=== PATIENT | female | born 1935 | race Caucasian/White ===

== ENCOUNTER 2022-03-28 13:03 | Inpatient (IN) | payer MEDICARE, BC, SELFPAY ==
[2022-03-28] VITALS (11 sets, daily range): BP systolic 80–204; BP diastolic 35–97; PULSE 44–56; RESP 16–20; TEMP 36.4–36.8; O2SAT 87–99; BMI 24.6; BMI 25.4
--- NOTE | 2022-03-28 13:36 | RAD_ITS ---
STUDY: X-RAY CHEST REASON FOR EXAM: Female, 86 years old. Dyspnea, bilateral rales, edema TECHNIQUE: PA and lateral views of the chest. COMPARISON: None. FINDINGS: Bibasilar pulmonary infiltrates worse on the right side. Blunting of both costal phrenic angles. Normal size heart. Normal mediastinum and kim. Normal visualized pulmonary arteries. There is atherosclerotic calcification of the aortic arch with tortuosity. There are diffuse degenerative changes of the visualized thoracic spine. There is degenerative osteoarthritis of the bilateral shoulders. There is no demonstrated abnormality of the visualized soft tissue structures of the upper abdomen. RAD/Chest PA and Lateral IMPRESSION: Bibasilar pulmonary infiltrates worse on the right side with blunting of both costophrenic angles. Electronically Signed: Armand Steele MD at 14:52 EST ,
--- NOTE | 2022-03-28 13:36 | EKG12_ITS ---
Test Reason : Blood Pressure : / mmHG Vent. Rate : 054 BPM Atrial Rate : 054 BPM P-R Int : 214 ms QRS Dur : 084 ms QT Int : 448 ms P-R-T Axes : 079 -23 047 degrees QTc Int : 424 ms Sinus bradycardia with 1st degree A-V block Nonspecific T wave abnormality Poor R wave progression Abnormal ECG Confirmed by JAGDEEP BERMUDEZ, GORDO ([id number]), scientific publications editor YENIFER VALLE ([id number]) on 03/30/2022 9:00:09 AM Referred By: WOLF Confirmed By:GORDO GANNON MD
--- NOTE | 2022-03-28 13:40 | NURSING ---
NO OLD EKGS
[2022-03-28 14:15] LABS: Absolute Neutrophil Count 5.7 X10^3/uL (2.0-7.7); Basophil# 0.04 X10^3/uL; Basophil% 0.6 % (0-1); Eosinophils% 1.4 % (0-5); Hematocrit 42.8 % (37-47); Hemoglobin 13.8 g/dL (12.0-15.0); Lymphocyte % 12.4 % (19-41); Mean Corp Hgb Conc 32.2 g/dL (32-36); Mean Corpuscular Hgb 29.8 pg (27.0-32.0); Mean Corpuscular Volume 92.4 fL (81-99); Mean Platelet Vol. 12.4 fl (6.2-12.0); Monocyte% 6.9 % (0-10); NRBC Flagged by Analyzer 0 % (0-5); Neutrophil # 5.69 X10^3/uL (2.7-7.7); Neutrophil % 78.4 % (47-70); Platelet Count 118 K/mm3 (150-450); RBC Distribution Width CV 18.2 % (11.6-14.6); Red Blood Count 4.63 M/mm3 (4.2-5.4); White Blood Count 7.3 K/mm3 (4.4-11.0)
--- NOTE | 2022-03-28 14:24 | EDS_ITS ---
HPI History of Present Illness Chief Complaint: Shortness of Breath Detail of Chief Complaint: Dyspnea, dyspnea on exertion and pedal edema Informant: patient and family Onset/Context/Timing Onset: Weeks Context: gradual Timing: Continuous Quality: Positive for Dyspnea on exertion; Negative for Orthopnea or PND Current Severity: Mild Maximum Severity: Severe Worsened by: Exertion Relieved by: Nothing Associated Symptoms Negative for cough, rhinorrhea, post nasal drip, ear pain, fever, sore throat, subjective, chills, sweats, clear sputum, white sputum, yellow sputum or green sputum Chest Pain: Positive for None Narrative Narrative: Patient is an 86-year-old woman who presents with shortness of breath. She had cardioversion performed at hospital in [place]. She had a VIK which revealed no thrombus. EF was not reported on the document she had. She was successfully cardioverted. She presents because of increased swelling, dyspnea and dyspnea on exertion. She denies orthopnea. PE Risk Factors: Negative for Cancer, OCP + Smoking + > 35, Prior DVT or PE, Recent immobilization, Recent surgery or Recent travel Prior similar symptoms: Yes Recent Illness/Hospitalization: Yes [facility], [facility] Medical History Atrial fibrillation Edema History of cardioversion Macular degeneration SOB (shortness of breath) Home Medications amiodarone 200 mg tablet 200 mg PO DAILY 03/28/22 [History Last Taken Unknown] apixaban 5 mg tablet (Eliquis) 5 mg PO BID 03/28/22 [History Last Taken Unknown] furosemide 20 mg tablet 20 mg PO DAILY 03/28/22 [History Last Taken Unknown] metoprolol tartrate 25 mg tablet 75 mg PO BID 03/28/22 [History Last Taken Unknown] Allergy/AdvReac Type Severity Reaction Status Date / Time Sulfa (Sulfonamide Allergy Angioedema Verified 03/28/22 13:07 Antibiotics) Surgical History no surgical history Social History (Updated 03/28/22 @ 14:[address] Reece Spence MD) household members: none Smoking Status: Never smoker substance use type: does not use ROS ROS ED Constitutional Constitutional ED: Denies chills, fever(s), sweats or weight loss Eyes Eyes: Denies blurry vision, change in vision or diplopia ENT ENT ED: Denies ear pain, rhinorrhea or sore throat Cardiovascular Cardiovascular: Reports other Details: Family reports slow heart rate. ; Denies chest pain, orthopnea, palpitations, paroxysmal nocturnal dyspnea or ra cing heartbeat Respiratory/Chest Respiratory/Chest: Reports dyspnea and dyspnea on exertion; Denies cough, orthopnea or paroxysmal nocturnal dyspnea Gastrointestinal Gastrointestinal: Denies abdominal pain, constipation, diarrhea, melena, nausea or vomiting Genitourinary Genitourinary ED: Denies dysuria or hematuria Musculoskeletal Musculoskeletal: Denies arthralgias, back pain, myalgias or neck pain Integumentary Denies Abrasions or rash Neurologic Neurologic: Denies headache(s), paresthesias or weakness Endocrine Endocrinology: Denies cold intolerance or heat intolerance Hematologic/Lymphatic Hematologic/Lymphatic: Denies easy bleeding or easy bruising EXAM Physical Exam Const Vital Signs: 03/28/22 13:04 03/28/22 13:52 Temperature 97.6 F L Temperature Source Temporal Pulse Rate 55 L Respiratory Rate 16 Respiratory Effort Normal Non-Labored Respiratory Depth Normal Respiratory Pattern Normal Blood Pressure 195/85 H Blood Pressure Mean 121 Pulse Ox 97 Oxygen Delivery Method Room Air Room Air Positive well nourished and well developed Constitutional Narrative: Patient is tachypneic. Patient has mild use of accessory muscles. Her heart rate is much more rapid than 16 times a minute. General Appearance ED: well developed and pallor; Negative for NAD HEENT Reports moist mucous membranes HEENT Narrative: Head is atraumatic normocephalic. Ears normal. Nares patent. Uvula midline. No deviation with protrusion. Eyes PERRL and EOMs intact bilaterally General Eye ED: Negative for pale conjunctiva or scleral icterus Neck no lymphadenopathy, supple, no meningeal signs and no JVD Resp No normal respiratory effort and No clear to auscultation bilaterally Effort and Inspection: Negative for pain with movement Auscultation: rales right lower and left base Cardio regular rhythm, S1 normal heart sound, S2 normal heart sound and no murmurs Rate: bradycardia GI non-tender, non-distended and no masses GI Narrative: There is no palpable pulsatile mass. There is no abdominal bruit Auscultation: normoactive bowel sounds Palpation: soft; Negative for hepatomegaly, splenomegaly or mass Back/Spine no CVA tenderness Extremity Extremity Narrative: Patient has significant edema of her lower extremities. General Extremety ED: Yes edema General Extremity: edema Neuro oriented x3, CN's II-XII intact bilaterally and no sensory deficits noted [place] Coma Scale: document GCS findings Spontaneous Obeys Commands Oriented 15 Sensorium / Orientation: alert Psych mental status grossly normal Mood & Affect: Negative for depressed Skin no wounds General Skin Exam: pallor; Negative for jaundice Lesions: no lesions Rashes: no rashes MDM MDM MDM Narrative Medical decision making narrative: Patient appears pale CBC was obtained to assess H&H. Electrolyte panel was obtained to assess renal function as possible cause of her being fluid overloaded versus cardiac ischemia. EKG, troponin and chest x-ray obtained. BNP was obtained as well. Lab Data Attestation: I reviewed the patient's lab results. Labs: Laboratory Results - last 24 hr 03/28/22 03/28/22 03/28/22 14:06 14:06 14:06 WBC 7.3 RBC 4.63 Hgb 13.8 Hct 42.8 MCV 92.4 MCH 29.8 MCHC 32.2 RDW Std Deviation 61.0 H RDW Coeff of Shahbaz 18.2 H Plt Count 118 L MPV 12.4 H Immature Gran % (Auto) 0.300 Neut % (Auto) 78.4 H Lymph % (Auto) 12.4 L [place] % (Auto) 6.9 Eos % (Auto) 1.4 Baso % (Auto) 0.6 Absolute Neuts (auto) 5.7 Absolute Lymphs (auto) 0.90 Nucleated RBC % 0 Sodium 139 Potassium 4.2 Chloride 102 Carbon Dioxide 28.0 Anion Gap 9 BUN 27 H Creatinine 0.98 Estim Creat Clear Calc 35.33 Est GFR (MDRD) Af Amer 69 Est GFR (MDRD) Non-Af 57 L BUN/Creatinine Ratio 27.5 H Glucose 112 H Calcium 9.9 Total Bilirubin 1.10 H AST 46 H ALT 52 Alkaline Phosphatase 109 Troponin I High Sens 63 H B-Natriuretic Peptide 1385.3 H Total Protein 7.6 Albumin 3.7 Globulin 3.9 Albumin/Globulin Ratio 0.9 Radiography Chest X-Ray - ED: 2 View and Read by ED Physician (Reviewed dust x-ray reveals infiltrates right greater than left and small bilateral effusions. Cardiac size is within normal limits. Osseous structures are unremarkable. Perihilar regions unremarkable.) Diagnostic Testing: Clinical Impression(s) from Imaging Studies Chest X-Ray 03/28/22 13:36 IMPRESSION: Bibasilar pulmonary infiltrates worse on the right side with blunting of both costophrenic angles. Electronically Signed: Armand Steele MD at 14:52 EST , EKG Initial EKG: Attestation: I personally reviewed and interpreted this EKG as follows: Interpretation: Sinus Bradycardia (Sinus bradycardia with a rate of 54 and first-degree AV block. AL interval 214 ms. Castration 84 ms. QT duration 4 to 48 ms. [place] is normal. There is minimal nonseptic changes noted.) Treatment and Re-Evaluation Narrative: Patient and family were informed of results and need for admission. Spoke with hospitalist. Patient to be admitted. Discharge Plan Triage Chief Complaint: Shortness of Breath ED Provider: Reece Spence Dx/Rx/DC Orders Clinical Impression: Bilateral pneumonia, New onset of congestive heart failure, Acute dyspnea, Hypertension, Anticoagulant long-term use Prescriptions: No Action amiodarone 200 mg tablet 200 mg PO DAILY furosemide 20 mg tablet 20 mg PO DAILY Label Comments: take 1 tablet by mouth once daily metoprolol tartrate 25 mg tablet 75 mg PO BID Label Comments: take 1 tablet by mouth twice a day Eliquis 5 mg tablet 5 mg PO BID Label Comments: take 1 tablet by mouth twice a day Primary Care Provider: Alonso Marques Referrals: Alonso Marques MD [Primary Care Provider] - Disposition Disposition: Acute Care Hospital [facility]
[2022-03-28 14:33] LABS: ALB/GLOB Ratio 0.9 RATIO (0.9-2.4); AST(SGOT) 46 U/L (15-37); Alanine Aminotransfer ALT/SGPT 52 U/L (13-56); Albumin, Serum 3.7 g/dL (3.2-5.0); Alkaline Phosphatase 109 U/L (45-117); Anion Gap 9 (5-15); BUN 27 mg/dL (7-18); BUN/Creat Ratio 27.5 RATIO (10-20); Calcium,Total 9.9 mg/dL (8.5-10.1); Chloride 102 mmol/L (98-107); Creatinine, Serum 0.98 mg/dL (0.55-1.02); EST Glomerular Filtration Rate 57 mL/min (>60); Est Glom Filt Rate - Afr Amer 69 mL/min (>60); Estimated Creatinine Clearance 35.33 ml/min; Globulin 3.9 g/dL (2.2-4.2); Glucose 112 mg/dL (74-106); Potassium 4.2 mmol/L (3.5-5.1); Protein, Total 7.6 g/dL (6.4-8.2); Sodium Level 139 mmol/L (136-145); Troponin-I HS 63 pg/mL (3.0-54.0)
[2022-03-28] MEDS: Furosemide 40 MG/4 ML Vial IV (16:58)
--- NOTE | 2022-03-28 16:58 | HP.PCM.HOS_ITS ---
HPI - General General Date of Admission: 03/28/22 Date of Service: 03/28/22 Chief Complaint: shortness of breath HPI Narrative GEENA FREEMAN, is a 86 F with a PMH as outlined who presents with a complaint of shortness of breath which had been going on since January 2022, but had worsened recently. She was in [place] return to [place] in January and states while she was in [place] she had cardioversion done for A. fib with RVR. When she came back she had A. fib with RVR and again had cardioversion done about 10 days ago at [facility]. She says she has been short of breath since she came back from [place] but since she had the cardioversion at [facility] 10 days ago she has been gradually going downhill with progressively worsening shortness of breath and worsening lower extremity edema. She denied any chest pain or palpitations and denied any dizziness, nausea or vomiting. She also denied orthopnea or any PND. Her daughter and niece said since she had a cardioversion at [facility] she has been bradycardic with a heart rate in the 50s and so they were concerned and brought her into the ED today. Review of systems was otherwise negative. She is on Lasix 20 mg daily and has been compliant with it. Vitals in the ED with temperature of 97.6 Fahrenheit with pulse rate of 54, blood pressure 198/97, respiratory rate of 16 and pulse ox of 87% on room air which came up to 96% on 2 L of oxygen. CBC showed WBC of 7.3, hemoglobin of 13.8 and platelets of 118. Chemistry was unremarkable with creatinine of 4.2 a nd total bilirubin of 1.1. Initial troponin was 63 and BNP was 1385. Chest xrray showed bibasilar pulmonary infiltrates worse on the right side with blunting of both costophrenic angles. EKG showed bradycardia with first degree AV block. She is being admitted to be managed for acute exacerbation of heart failure with unknown EF. [facility] Medical History Atrial fibrillation Edema History of cardioversion Macular degeneration SOB (shortness of breath) Home Medications amiodarone 200 mg tablet 200 mg PO DAILY 03/28/22 [History Last Taken Unknown] apixaban 5 mg tablet (Eliquis) 5 mg PO BID 03/28/22 [History Last Taken Unknown] furosemide 20 mg tablet 20 mg PO DAILY 03/28/22 [History Last Taken Unknown] metoprolol tartrate 25 mg tablet 75 mg PO BID 03/28/22 [History Last Taken Unknown] Allergy/AdvReac Type Severity Reaction Status Date / Time Sulfa (Sulfonamide Allergy Angioedema Verified 03/28/22 13:07 Antibiotics) Surgical History no surgical history Social History (Updated 03/28/22 @ 14:[address] Reece Spence MD) household members: none Smoking Status: Never smoker substance use type: does not use ROS Constitutional Constitutional: Reports fatigue, malaise and weakness; Denies anorexia, chills or fever(s) Eyes Eyes: Denies change in vision ENT HEENT: Denies dysphagia, headache(s), nasal congestion or sore throat Respiratory/Chest Respiratory/Chest: Reports dyspnea, shortness of breath at rest and shortness of breath with exertion; Denies cough, excessive phlegm production, hemoptysis, productive cough or wheezing Gastrointestinal Gastrointestinal: Denies abdominal pain, constipation, diarrhea, dyspepsia, nausea or vomiting Genitourinary Genitourinary: Denies burning urination, dysuria or urinary urgency Musculoskeletal Musculoskeletal: Denies arthralgias or joint pain Neurologic Neurologic: Denies confusion, dizziness, focal weakness, headache(s), numbness, seizure-like activity or seizures Psychiatric Psychiatric: Denies anxiety or depression Vital Signs Vital Signs Vital Signs: 03/28/22 13:04 03/28/22 13:52 03/28/22 15:03 Temperature 97.6 F L Temperature Source Temporal Pulse Rate 55 L 54 L Respiratory Rate 16 16 Respiratory Effort Normal Non-Labored Respiratory Depth Normal Respiratory Pattern Normal Blood Pressure 195/85 H 198/97 H Blood Pressure Mean 121 130 Pulse Ox 97 87 Oxygen Delivery Method Room Air Room Air Room Air Oxygen Flow Rate (L/min) 03/28/22 15:05 Temperature Temperature Source Pulse Rate Respiratory Rate Respiratory Effort Respiratory Depth Respiratory Pattern Blood Pressure Blood Pressure Mean Pulse Ox 96 Oxygen Delivery Method Nasal Cannula Oxygen Flow Rate (L/min) 2 Weight Weight: 122 lb Body Mass Index (BMI) 24.6 Physical Exam Const oriented x3 and no apparent distress General Appearance: cooperative HEENT normocephalic, head/scalp atraumatic, hearing grossly normal bilaterally and moist oral mucous membranes Mouth: oral and palatal mucosa normal Eyes PERRL, EOMs intact bilaterally and conjunctivae normal Neck no lymphadenopathy, supple and no JVD Resp Resp Narrative: diminished breath sounds bibasally, no wheezes or crackles. On 2L of oxygen. Cardio regular rate, regular rhythm, S1 normal heart sound, S2 normal heart sound and no murmurs GI normal to inspection, nondistended, normoactive bowel sounds, soft to palpation, non-tender and non-distended Extremity normal to inspection and full ROM Extremity Narrative: 3+ bipedal pitting edema Neuro oriented x3, CN's II-XII intact bilaterally, moves all extremities and no focal motor deficits Sensorium / Orientation: awake and alert Motor Exam: strength 5/5 throughout Psych affect normal Results Lab / Micro Data Result Diagrams: 03/28/22 14:06 03/28/22 14:06 Labs: Laboratory Results - last 24 hr 03/28/22 14:06: WBC 7.3, RBC 4.63, Hgb 13.8, Hct 42.8, MCV 92.4, MCH 29.8, MCHC 32.2, RDW Std Deviation 61.0 H, RDW Coeff of Shahbaz 18.2 H, Plt Count 118 L, MPV 12.4 H, Immature Gran % (Auto) 0.300, Neut % (Auto) 78.4 H, Lymph % (Auto) 12.4 L, [place] % (Auto) 6.9, Eos % (Auto) 1.4, Baso % (Auto) 0.6, Absolute Neuts (auto) 5.7, Absolute Lymphs (auto) 0.90, Nucleated RBC % 0 03/28/22 14:06: Sodium 139, Potassium 4.2, Chloride 102, Carbon Dioxide 28.0, Anion Gap 9, BUN 27 H, Creatinine 0.98, Estim Creat Clear Calc 35.33, Est GFR (MDRD) Af Amer 69, Est GFR (MDRD) Non-Af 57 L, BUN/Creatinine Ratio 27.5 H, Glucose 112 H, Calcium 9.9, Total Bilirubin 1.10 H, AST 46 H, ALT 52, Alkaline Phosphatase 109, Troponin I High Sens 63 H, Total Protein 7.6, Albumin 3.7, Globulin 3.9, Albumin/Globulin Ratio 0.9 03/28/22 14:06: B-Natriuretic Peptide 1385.3 H Radiology Impression Chest X-Ray 03/28/22 13:36 IMPRESSION: Bibasilar pulmonary infiltrates worse on the right side with blunting of both costophrenic angles. Electronically Signed: Armand Steele MD at 14:52 EST , Assessment & Plan Assessment/Plan (1) New onset of congestive heart failure: PLAN: Plan #Acute exacerbation of heart failure with unknown EF * admit to PCU * diurese with IV lasix 40mg bid * BNP is >1300; initial troponin is 63 * will cycle troponin * get 2D echo * monitor intake and output * fluid restriction to 1500cc daily * apply MACEY wraps to lower extremities * consult cardiology. * #Elevated troponin * initial troponin was 63. This may be precipitated by the acute heart failure. * will cycle troponins; if it trends upwards some more, then will treat as nonstemi * cardiology consulted * give aspirin 81mg daily * SL nitroglycerin prn * check lipid panel and A1C * * #Hypertension * BP is markedly elevated, in the 190s systolic * family says her BP has been very difficult to control, and has been elevated over the past few days * resume metoprol * will add on lisinopril. * IV hydralazine prn. * will give PO clonidine 0.3mg x 1 to help with BP * #Naomi cardoso * Had cardioversion back in January in [place] and also cardioversion about 10 days ago at [facility]. Became bradycardic after second cardioversion with heart rate going down to the 50s. * Heart rate was 54 at time of review today and EKG showed sinus bradycardia. * On amiodarone and metoprolol. Will monitor and adjust doses as needed on account of sinus bradycardia. * On Eliquis * #Sinus bradycardia with first-degree AV block: As above #? Community acquired pneumonia * CXR showed bilateral pulmonary infiltrates. She doesnt have a fever or productive cough, and I think this may be more due to heart failure. She was started on ceftriaxone and azithromycin * In light of her advanced age and frailty, I do not think it is unreasonable to cover her with antibiotics for pneumonia for at least 48 hours. * check urine for strep and legionella * DVT prophylaxis: already on eliquis Code status: full code * Patient counseled extensively about different types of CODE STATUS including full code, DNR CCA and DNR CCA. Patient elects to be full code * Daughter and niece in agreement. * Total [id number] time 17 minutes. Charges/Coding Visit Charges Inpatient E&M: 77357 Init Hosp L3 Procedures Hospitalists Procedures: 14745 Advncd Care Plan 30 Min
--- NOTE | 2022-03-28 17:02 | NURSING ---
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
[2022-03-28] MEDS: Clonidine HCl 0.1 MG, Clonidine HCl 0.2 MG 0.3 MG PO (18:22)
--- NOTE | 2022-03-28 19:20 | CON.PCM.CA_ITS ---
Assessment & Plan Assessment/Plan (1) New onset of congestive heart failure: PLAN: She appears have recent onset congestive heart failure. My suspicion is that this is heart failure with preserved ejection fraction I would like to obtain an echocardiogram to assess her ventricular function and depending on the findings further recommendations will be made. (2) Hypertension: PLAN: Her blood pressure is under good control at this particular time My recommendation is to continue her beta-emy at 50 mg twice a day Add lisinopril 20 mg a day Obtain echocardiogram to assess ventricular function (3) Atrial fibrillation: PLAN: She has a history of atrial fibrillation status post DC cardioversion. She is in sinus rhythm at this particular time but is bradycardic I would recommend that we continue the amiodarone at 200 mg a day and reduced the metoprolol to 50 mg twice a day. She will continue with anticoagulation. HPI Consult Data Date of Consult: 03/28/22 HPI Narrative HPI Narrative: GEENA FREEMAN, is a 86 F who presents with shortness of breath. She says that she called her office and was instructed to come to the emergency room if she was feeling bad because this would be a quicker way of getting to see me in the office. She had initially complained of shortness of breath since January 2022 and went to [place] but when she got to [place] she was noted to be in atrial fibrillation with rapid ventricular response rate and did not enjoy her stay there. She underwent a cardioversion done for atrial fibrillation with rapid ventricular response rate. She came back to [place] and went back into atrial fibrillation. She went for a repeat cardioversion this time at [facility] and says that since then she has not felt well. Her heart rate has been low she has had pedal edema she has had orthopnea paroxysmal nocturnal dyspnea and a cough. She denies any chest pain. They were concerned today about her heart rate and so they brought her to the emergency room. Vitals in the ED with temperature of 97.6 Fahrenheit with pulse rate of 54, blood pressure 198/97, respiratory rate of 16 and pulse ox of 87% on room air which came up to 96% on 2 L of oxygen.? CBC showed WBC of 7.3, hemoglobin of 13.8 and platelets of 118.? Chemistry was unremarkable with creatinine of 4.2 and total bilirubin of 1.1. Initial troponin was 63 and BNP was 1385. Chest xrray showed bibasilar pulmonary infiltrates worse on the right side with blunting of both costophrenic angles. EKG showed bradycardia with first degree AV block. She is being admitted to be managed for acute exacerbation of heart failure with unknown EF. [facility] Medical History (Updated 03/28/22 @ 19:[address] Brenton Duran MD) Atrial fibrillation Edema History of cardioversion Macular degeneration SOB (shortness of breath) Home Medications amiodarone 200 mg tablet 200 mg PO DAILY 03/28/22 [History Last Taken Unknown] apixaban 5 mg tablet (Eliquis) 5 mg PO BID 03/28/22 [History Last Taken Unknown] furosemide 20 mg tablet 20 mg PO DAILY 03/28/22 [History Last Taken Unknown] metoprolol tartrate 25 mg tablet 75 mg PO BID 03/28/22 [History Last Taken Unknown] Allergy/AdvReac Type Severity Reaction Status Date / Time Sulfa (Sulfonamide Allergy Angioedema Verified 03/28/22 13:07 Antibiotics) Surgical History no surgical history Social History household members: none Smoking Status: Never smoker substance use type: does not use ROS Constitutional Constitutional: Denies fever(s) or weight loss Eyes Eyes: Reports systems reviewed and no addt'l complaints, except as documented ENT HEENT: Reports systems reviewed and no addt'l complaints, except as documented Cardiovascular Cardiovascular: Reports dyspnea at rest, dyspnea on exertion and edema; Denies chest pain at rest, chest pain with activity, palpitations or paroxysmal nocturnal dyspnea Respiratory/Chest Respiratory/Chest: Reports shortness of breath at rest and shortness of breath with exertion; Denies dyspnea on exertion or productive cough Gastrointestinal Gastrointestinal: Denies change in bowel habits, nausea, vomiting or weight changes Genitourinary Genitourinary: Denies difficulty urinating Musculoskeletal Musculoskeletal: Denies joint stiffness or muscle weakness Integumentary Integumentary: Denies lesions Neurologic Neurologic: Denies dizziness or syncope Psychiatric Psychiatric: Denies anxiety Endocrine Endocrinology: Denies excessive sweating or fatigue Hematologic/Lymphatic Hematologic/Lymphatic: Denies anemia Allergic/Immunologic Allergic/Immunologic: Denies seasonal rhinorrhea Physical Exam Const alert, oriented x3 and no apparent distress General Appearance: cooperative HEENT hearing grossly normal bilaterally Head and Scalp: atraumatic Eyes EOMs intact bilaterally Neck General: normal visual inspection Chest inspection of chest normal and palpation of chest normal Resp normal respiratory effort Auscultation: clear to auscultation bilaterally Cardio regular rate, regular rhythm, S1 normal heart sound and S2 normal heart sound Jugular Venous Distention: JVD GI normal to inspection, nondistended, normoactive bowel sounds Extremity normal capillary refill General Extremity: edema Peripheral Pulses: Yes pulses 2+ throughout and femoral pulses present Skin no rashes or lesions noted Neuro oriented x3 and CN's II-XII intact bilaterally Psych Appearance: grossly normal and appropriate Risk Stratification Risk Stratification Applicable: No Objective Data Vital Signs: Vital Signs Temp Pulse Resp BP Pulse Ox O2 Del Method O2 Flow Rate 98.3 F 51 L 18 157/79 H 98 Nasal Cannula 2 03/28/22 17:02 03/28/22 19:00 03/28/22 19:00 03/28/22 19:00 03/28/22 19:00 03/28/22 19:00 03/28/22 19:00 Oxygen Flow Rate (L/min) 2 Oxygen Delivery Method Nasal Cannula Weight: 122 lb Body Mass Index (BMI) 24.6 Intake & Output: Intake and Output for Last 24 Hours 03/26/22 03/27/22 03/28/22 23:59 23:59 23:59 Intake Total 305 / 305 Output Total 800 / 800 Balance -495 / -495 Lab / Micro Data Result Diagrams: 03/28/22 14:06 03/28/22 14:06 Labs: Laboratory Results - last 24 hr 03/28/22 14:06: WBC 7.3, RBC 4.63, Hgb 13.8, Hct 42.8, MCV 92.4, MCH 29.8, MCHC 32.2, RDW Std Deviation 61.0 H, RDW Coeff of Shahbaz 18.2 H, Plt Count 118 L, MPV 12.4 H, Immature Gran % (Auto) 0.300, Neut % (Auto) 78.4 H, Lymph % (Auto) 12.4 L, Cassia % (Auto) 6.9, Eos % (Auto) 1.4, Baso % (Auto) 0.6, Absolute Neuts (auto) 5.7, Absolute Lymphs (auto) 0.90, Nucleated RBC % 0 03/28/22 14:06: Sodium 139, Potassium 4.2, Chloride 102, Carbon Dioxide 28.0, Anion Gap 9, BUN 27 H, Creatinine 0.98, Estim Creat Clear Calc 35.33, Est GFR (MDRD) Af Amer 69, Est GFR (MDRD) Non-Af 57 L, BUN/Creatinine Ratio 27.5 H, Glucose 112 H, Calcium 9.9, Total Bilirubin 1.10 H, AST 46 H, ALT 52, Alkaline Phosphatase 109, Troponin I High Sens 63 H, Total Protein 7.6, Albumin 3.7, Globulin 3.9, Albumin/Globulin Ratio 0.9 03/28/22 14:06: B-Natriuretic Peptide 1385.3 H Cardiology Labs/Tests 03/28/22 14:06: WBC 7.3, RBC 4.63, Hgb 13.8, Hct 42.8, MCV 92.4, MCH 29.8, MCHC 32.2, Plt Count 118 L, MPV 12.4 H, Immature Gran % (Auto) 0.300, Neut % (Auto) 78.4 H, Lymph % (Auto) 12.4 L, Cass[place] % (Auto) 6.9, Eos % (Auto) 1.4, Baso % (Auto) 0.6, Absolute Neuts (auto) 5.7, Nucleated RBC % 0 03/28/22 14:06: Sodium 139, Potassium 4.2, Chloride 102, Carbon Dioxide 28.0, Anion Gap 9, BUN 27 H, Creatinine 0.98, Est GFR (MDRD) Af Amer 69, Est GFR (MDRD) Non-Af 57 L, BUN/Creatinine Ratio 27.5 H, Glucose 112 H, Calcium 9.9, Total Bilirubin 1.10 H 03/28/22 14:06: B-Natriuretic Peptide 1385.3 H Rhythm: EKG: ECHO: Stress Test: Cardiac Cath: PCI: CT Surgery: Holter monitor: EPS: PPM: CXR: Chest CT Scan: Radiography Diagnostic Testing: Radiology Impression Chest X-Ray 03/28/22 13:36 IMPRESSION: Bibasilar pulmonary infiltrates worse on the right side with blunting of both costophrenic angles. Electronically Signed: Armand Steele MD at 14:52 EST ,
--- NOTE | 2022-03-28 19:33 | ECHOD_ITS ---
Reason For Study: Afib/Flutter Procedure This was a 2D Doppler, Color Flow transthoracic echocardiogram. Exam performed portable in patient room. Left Ventricle Normal LV size. D shaped septum in diastole. Left ventricular systolic function is lower limits of normal. The estimated ejection fraction is 50 %. Stage 3 diastolic dysfunction. No regional wall motion abnormalities noted. Right Ventricle Moderately dilated right ventricle. Mild to moderate global right ventricular systolic dysfunction. Atria The left atrium is moderately enlarged. The right atrium is moderately enlarged. Bubble contrast study negative for right to left interatrial shunt. Mitral Valve Normal mitral valve. Moderate (2+) eccentric mitral valve insufficiency. Tricuspid Valve Normal tricuspid valve. Moderate (2+) tricuspid valve insufficiency. Pulmonary artery systolic pressure is 78 mmHg. Severe pulmonary hypertension. Aortic Valve Trisinus/trileaflet aortic valve. Pulmonic Valve Normal pulmonic valve. Great Vessels Normal aortic root. The pulmonary artery is normal size. The inferior vena cava is dilated. Pericardium/Pleural No pericardial effusion. Medication Performed a rapid injection of agitated mix of 9 cc saline and 1cc air to assess for atrial septal defect. MMode/2D Measurements & Calculations LVIDd: 4.0 cm IVSd: 1.2 cm LA dimension: 4.6 cm LVIDs: 2.1 cm LVPWd: 0.92 cm RVDd: 3.8 cm FS: 47.7 % LAV(MOD-bp): 72.1 ml LA A4 area: 23.5 cm2 RA A4 area: 22.0 cm2 LAV(MOD-bp) Indexed: 47.8 ml/m2 LAV(MOD-sp2): 68.5 ml LAV(MOD-sp4): 74.8 ml Time Measurements MV dec time: 0.17 sec Doppler Measurements & Calculations MV E max christian: 114.1 cm/sec Lat Peak E' Christian: 6.6 cm/sec Med Peak E' Christian: 4.6 cm/sec MV A max christian: 40.2 cm/sec E/E' lat: 17.2 E/E' med: 24.9 MV E/A: 2.8 MV V2 max: 133.7 cm/sec MV P1/2t max christian: 133.7 cm/sec Ao V2 max: 150.8 cm/sec MV max P.1 mmHg MV P1/2t: 61.5 msec Ao max P.1 mmHg MV V2 mean: 43.1 cm/sec MV dec slope: 636.6 cm/sec2 Ao V2 mean: 108.2 cm/sec MV mean P.2 mmHg Ao mean P.4 mmHg MV V2 VTI: 35.3 cm MVA(P1/2t): 3.6 cm2 Ao V2 VTI: 38.7 cm AV (velocity ratio): 0.68 LV V1 max: 104.6 cm/sec MR max christian: 514.2 cm/sec PA V2 max: 70.3 cm/sec LV V1 max P.4 mmHg MR max P.8 mmHg LV V1 mean P.4 mmHg MR mean christian: 412.7 cm/sec LV V1 mean: 74.0 cm/sec MR mean P.5 mmHg LV V1 VTI: 26.5 cm MR VTI: 183.4 cm TR max christian: 424.2 cm/sec TR max P.0 mmHg ECHO/Echo Complete Interpretation Summary Normal LV size. Left ventricular systolic function is lower limits of normal. The estimated ejection fraction is 50 %. D shaped septum in diastole. Stage 3 diastolic dysfunction. Pulmonary artery systolic pressure is 78 mmHg. Severe pulmonary hypertension. The left atrium is moderately enlarged. The right atrium is moderately enlarged. Bubble contrast study negative for right to left interatrial shunt. Ordering Physician: Brenton Duran Performed By: Mark Pedro RCS
[2022-03-28 21:39] LABS: Troponin-I HS 95 pg/mL (3.0-54.0)
[2022-03-28] MEDS: APIXABAN 5 MG TABLET PO (22:16)
[2022-03-28 23:59] LABS: Troponin-I HS 84 pg/mL (3.0-54.0)
[2022-03-29] VITALS (11 sets, daily range): BP systolic 121–170; BP diastolic 50–69; PULSE 45–60; RESP 16–18; TEMP 36.5–36.9; O2SAT 87–99
[2022-03-29 03:25] LABS: Absolute Lymphocyte Count 1.02 X10^3/uL (0.83-4.51); Absolute Neutrophil Count 4.1 X10^3/uL (2.0-7.7); Basophil# 0.04 X10^3/uL; Basophil% 0.7 % (0-1); Eosinophil# 0.14 X10^3/uL; Eosinophils% 2.4 % (0-5); Hematocrit 38.1 % (37-47); Hemoglobin 12.3 g/dL (12.0-15.0); Lymphocyte # 1.02 X10^3/ul (0.83-4.51); Lymphocyte % 17.7 % (19-41); Mean Corp Hgb Conc 32.3 g/dL (32-36); Mean Corpuscular Hgb 29.6 pg (27.0-32.0); Mean Corpuscular Volume 91.8 fL (81-99); Mean Platelet Vol. 13.5 fl (6.2-12.0); Monocyte# 0.48 X10^3/uL; Monocyte% 8.3 % (0-10); NRBC Flagged by Analyzer 0 % (0-5); Neutrophil # 4.05 X10^3/uL (2.7-7.7); Neutrophil % 70.6 % (47-70); POSITIVE COUNT YES; Platelet Count 123 K/mm3 (150-450); RBC Distribution Width CV 17.6 % (11.6-14.6); RBC Distribution Width SD 59.4 fl (35.1-43.9); Red Blood Count 4.15 M/mm3 (4.2-5.4); White Blood Count 5.8 K/mm3 (4.4-11.0)
[2022-03-29 03:27] LABS: Differential Indicated SCAN CRITERIA MET
[2022-03-29 04:14] LABS: Anion Gap 7 (5-15); BUN 27 mg/dL (7-18); Chloride 103 mmol/L (98-107); Creatinine, Serum 0.87 mg/dL (0.55-1.02); EST Glomerular Filtration Rate 65 mL/min (>60); Est Glom Filt Rate - Afr Amer 79 mL/min (>60); Estimated Creatinine Clearance 41.07 ml/min; Glucose 92 mg/dL (74-106); Potassium 3.8 mmol/L (3.5-5.1); Sodium Level 140 mmol/L (136-145)
[2022-03-29 04:19] LABS: Anisocytosis 1+; Platelet Estimate SLT DEC (ADEQ); Platelet Morphology CLUMPED
[2022-03-29 04:41] LABS: Troponin-I HS 75 pg/mL (3.0-54.0)
--- NOTE | 2022-03-29 07:20 | PCM.PN.CARD ---
Subjective Subjective Patient was seen in the evaluated. Appears to be doing better this morning. Lying flat. Objective Data Vital Signs: Vital Signs Temp Pulse Resp BP Pulse Ox O2 Del Method O2 Flow Rate 97.9 F 45 L 18 121/55 H 98 Nasal Cannula 1 03/29/22 06:30 03/29/22 06:30 03/29/22 06:30 03/29/22 06:30 03/29/22 06:30 03/29/22 06:30 03/29/22 06:30 Oxygen Flow Rate (L/min) 1 Oxygen Delivery Method Nasal Cannula Weight: 125 lb 14.143 oz Body Mass Index (BMI) 25.4 Intake & Output: Intake and Output for Last 24 Hours 03/27/22 03/28/22 03/29/22 23:59 23:59 23:59 Intake Total 305 / 305 Output Total 1100 / 1100 400 / 400 Balance -795 / -795 -400 / -400 Lab / Micro Data Result Diagrams: 03/29/22 03:15 03/29/22 03:15 Labs: Laboratory Results - last 24 hr 03/28/22 14:06: WBC 7.3, RBC 4.63, Hgb 13.8, Hct 42.8, MCV 92.4, MCH 29.8, MCHC 32.2, RDW Std Deviation 61.0 H, RDW Coeff of Shahbaz 18.2 H, Plt Count 118 L, MPV 12.4 H, Immature Gran % (Auto) 0.300, Neut % (Auto) 78.4 H, Lymph % (Auto) 12.4 L, [place] % (Auto) 6.9, Eos % (Auto) 1.4, Baso % (Auto) 0.6, Absolute Neuts (auto) 5.7, Absolute Lymphs (auto) 0.90, Nucleated RBC % 0 03/28/22 14:06: Sodium 139, Potassium 4.2, Chloride 102, Carbon Dioxide 28.0, Anion Gap 9, BUN 27 H, Creatinine 0.98, Estim Creat Clear Calc 35.33, Est GFR (MDRD) Af Amer 69, Est GFR (MDRD) Non-Af 57 L, BUN/Creatinine Ratio 27.5 H, Glucose 112 H, Calcium 9.9, Total Bilirubin 1.10 H, AST 46 H, ALT 52, Alkaline Phosphatase 109, Troponin I High Sens 63 H, Total Protein 7.6, Albumin 3.7, Globulin 3.9, Albumin/Globulin Ratio 0.9 03/28/22 14:06: B-Natriuretic Peptide 1385.3 H 03/28/22 21:13: Troponin I High Sens 95 H 03/28/22 23:27: Troponin I High Sens 84 H 03/29/22 03:15: WBC 5.8, RBC 4.15 L, Hgb 12.3, Hct 38.1, MCV 91.8, MCH 29.6, MCHC 32.3, RDW Std Deviation 59.4 H, RDW Coeff of Shahbaz 17.6 H, Plt Count 123 L, MPV 13.5 H, Immature Gran % (Auto) 0.300, Neut % (Auto) 70.6 H, Lymph % (Auto) 17.7 L, [place] % (Auto) 8.3, Eos % (Auto) 2.4, Baso % (Auto) 0.7, Absolute Neuts (auto) 4.1, Absolute Lymphs (auto) 1.02, Nucleated RBC % 0, Platelet Estimate SLT DEC, Plt Morphology Comment CLUMPED, Anisocytosis 1+ 03/29/22 03:15: Sodium 140, Potassium 3.8, Chloride 103, Carbon Dioxide 30.0, Anion Gap 7, BUN 27 H, Creatinine 0.87, Estim Creat Clear Calc 41.07, Est GFR (MDRD) Af Amer 79, Est GFR (MDRD) Non-Af 65, BUN/Creatinine Ratio 31.0 H, Glucose 92, Calcium 9.0 03/29/22 03:15: Troponin I High Sens 75 H Cardiology Labs/Tests 03/28/22 14:06: WBC 7.3, RBC 4.63, Hgb 13.8, Hct 42.8, MCV 92.4, MCH 29.8, MCHC 32.2, Plt Count 118 L, MPV 12.4 H, Immature Gran % (Auto) 0.300, Neut % (Auto) 78.4 H, Lymph % (Auto) 12.4 L, [place] % (Auto) 6.9, Eos % (Auto) 1.4, Baso % (Auto) 0.6, Absolute Neuts (auto) 5.7, Nucleated RBC % 0 03/28/22 14:06: Sodium 139, Potassium 4.2, Chloride 102, Carbon Dioxide 28.0, Anion Gap 9, BUN 27 H, Creatinine 0.98, Est GFR (MDRD) Af Amer 69, Est GFR (MDRD) Non-Af 57 L, BUN/Creatinine Ratio 27.5 H, Glucose 112 H, Calcium 9.9, Total Bilirubin 1.10 H 03/28/22 14:06: B-Natriuretic Peptide 1385.3 H 03/29/22 03:15: WBC 5.8, RBC 4.15 L, Hgb 12.3, Hct 38.1, MCV 91.8, MCH 29.6, MCHC 32.3, Plt Count 123 L, MPV 13.5 H, Immature Gran % (Auto) 0.300, Neut % (Auto) 70.6 H, Lymph % (Auto) 17.7 L, [place] % (Auto) 8.3, Eos % (Auto) 2.4, Baso % (Auto) 0.7, Absolute Neuts (auto) 4.1, Nucleated RBC % 0 03/29/22 03:15: Sodium 140, Potassium 3.8, Chloride 103, Carbon Dioxide 30.0, Anion Gap 7, BUN 27 H, Creatinine 0.87, Est GFR (MDRD) Af Amer 79, Est GFR (MDRD) Non-Af 65, BUN/Creatinine Ratio 31.0 H, Glucose 92, Calcium 9.0 Rhythm: EKG: ECHO: Stress Test: Cardiac Cath: PCI: CT Surgery: Holter monitor: EPS: PPM: CXR: Chest CT Scan: Radiography Diagnostic Testing: Radiology Impression Chest X-Ray 03/28/22 13:36 IMPRESSION: Bibasilar pulmonary infiltrates worse on the right side with blunting of both costophrenic angles. Electronically Signed: Armand Steele MD at 14:52 EST , Physical Exam Const alert, oriented x3 and no apparent distress General Appearance: cooperative HEENT hearing grossly normal bilaterally Head and Scalp: atraumatic Eyes EOMs intact bilaterally Neck General: normal visual inspection Chest inspection of chest normal and palpation of chest normal Resp normal respiratory effort Auscultation: clear to auscultation bilaterally Cardio regular rate, regular rhythm, S1 normal heart sound and S2 normal heart sound Jugular Venous Distention: JVD GI normal to inspection, nondistended, normoactive bowel sounds Extremity normal capillary refill General Extremity: edema Peripheral Pulses: Yes pulses 2+ throughout and femoral pulses present Skin no rashes or lesions noted Neuro oriented x3 and CN's II-XII intact bilaterally Psych Appearance: grossly normal and appropriate Assessment & Plan Assessment/Plan (1) New onset of congestive heart failure: PLAN: She appears have recent onset congestive heart failure. My suspicion is that this is heart failure with preserved ejection fraction I would like to obtain an echocardiogram to assess her ventricular function and depending on the findings further recommendations will be made. (2) Hypertension: PLAN: Her blood pressure is under good control at this particular time My recommendation is to continue her beta-emy at 50 mg twice a day Add lisinopril 20 mg a day Obtain echocardiogram to assess ventricular function (3) Atrial fibrillation: PLAN: She has a history of atrial fibrillation status post DC cardioversion. She is in sinus rhythm at this particular time but is bradycardic I would recommend that we continue the amiodarone at 200 mg a day and reduced the metoprolol to 50 mg twice a day. She will continue with anticoagulation.
--- NOTE | 2022-03-29 07:44 | PN.HOSP_ITS ---
Objective Data Objective Data Vital Signs: Vital Signs Temp Pulse Resp BP Pulse Ox O2 Del Method O2 Flow Rate 97.9 F 45 L 18 121/55 H 98 Nasal Cannula 1 03/29/22 06:30 03/29/22 06:30 03/29/22 06:30 03/29/22 06:30 03/29/22 06:30 03/29/22 06:30 03/29/22 06:30 Oxygen Flow Rate (L/min) 1 Oxygen Delivery Method Nasal Cannula Weight: 125 lb 14.143 oz Body Mass Index (BMI) 25.4 Intake & Output: Intake and Output for Last 24 Hours 03/27/22 03/28/22 03/29/22 23:59 23:59 23:59 Intake Total 305 / 305 Output Total 1100 / 1100 400 / 400 Balance -795 / -795 -400 / -400 Lab / Micro Data Result Diagrams: 03/29/22 03:15 03/29/22 03:15 Labs: Laboratory Results - last 24 hr 03/28/22 14:06: WBC 7.3, RBC 4.63, Hgb 13.8, Hct 42.8, MCV 92.4, MCH 29.8, MCHC 32.2, RDW Std Deviation 61.0 H, RDW Coeff of Shahbaz 18.2 H, Plt Count 118 L, MPV 12.4 H, Immature Gran % (Auto) 0.300, Neut % (Auto) 78.4 H, Lymph % (Auto) 12.4 L, [place] % (Auto) 6.9, Eos % (Auto) 1.4, Baso % (Auto) 0.6, Absolute Neuts (auto) 5.7, Absolute Lymphs (auto) 0.90, Nucleated RBC % 0 03/28/22 14:06: Sodium 139, Potassium 4.2, Chloride 102, Carbon Dioxide 28.0, Anion Gap 9, BUN 27 H, Creatinine 0.98, Estim Creat Clear Calc 35.33, Est GFR (MDRD) Af Amer 69, Est GFR (MDRD) Non-Af 57 L, BUN/Creatinine Ratio 27.5 H, Glucose 112 H, Calcium 9.9, Total Bilirubin 1.10 H, AST 46 H, ALT 52, Alkaline Phosphatase 109, Troponin I High Sens 63 H, Total Protein 7.6, Albumin 3.7, Globulin 3.9, Albumin/Globulin Ratio 0.9 03/28/22 14:06: B-Natriuretic Peptide 1385.3 H 03/28/22 21:13: Troponin I High Sens 95 H 03/28/22 23:27: Troponin I High Sens 84 H 03/29/22 03:15: WBC 5.8, RBC 4.15 L, Hgb 12.3, Hct 38.1, MCV 91.8, MCH 29.6, MCHC 32.3, RDW Std Deviation 59.4 H, RDW Coeff of Shahbaz 17.6 H, Plt Count 123 L, MPV 13.5 H, Immature Gran % (Auto) 0.300, Neut % (Auto) 70.6 H, Lymph % (Auto) 17.7 L, [place] % (Auto) 8.3, Eos % (Auto) 2.4, Baso % (Auto) 0.7, Absolute Neuts (auto) 4.1, Absolute Lymphs (auto) 1.02, Nucleated RBC % 0, Platelet Estimate SLT DEC, Plt Morphology Comment CLUMPED, Anisocytosis 1+ 03/29/22 03:15: Sodium 140, Potassium 3.8, Chloride 103, Carbon Dioxide 30.0, Anion Gap 7, BUN 27 H, Creatinine 0.87, Estim Creat Clear Calc 41.07, Est GFR (MDRD) Af Amer 79, Est GFR (MDRD) Non-Af 65, BUN/Creatinine Ratio 31.0 H, Glucose 92, Calcium 9.0 03/29/22 03:15: Troponin I High Sens 75 H Radiography Diagnostic Testing: Radiology Impression Chest X-Ray 03/28/22 13:36 IMPRESSION: Bibasilar pulmonary infiltrates worse on the right side with blunting of both costophrenic angles. Electronically Signed: Armand Steele MD at 14:52 EST , Assessment & Plan Assessment/Plan (1) New onset of congestive heart failure: PLAN: Plan #Acute exacerbation of heart failure with unknown EF * admit to PCU * diurese with IV lasix 40mg bid * BNP is >1300; initial troponin is 63 * will cycle troponin * get 2D echo * monitor intake and output * fluid restriction to 1500cc daily * apply MACEY wraps to lower extremities * consult cardiology. * #Elevated troponin * initial troponin was 63. This may be precipitated by the acute heart failure. * will cycle troponins; if it trends upwards some more, then will treat as nonstemi * cardiology consulted * give aspirin 81mg daily * SL nitroglycerin prn * check lipid panel and A1C * * #Hypertension * BP is markedly elevated, in the 190s systolic * family says her BP has been very difficult to control, and has been elevated over the past few days * resume metoprol * will add on lisinopril. * IV hydralazine prn. * will give PO clonidine 0.3mg x 1 to help with BP * #Naomi cardoso * Had cardioversion back in January in [place] and also cardioversion about 10 days ago at [facility]. Became bradycardic after second cardioversion with heart rate going down to the 50s. * Heart rate was 54 at time of review today and EKG showed sinus bradycardia. * On amiodarone and metoprolol. Will monitor and adjust doses as needed on account of sinus bradycardia. * On Eliquis * #Sinus bradycardia with first-degree AV block: As above #? Community acquired pneumonia * CXR showed bilateral pulmonary infiltrates. She doesnt have a fever or productive cough, and I think this may be more due to heart failure. She was started on ceftriaxone and azithromycin * In light of her advanced age and frailty, I do not think it is unreasonable to cover her with antibiotics for pneumonia for at least 48 hours. * check urine for strep and legionella * DVT prophylaxis: already on eliquis Code status: full code * Patient counseled extensively about different types of CODE STATUS including full code, DNR CCA and DNR CCA. Patient elects to be full code * Daughter and niece in agreement. * Total [id number] time 17 minutes.
[2022-03-29] MEDS: Metoprolol Tartrate 50 MG Tablet PO ×2 (09:59→21:05)
[2022-03-29] MEDS: Amiodarone 200 MG Tablet PO (09:59)
[2022-03-29] MEDS: APIXABAN 5 MG TABLET PO ×2 (10:00→21:05)
[2022-03-29] MEDS: Furosemide 40 MG/4 ML Vial IV ×2 (10:00→17:26)
[2022-03-29] MEDS: Lisinopril 10 MG Tablet PO (10:03)
[2022-03-29] MEDS: 0.9% Saline Lock 10 ML Syringe IV ×3 (10:03→17:26)
--- NOTE | 2022-03-29 11:35 | CASEMGMT ---
RN CM Face to Face with patient for initial transition planning/care coordination assessment. RN CM introduced self and role at [facility]. Patient sitting in chair, alert and oriented. Patient willing to participate in assessment and is able to answer all questions appropriately. Care providers, pharmacy, and demographics verified. Patient wishes to discharge home, denies need for home health at this time. Patient states she has no further needs or concerns at this time. CM to follow for discharge planning needs that may arise. PCP: Shelli Specialists: Vocational Case Manager Virgen Rob Pharmacy: [facility] Insurance: Rogelio HANSON Prescription Benefit: yes Living Will/HPOA: yes, daughter Darby Rodriguez LNOK: daughter, son Living Arrangements: Patient lives alone in a first story condo with 1 step to enter. Patient states she is independent at home. Transportation: self, nieces, son DME/HHC: Patient states she has raised toilet at home. No previous HHC or SNF. No previous HHC or SNF. Disposition Plan: Patient to discharge home with family support and follow-up plans in place. Lindy MELÉNDEZ, RN, CM
--- NOTE | 2022-03-29 12:14 | DS.PCM_ITS ---
Providers Date of Admission: 03/28/22 Date of Discharge: 03/29/22 Primary Care Physician: Alonso Marques MD Consultations 03/28/22 20:07 Consult: Cardiology Routine Consulting Provider: Brenton Duran Reason for Consult: acute heart failure EMERGENT Consult: No MD Notified: Yes Date Notified: 03/28/22 Time Notified: 17:17 Method of Notification: Text Reason For Visit: ACUTE HEART FAILURE Diagnosis Discharge Diagnosis (1) New onset of congestive heart failure: Status: Acute Code(s): I50.9 - Heart failure, unspecified Plan This 86-year-old female was admitted with shortness of breath ongoing since January 2022 but has recently worsened. She has a history of paroxysmal A. fib had cardioversion in [place] in January. #Acute exacerbation of heart failure with unknown EF * admit to PCU * diurese with IV lasix 40mg bid * BNP is >1300; initial troponin is 63 * will cycle troponin * get 2D echo * monitor intake and output * fluid restriction to 1500cc daily * apply MACEY wraps to lower extremities * consult cardiology. * #Elevated troponin * initial troponin was 63. This may be precipitated by the acute heart failure. * will cycle troponins; if it trends upwards some more, then will treat as nonstemi * cardiology consulted * give aspirin 81mg daily * SL nitroglycerin prn * check lipid panel and A1C * * #Hypertension * BP is markedly elevated, in the 190s systolic * family says her BP has been very difficult to control, and has been elevated over the past few days * resume metoprol * will add on lisinopril. * IV hydralazine prn. * will give PO clonidine 0.3mg x 1 to help with BP * #A. fib * Had cardioversion back in January in [place] and also cardioversion about 10 days ago at [place]. Became bradycardic after second cardioversion with heart rate going down to the 50s. * Heart rate was 54 at time of review today and EKG showed sinus bradycardia. * On amiodarone and metoprolol. Will monitor and adjust doses as needed on account of sinus bradycardia. * On Eliquis * #Sinus bradycardia with first-degree AV block: As above #? Community acquired pneumonia * CXR showed bilateral pulmonary infiltrates. She doesnt have a fever or productive cough, and I think this may be more due to heart failure. She was started on ceftriaxone and azithromycin * In light of her advanced age and frailty, I do not think it is unreasonable to cover her with antibiotics for pneumonia for at least 48 hours. * check urine for strep and legionella * DVT prophylaxis: already on eliquis Code status: full code * Patient counseled extensively about different types of CODE STATUS including full code, DNR CCA and DNR CCA. Patient elects to be full code * Daughter and niece in agreement. * Total [id number] time 17 minutes. Medications at Discharge Home Medications amiodarone 200 mg tablet 200 mg PO DAILY 03/28/22 apixaban 5 mg tablet (Eliquis) 5 mg PO BID 03/28/22 calcium carb 300 mg-D3 800 unit-mag ox 25 mg-copy supervisor 0.5 mg-bert-Zn tablet (Caltrate + D3 Plus Minerals) 1 tab PO DAILY Check with primary doctor 03/28/22 vitamins A,C,R-cmqh-nzpspm 14,320 unit-226 mg-200 unit capsule (ICaps AREDS) 1 cap PO BID macular degeneration 03/28/22 furosemide 40 mg tablet (Lasix) 40 mg PO BID #60 tabs 03/29/22 levofloxacin 500 mg tablet 500 mg PO DAILY 4 days #4 tabs 03/29/22 lisinopril 10 mg tablet 10 mg PO DAILY #30 tabs 03/29/22 metoprolol tartrate 50 mg tablet 50 mg PO BID #60 tabs 03/29/22 Weight / BMI Weight Weight: 125 lb 14.143 oz Body Mass Index (BMI) 25.4 ABG / Lab / Microbiology Data Result Diagrams: 03/29/22 03:15 03/29/22 03:15 Laboratory: Laboratory Results - last 24 hr 03/28/22 14:06: WBC 7.3, RBC 4.63, Hgb 13.8, Hct 42.8, MCV 92.4, MCH 29.8, MCHC 32.2, RDW Std Deviation 61.0 H, RDW Coeff of Shahbaz 18.2 H, Plt Count 118 L, MPV 12.4 H, Immature Gran % (Auto) 0.300, Neut % (Auto) 78.4 H, Lymph % (Auto) 12.4 L, [place] % (Auto) 6.9, Eos % (Auto) 1.4, Baso % (Auto) 0.6, Absolute Neuts (auto) 5.7, Absolute Lymphs (auto) 0.90, Nucleated RBC % 0 03/28/22 14:06: Sodium 139, Potassium 4.2, Chloride 102, Carbon Dioxide 28.0, Anion Gap 9, BUN 27 H, Creatinine 0.98, Estim Creat Clear Calc 35.33, Est GFR (MDRD) Af Amer 69, Est GFR (MDRD) Non-Af 57 L, BUN/Creatinine Ratio 27.5 H, Glucose 112 H, Calcium 9.9, Total Bilirubin 1.10 H, AST 46 H, ALT 52, Alkaline Phosphatase 109, Troponin I High Sens 63 H, Total Protein 7.6, Albumin 3.7, Globulin 3.9, Albumin/Globulin Ratio 0.9 03/28/22 14:06: B-Natriuretic Peptide 1385.3 H 03/28/22 21:13: Troponin I High Sens 95 H 03/28/22 23:27: Troponin I High Sens 84 H 03/29/22 03:15: WBC 5.8, RBC 4.15 L, Hgb 12.3, Hct 38.1, MCV 91.8, MCH 29.6, MCHC 32.3, RDW Std Deviation 59.4 H, RDW Coeff of Shahbaz 17.6 H, Plt Count 123 L, MPV 13.5 H, Immature Gran % (Auto) 0.300, Neut % (Auto) 70.6 H, Lymph % (Auto) 17.7 L, [place] % (Auto) 8.3, Eos % (Auto) 2.4, Baso % (Auto) 0.7, Absolute Neuts (auto) 4.1, Absolute Lymphs (auto) 1.02, Nucleated RBC % 0, Platelet Estimate SLT DEC, Plt Morphology Comment CLUMPED, Anisocytosis 1+ 03/29/22 03:15: Sodium 140, Potassium 3.8, Chloride 103, Carbon Dioxide 30.0, Anion Gap 7, BUN 27 H, Creatinine 0.87, Estim Creat Clear Calc 41.07, Est GFR (MDRD) Af Amer 79, Est GFR (MDRD) Non-Af 65, BUN/Creatinine Ratio 31.0 H, Glucose 92, Calcium 9.0 03/29/22 03:15: Troponin I High Sens 75 H Radiography Diagnostic Testing: Radiology Impression Chest X-Ray 03/28/22 13:36 IMPRESSION: Bibasilar pulmonary infiltrates worse on the right side with blunting of both costophrenic angles. Electronically Signed: Armand Steele MD at 14:52 EST , Echocardiogram 03/28/22 19:33 Interpretation Summary Normal LV size. Left ventricular systolic function is lower limits of normal. The estimated ejection fraction is 50 %. D shaped septum in diastole. Stage 3 diastolic dysfunction. Pulmonary artery systolic pressure is 78 mmHg. Severe pulmonary hypertension. The left atrium is moderately enlarged. The right atrium is moderately enlarged. Bubble contrast study negative for right to left interatrial shunt. Ordering Physician: Brenton Duran Performed By: Mark Pedro RCS D/C Instructions Discharge Diet: 2000 mg Sodium Diet Weight Bearing Status: Weight bearing as tolerated Call your doctor if you observe: Fever of 101 or Higher, Coldness, Increased Pain, Numbness or Tingling, Change in Color, Inability to urinate, Inability to have a bowel movement, Using more than 1 pad per hour, Shortness of breath, Dizziness, Fainting spells, Swelling in the ankles, Chest pain, Prolonged hiccupping, Increased palpitations (irregular heartbeat) and Calf discomfort When: IN 2 WEEKS Discharge Plan Admission Admit Date/Time: 03/28/22 17:14 Primary Reason for Your Visit: CHF exacerbation Attending Provider: Kolby De Luna Primary Care Provider: Alonso Marques Consulting Providers: Brenton Duran ; Larisa Caceres Discharge Orders/Prescriptions Prescriptions: New lisinopril 10 mg Tablet 10 mg PO DAILY Qty: 30 2RF metoprolol tartrate 50 mg Tablet 50 mg PO BID Qty: 60 2RF furosemide [Lasix] 40 mg tablet 40 mg PO BID Qty: 60 2RF levofloxacin 500 mg tablet 500 mg PO DAILY 4 Days Qty: 4 0RF Continued amiodarone 200 mg tablet 200 mg PO DAILY Eliquis 5 mg tablet 5 mg PO BID Label Comments: take 1 tablet by mouth twice a day ICaps AREDS 14,320-226-200 psic-oh-ompl Capsule 1 cap PO BID Caltrate + D3 Plus Minerals 300 mg-800 unit -25 mg-0.5 mg Tablet 1 tab PO DAILY Discontinued furosemide 20 mg tablet 20 mg PO DAILY Label Comments: take 1 tablet by mouth once daily metoprolol tartrate 25 mg tablet 75 mg PO BID Label Comments: take 1 tablet by mouth twice a day Referrals / Follow Up: Pardeep Dominguez NP, [employer] [Med Staff - [facility]] - 04/15/22 1:30 pm Alonso Marques MD [Primary Care Provider] - Disposition Disposition (needs filled in before D/C Order can be placed): Home, Self Care
--- NOTE | 2022-03-29 12:31 | PN.HOSP_ITS ---
Subjective Subjective Follow-up for new onset of heart failure exacerbation along with her comorbidities of paroxysmal A. fib and multiple cardioversion. Denies chest pain. Objective Data Objective Data Vital Signs: Vital Signs Temp Pulse Resp BP Pulse Ox O2 Del Method O2 Flow Rate 98.0 F 50 L 16 121/50 H 92 Room Air 1 03/29/22 10:00 03/29/22 10:00 03/29/22 10:00 03/29/22 10:00 03/29/22 10:00 03/29/22 10:00 03/29/22 06:30 Oxygen Flow Rate (L/min) 1 Oxygen Delivery Method Room Air Weight: 125 lb 14.143 oz Body Mass Index (BMI) 25.4 Intake & Output: Intake and Output for Last 24 Hours 03/27/22 03/28/22 03/29/22 23:59 23:59 23:59 Intake Total 305 / 305 120 / 120 Output Total 1100 / 1100 650 / 650 Balance -795 / -795 -530 / -530 Lab / Micro Data Result Diagrams: 03/29/22 03:15 03/29/22 03:15 Labs: Laboratory Results - last 24 hr 03/28/22 14:06: WBC 7.3, RBC 4.63, Hgb 13.8, Hct 42.8, MCV 92.4, MCH 29.8, MCHC 32.2, RDW Std Deviation 61.0 H, RDW Coeff of Shahbaz 18.2 H, Plt Count 118 L, MPV 12.4 H, Immature Gran % (Auto) 0.300, Neut % (Auto) 78.4 H, Lymph % (Auto) 12.4 L, [place] % (Auto) 6.9, Eos % (Auto) 1.4, Baso % (Auto) 0.6, Absolute Neuts (auto) 5.7, Absolute Lymphs (auto) 0.90, Nucleated RBC % 0 03/28/22 14:06: Sodium 139, Potassium 4.2, Chloride 102, Carbon Dioxide 28.0, Anion Gap 9, BUN 27 H, Creatinine 0.98, Estim Creat Clear Calc 35.33, Est GFR (MDRD) Af Amer 69, Est GFR (MDRD) Non-Af 57 L, BUN/Creatinine Ratio 27.5 H, Glucose 112 H, Calcium 9.9, Total Bilirubin 1.10 H, AST 46 H, ALT 52, Alkaline Phosphatase 109, Troponin I High Sens 63 H, Total Protein 7.6, Albumin 3.7, Globulin 3.9, Albumin/Globulin Ratio 0.9 03/28/22 14:06: B-Natriuretic Peptide 1385.3 H 03/28/22 21:13: Troponin I High Sens 95 H 03/28/22 23:27: Troponin I High Sens 84 H 03/29/22 03:15: WBC 5.8, RBC 4.15 L, Hgb 12.3, Hct 38.1, MCV 91.8, MCH 29.6, MCHC 32.3, RDW Std Deviation 59.4 H, RDW Coeff of Shahbaz 17.6 H, Plt Count 123 L, MPV 13.5 H, Immature Gran % (Auto) 0.300, Neut % (Auto) 70.6 H, Lymph % (Auto) 17.7 L, [place] % (Auto) 8.3, Eos % (Auto) 2.4, Baso % (Auto) 0.7, Absolute Neuts (auto) 4.1, Absolute Lymphs (auto) 1.02, Nucleated RBC % 0, Platelet Estimate SL T DEC, Plt Morphology Comment CLUMPED, Anisocytosis 1+ 03/29/22 03:15: Sodium 140, Potassium 3.8, Chloride 103, Carbon Dioxide 30.0, Anion Gap 7, BUN 27 H, Creatinine 0.87, Estim Creat Clear Calc 41.07, Est GFR (MDRD) Af Amer 79, Est GFR (MDRD) Non-Af 65, BUN/Creatinine Ratio 31.0 H, Glucose 92, Calcium 9.0 03/29/22 03:15: Troponin I High Sens 75 H Radiography Diagnostic Testing: Radiology Impression Chest X-Ray 03/28/22 13:36 IMPRESSION: Bibasilar pulmonary infiltrates worse on the right side with blunting of both costophrenic angles. Electronically Signed: Armand Steele MD at 14:52 EST , Echocardiogram 03/28/22 19:33 Interpretation Summary Normal LV size. Left ventricular systolic function is lower limits of normal. The estimated ejection fraction is 50 %. D shaped septum in diastole. Stage 3 diastolic dysfunction. Pulmonary artery systolic pressure is 78 mmHg. Severe pulmonary hypertension. The left atrium is moderately enlarged. The right atrium is moderately enlarged. Bubble contrast study negative for right to left interatrial shunt. Ordering Physician: Brenton Duran Performed By: Mark Pedro RCS Physical Exam Narrative Physical exam General: Alert, Oriented x3, Cooperative HEENT: Atraumatic, PERRLA, EOMI, Normocephalic Oral: No Gingival or Mucosal Lesions/ Ulcerations Neck: Supple, No JVD, Negative Carotid Bruits Lungs: Air entry diminished in bilateral lung bases. No crepitation/rhonchi, lungs clear Cardiovascular: Regular rate, Regular Rhythm, Normal S1, Normal S2, systolic murmur over LLSB and cardiac apex Abdomen: Bowel Sounds Present, Soft, Non Tender, Non-Distended : No renal angle tenderness. No suprapubic tenderness. Extremities: 2-3+ bilateral ankle pitting edema, Capillary Refill Less than 3 Seconds Skin: No rashes, No breakdown Musculoskeletal: No Tenderness to Palpation of Joints or Extremities Neurological: Cranial nerves II-XII grossly intact, DTR 2+/4 and Symmetrical, Neuro grossly intact Psych/Mental Status: Normal Affect, Appropriate. Assessment & Plan Assessment/Plan (1) New onset of congestive heart failure: PLAN: Plan This 86-year-old female was admitted with shortness of breath ongoing since January 2022 but has recently worsened. She did not had orthopnea or PND. No chest pain. The patient had 2 cardioversions one in [place] in January and another in [facility] for A. fib RVR. Chest x-ray mutilative shows bilateral infiltrate consistent with pulmonary edema. #Acute exacerbation of heart failure with unknown EF: Patient currently in PCU. Started on Lasix 40 mg IV twice daily. Heart failure core measures including intake and output, fluid restriction less than 1500 mL, daily weight monitoring, kidney and electrolytes monitoring. * BNP is >1300; troponins flat and little elevated. I do not think patient had non-STEMI as she did not have chest pain but probably acute myocardial injury from heart failure exacerbation. * 2D echo was done EF 50% lower limit of normal, stage III diastolic dysfunction, no regional wall motion abnormalities. Moderately dilated RV, LA and RA moderately enlarged. Moderate 2+ MR. Moderate 2+ TR. Bubble study negative for R to L interatrial shunt. Overall suggestive of acute on chronic HFpEF * [employer] consult reviewed. Metoprolol 50 mg twice daily, continue amiodarone. Lisinopril 10 mg daily. Controlled heart rate and BP. Patient is discharged on Lasix 40 mg p.o. daily. #Hypertension * BP was markedly elevated, in the 190s systolic * family says her BP has been very difficult to control, and has been elevated over the past few days * resume metoprol. Patient was also given clonidine 0.3 mg. * Lisinopril was started and patient blood pressure currently in systolic 120s. #Paroxysmal A. fib * Had cardioversion back in January in [place] and also cardioversion about 10 days ago at [place]. Became bradycardic after second cardioversion with heart rate going down to the 50s. * Heart rate was 54 at time of review today and EKG showed sinus bradycardia. * On amiodarone and metoprolol. Will monitor and adjust doses as needed on account of sinus bradycardia. * On Eliquis #Sinus bradycardia with first-degree AV block: As above Currently patient is in sinus rhythm. Suspected acquired pneumonia based on chest x-ray. Clinically patient does not have cough chest pain or tachypnea. Empirically patient was given IV ceftriaxone and Zithromax and discharged on 4 more days of Levaquin total of 5 days DVT prophylaxis: already on eliquis Code status: full code * Patient counseled extensively about different types of CODE STATUS including full code, DNR CCA and DNR CCA. Patient elects to be full code * Daughter and niece in agreement. #Acute exacerbation of heart failure with unknown EF * admit to PCU * diurese with IV lasix 40mg bid * BNP is >1300; initial troponin is 63 * will cycle troponin * get 2D echo * monitor intake and output * fluid restriction to 1500cc daily * apply MACEY wraps to lower extremities * consult cardiology. * #Elevated troponin * initial troponin was 63. This may be precipitated by the acute heart failure. * will cycle troponins; if it trends upwards some more, then will treat as nonstemi * cardiology consulted * give aspirin 81mg daily * SL nitroglycerin prn * check lipid panel and A1C * * #Hypertension * BP is markedly elevated, in the 190s systolic * family says her BP has been very difficult to control, and has been elevated over the past few days * resume metoprol * will add on lisinopril. * IV hydralazine prn. * will give PO clonidine 0.3mg x 1 to help with BP * #AIrving cardoso * Had cardioversion back in January in [place] and also cardioversion about 10 days ago at [place]. Became bradycardic after second cardioversion with heart rate going down to the 50s. * Heart rate was 54 at time of review today and EKG showed sinus bradycardia. * On amiodarone and metoprolol. Will monitor and adjust doses as needed on account of sinus bradycardia. * On Eliquis * #Sinus bradycardia with first-degree AV block: As above #? Community acquired pneumonia * CXR showed bilateral pulmonary infiltrates. She doesnt have a fever or productive cough, and I think this may be more due to heart failure. She was started on ceftriaxone and azithromycin * In light of her advanced age and frailty, I do not think it is unreasonable to cover her with antibiotics for pneumonia for at least 48 hours. * check urine for strep and legionella * DVT prophylaxis: already on eliquis Code status: full code * Patient counseled extensively about different types of CODE STATUS including full code, DNR CCA and DNR CCA. Patient elects to be full code * Daughter and niece in agreement. * Total [id number]-vqgg time 17 minutes. Charges/Coding Visit Charges Inpatient E&M: 42087 Subs Hosp L2
[2022-03-29] MEDS: Ceftriaxone 1 GM/50 ML BAG IV (13:04)
[2022-03-29 13:26] LABS: Cholesterol 146 mg/dL (200); High Density Lipoprotein 43 mg/dL; Triglycerides 87 mg/dL; Very Low Density Lipoprotein 17 mg/dL (5-40)
[2022-03-30] VITALS (8 sets, daily range): BP systolic 142–163; BP diastolic 58–64; PULSE 53–58; RESP 18; TEMP 36.4–36.8; O2SAT 86–100
--- NOTE | 2022-03-30 07:22 | PCM.PN.CARD ---
Subjective Subjective Patient was seen and evaluated. Doing well. Breathing better than yesterday. Objective Data Vital Signs: Vital Signs Temp Pulse Resp BP Pulse Ox O2 Del Method O2 Flow Rate 97.6 F L 55 L 18 142/64 H 100 Nasal Cannula 2 03/30/22 03:05 03/30/22 03:34 03/30/22 03:05 03/30/22 03:05 03/30/22 03:05 03/30/22 03:05 03/30/22 03:05 Oxygen Flow Rate (L/min) 2 Oxygen Delivery Method Nasal Cannula Weight: 125 lb 14.143 oz Body Mass Index (BMI) 25.4 Intake & Output: Intake and Output for Last 24 Hours 03/28/22 03/29/22 03/30/22 23:59 23:59 23:59 Intake Total 305 / 305 610 / 610 120 / 120 Output Total 1100 / 1100 1250 / 1250 300 / 300 Balance -795 / -795 -640 / -640 -180 / -180 Lab / Micro Data Result Diagrams: 03/29/22 03:15 03/29/22 03:15 Labs: Laboratory Results - last 24 hr 03/29/22 03:15: Triglycerides 87, Cholesterol 146, LDL Cholesterol 86, VLDL Cholesterol 17, HDL Cholesterol 43 Cardiology Labs/Tests 03/29/22 03:15: Triglycerides 87, Cholesterol 146, LDL Cholesterol 86, VLDL Cholesterol 17, HDL Cholesterol 43 Rhythm: EKG: ECHO: Stress Test: Cardiac Cath: PCI: CT Surgery: Holter monitor: EPS: PPM: CXR: Chest CT Scan: Radiography Diagnostic Testing: Radiology Impression Echocardiogram 03/28/22 19:33 Interpretation Summary Normal LV size. Left ventricular systolic function is lower limits of normal. The estimated ejection fraction is 50 %. D shaped septum in diastole. Stage 3 diastolic dysfunction. Pulmonary artery systolic pressure is 78 mmHg. Severe pulmonary hypertension. The left atrium is moderately enlarged. The right atrium is moderately enlarged. Bubble contrast study negative for right to left interatrial shunt. Ordering Physician: Brenton Duran Performed By: Mark Pedro RCS Physical Exam Const alert, oriented x3 and no apparent distress General Appearance: cooperative HEENT hearing grossly normal bilaterally Head and Scalp: atraumatic Eyes EOMs intact bilaterally Neck General: normal visual inspection Chest inspection of chest normal and palpation of chest normal Resp normal respiratory effort Auscultation: clear to auscultation bilaterally Cardio regular rate, regular rhythm, S1 normal heart sound and S2 normal heart sound Jugular Venous Distention: JVD GI normal to inspection, nondistended, normoactive bowel sounds Extremity normal capillary refill General Extremity: edema Peripheral Pulses: Yes pulses 2+ throughout and femoral pulses present Skin no rashes or lesions noted Neuro oriented x3 and CN's II-XII intact bilaterally Psych Appearance: grossly normal and appropriate Assessment & Plan Assessment/Plan (1) New onset of congestive heart failure: PLAN: She appears have recent onset congestive heart failure. My suspicion is that this is heart failure with preserved ejection fraction Her echocardiogram demonstrated low normal ejection fraction with right ventricular systolic dysfunction and elevated pulmonary pressures. Will continue with the beta-emy Continue with diuretics and switch to p.o. Lasix 40 mg twice daily Can follow-up as outpatient (2) Hypertension: PLAN: Her blood pressure is under good control at this particular time My recommendation is to continue her beta-emy at 50 mg twice a day Add lisinopril 10 mg a day (3) Atrial fibrillation: PLAN: She has a history of atrial fibrillation status post DC cardioversion. She is in sinus rhythm at this particular time but is bradycardic I would recommend that we continue the amiodarone at 200 mg a day and reduced the metoprolol to 50 mg twice a day. She will continue with anticoagulation.
--- NOTE | 2022-03-30 07:59 | DS.PCM_ITS ---
Providers Date of Admission: 03/28/22 Date of Discharge: 03/30/22 Primary Care Physician: Alonso Marques MD Consultations 03/28/22 20:07 Consult: Cardiology Routine Consulting Provider: Brenton Duran Reason for Consult: acute heart failure EMERGENT Consult: No MD Notified: Yes Date Notified: 03/28/22 Time Notified: 17:17 Method of Notification: Text Reason For Visit: ACUTE HEART FAILURE Diagnosis Discharge Diagnosis (1) New onset of congestive heart failure: Status: Acute Code(s): I50.9 - Heart failure, unspecified (2) Hypertension: Status: Chronic Code(s): I10 - Essential (primary) hypertension (3) Atrial fibrillation: Status: Acute Code(s): I48.91 - Unspecified atrial fibrillation Plan This 86-year-old female was admitted with shortness of breath ongoing since January 2022 but has recently worsened. She did not had orthopnea or PND. No chest pain. The patient had 2 cardioversions one in [place] in January and another in [facility] for A. fib RVR. Chest x-ray mutilative shows bilateral infiltrate consistent with pulmonary edema. #Acute exacerbation of heart failure with unknown EF: Patient currently in PCU. Started on Lasix 40 mg IV twice daily. Heart failure core measures including intake and output, fluid restriction less than 1500 mL, daily weight monitoring, kidney and electrolytes monitoring. * BNP is >1300; troponins flat and little elevated. I do not think patient had non-STEMI as she did not have chest pain but probably acute myocardial injury from heart failure exacerbation. * 2D echo was done EF 50% lower limit of normal, stage III diastolic dysfunction, no regional wall motion abnormalities. Moderately dilated RV, LA and RA moderately enlarged. Moderate 2+ MR. Moderate 2+ TR. Bubble study negative for R to L interatrial shunt. Overall suggestive of acute on chronic HFpEF * Lead Esthetician consult reviewed. Metoprolol 50 mg twice daily, continue amiodarone. Lisinopril 10 mg daily. Controlled heart rate and BP. 03/30 : Patient is doing good. BP elevated but it fluctuates. Patient is discharged home furosemide 40 mg twice daily, metoprolol 50 mg twice daily. Lisinopril 10 mg added during hospital course. Patient blood pressure fluctuates from low 120s to 170s. Follow-up with outpatient PCP with home BP monitoring and if BP remains consistently high more than systolic 150 mmHg, consider increasing lisinopril to 20 mg daily #Hypertension * BP was markedly elevated, in the 190s systolic * family says her BP has been very difficult to control, and has been elevated over the past few days * resume metoprol. Patient was also given clonidine 0.3 mg. * Lisinopril was started and patient blood pressure currently in systolic 120s. 03/30: BP today 170 but fluctuates. Monitor for next 2 days before increasing lisinopril. #Paroxysmal A. fib * Had cardioversion back in January in [place] and also cardioversion about 10 days ago at [place]. Became bradycardic after second cardioversion with heart rate going down to the 50s. * Heart rate was 54 at time of review today and EKG showed sinus bradycardia. * On amiodarone and metoprolol. Will monitor and adjust doses as needed on account of sinus bradycardia. * On Eliquis #Sinus bradycardia with first-degree AV block: As above Currently patient is in sinus rhythm. 03/30: Heart rate in 50s. Continue metoprolol as mentioned above. Suspected acquired pneumonia based on chest x-ray. Clinically patient does not have cough chest pain or tachypnea. Empirically patient was given IV ceftriaxone and Zithromax and discharged on 4 more days of Levaquin total of 5 days DVT prophylaxis: already on eliquis Code status: full code Discharge medication reconciliation done. Discharge follow-up instructions completed. Discharge process discussed with the patient and all questions were answered to patient's satisfaction. Total time spent, exact 35 minutes on discharge meds reconciliation, examination, coordination of care with nurses and ancillary staff, review of imaging and blood test and discussion with the patient on follow-up instructions. Medications at Discharge Home Medications amiodarone 200 mg tablet 200 mg PO DAILY 03/28/22 apixaban 5 mg tablet (Eliquis) 5 mg PO BID 03/28/22 calcium carb 300 mg-D3 800 unit-mag ox 25 mg-coping machine operator 0.5 mg-bert-Zn tablet (Caltrate + D3 Plus Minerals) 1 tab PO DAILY Check with primary doctor 03/28/22 vitamins A,C,G-jrgl-zbulmf 4,296 mcg-226 mg-90 mg capsule (ICaps AREDS) 1 cap PO BID macular degeneration 03/28/22 furosemide 40 mg tablet (Lasix) 40 mg PO BID #60 tabs 03/29/22 levofloxacin 500 mg tablet 500 mg PO DAILY 4 days #4 tabs 03/29/22 lisinopril 10 mg tablet 10 mg PO DAILY #30 tabs 03/29/22 metoprolol tartrate 50 mg tablet 50 mg PO BID #60 tabs 03/29/22 Physical Exam Narrative Physical exam General: Alert, Oriented x3, Cooperative HEENT: Atraumatic, PERRLA, EOMI, Normocephalic Oral: No Gingival or Mucosal Lesions/ Ulcerations Neck: Supple, No JVD, Negative Carotid Bruits Lungs: Air entry diminished in bilateral lung bases. No crepitation/rhonchi, lungs clear Cardiovascular: Sinus rhythm, bradycardia, Normal S1, Normal S2, systolic murmur over LLSB and cardiac apex Abdomen: Bowel Sounds Present, Soft, Non Tender, Non-Distended : No renal angle tenderness. No suprapubic tenderness. Extremities: 2-3+ bilateral ankle pitting edema, Capillary Refill Less than 3 Seconds Skin: No rashes, No breakdown Musculoskeletal: No Tenderness to Palpation of Joints or Extremities Neurological: Cranial nerves II-XII grossly intact, DTR 2+/4 and Symmetrical, Neuro grossly intact Psych/Mental Status: Normal Affect, Appropriate. Weight / BMI Weight Weight: 125 lb 14.143 oz Body Mass Index (BMI) 25.4 ABG / Lab / Microbiology Data Result Diagrams: 03/29/22 03:15 03/29/22 03:15 Laboratory: Laboratory Results - last 24 hr 03/29/22 03:15: Triglycerides 87, Cholesterol 146, LDL Cholesterol 86, VLDL Cholesterol 17, HDL Cholesterol 43 Radiography Diagnostic Testing: Radiology Impression Echocardiogram 03/28/22 19:33 Interpretation Summary Normal LV size. Left ventricular systolic function is lower limits of normal. The estimated ejection fraction is 50 %. D shaped septum in diastole. Stage 3 diastolic dysfunction. Pulmonary artery systolic pressure is 78 mmHg. Severe pulmonary hypertension. The left atrium is moderately enlarged. The right atrium is moderately enlarged. Bubble contrast study negative for right to left interatrial shunt. Ordering Physician: Brenton Duran Performed By: Mark Pedro RCS D/C Instructions Discharge Diet: 2000 mg Sodium Diet Weight Bearing Status: Weight bearing as tolerated Call your doctor if you observe: Fever of 101 or Higher, Coldness, Increased Pain, Numbness or Tingling, Change in Color, Inability to urinate, Inability to have a bowel movement, Using more than 1 pad per hour, Shortness of breath, Dizziness, Fainting spells, Swelling in the ankles, Chest pain, Prolonged hiccupping, Increased palpitations (irregular heartbeat) and Calf discomfort When: IN 2 WEEKS Meaningful Use Info Meaningful Use Diagnoses (Choose all that apply): None applicable and CHF CHF MACEY/ARB ordered at discharge?: Yes Documented LVEF (%): 50 Discharge Plan Admission Admit Date/Time: 03/28/22 17:14 Primary Reason for Your Visit: CHF exacerbation Attending Provider: Kolby De Luna Primary Care Provider: Alonso Marques Consulting Providers: Brenton Duran ; Larisa Caceres Discharge Orders/Prescriptions Prescriptions: New lisinopril 10 mg Tablet 10 mg PO DAILY Qty: 30 2RF metoprolol tartrate 50 mg Tablet 50 mg PO BID Qty: 60 2RF furosemide [Lasix] 40 mg tablet 40 mg PO BID Qty: 60 2RF levofloxacin 500 mg tablet 500 mg PO DAILY 4 Days Qty: 4 0RF Continued amiodarone 200 mg tablet 200 mg PO DAILY Eliquis 5 mg tablet 5 mg PO BID Label Comments: take 1 tablet by mouth twice a day ICaps AREDS [id number] msoy-aj-[id number] Capsule 1 cap PO BID Caltrate + D3 Plus Minerals 300 mg-800 unit -25 mg-0.5 mg Tablet 1 tab PO DAILY Discontinued furosemide 20 mg tablet 20 mg PO DAILY Label Comments: take 1 tablet by mouth once daily metoprolol tartrate 25 mg tablet 75 mg PO BID Label Comments: take 1 tablet by mouth twice a day Referrals / Follow Up: Pardeep Dominguez NP, FACILITIES ENGINEER-C [Med Staff - Adv Practice Prof] - 04/15/22 1:30 pm Alonso Marques MD [Primary Care Provider] - Disposition Disposition (needs filled in before D/C Order can be placed): Home, Self Care Charges/Coding Visit Charges Inpatient E&M: 40361 Disch Hosp >30min
--- NOTE | 2022-03-30 07:59 | DCINST_ITS ---
Discharge Instructions Diet Discharge Diet: 2000 mg Sodium Diet Activity Discharge Activity: Return to Normal Activity Weight Bearing Status: Weight bearing as tolerated Dressing / Incision Call your doctor if you observe: Fever of 101 or Higher, Coldness, Increased Pain, Numbness or Tingling, Change in Color, Inability to urinate, Inability to have a bowel movement, Using more than 1 pad per hour, Shortness of breath, Dizziness, Fainting spells, Swelling in the ankles, Chest pain, Prolonged hiccupping, Increased palpitations (irregular heartbeat) and Calf discomfort Follow Up Care When: IN 2 WEEKS Test Results: Test results from this visit will be discussed in further detail at your follow- up appointment, if applicable. Discharge Plan Admission Admit Date/Time: 03/28/22 17:14 Primary Reason for Your Visit: CHF exacerbation Attending Provider: Kolby De Luna Primary Care Provider: Alonso Marques Consulting Providers: Brenton Duran ; Larisa Caceres Discharge Orders/Prescriptions Prescriptions: New lisinopril 10 mg Tablet 10 mg PO DAILY Qty: 30 2RF metoprolol tartrate 50 mg Tablet 50 mg PO BID Qty: 60 2RF furosemide [Lasix] 40 mg tablet 40 mg PO BID Qty: 60 2RF levofloxacin 500 mg tablet 500 mg PO DAILY 4 Days Qty: 4 0RF Continued amiodarone 200 mg tablet 200 mg PO DAILY Eliquis 5 mg tablet 5 mg PO BID Label Comments: take 1 tablet by mouth twice a day ICaps AREDS [id number] Capsule 1 cap PO BID Caltrate + D3 Plus Minerals 300 mg-800 unit -25 mg-0.5 mg Tablet 1 tab PO DAILY Discontinued furosemide 20 mg tablet 20 mg PO DAILY Label Comments: take 1 tablet by mouth once daily metoprolol tartrate 25 mg tablet 75 mg PO BID Label Comments: take 1 tablet by mouth twice a day Referrals / Follow Up: Pardeep Dominguez NP, DISPLAY DIRECTOR-C [Med Staff - Counts Include [facility] Practice Prof] - 04/15/22 1:30 pm Alonso Marques MD [Primary Care Provider] - Disposition Disposition (needs filled in before D/C Order can be placed): Home, Self Care
[2022-03-30] MEDS: Furosemide 40 MG Tablet PO (09:12)
[2022-03-30] MEDS: Metoprolol Tartrate 50 MG Tablet PO (09:12)
[2022-03-30] MEDS: Lisinopril 10 MG Tablet PO (09:13)
[2022-03-30] MEDS: Amiodarone 200 MG Tablet PO (09:13)
[2022-03-30] MEDS: APIXABAN 5 MG TABLET PO (09:13)
[2022-03-30] MEDS: Benzonatate 100 MG Capsule 200 MG PO (09:45)
[2022-03-30] MEDS: Ceftriaxone 1 GM/50 ML BAG IV (09:49)
--- NOTE | 2022-03-30 11:24 | PHA.DC.MC ---
Pharmacy Service has performed discharge medication reconciliation and counseling for this patient. Patient requested meds to beds, this [facility] called retail, spoke to Merlene and requested meds to beds. 1. BENZONATATE 200MG PO TID PRN COUGH 2. LEVOFLOXACIN 500MG PO DAILY X 4 DAYS 3. LISINOPRIL 10MG PO DAILY The patient's discharge medication list was reviewed for discrepancies and discrepancies were resolved. Home Medications amiodarone 200 mg tablet 200 mg PO DAILY 03/28/22 apixaban 5 mg tablet (Eliquis) 5 mg PO BID 03/28/22 calcium carb 300 mg-D3 800 unit-mag ox 25 mg-copy center associate 0.5 mg-bert-Zn tablet (Caltrate + D3 Plus Minerals) 1 tab PO DAILY Check with primary doctor 03/28/22 vitamins A,C,O-fmop-xvloyy 4,296 mcg-226 mg-90 mg capsule (ICaps AREDS) 1 cap PO BID macular degeneration 03/28/22 furosemide 40 mg tablet (Lasix) 40 mg PO BID #60 tabs 03/29/22 levofloxacin 500 mg tablet 500 mg PO DAILY 4 days #4 tabs 03/29/22 lisinopril 10 mg tablet 10 mg PO DAILY #30 tabs 03/29/22 metoprolol tartrate 50 mg tablet 50 mg PO BID #60 tabs 03/29/22 benzonatate 100 mg capsule 200 mg PO TID PRN PRN COUGH #30 caps 03/30/22 The patient was counseled on the following discharge medications and changes in medications for homegoing were reviewed. The Reason for Use, instructions for use, and potential side effects were reviewed for all new medications. The patient's questions regarding all of their medications were answered. The patient was able to verbally demonstrate an understanding of their discharge medications.
--- NOTE | 2022-03-30 14:28 | CASEMGMT ---
BEATRIS MONZON in to discuss discharge planning with patient. Patient states she is not sure if she will need HHC at discharge. Patient will need home oxygen at discharge. BEATRIS MONZON discussed DME agencies with patient. A list of HHC providers including quality and resource use data and consistent with the patient?s preferred geographical region, medical needs, and insurance network were provided from the [employer] Guide. Patient requesting RN NA call Darby faustin. RN NA called daughter, Darby, to discuss discharge planning. BEATRIS MONZON reviewed DME and HHC agencies with daughter. Vielka states she prefers [facility] for HHC and [facility] for HHC. BEATRIS MONZON called [facility] and made referral for SN, PT, OT. Sonu Griffith at [facility] and they are able to accept the patient with start of care for 03/31/22. BEATRIS MONZON received script for home oxygen and sent to [facility] and arranged for portable delivered to patient's room. RN NA called and updated Darby regarding HHC acceptance and planned start of care. Daughter inquired about medical alert information. BEATRIS MONZON provided medical alert information.
== END 2022-03-30 15:15 | disposition home or self-care (01) | DRG 291 ==
LOC: ED 16:45 → PCU 03-29 05:01
PROVIDERS: Admitting Provider Student in an Organized Health Care Education/Training Program; Emergency Provider Emergency Medicine; Visit Provider Internal Medicine
DX: I11.0 Hypertensive heart disease with heart failure (principal); I50.33 Acute on chronic diastolic (congestive) heart failure; J18.9 Pneumonia, unspecified organism; Z79.01 Long term (current) use of anticoagulants; I48.0 Paroxysmal atrial fibrillation; I44.0 Atrioventricular block, first degree; Z66 Do not resuscitate
CPT/HCPCS: 36415; 71046; 80048; 80053; 80061; 83880; 84484; 85025; 93005; 93306; 97802; 99252; 99285; A4216; G0463; J0696; J1940

== ENCOUNTER → 2022-04-05 | Outpatient (CLI) | payer MEDICARE, BC, SELFPAY ==
--- NOTE | 2022-04-05 09:36 | RAD_ITS ---
EXAM: XR CHEST, 2 VIEWS CLINICAL INDICATION: PNA TECHNIQUE: Frontal and lateral views of the chest. This report was created using [employer] report generation technology. COMPARISON: 03.28.22 FINDINGS: LUNGS AND PLEURAL SPACES: There are bilateral pleural effusions. There is bilateral pneumonia. No pneumothorax. HEART: Enlarged heart size. MEDIASTINUM: Central airways and mediastinal contour are unremarkable. BONES/JOINTS: Degenerative findings in the thoracic spine. SOFT TISSUES: Unremarkable. RAD/Chest PA and Lateral IMPRESSION: Overall improvement in the pulmonary findings. Electronically Signed: Morales Stark MD at 18:07 EST ,
== END | disposition home or self-care (01) ==
LOC: RAD 09:31
PROVIDERS: Referring Provider Family Medicine; Visit Provider Family Medicine
DX: J18.9 Pneumonia, unspecified organism (principal); J90 Pleural effusion, not elsewhere classified
CPT/HCPCS: 71046

== ENCOUNTER → 2022-04-15 | Outpatient (CLI) | payer MEDICARE, BC, SELFPAY ==
--- NOTE | 2022-04-15 14:45 | RAD_ITS ---
STUDY: X-RAY CHEST REASON FOR EXAM: Female, 86 years old. Re-evaluate post pneumonia TECHNIQUE: PA and lateral views of the chest. COMPARISON: Comparison is made with prior examination dated 04/05/2022. FINDINGS: Hyperinflation. Stable blunting of both concerning angles with the increased markings at the lung bases likely worse on the left side. There has been essentially no change. There is moderate cardiac enlargement. Normal mediastinum and kim. Normal visualized pulmonary arteries. There is atherosclerotic calcification of the aortic arch with tortuosity. There are diffuse degenerative changes of the visualized thoracic spine. Dextroscoliosis. There is degenerative osteoarthritis of the bilateral shoulders. There is no demonstrated abnormality of the visualized soft tissue structures of the upper abdomen. RAD/Chest PA and Lateral IMPRESSION: Stable examination. Electronically Signed: Armand Steele MD at 15:20 EST ,
== END | disposition home or self-care (01) ==
LOC: RAD 14:21
PROVIDERS: Visit Provider Nurse Practitioner Family
DX: J18.9 Pneumonia, unspecified organism (principal)
CPT/HCPCS: 71046

== ENCOUNTER → 2022-09-09 | Outpatient (CLI) | payer MEDICARE, BC, SELFPAY ==
[2022-09-09 14:15] LABS: Anion Gap 2 (5-15); BUN 19 mg/dL (7-18); BUN/Creat Ratio 19.6 RATIO (10-20); Calcium,Total 10.1 mg/dL (8.5-10.1); Chloride 99 mmol/L (98-107); Creatinine, Serum 0.97 mg/dL (0.55-1.02); EST Glomerular Filtration Rate 58 mL/min (>60); Est Glom Filt Rate - Afr Amer 70 mL/min (>60); Glucose 110 mg/dL (74-106); Sodium Level 137 mmol/L (136-145)
== END | disposition home or self-care (01) ==
LOC: LAB 13:23
PROVIDERS: PCP Family Medicine; Referring Provider Physician Assistant Medical; Visit Provider Physician Assistant Medical
DX: I42.8 Other cardiomyopathies (principal); I50.9 Heart failure, unspecified
CPT/HCPCS: 36415; 80048

== ENCOUNTER → 2022-09-16 | Outpatient (CLI) | payer MEDICARE, BC, SELFPAY ==
--- NOTE | 2022-09-16 12:08 | RAD_ITS ---
INDICATION: Mod rt and small L pleural effusion, consolidation EXAMINATION/TECHNIQUE: X-RAY - XR Chest 2 Views COMPARISON: 04/15/2022 FINDINGS: LINES/DEVICES: None. LUNGS: Right lower lobe focal airspace opacity with small right pleural effusion. Lungs hyperinflated. No vascular congestion. MEDIASTINUM AND CARDIOVASCULAR STRUCTURES: Stable cardiomegaly. BONES AND SOFT TISSUES: No acute changes. RAD/Chest PA and Lateral IMPRESSION: Right lower lobe infiltrate with small right pleural effusion. Findings consistent with pneumonia. Recommend short-term follow-up to complete resolution. Electronically Signed: Fito Chandler MD at 21:58 EDT ,
== END | disposition home or self-care (01) ==
PROVIDERS: PCP Family Medicine; Referring Provider Nurse Practitioner Gerontology; Visit Provider Nurse Practitioner Gerontology
DX: J90 Pleural effusion, not elsewhere classified (principal); I50.9 Heart failure, unspecified; J98.11 Atelectasis
CPT/HCPCS: 71046

== ENCOUNTER → 2022-11-01 | Outpatient (CLI) | payer MEDICARE, BC, SELFPAY ==
[2022-11-01 15:36] LABS: BNP,B-Type NATRIURETIC PEPTIDE 2174.1 pg/mL (0-100)
[2022-11-01 15:40] LABS: Anion Gap 6 (5-15); BUN 28 mg/dL (7-18); Calcium,Total 9.8 mg/dL (8.5-10.1); Chloride 100 mmol/L (98-107); EST Glomerular Filtration Rate 56 mL/min (>60); Est Glom Filt Rate - Afr Amer 67 mL/min (>60); Glucose 124 mg/dL (74-106); Potassium 4.1 mmol/L (3.5-5.1); Sodium Level 138 mmol/L (136-145)
== END | disposition home or self-care (01) ==
LOC: LAB 14:38
PROVIDERS: PCP Family Medicine; Referring Provider Nurse Practitioner Gerontology; Visit Provider Nurse Practitioner Gerontology
DX: I50.9 Heart failure, unspecified (principal)
CPT/HCPCS: 36415; 80048; 83880

== ENCOUNTER → 2022-11-08 | Outpatient (CLI) | payer MEDICARE, BC, SELFPAY ==
[2022-11-08 13:15] LABS: Anion Gap 5 (5-15); BUN 31 mg/dL (7-18); Calcium,Total 9.8 mg/dL (8.5-10.1); Chloride 100 mmol/L (98-107); EST Glomerular Filtration Rate 56 mL/min (>60); Est Glom Filt Rate - Afr Amer 67 mL/min (>60); Glucose 112 mg/dL (74-106); Sodium Level 138 mmol/L (136-145)
[2022-11-08 14:54] LABS: BNP,B-Type NATRIURETIC PEPTIDE 1378.6 pg/mL (0-100)
== END | disposition home or self-care (01) ==
LOC: LAB 11:56
PROVIDERS: PCP Family Medicine; Referring Provider Nurse Practitioner Gerontology; Visit Provider Nurse Practitioner Gerontology
DX: R06.09 Other forms of dyspnea (principal)
CPT/HCPCS: 36415; 80048; 83880

== ENCOUNTER → 2022-11-14 | Outpatient (CLI) | payer MEDICARE, BC, SELFPAY ==
[2022-11-14 10:39] LABS: Anion Gap 6 (5-15); BUN 30 mg/dL (7-18); Calcium,Total 9.8 mg/dL (8.5-10.1); Chloride 103 mmol/L (98-107); Creatinine, Serum 1.07 mg/dL (0.55-1.02); EST Glomerular Filtration Rate 52 mL/min (>60); Est Glom Filt Rate - Afr Amer 62 mL/min (>60); Glucose 103 mg/dL (74-106); Potassium 3.7 mmol/L (3.5-5.1); Sodium Level 138 mmol/L (136-145)
[2022-11-14 10:44] LABS: BNP,B-Type NATRIURETIC PEPTIDE 1184.5 pg/mL (0-100)
== END | disposition home or self-care (01) ==
LOC: LAB 09:21
PROVIDERS: PCP Family Medicine; Referring Provider Nurse Practitioner Gerontology; Visit Provider Nurse Practitioner Gerontology
DX: R06.09 Other forms of dyspnea (principal)
CPT/HCPCS: 36415; 80048; 83880

== ENCOUNTER → 2022-12-05 | Outpatient (CLI) | payer MEDICARE, BC, SELFPAY ==
[2022-12-05 12:50] LABS: Anion Gap 5 (5-15); BUN 23 mg/dL (7-18); BUN/Creat Ratio 27.2 RATIO (10-20); Calcium,Total 9.8 mg/dL (8.5-10.1); Chloride 102 mmol/L (98-107); Creatinine, Serum 0.85 mg/dL (0.55-1.02); EST Glomerular Filtration Rate 67 mL/min (>60); Est Glom Filt Rate - Afr Amer 82 mL/min (>60); Glucose 120 mg/dL (74-106); Potassium 3.6 mmol/L (3.5-5.1); Sodium Level 139 mmol/L (136-145)
== END | disposition home or self-care (01) ==
LOC: LAB 11:39
PROVIDERS: PCP Family Medicine; Referring Provider Nurse Practitioner Gerontology; Visit Provider Nurse Practitioner Gerontology
DX: R06.09 Other forms of dyspnea (principal); I50.9 Heart failure, unspecified; I42.8 Other cardiomyopathies; I48.0 Paroxysmal atrial fibrillation; J90 Pleural effusion, not elsewhere classified
CPT/HCPCS: 36415; 80048

== ENCOUNTER → 2022-12-12 | Outpatient (CLI) | payer MEDICARE, BC, SELFPAY ==
--- NOTE | 2022-12-12 13:25 | RAD_ITS ---
INDICATION: Shortness of breath, hx pleural effusion EXAMINATION/TECHNIQUE: X-RAY - XR Chest 2 Views COMPARISON: Prior study dated: 09/16/2022 FINDINGS: Bilateral lower lung streaky opacities accompanied by small pleural effusions. Cardiomegaly and pulmonary venous congestion without overt edema. No pneumothorax. No acute osseous bodies. Severe right glenohumeral arthrosis. RAD/Chest PA and Lateral IMPRESSION: * Similar appearing small bilateral pleural effusions and a Kumpe and lower lung streaky opacities which could represent atelectasis or infiltrates. * Cardiomegaly and pulmonary venous congestion without overt edema. Electronically Signed: Jose Gutierrez MD at 18:29 EDT ,
[2022-12-12 13:46] LABS: Hematocrit 42.9 % (37-47); Hemoglobin 13.8 g/dL (12.0-15.0); Mean Corp Hgb Conc 32.2 g/dL (32-36); Mean Corpuscular Hgb 31.1 pg (27.0-32.0); Mean Corpuscular Volume 96.6 fL (81-99); Mean Platelet Vol. 10.9 fl (6.2-12.0); POSITIVE COUNT YES; RBC Distribution Width SD 62.7 fl (35.1-43.9); Red Blood Count 4.44 M/mm3 (4.2-5.4); White Blood Count 8.3 K/mm3 (4.4-11.0)
[2022-12-12 14:14] LABS: BNP,B-Type NATRIURETIC PEPTIDE 1532.6 pg/mL (0-100)
[2022-12-12 14:15] LABS: Anion Gap 4 (5-15); BUN 18 mg/dL (7-18); BUN/Creat Ratio 20.8 RATIO (10-20); Calcium,Total 10.5 mg/dL (8.5-10.1); Chloride 101 mmol/L (98-107); Creatinine, Serum 0.87 mg/dL (0.55-1.02); EST Glomerular Filtration Rate 66 mL/min (>60); Est Glom Filt Rate - Afr Amer 79 mL/min (>60); Glucose 156 mg/dL (74-106); Potassium 3.8 mmol/L (3.5-5.1); Sodium Level 135 mmol/L (136-145)
[2022-12-12 14:33] LABS: Scan Indicated on CBC? Y/N YES- FLAGS NOTED
== END | disposition home or self-care (01) ==
LOC: LAB 13:04
PROVIDERS: PCP Family Medicine; Referring Provider Nurse Practitioner Gerontology; Visit Provider Nurse Practitioner Gerontology
DX: J90 Pleural effusion, not elsewhere classified (principal); I50.9 Heart failure, unspecified; I42.8 Other cardiomyopathies; I48.0 Paroxysmal atrial fibrillation; J98.11 Atelectasis; R06.09 Other forms of dyspnea
CPT/HCPCS: 36415; 71046; 80048; 83880; 85027

== ENCOUNTER → 2022-12-20 | Outpatient (CLI) | payer MEDICARE, BC, SELFPAY ==
[2022-12-20 15:22] LABS: Anion Gap 6 (5-15); BUN 25 mg/dL (7-18); BUN/Creat Ratio 29.9 RATIO (10-20); Calcium,Total 10.2 mg/dL (8.5-10.1); Chloride 101 mmol/L (98-107); Creatinine, Serum 0.84 mg/dL (0.55-1.02); EST Glomerular Filtration Rate 68 mL/min (>60); Est Glom Filt Rate - Afr Amer 83 mL/min (>60); Glucose 112 mg/dL (74-106); Potassium 4.1 mmol/L (3.5-5.1); Sodium Level 137 mmol/L (136-145)
== END | disposition home or self-care (01) ==
LOC: LAB 14:22
PROVIDERS: PCP Family Medicine; Referring Provider Nurse Practitioner Gerontology; Visit Provider Nurse Practitioner Gerontology
DX: R06.09 Other forms of dyspnea (principal)
CPT/HCPCS: 36415; 80048

== ENCOUNTER → 2023-01-02 | Outpatient (CLI) | payer MEDICARE, BC, SELFPAY ==
--- NOTE | 2023-01-02 10:55 | RAD_ITS ---
STUDY: X-RAY CHEST REASON FOR EXAM: Female, 87 years old. Pleural effusion TECHNIQUE: PA and lateral views of the chest. COMPARISON: 12/12/2022 FINDINGS: There is hyperinflation of the lungs consistent with chronic obstructive lung disease (COPD). Small bilateral pleural effusions with some bibasilar atelectasis. There is moderate cardiac enlargement. Normal mediastinum and kim. Normal visualized pulmonary arteries. Normal visualized aortic arch and descending thoracic aorta. There is a dextroscoliosis of the thoracic spine. Normal visualized ribs, clavicles, and shoulders. There is no demonstrated abnormality of the visualized soft tissue structures of the upper abdomen. RAD/Chest PA and Lateral IMPRESSION: Small bilateral pleural effusions with some bibasilar atelectasis. Electronically Signed: Frandy Hollingsworth MD at 17:27 EDT ,
== END | disposition home or self-care (01) ==
LOC: RAD 10:41
PROVIDERS: PCP Family Medicine; Referring Provider Nurse Practitioner Gerontology; Visit Provider Nurse Practitioner Gerontology
DX: J90 Pleural effusion, not elsewhere classified (principal)
CPT/HCPCS: 71046

== ENCOUNTER → 2023-01-16 | Outpatient (CLI) | payer MEDICARE, BC, SELFPAY ==
[2023-01-16 13:44] LABS: Anion Gap 5 (5-15); BUN 26 mg/dL (7-18); BUN/Creat Ratio 25.5 RATIO (10-20); Calcium,Total 9.9 mg/dL (8.5-10.1); Chloride 101 mmol/L (98-107); Creatinine, Serum 1.02 mg/dL (0.55-1.02); EST Glomerular Filtration Rate 54 mL/min (>60); Est Glom Filt Rate - Afr Amer 66 mL/min (>60); Glucose 102 mg/dL (74-106); Potassium 3.9 mmol/L (3.5-5.1); Sodium Level 141 mmol/L (136-145)
== END | disposition home or self-care (01) ==
LOC: LAB 12:51
PROVIDERS: PCP Family Medicine; Referring Provider Nurse Practitioner Gerontology; Visit Provider Nurse Practitioner Gerontology
DX: I50.9 Heart failure, unspecified (principal); I42.8 Other cardiomyopathies; J90 Pleural effusion, not elsewhere classified
CPT/HCPCS: 36415; 80048

== ENCOUNTER → 2023-01-30 | Outpatient (CLI) | payer MEDICARE, BC, SELFPAY ==
[2023-01-30 13:07] LABS: Anion Gap 6 (5-15); BUN 27 mg/dL (7-18); BUN/Creat Ratio 25.7 RATIO (10-20); Calcium,Total 9.5 mg/dL (8.5-10.1); Chloride 100 mmol/L (98-107); Creatinine, Serum 1.05 mg/dL (0.55-1.02); EST Glomerular Filtration Rate 53 mL/min (>60); Est Glom Filt Rate - Afr Amer 64 mL/min (>60); Glucose 112 mg/dL (74-106); Potassium 3.7 mmol/L (3.5-5.1); Sodium Level 139 mmol/L (136-145)
== END | disposition home or self-care (01) ==
LOC: LAB 11:49
PROVIDERS: PCP Family Medicine; Referring Provider Nurse Practitioner Gerontology; Visit Provider Nurse Practitioner Gerontology
DX: Z51.81 Encounter for therapeutic drug level monitoring (principal); I50.9 Heart failure, unspecified; Z79.899 Other long term (current) drug therapy; J90 Pleural effusion, not elsewhere classified
CPT/HCPCS: 36415; 80048

== ENCOUNTER 2023-02-14 11:56 | Inpatient (IN) | payer MEDICARE, BC, SELFPAY ==
[2023-02-14] VITALS (14 sets, daily range): BP systolic 98–135; BP diastolic 49–97; PULSE 45–57; RESP 15–20; TEMP 36.7–36.8; O2SAT 92–100; BMI 24.2; BMI 24.6
--- NOTE | 2023-02-14 12:16 | EKG12_ITS ---
Test Reason : SOB Blood Pressure : / mmHG Vent. Rate : 046 BPM Atrial Rate : 046 BPM P-R Int : 246 ms QRS Dur : 102 ms QT Int : 492 ms P-R-T Axes : 058 -68 220 degrees QTc Int : 430 ms Sinus bradycardia with sinus arrhythmia with 1st degree A-V block Left axis deviation Pulmonary disease pattern Incomplete right bundle branch block Left ventricular hypertrophy with repolarization abnormality ( Ricki product ) Cannot rule out Septal infarct , age undetermined Abnormal ECG Confirmed by ALFONSO BERMUDEZ, JHONY ([id number]), film editor CHARLES SANDOVAL ([id number]) on 02/20/2023 7:04:07 AM Referred By: Confirmed By:SHOSHANA HAMILTON MD
--- NOTE | 2023-02-14 12:17 | EDS_ITS ---
HPI History of Present Illness Chief Complaint: Shortness of Breath Detail of Chief Complaint: Shortness of breath, dyspnea on exertion, orthopnea, edema Informant: patient, family and other (Received call from cardiology office) Onset/Context/Timing Onset: Days Context: gradual Timing: Continuous Quality: Positive for Dyspnea on exertion and Orthopnea Current Severity: Moderate Maximum Severity: Severe Worsened by: Exertion and Lying flat Associated Symptoms Negative for cough, rhinorrhea, post nasal drip, ear pain, fever, sore throat, subjective, chills or sweats Chest Pain: Positive for None Narrative Narrative: Patient is a 87-year-old woman with history of congestive heart failure, hypertension, hypercholesterolemia, paroxysmal atrial fibrillation, nonischemic cardiomyopathy who was sent from Dr. Urias's office because of bilateral edema of her lower extremities which are seeping serous fluid. Labs from the were included in that report. Her CO2 was elevated at 33 at that time. Creatinine was slightly elevated 1.05 with an estimated GFR of 53. Her Lasix dose has been increased and she was placed on spironolactone with no improvement. Patient had a echocardiogram performed March 29, 2022. Patient was noted to have left ventricular systolic function at the lower limit of normal with an ejection fraction of 50%. D-shaped siphon in diastole. Stage III diastolic dysfunction. Pulmonary aortic stenosis with pressure of 78 mmHg. Left atrium is noted to be enlarged. Right atrium is noted to be moderately enlarged. Bubble study was negative for right to left shunt. That was interpreted by Dr. Urias. Office note from the was reviewed. Impression at that time was nonischemic cardiomyopathy, paroxysmal atrial fibrillation, hypertension and hypercholesterolemia with dyspnea on exertion. Nurse to nurse call was made prior to her arrival. There was discussion regarding inpatient treatment versus hospice. Discussed with patient and son regarding CPR. She wishes to have CPR. Discussed invasive versus noninvasive ventilatory support. She requested both if needed. She states she wants to be able to breathe better. She denies fever, chills night sweats. She denies rhinorrhea, postnasal drainage or sore throat. She denies cough. She denies chest discomfort of any type. She does endorse leg swelling without pain. She has serous drainage. Her legs were recently wrapped and they were not unwrapped since she was evaluated by cardiology. She denies nausea, vomiting or diarrhea. She denies abdominal pain. She denies urologic symptoms. PE Risk Factors: Negative for Cancer, OCP + Smoking + > 35, Prior DVT or PE, Recent immobilization, Recent surgery or Recent travel Prior similar symptoms: Yes (Exacerbation of congestive heart failure) Recent Illness/Hospitalization: No PFSH PFSH Medical History Anticoagulant long-term use Atrial flutter Bilateral pneumonia Edema History of cardioversion Hypercholesteremia Hypertension Macular degeneration Osteoporosis Palpitations Paroxysmal atrial fibrillation Rheumatic fever Rotator cuff arthropathy SOB (shortness of breath) Home Medications vitamins A,C,O-lzss-feosox 4,296 mcg-226 mg-90 mg capsule (ICaps AREDS) 1 cap PO BID macular degeneration 03/28/22 [History Last Taken 03/28/22 1 cap] multivitamin,tx-minerals 1 tab PO DAILY 04/13/22 [History Last Taken Unknown] amiodarone 200 mg tablet 200 mg PO DAILY #90 tabs 04/15/22 [Rx Last Taken Unknown] metoprolol tartrate 50 mg tablet 50 mg PO BID #180 tabs 04/15/22 [Rx Last Taken Unknown] calcium carb 300 mg-D3 20 mcg-mag ox 25 mg-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 0.5 [id number] tablet (Caltrate-D3 Plus Minerals) 1 tab PO DAILY Check with primary doctor 06/14/22 [History Last Taken Unknown] apixaban 2.5 mg tablet 2.5 mg PO BID #60 tabs 09/09/22 [Rx Last Taken Unknown] furosemide 40 mg tablet (Lasix) 40 mg PO BID This is a dose increase #360 tabs 01/31/23 [Rx Last Taken Unknown] spironolactone 50 mg tablet 50 mg PO DAILY #60 tabs 02/06/23 [Rx Last Taken Unknown] Allergy/AdvReac Type Severity Reaction Status Date / Time Sulfa (Sulfonamide Allergy Angioedema Verified 02/14/23 11:57 Antibiotics) Family History Sister Asthma Breast cancer Diabetes Non-Hodgkin lymphoma Mother Myocardial infarction Brother Myocardial infarction Social History household members: none Smoking Status: Never smoker alcohol intake: never substance use type: does not use caffeine: Yes (occasionally) ROS ROS ED Constitutional Constitutional ED: Denies chills, fever(s), sweats or weight loss Eyes Eyes: Denies blurry vision, change in vision or diplopia ENT ENT ED: Denies ear pain, rhinorrhea or sore throat Cardiovascular Cardiovascular: Reports orthopnea; Denies chest pain, palpitations, paroxysmal nocturnal dyspnea or racing heartbeat Respiratory/Chest Respiratory/Chest: Reports dyspnea, dyspnea on exertion and orthopnea; Denies cough or paroxysmal nocturnal dyspnea Gastrointestinal Gastrointestinal: Denies abdominal pain, nausea or vomiting Genitourinary Genitourinary ED: Denies dysuria, hematuria or urinary frequency Musculoskeletal Musculoskeletal: Denies arthralgias, myalgias or neck pain Integumentary Denies rash Neurologic Neurologic: Reports weakness Endocrine Endocrinology: Denies cold intolerance or heat intolerance Hematologic/Lymphatic Hematologic/Lymphatic: Denies easy bleeding or easy bruising EXAM Physical Exam Const Vital Signs: 02/14/23 11:57 02/14/23 12:58 02/14/23 13:04 Temperature 98.2 F Temperature Source Temporal Pulse Rate 45 L 55 L Respiratory Rate 20 H Respiratory Effort Short of Breath Blood Pressure 124/60 H 127/70 H Blood Pressure Mean 81 89 Pulse Ox 96 Oxygen Delivery Method Room Air Nasal Cannula Oxygen Flow Rate (L/min) 3 Positive well nourished and well developed Constitutional Narrative: Patient has respiratory distress. She has use of accessory muscles and mild retractions. Patient's responses are 4-5Words prior to taking of breath. General Appearance ED: well developed and pallor HEENT Reports moist mucous membranes HEENT Narrative: Nares are patent. Posterior pharynx is normal. atraumatic Eyes PERRL and EOMs intact bilaterally General Eye ED: Negative for pale conjunctiva or scleral icterus Neck no lymphadenopathy, supple, no meningeal signs and No no JVD Neck Narrative: JVD to the angle of the mandible at 90 degrees. Resp No normal respiratory effort and No clear to auscultation bilaterally Resp Narrative: Bilateral rales. There is area of absent breath sounds right lower lobe. Cardio regular rhythm, S1 normal heart sound, S2 normal heart sound and no murmurs Rate: bradycardia GI non-tender, non-distended and no masses GI Narrative: There are no palpable or pulsatile masses. Auscultation: hypoactive bowel sounds Palpation: soft; Negative for hepatomegaly or splenomegaly Back/Spine no CVA tenderness Extremity Negative for normal to inspection Extremity Narrative: Patient has marked pitting edema of the right and left lower extremity. General Extremety ED: Yes edema General Extremity: edema Neuro oriented x3, CN's II-XII intact bilaterally and no sensory deficits noted Satinder Coma Scale: document GCS findings Spontaneous Obeys Commands Oriented 15 Sensorium / Orientation: alert Psych mental status grossly normal Skin No no wounds Skin Narrative: Serous drainage lower extremity due to significant lymphedema. General Skin Exam: pallor; Negative for jaundice MDM MDM MDM Narrative Medical decision making narrative: Had discussion with patient and son prior to initiating workup regarding CODE STATUS. Patient is a full go. In my professional opinion patient has capacity to understand her illness and is capable of making this decision. Since patient has failed appropriate outpatient therapy is in significant Rester distress she was started on nitro drip for acute heart failure for preload reduction. She received dose of IV Lasix. She states she took 40 this morning. She was post to take 80. Chest x-ray was obtained to confirm impression of heart failure and to determine why she has absent breath sounds on the right i.e. rule out loculated effusion versus other causes i.e. pneumonia. Blood work including CBC to assess white count and H&H. Electrolyte panel to assess renal function and. Troponin to rule out cardiac ischemia as a cause since she has not improved. BMP to help hospitalist monitor her course and she will require admission. History & Record Review Discussion w/independent historian: Patient and Family Lab Data Attestation: I reviewed the patient's lab results. Lab results narrative: CBC is unremarkable. BNP is 3302 which is markedly elevated from baseline. Troponin is elevated at 923. Lactate elevated 3.7. This probably represents type A lactic acidosis due to hypoxia. Labs: Laboratory Results - last 24 hr 02/14/23 12:30 WBC 7.2 RBC 4.35 Hgb 13.7 Hct 42.4 MCV 97.5 MCH 31.5 MCHC 32.3 RDW Std Deviation 59.0 H RDW Coeff of Shahbaz 16.5 H Plt Count MPV 12.1 H Immature Gran % (Auto) 0.300 Neut % (Auto) 80.5 H Lymph % (Auto) 10.2 L [place] % (Auto) 8.2 Eos % (Auto) 0.4 Baso % (Auto) 0.4 Absolute Neuts (auto) 5.8 Absolute Lymphs (auto) 0.74 L Nucleated RBC % 0.4 Differential Comment SCANNED Platelet Estimate ADEQUATE Plt Morphology Comment CLUMPED Sodium 130 L Potassium 5.2 H Chloride 93 L Carbon Dioxide 30.0 Anion Gap 7 BUN 63 H Creatinine 2.37 H Estim Creat Clear Calc 14.10 Est GFR (MDRD) Af Amer 25 L Est GFR (MDRD) Non-Af 21 L BUN/Creatinine Ratio 26.6 H Glucose 123 H Lactic Acid 3.7 H* Calcium 10.4 H Troponin I High Sens 923 H* B-Natriuretic Peptide 3302.8 H ABG Data Attestation: I personally reviewed and interpreted this ABG as follows: Interpretation: ABG was obtained which reveals patient to be hypoxic with a pO2 of 52 and a saturation 85% on room air. She was placed on 3 L. ABG results: ABG 02/14/23 12:32 Specimen Type ART Sample Site R Brach pH 7.36 Bicarbonate Actual 24.5 Total CO2 26 Base Excess -1 O2 Saturation 85 L ABG pCO2 43.2 ABG pO2 52 L Lupillo Test N/A O2 Delivery Device Room Air Vent Mode Not entered Radiography Chest X-Ray - ED: 1 View and Read by ED Physician (Independently reviewed and interpreted by me at 1314. Patient has a moderate right pleural effusion with explain her decreased breath sounds on that side. The right heart border is obscured. Borderline cardiomegaly. There is evidence cephalization. Findings are consistent with heart failure.) Rhythm Strip Rhythm Strip: Sinus bradycardia with delayed AR interval noted Rate: 42 EKG Initial EKG: Attestation: I personally reviewed and interpreted this EKG as follows: Interpretation: Sinus Bradycardia (Rate is 46 with a first-degree AV block. AR interval is 246 ms. QRS duration is 102 ms. QT duration is 492 ms. [place] is to the left. There are findings consistent with pulmonary disease. There is evidence of a incomplete left bundle branch block. There is also LVH by voltage criteria. Patient) Critical Care Time Critical Care Time: Yes Critical care time (excluding procedures): 30-74 minutes (37), Including time spent: (History, physical, documentation, review of prior records, independent interpretation of laboratory results initiation of therapy for exacerbation of congestive heart failure), Discussing w/Patient &/or Family/Pre Coder (Discussion with patient and son regarding CODE STATUS.) and Arranging Admission or Transfer Discharge Plan Triage Chief Complaint: Shortness of Breath ED Provider: Reece Spence Dx/Rx/DC Orders Clinical Impression: DNR (do not resuscitate) discussion, Sinus bradycardia, First degree heart block, Nonischemic cardiomyopathy, Non-ST elevated myocardial infarction, Acute hypoxemic respiratory failure, Acidosis, lactic, Hypercholesteremia, Pleural effusion, right, History of hypertension Prescriptions: No Action amiodarone 200 mg tablet 200 mg PO DAILY Qty: 90 3RF metoprolol tartrate 50 mg tablet 50 mg PO BID Qty: 180 3RF multivitamin,tx-minerals Tablet 1 tab PO DAILY Eliquis 2.5 mg tablet 2.5 mg PO BID Qty: 60 11RF spironolactone 50 mg tablet 50 mg PO DAILY Qty: 60 3RF ICaps AREDS [id number] Capsule 1 cap PO BID Caltrate-D3 Plus Minerals 300 mg-800 unit -25 mg-0.5 mg tablet 1 tab PO DAILY furosemide [Lasix] 40 mg tablet 40 mg PO BID Qty: 360 3RF Primary Care Provider: Alonso Marques Referrals: Alonso Marques DO [Primary Care Provider] - Disposition Disposition: [facility] Capacity Capacity Assessment Tool Can the patient make a choice & communicate that choice?: Yes Can the patient understand benefits, risks and alternatives?: Yes Can the patient make a logical, rational choice?: Yes Is the choice the patient makes consistent w/ their values?: Yes Is there an impending, emergent risk to the patient?: Yes Is there a Surrogate Available?: Yes i.e. close relative (spouse, child, parent, sibling)?: Yes
[2023-02-14 12:36] LABS: Base Excess -1 mmol/L (-2 to +2); Bicarbonate 24.5 mmol/L (22-26); Blood Gas Specimen Type ART; Mode Not entered; O2 Delivery Device Room Air; PO2 52 mmHG (75-100); SITE R Brach; SO2 85 % (95-99); Total Carbon Dioxide 26 mmol/L; pCO2 43.2 mmHg (35-45); pH 7.36 (7.35-7.45)
[2023-02-14 12:42] LABS: Absolute Lymphocyte Count 0.74 X10^3/uL (0.83-4.51); Absolute Neutrophil Count 5.8 X10^3/uL (2.0-7.7); Basophil# 0.03 X10^3/uL; Basophil% 0.4 % (0-1); Eosinophil# 0.03 X10^3/uL; Eosinophils% 0.4 % (0-5); Hematocrit 42.4 % (37-47); Hemoglobin 13.7 g/dL (12.0-15.0); Lymphocyte # 0.74 X10^3/ul (0.83-4.51); Lymphocyte % 10.2 % (19-41); Mean Corp Hgb Conc 32.3 g/dL (32-36); Mean Corpuscular Hgb 31.5 pg (27.0-32.0); Mean Corpuscular Volume 97.5 fL (81-99); Monocyte# 0.59 X10^3/uL; Monocyte% 8.2 % (0-10); NRBC Flagged by Analyzer 0.4 % (0-5); Neutrophil # 5.82 X10^3/uL (2.7-7.7); Neutrophil % 80.5 % (47-70); POSITIVE COUNT YES; RBC Distribution Width CV 16.5 % (11.6-14.6); Red Blood Count 4.35 M/mm3 (4.2-5.4); White Blood Count 7.2 K/mm3 (4.4-11.0)
[2023-02-14 12:43] LABS: Differential Indicated SCAN CRITERIA MET
[2023-02-14] MEDS: Furosemide 100 MG/10 ML Vial 60 MG IV (12:57)
[2023-02-14] MEDS: Nitroglycerin Infusion 250 ML 3 MG CONT INF (12:58)
[2023-02-14 12:59] LABS: Differential Comment SCANNED
[2023-02-14 13:00] LABS: Platelet Estimate ADEQUATE (ADEQ); Platelet Morphology CLUMPED
--- NOTE | 2023-02-14 13:05 | RAD_ITS ---
STUDY: X-RAY CHEST REASON FOR EXAM: Female, 87 years old. Bilateral rales, diminished breath sounds right lower TECHNIQUE: Single AP portable view of the chest. COMPARISON: Comparison is made with prior study January 02, 2023. FINDINGS: EKG electrodes are seen. Moderate size right pleural effusion with right basilar atelectasis and/or infiltrate. Blunting of the left costophrenic angle with increased markings at the left lung base. Mild degree of vascular congestion. There is mild cardiac enlargement. Normal mediastinum and kim. Normal visualized pulmonary arteries. There is atherosclerotic calcification of the aortic arch with tortuosity. There are diffuse degenerative changes of the visualized thoracic spine. Normal visualized ribs, clavicles, and shoulders. There is no demonstrated abnormality of the visualized soft tissue structures of the upper abdomen. RAD/Chest 1 View (Portable) IMPRESSION: Right pleural effusion with right basilar atelectasis. Blunting of the left cusp and angle with increased markings at the left lung base superimposed on mild degree of CHF. Electronically Signed: Armand Steele MD at 13:38 EST ,
[2023-02-14 13:12] LABS: Anion Gap 7 (5-15); BUN 63 mg/dL (7-18); BUN/Creat Ratio 26.6 RATIO (10-20); Calcium,Total 10.4 mg/dL (8.5-10.1); Chloride 93 mmol/L (98-107); Creatinine, Serum 2.37 mg/dL (0.55-1.02); EST Glomerular Filtration Rate 21 mL/min (>60); Est Glom Filt Rate - Afr Amer 25 mL/min (>60); Glucose 123 mg/dL (74-106); Lactic Acid 3.7 mmol/L (0.4-1.9); Potassium 5.2 mmol/L (3.5-5.1); Sodium Level 130 mmol/L (136-145); Troponin-I HS 923 pg/mL (3.0-54.0)
--- NOTE | 2023-02-14 13:29 | NURSING ---
DR SERGEY BLOOM
--- NOTE | 2023-02-14 13:40 | NURSING ---
ICU RINCON NSTEMI, RESP FAILURE WITHHYPOXIA, CHF, PLEURAL EFFUSION, LACTIC
--- NOTE | 2023-02-14 13:46 | HP.PCM.HOS_ITS ---
HPI - General General Date of Admission: 02/14/23 Date of Service: 02/14/23 Chief Complaint: Increasing SOB HPI Narrative GEENA FREEMAN, is an 87-year-old female history of A-fib, rheumatic fever, hypertension, CHF who presented to [facility] ED 02/14/[address] Duran's office due to increasing bilateral lower extremity edema. Her Lasix dose had been increased and she was placed on spironolactone with no significant improvement. Had echo March 29, 2022 with EF of 50% and stage III diastolic dysfunction with PASP of 78. She was found to be in acute heart failure with a BNP of greater than 3300 and was hypoxic with a sat of 85% on room air ABG and chest x- ray consistent with fluid overload. She was given IV Lasix and started on a nitro drip. Hospitalist contacted for admission. Pt evaluated at bedside with family member present. Reportedly she has had increasing shortness of breath on exertion for couple of weeks with increasing leg swelling and weight gain however this past week her legs have been so bad that they have been weeping fluid and even causing her bed and clothing to become wet and she is now short of breath with even minimal exertion and this has been refractory to outpatient management. In the ED she reports after nitro drip started and she was given Lasix the breathing is starting to improve. Denies any chest pain or cough, no fevers or chills, does endorse her weight is up to 120 pounds from about 100 pounds despite not eating very well. She has no other focal complaints. Confirmed that she is full code [facility] Medical History (Updated 02/14/23 @ 13:[address] Beverley Rodriguez MD) Anticoagulant long-term use Atrial flutter Bilateral pneumonia Edema History of cardioversion Hypercholesteremia Hypertension Macular degeneration Osteoporosis Palpitations Paroxysmal atrial fibrillation Rheumatic fever Rotator cuff arthropathy SOB (shortness of breath) Home Medications vitamins A,C,F-aion-kwnvvw 4,296 mcg-226 mg-90 mg capsule (ICaps AREDS) 1 cap PO BID [facility] 03/28/22 [History Last Taken 02/14/23] multivitamin,tx-minerals 1 tab PO DAILY SUPPLEMENT 04/13/22 [History Last Taken 02/14/23] amiodarone 200 mg tablet 200 mg PO DAILY AFIB #90 tabs 04/15/22 [Rx Last Taken 02/14/23] metoprolol tartrate 50 mg tablet 50 mg PO BID BLOOD PRESSURE #180 tabs 04/15/22 [Rx Last Taken 02/14/23] calcium carb 300 mg-D3 20 mcg-mag ox 25 mg-endoscopy tech 0.5 [id number]-ibha tablet (Caltrate-D3 Plus Minerals) 1 tab PO DAILY SUPPLEMENT 06/14/22 [History Last Taken 02/14/23] apixaban 2.5 mg tablet 2.5 mg PO BID BLOOD THINNER #60 tabs 09/09/22 [Rx Last Taken 02/14/23] furosemide 40 mg tablet (Lasix) 40 mg PO BID FLUID #360 tabs 01/31/23 [Rx Last Taken 02/14/23] spironolactone 50 mg tablet 50 mg PO DAILY FLUID #60 tabs 02/06/23 [Rx Last Taken 02/14/23] Allergy/AdvReac Type Severity Reaction Status Date / Time Sulfa (Sulfonamide Allergy Angioedema Verified 02/14/23 11:57 Antibiotics) Family History Sister Asthma Breast cancer Diabetes Non-Hodgkin lymphoma Mother Myocardial infarction Brother Myocardial infarction Social History household members: none Smoking Status: Never smoker alcohol intake: never substance use type: does not use caffeine: Yes (occasionally) ROS ROS Narrative General: Denies fever/chills HENT: Denies headache, denies stuffy nose, denies sore throat EYES: Denies changes in vision Resp: Denies cough, progressive increasing shortness of breath Cardiac: Denies chest pain GI: Denies abdominal pain, denies changes in bowel, denies nausea/vomiting : Denies changes in urination Extremity: Increasing lower extremity swelling MSK: Denies weakness Neuro: Denies any numbness/tingling Heme: Denies any bleeding or bruising Skin: Denies rashes Psychiatric: No complaints voiced Vital Signs Vital Signs Vital Signs: 02/14/23 11:57 02/14/23 12:58 02/14/23 13:04 Temperature 98.2 F Temperature Source Temporal Pulse Rate 45 L 55 L Respiratory Rate 20 H Respiratory Effort Short of Breath Blood Pressure 124/60 H 127/70 H Blood Pressure Mean 81 89 Pulse Ox 96 Oxygen Delivery Method Room Air Nasal Cannula Oxygen Flow Rate (L/min) 3 Weight Weight: 54.431 kg Body Mass Index (BMI) 24.2 Physical Exam Narrative General: Alert, oriented, no apparent distress HEENT: Atraumatic, normocephalic Eyes: Anicteric, normal conjunctiva, extraocular movements grossly intact Neck: Supple Respiratory: Diminished at right base with some scattered crackles, increased respiratory effort Cardiovascular: Heart rate in 40s GI: Soft, nontender, nondistended Extremities: 2-3+ lower extremity edema, presently with Isaias wrap's in place Musculoskeletal: Moving all extremities Neuro: No overt focal neurological deficits Skin: No rashes appreciated Psych: Cooperative Results Lab / Micro Data 02/14/23 12:30 02/14/23 12:30 Labs: Laboratory Results - last 24 hr 02/14/23 12:30: WBC 7.2, RBC 4.35, Hgb 13.7, Hct 42.4, MCV 97.5, MCH 31.5, MCHC 32.3, RDW Std Deviation 59.0 H, RDW Coeff of Shahbaz 16.5 H, Plt Count , MPV TNP, Immature Gran % (Auto) 0.300, Neut % (Auto) 80.5 H, Lymph % (Auto) 10.2 L, [place] % (Auto) 8.2, Eos % (Auto) 0.4, Baso % (Auto) 0.4, Absolute Neuts (auto) 5.8, Absolute Lymphs (auto) 0.74 L, Nucleated RBC % 0.4, Differential Comment SCANNED, Platelet Estimate ADEQUATE, Plt Morphology Comment CLUMPED, Sodium 130 L, Potassium 5.2 H, Chloride 93 L, Carbon Dioxide 30.0, Anion Gap 7, BUN 63 H, Creatinine 2.37 H, Estim Creat Clear Calc 14.10, Est GFR (MDRD) Af Amer 25 L, Est GFR (MDRD) Non-Af 21 L, BUN/Creatinine Ratio 26.6 H, Glucose 123 H, Lactic Acid 3.7 H*, Calcium 10.4 H, Troponin I High Sens 923 H*, B-Natriuretic Peptide 3302.8 H ABG Data ABG results: ABG 02/14/23 12:32 Specimen Type ART Sample Site R Brach pH 7.36 Bicarbonate Actual 24.5 Total CO2 26 Base Excess -1 O2 Saturation 85 L ABG pCO2 43.2 ABG pO2 52 L Lupillo Test N/A O2 Delivery Device Room Air Vent Mode Not entered Rhythm Strip Rhythm Strip: Sinus bradycardia with delayed OK interval noted Rate: 42 Imagaing Radiology Impression Chest X-Ray 02/14/23 13:05 IMPRESSION: Right pleural effusion with right basilar atelectasis. Blunting of the left cusp and angle with increased markings at the left lung base superimposed on mild degree of CHF. Electronically Signed: Armand Steele MD at 13:38 EST , Assessment & Plan Assessment/Plan (1) Acute hypoxemic respiratory failure: (2) Acute decompensated heart failure: (3) Sinus bradycardia: (4) Paroxysmal atrial fibrillation: (5) History of hypertension: (6) Acidosis, lactic: (7) Hyperkalemia: (8) Elevated troponin: (9) FRIEDA (acute kidney injury): (10) Hypercalcemia: (11) Heart failure with preserved ejection fraction: (12) Pleural effusion, right: PLAN: Plan #SOB and acute hypoxia secondary to acute exacerbation of chronic heart failure with preserved ejection fraction and pulmonary hypertension as well as R pleural effusion -ABG on RA w/ O2 sat 85% and PO2 52, requiring 3L O2, pt initially w/ resp distress that is slowly improving with nitro gtt and IV lasix -BNP >3300 and pt clinically volume overloaded -Chest x-ray with right pleural effusion and appears congested -Had echo March 29, 2022 with EF of 50% and stage III diastolic dysfunction with PASP of 78 -Started on nitroglycerin drip for preload reduction and given IV lasix -Continue IV lasix, will consider lasix gtt if not adequately diuresis -Daily weights, I's and O's -Repeat echo -Admitting to stepdown on nitro gtt -Pt full code -ISAIAS wraps -Decreasing BB 2/2 HR in 40's, holding spironolactone given hyperkalemia #FRIEDA -Suspect cardiorenal given extent of HF -Will diurese and monitor -If not improving will need further workup/evaluation -monitor I's and O's #Elevated troponin -EKG with first-degree AV block and rate of 46, QT is 492 and incomplete left bundle mony block -Here w/ increasing SOB but not CP -Suspect demand 2/2 heart failure -Trend trop -Treat heart failure -Continue home medications #HTN -On nitro gtt #Afib -Continue Amio, decreased dose of metoprolol, Eliquis #Hyperkalemia -Patient to be diuresed -Hold spironolactone #Hyponatremia -Suspect secondary to fluid overload, if not improving will need further workup -Not presently symptomatic #Hypercalcemia -Unclear etiology, will check vitamin D, PTH, Phos #Elevated lactic acid -Suspect secondary to low perfusion from heart failure versus hypoxia -Will repeat and treat underlying etiology #DVT ppx: Uche Rodriguez MD Charges/Coding Visit Charges Inpatient E&M: 75581 Init Hosp L2
[2023-02-14] MEDS: Aspirin 81 MG TAB.CHEW 324 MG PO (13:49)
[2023-02-14 14:08] LABS: Albumin, Serum 3.8 g/dL (3.2-5.0)
--- NOTE | 2023-02-14 15:03 | ECHOD_ITS ---
Reason For Study: CHF Procedure This was a 2D Doppler, Color Flow transthoracic echocardiogram. Exam performed portable in patient room. Left Ventricle Normal LV size. The estimated ejection fraction is 55-60 %. Unable to assess diastolic dysfunction. No regional wall motion abnormalities noted. Right Ventricle Moderately dilated right ventricle. Mild to moderate global right ventricular systolic dysfunction. Atria The left atrium is severely enlarged. The right atrium is severely enlarged. No doppler evidence for ASD. Mitral Valve There is moderate mitral annular calcification. There is no mitral valve stenosis. Moderate (2+) mitral valve insufficiency. Tricuspid Valve There is no tricuspid stenosis. Moderate (2+) tricuspid valve insufficiency. Severe pulmonary hypertension. Pulmonary artery systolic pressure is 115 mmHg. Aortic Valve Trisinus/trileaflet aortic valve. There is no aortic stenosis. Mild (1+) aortic valve insufficiency. Pulmonic Valve There is no pulmonic valvular stenosis. Trivial pulmonic valve insufficiency. Great Vessels Normal aortic root. Pericardium/Pleural No pericardial effusion. MMode/2D Measurements & Calculations LVIDd: 3.8 cm IVSd: 1.2 cm Ao root diam: 3.1 cm LVIDs: 2.4 cm LVPWd: 1.3 cm LA dimension: 4.8 cm RVDd: 4.1 cm FS: 36.7 % LAV(MOD-bp): 99.6 ml LA A4 area: 25.8 cm2 RA A4 area: 29.5 cm2 LAV(MOD-bp) Indexed: 67.1 ml/m2 LAV(MOD-sp2): 122.3 ml LAV(MOD-sp4): 81.1 ml TAPSE: 1.7 cm Time Measurements MV dec time: 0.16 sec Doppler Measurements & Calculations MV E max christian: 87.4 cm/sec Lat Peak E' Christian: 5.3 cm/sec Med Peak E' Christian: 5.5 cm/sec MV A max christian: 16.1 cm/sec E/E' lat: 16.6 E/E' med: 15.9 MV E/A: 5.4 MV V2 max: 103.9 cm/sec MV P1/2t max christian: 105.9 cm/sec Ao V2 max: 105.2 cm/sec MV max P.3 mmHg MV P1/2t: 57.8 msec Ao max P.4 mmHg MV V2 mean: 39.1 cm/sec Ao V2 mean: 66.9 cm/sec MV mean P.83 mmHg MV dec slope: 536.3 cm/sec2 Ao mean P.1 mmHg MV V2 VTI: 27.5 cm MVA(P1/2t): 3.8 cm2 Ao V2 VTI: 24.4 cm AV (velocity ratio): 0.72 LV V1 max: 77.7 cm/sec MR max christian: 514.7 cm/sec PA V2 max: 49.1 cm/sec LV V1 max P.4 mmHg MR max P.0 mmHg LV V1 mean P.2 mmHg MR mean christian: 420.0 cm/sec LV V1 mean: 50.7 cm/sec MR mean P.3 mmHg LV V1 VTI: 17.6 cm MR VTI: 204.2 cm TR max christian: 511.4 cm/sec PI dec slope: 304.7 cm/sec2 TR max P.6 mmHg ECHO/Echo Complete Interpretation Summary The estimated ejection fraction is 55-60 %. Unable to assess diastolic dysfunction. The left atrium is severely enlarged. The right atrium is severely enlarged. Moderate (2+) mitral valve insufficiency. Severe pulmonary hypertension. Mild (1+) aortic valve insufficiency. Moderately dilated right ventricle. Mild to moderate global right ventricular systolic dysfunction. Ordering Physician: Beverley Rodriguez Performed By: Mark Pedro RCS
[2023-02-14 16:13] LABS: Phosphorus 5.3 mg/dL (2.5-4.9)
[2023-02-14 16:34] LABS: Reflex Lactate? Y
[2023-02-14 16:43] LABS: Troponin-I HS 852 pg/mL (3.0-54.0)
[2023-02-14 16:52] LABS: Lactic Acid 1.8 mmol/L (0.4-1.9)
[2023-02-14] MEDS: Furosemide 40 MG/4 ML Vial IV (17:07)
[2023-02-14] MEDS: 0.9% Saline Lock 10 ML Syringe IV (17:08)
[2023-02-14 19:18] LABS: Troponin-I HS 795 pg/mL (3.0-54.0)
[2023-02-14] MEDS: APIXABAN 2.5 MG TABLET (WCH) PO (22:58)
[2023-02-15] VITALS (16 sets, daily range): BP systolic 102–146; BP diastolic 52–73; PULSE 51–63; RESP 10–23; TEMP 36.3–36.8; O2SAT 92–99; BMI 25.6
[2023-02-15] MEDS: Acetaminophen 325 MG Tablet 650 MG PO ×2 (03:20→21:39)
[2023-02-15 08:13] LABS: Hematocrit 36.8 % (37-47); Hemoglobin 11.7 g/dL (12.0-15.0); Mean Corp Hgb Conc 31.8 g/dL (32-36); Mean Corpuscular Hgb 31.8 pg (27.0-32.0); POSITIVE COUNT YES; RBC Distribution Width CV 16.6 % (11.6-14.6); RBC Distribution Width SD 61.1 fl (35.1-43.9); Red Blood Count 3.68 M/mm3 (4.2-5.4); White Blood Count 7.4 K/mm3 (4.4-11.0)
[2023-02-15 08:38] LABS: Anion Gap 6 (5-15); BUN 64 mg/dL (7-18); BUN/Creat Ratio 32.5 RATIO (10-20); Calcium,Total 9.6 mg/dL (8.5-10.1); Chloride 94 mmol/L (98-107); Cholesterol 172 mg/dL (200); Creatinine, Serum 1.97 mg/dL (0.55-1.02); EST Glomerular Filtration Rate 25 mL/min (>60); Est Glom Filt Rate - Afr Amer 31 mL/min (>60); Estimated Creatinine Clearance 17.92 ml/min; Glucose 86 mg/dL (74-106); High Density Lipoprotein 35 mg/dL; Magnesium 3.1 mg/dL (1.6-2.6); Sodium Level 131 mmol/L (136-145); Thyroid Stim Hormone (TSH) 9.22 uIU/mL (0.358-3.74); Triglycerides 93 mg/dL; Very Low Density Lipoprotein 19 mg/dL (5-40)
[2023-02-15 08:54] LABS: Scan Indicated on CBC? Y/N YES- FLAGS NOTED
[2023-02-15 08:55] LABS: Differential Comment SCANNED
[2023-02-15] MEDS: Metoprolol Tartrate 25 MG Tablet 12.5 MG PO ×2 (09:38→21:40)
[2023-02-15] MEDS: Amiodarone 200 MG Tablet PO (09:39)
[2023-02-15] MEDS: 0.9% Saline Lock 10 ML Syringe IV (09:48)
[2023-02-15] MEDS: Furosemide 500 MG in Empty Viaflex 50 mL 1 EACH CONT INF (09:48)
[2023-02-15] MEDS: APIXABAN 2.5 MG TABLET (WCH) PO ×2 (09:48→21:40)
--- NOTE | 2023-02-15 11:50 | CASEMGMT ---
RN CM Face to Face with patient for initial transition planning/care coordination assessment. RN CM introduced self and role at [facility]. Patient lying in bed, alert and oriented, niece at bedside. Patient willing to participate in assessment and is able to answer all questions appropriately. Care providers, pharmacy, and demographics verified. Patient wishes to discharge home, will monitor for HHC vs SNF pending progress with therapy. Patient states she has no further needs or concerns at this time. CM to follow for discharge planning needs that may arise. 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 Patient was independent at home. Transportation: self, niece DME/HHC: Patient has shower chair, raised toilet, and walker at home. Patient has had [facility] HHC in the past. No previous SNF Disposition Plan: TBD, anticpate HHC vs SNF pending therapy. Will monitor for home oxygen at discharge. Lindy MELÉNDEZ, RN, CM
[2023-02-15 12:09] LABS: PTHIN 70.9 pg/mL (18.4-80.1)
--- NOTE | 2023-02-15 13:51 | PN_ITS ---
Subjective Subjective Patient seen and examined. She still complains of shortness of breath. Sh denies any chest pain, palpitations, dizziness, nausea, vomiting or any other symptoms. Review of systems is otherwise negative. She is on 2L of oxygen. Objective Data Objective Data Vital Signs: Vital Signs Temp Pulse Resp BP Pulse Ox O2 Del Method O2 Flow Rate 97.9 F 61 15 135/66 H 95 Nasal Cannula 2 02/15/23 09:00 02/15/23 09:38 02/15/23 09:00 02/15/23 09:38 02/15/23 09:00 02/15/23 09:00 02/15/23 09:00 Oxygen Flow Rate (L/min) 2 Oxygen Delivery Method Nasal Cannula Weight: 126 lb 12.253 oz Body Mass Index (BMI) 25.6 Intake & Output: Intake and Output for Last 24 Hours 02/13/23 02/14/23 02/15/23 23:59 23:59 23:59 Intake Total 30.10 / 33.10 32.85 / 32.85 Output Total 200 / 200 300 / 300 Balance -169.90 / -166.90 -267.15 / -267.15 Lab / Micro Data 02/15/23 07:05 02/15/23 07:05 Labs: Laboratory Results - last 24 hr 02/14/23 12:30: Phosphorus 5.3 H, Albumin 3.8 02/14/23 16:00: Lactic Acid 1.8, Troponin I High Sens 852 H*, Vitamin D 25- Hydroxy 62.0 02/14/23 18:20: Troponin I High Sens 795 H* 02/15/23 07:05: WBC 7.4, RBC 3.68 L, Hgb 11.7 L, Hct 36.8 L, MCV 100.0 H, MCH 31.8, MCHC 31.8 L, RDW Std Deviation 61.1 H, RDW Coeff of Shahbaz 16.6 H, Plt Count , Differential Comment SCANNED, Sodium 131 L, Potassium 5.0, Chloride 94 L, Carbon Dioxide 31.0, Anion Gap 6, BUN 64 H, Creatinine 1.97 H, Estim Creat Clear Calc 17.92, Est GFR (MDRD) Af Amer 31 L, Est GFR (MDRD) Non-Af 25 L, BU N/Creatinine Ratio 32.5 H, Glucose 86, Calcium 9.6, Phosphorus 5.0 H, Magnesium 3.1 H, Triglycerides 93, Cholesterol 172, LDL Cholesterol 118, VLDL Cholesterol 19, HDL Cholesterol 35 L, TSH 9.22 H, PTH Intact 70.9 Rhythm Strip Rhythm Strip: Sinus bradycardia with delayed OK interval noted Rate: 42 Physical Exam Const alert, oriented x3 and no apparent distress General Appearance: cooperative HEENT normocephalic, head/scalp atraumatic, moist oral mucous membranes and oropharynx normal Eyes PERRL and EOMs intact bilaterally Neck no lymphadenopathy and supple Lymph Lymphatic: no lymphadenopathy noted Resp Resp Narrative: diminished breath sounds bibasally, mild wheezes and crackles; on 2L of oxygen by nasal canula Cardio regular rhythm, S1 normal heart sound, S2 normal heart sound and no murmurs Rate: bradycardia GI normal to inspection, nondistended, normoactive bowel sounds, soft to palpation, non-tender and non-distended Extremity normal capillary refill and no calf tenderness Extremity Narrative: 2+pedal edema General Extremity: no tenderness to palpation of joints or extremities Skin General Skin Exam: no breakdown Neuro CN's II-XII intact bilaterally, no focal motor deficits and no sensory deficits noted Motor Exam: strength 5/5 throughout and general weakness Psych thought process normal, cooperative and affect normal Appearance: appropriate Assessment & Plan Assessment/Plan (1) Heart failure with preserved ejection fraction: PLAN: Plan #Acute on chronic HFpEF * has known EF of 50% * BNP was markedly elevatd, at >3300 * she was saturating at 85% on room air * being diuresed with IV lasix; will switch to IV lasix drip * dc nitro drip which was started to reduce preload * breathing treatment with bronchodilators * titrate oxygen to maintain sats >90% * monitor intake and output * #FRIEDA: Baseline creatinine is around 1. Creatinine was 2.37 on admission and is down to 1.97 today. Likely due to heart failure. Currently on Lasix drip. Will monitor creatinine. #Elevated troponin: * Initial troponin was 923 and trended down to 795. * This is likely due to demand ischemia from heart failure but cannot rule out underlying ischemic cardiomyopathy causing worsening heart failure. * Consult cardiology and check 2D echo. * give PO aspirin 81mg daily. * denies any chest pain now #Hypertension:nitro drip discontinued. On metoprolol #Hyperkalemia: Spironolactone on hold. Will monitor. Potassium is down to 5. #Elevated lactic acid: was likely due to hypoxia. trended down to normal once shortness of breath improved. #A-fib: On Eliquis and metoprolol as well as amiodarone DVT prophylaxis: Eliquis Charges/Coding Visit Charges Inpatient E&M: 35076 Subs Hosp L3
[2023-02-16] VITALS (11 sets, daily range): BP systolic 116–144; BP diastolic 58–65; PULSE 59–73; RESP 16–20; TEMP 36–36.8; O2SAT 87–96; BMI 25.7
[2023-02-16] MEDS: Furosemide 500 MG in Empty Viaflex 50 mL 1 EACH CONT INF (05:44)
[2023-02-16 07:56] LABS: Absolute Lymphocyte Count 0.74 X10^3/uL (0.83-4.51); Absolute Neutrophil Count 4.9 X10^3/uL (2.0-7.7); Basophil# 0.03 X10^3/uL; Basophil% 0.5 % (0-1); Eosinophil# 0.05 X10^3/uL; Eosinophils% 0.8 % (0-5); Hematocrit 39.9 % (37-47); Hemoglobin 12.3 g/dL (12.0-15.0); Lymphocyte # 0.74 X10^3/ul (0.83-4.51); Lymphocyte % 11.7 % (19-41); Mean Corp Hgb Conc 30.8 g/dL (32-36); Mean Corpuscular Volume 100.5 fL (81-99); Monocyte# 0.63 X10^3/uL; Monocyte% 9.9 % (0-10); NRBC Flagged by Analyzer 0.3 % (0-5); Neutrophil # 4.88 X10^3/uL (2.7-7.7); Neutrophil % 76.8 % (47-70); POSITIVE COUNT YES; RBC Distribution Width CV 16.4 % (11.6-14.6); RBC Distribution Width SD 60.8 fl (35.1-43.9); Red Blood Count 3.97 M/mm3 (4.2-5.4); White Blood Count 6.4 K/mm3 (4.4-11.0)
[2023-02-16 08:46] LABS: Differential Indicated SCAN CRITERIA MET
[2023-02-16 08:47] LABS: Differential Comment SCANNED; Platelet Estimate ADEQUATE (ADEQ)
[2023-02-16 09:38] LABS: Anion Gap 7 (5-15); BUN 60 mg/dL (7-18); BUN/Creat Ratio 36.4 RATIO (10-20); Calcium,Total 8.9 mg/dL (8.5-10.1); Chloride 98 mmol/L (98-107); Creatinine, Serum 1.65 mg/dL (0.55-1.02); EST Glomerular Filtration Rate 31 mL/min (>60); Est Glom Filt Rate - Afr Amer 38 mL/min (>60); Glucose 120 mg/dL (74-106); Potassium 4.5 mmol/L (3.5-5.1); Sodium Level 138 mmol/L (136-145)
[2023-02-16] MEDS: Metoprolol Tartrate 25 MG Tablet 12.5 MG PO ×2 (10:11→22:07)
[2023-02-16] MEDS: Amiodarone 200 MG Tablet PO (10:12)
[2023-02-16] MEDS: APIXABAN 2.5 MG TABLET (WCH) PO ×2 (10:12→22:08)
[2023-02-16] MEDS: Senna/Docusate Sodium 1 Tablet 2 TABLET PO (10:13)
[2023-02-16] MEDS: Acetaminophen 325 MG Tablet 650 MG PO ×2 (10:14→22:06)
--- NOTE | 2023-02-16 12:30 | PN_ITS ---
Subjective Subjective Patient seen and examined. She says she feels much better today. Her breathing is improving. She is on 2 L of oxygen. She denies any cough or palpitations, dizziness, nausea vomiting or any other symptoms. Review of systems otherwise negative. Objective Data Objective Data Vital Signs: Vital Signs Temp Pulse Resp BP Pulse Ox O2 Del Method O2 Flow Rate 98.3 F 66 18 140/63 H 95 Nasal Cannula 3 02/16/23 10:03 02/16/23 10:11 02/16/23 10:03 02/16/23 10:11 02/16/23 10:03 02/16/23 10:03 02/16/23 10:31 Oxygen Flow Rate (L/min) 3 Oxygen Delivery Method Nasal Cannula Weight: 127 lb 6.835 oz Body Mass Index (BMI) 25.7 Intake & Output: Intake and Output for Last 24 Hours 02/14/23 02/15/23 02/16/23 23:59 23:59 23:59 Intake Total 30.10 / 33.10 472.85 / 472.85 19.93 / 19.93 Output Total 200 / 200 1400 / 1400 400 / 400 Balance -169.90 / -166.90 -927.15 / -927.15 -380.07 / -380.07 Lab / Micro Data 02/16/23 07:15 02/16/23 07:15 Labs: Laboratory Results - last 24 hr 02/16/23 07:15: WBC 6.4, RBC 3.97 L, Hgb 12.3, Hct 39.9, MCV 100.5 H, MCH 31.0, MCHC 30.8 L, RDW Std Deviation 60.8 H, RDW Coeff of Shahbaz 16.4 H, Plt Count , Immature Gran % (Auto) 0.300, Neut % (Auto) 76.8 H, Lymph % (Auto) 11.7 L, [place] % (Auto) 9.9, Eos % (Auto) 0.8, Baso % (Auto) 0.5, Absolute Neuts (auto) 4.9, Absolute Lymphs (auto) 0.74 L, Nucleated RBC % 0.3, Differential Comment SCANNED, Platelet Estimate ADEQUATE, Sodium 138, Potassium 4.5, Chloride 98, Carbon Dioxide 33.0 H, Anion Gap 7, BUN 60 H, Creatinine 1.65 H, Estim Creat Clear Calc 21.50, Est GFR (MDRD) Af Amer 38 L, Est GFR (MDRD) Non-Af 31 L, BUN/Creatinine Ratio 36.4 H, Glucose 120 H, Calcium 8.9 Radiography Diagnostic Testing: Radiology Impression Echocardiogram 02/14/23 15:03 Interpretation Summary The estimated ejection fraction is 55-60 %. Unable to assess diastolic dysfunction. The left atrium is severely enlarged. The right atrium is severely enlarged. Moderate (2+) mitral valve insufficiency. Severe pulmonary hypertension. Mild (1+) aortic valve insufficiency. Moderately dilated right ventricle. Mild to moderate global right ventricular systolic dysfunction. Ordering Physician: Beverley Rodriguez Performed By: Mark Pedro RCS Rhythm Strip Rhythm Strip: Sinus bradycardia with delayed RI interval noted Rate: 42 Physical Exam Const alert, oriented x3 and no apparent distress General Appearance: cooperative HEENT normocephalic, head/scalp atraumatic, moist oral mucous membranes and oropharynx normal Eyes PERRL and EOMs intact bilaterally Neck no lymphadenopathy and supple Lymph Lymphatic: no lymphadenopathy noted Resp Resp Narrative: diminished breath sounds bibasally, mild wheezes and crackles; on 2L of oxygen by nasal canula Cardio regular rhythm, S1 normal heart sound, S2 normal heart sound and no murmurs Rate: bradycardia GI normal to inspection, nondistended, normoactive bowel sounds, soft to palpation, non-tender and non-distended Extremity normal capillary refill, no clubbing, cyanosis or edema and no calf tenderness Extremity Narrative: 2+pedal edema General Extremity: no tenderness to palpation of joints or extremities Skin General Skin Exam: no breakdown Neuro CN's II-XII intact bilaterally, no focal motor deficits and no sensory deficits noted Motor Exam: strength 5/5 throughout and general weakness Psych thought process normal, cooperative and affect normal Appearance: appropriate Assessment & Plan Assessment/Plan (1) Heart failure with preserved ejection fraction: PLAN: Plan #Acute on chronic HFpEF * has known EF of 50% * BNP was markedly elevated, at >3300 * she was saturating at 85% on room air * being diuresed with IV lasix; will switch to IV lasix drip * breathing treatment with bronchodilators * titrate oxygen to maintain sats >90% * monitor intake and output * 2D echo showed EF of 55 to 60% with no regional wall motion abnormalities and unable to assess diastolic dysfunction. Moderately dilated right ventricle and severely enlarged left atrium as well as severely enlarged right atrium. Moderate mitral valve insufficiency and no mitral valve stenosis. No tricuspid stenosis. Moderate tricuspid valve insufficiency. No aortic stenosis. Severe pulmonary hypertension with pulmonary artery systolic pressure of 115 * cardiology on board * #FRIEDA: Baseline creatinine is around 1. Creatinine was 2.37 on admission and is down to 1.65 today. Likely due to heart failure. Currently on Lasix drip. Will monitor creatinine. #Severe pulmonary hypertension; 2d echo findings as above. Likely contributing to heart failure exacerbation. Will benefit from referral to pulmonology on oupatient basis. #Elevated troponin: * Initial troponin was 923 and trended down to 795. * This is likely due to demand ischemia from heart failure but cannot rule out underlying ischemic cardiomyopathy causing worsening heart failure. * 2D echo as above * give PO aspirin 81mg daily. * denies any chest pain now * cardiology on board * for conservative management as it is thought to be due to demand ischemia #Hypertension:nitro drip discontinued. On metoprolol #Hyperkalemia: Spironolactone on hold. Will monitor. Potassium is down to 5. #Elevated lactic acid: was likely due to hypoxia. trended down to normal once shortness of breath improved. #A-fib: On Eliquis and metoprolol as well as amiodarone DVT prophylaxis: Eliquis Charges/Coding Visit Charges Inpatient E&M: 75068 Subs Hosp L2
--- NOTE | 2023-02-16 17:58 | CON.PCM.CA_ITS ---
Assessment & Plan Assessment/Plan (1) Heart failure with preserved ejection fraction: QUALIFIERS: Heart failure chronicity: unspecified Qualified Code(s): I50.30 - Unspecified diastolic (congestive) heart failure PLAN: Patient appears to have predominantly right heart failure. Her pulmonary pressures are significantly elevated. She was hypoxic on presentation and part of the elevation in her pulmonary pressures compared to prior echo may be r elated to the hypoxemia as well. She has responded well to diuresis. She has been switched to p.o. Lasix. Will monitor closely. HPI Consult Data Date of Consult: 02/16/23 HPI Narrative Reason for Consultation: Shortness of breath HPI Narrative: GEENA FREEMAN, is a 87 F who presents with shortness of breath and lower ext remity edema. She appears to have predominantly right-sided heart failure. She has been on IV diuresis and this has helped her symptoms. Her creatinine is also improving. [facility] Medical History (Updated 02/16/23 @ 18:[address] Edd Hooper MD) Anticoagulant long-term use Atrial fibrillation Atrial flutter Bilateral pneumonia Edema History of cardioversion Hypercholesteremia Hypertension Kidney disease Macular degeneration Myocardial infarct Non-smoker Osteoporosis Palpitations Paroxysmal atrial fibrillation Rheumatic fever Rotator cuff arthropathy SOB (shortness of breath) Home Medications vitamins A,C,M-uuat-iomvta 4,296 mcg-226 mg-90 mg capsule (ICaps AREDS) 1 cap PO BID EYE HEALTH 03/28/22 [History Last Taken 02/14/23] multivitamin,tx-minerals 1 tab PO DAILY SUPPLEMENT 04/13/22 [History Last Taken 02/14/23] amiodarone 200 mg tablet 200 mg PO DAILY AFIB #90 tabs 04/15/22 [Rx Last Taken 02/14/23] metoprolol tartrate 50 mg tablet 50 mg PO BID BLOOD PRESSURE #180 tabs 04/15/22 [Rx Last Taken 02/14/23] calcium carb 300 mg-D3 20 mcg-mag ox 25 mg-copper etcher 0.5 [id number] tablet (Caltrate-D3 Plus Minerals) 1 tab PO DAILY SUPPLEMENT 06/14/22 [History Last Taken 02/14/23] apixaban 2.5 mg tablet 2.5 mg PO BID BLOOD THINNER #60 tabs 09/09/22 [Rx Last Taken 02/14/23] furosemide 40 mg tablet (Lasix) 40 mg PO BID FLUID #360 tabs 01/31/23 [Rx Last Taken 02/14/23] spironolactone 50 mg tablet 50 mg PO DAILY FLUID #60 tabs 02/06/23 [Rx Last Taken 02/14/23] Allergy/AdvReac Type Severity Reaction Status Date / Time Sulfa (Sulfonamide Allergy Angioedema Verified 02/14/23 14:32 Antibiotics) Family History Sister Asthma Breast cancer Diabetes Non-Hodgkin lymphoma Mother Myocardial infarction Brother Myocardial infarction Surgical History (Updated 02/14/23 @ 15:19 by Camryn Wells) History of appendectomy Social History household members: none Smoking Status: Never smoker alcohol intake: never substance use type: does not use caffeine: Yes (occasionally) Physical Exam Const alert and oriented x3 HEENT normocephalic Eyes no scleral icterus Resp Resp Narrative: Mild tachypnea. Mild bibasal crackles. Risk Stratification Risk Stratification Applicable: No Charges/Coding Visit Charges Inpatient E&M: 20920 Init Hosp L1 Objective Data Vital Signs: Vital Signs Temp Pulse Resp BP Pulse Ox O2 Del Method O2 Flow Rate 98.3 F 59 L 20 H 132/62 H 93 Nasal Cannula 2 02/16/23 15:21 02/16/23 15:21 02/16/23 15:21 02/16/23 15:21 02/16/23 15:21 02/16/23 15:21 02/16/23 15:21 Oxygen Flow Rate (L/min) 2 Oxygen Delivery Method Nasal Cannula Weight: 127 lb 6.835 oz Body Mass Index (BMI) 25.7 Intake & Output: Intake and Output for Last 24 Hours 02/14/23 02/15/23 02/16/23 23:59 23:59 23:59 Intake Total 30.10 / 33.10 472.85 / 472.85 387.70 / 387.70 Output Total 200 / 200 1400 / 1400 400 / 400 Balance -169.90 / -166.90 -927.15 / -927.15 -12.30 / -12.30 Lab / Micro Data 02/16/23 07:15 02/16/23 07:15 Labs: Laboratory Results - last 24 hr 02/16/23 07:15: WBC 6.4, RBC 3.97 L, Hgb 12.3, Hct 39.9, MCV 100.5 H, MCH 31.0, MCHC 30.8 L, RDW Std Deviation 60.8 H, RDW Coeff of Shahbaz 16.4 H, Plt Count , Immature Gran % (Auto) 0.300, Neut % (Auto) 76.8 H, Lymph % (Auto) 11.7 L, [place] % (Auto) 9.9, Eos % (Auto) 0.8, Baso % (Auto) 0.5, Absolute Neuts (auto) 4.9, Absolute Lymphs (auto) 0.74 L, Nucleated RBC % 0.3, Differential Comment SCANNED, Platelet Estimate ADEQUATE, Sodium 138, Potassium 4.5, Chloride 98, Carbon Dioxide 33.0 H, Anion Gap 7, BUN 60 H, Creatinine 1.65 H, Estim Creat Clear Calc 21.50, Est GFR (MDRD) Af Amer 38 L, Est GFR (MDRD) Non-Af 31 L, BUN/Creatinine Ratio 36.4 H, Glucose 120 H, Calcium 8.9 Rhythm Strip Rhythm Strip: Sinus bradycardia with delayed ND interval noted Rate: 42 Cardiology Labs/Tests 02/16/23 07:15: WBC 6.4, RBC 3.97 L, Hgb 12.3, Hct 39.9, MCV 100.5 H, MCH 31.0, MCHC 30.8 L, Plt Count , Immature Gran % (Auto) 0.300, Neut % (Auto) 76.8 H, Lymph % (Auto) 11.7 L, [place] % (Auto) 9.9, Eos % (Auto) 0.8, Baso % (Auto) 0.5, Absolute Neuts (auto) 4.9, Nucleated RBC % 0.3, Sodium 138, Potassium 4.5, Chloride 98, Carbon Dioxide 33.0 H, Anion Gap 7, BUN 60 H, Creatinine 1.65 H, Est GFR (MDRD) Af Amer 38 L, Est GFR (MDRD) Non-Af 31 L, BUN/Creatinine Ratio 36.4 H, Glucose 120 H, Calcium 8.9 Rhythm: EKG: ECHO: Stress Test: Cardiac Cath: PCI: CT Surgery: Holter monitor: EPS: PPM: CXR: Chest CT Scan:
--- NOTE | 2023-02-16 22:48 | PCM.HOSP.N ---
Hospitalist Note Patient with several bouts of sustained VT, initially 21 beats, recurrent episode with 13 beats and most recently episode with 25 beats. Given the profound amount will given amiodarone IV Bolus and Cardiology who is consulted and following will be notifed.
[2023-02-16 22:53] LABS: Magnesium 2.6 mg/dL (1.6-2.6)
[2023-02-16] MEDS: Amiodarone 150 MG in Dextrose 5%-Water (100mL Bag) 100 ML 600 MG IV BOLUS (23:16)
[2023-02-17] VITALS (9 sets, daily range): BP systolic 92–132; BP diastolic 58–97; PULSE 68–120; RESP 18–20; TEMP 36.6–37; O2SAT 93–97; BMI 25.3
[2023-02-17 08:47] LABS: Absolute Lymphocyte Count 0.79 X10^3/uL (0.83-4.51); Absolute Neutrophil Count 5.4 X10^3/uL (2.0-7.7); Basophil# 0.03 X10^3/uL; Basophil% 0.4 % (0-1); Eosinophil# 0.13 X10^3/uL; Eosinophils% 1.8 % (0-5); Hematocrit 39.5 % (37-47); Hemoglobin 12.1 g/dL (12.0-15.0); Lymphocyte # 0.79 X10^3/ul (0.83-4.51); Lymphocyte % 11.1 % (19-41); Mean Corp Hgb Conc 30.6 g/dL (32-36); Mean Corpuscular Hgb 31.2 pg (27.0-32.0); Mean Corpuscular Volume 101.8 fL (81-99); Mean Platelet Vol. 9.9 fl (6.2-12.0); Monocyte# 0.71 X10^3/uL; NRBC Flagged by Analyzer 0 % (0-5); Neutrophil % 76.3 % (47-70); POSITIVE COUNT YES; RBC Distribution Width CV 16.5 % (11.6-14.6); RBC Distribution Width SD 61.9 fl (35.1-43.9); Red Blood Count 3.88 M/mm3 (4.2-5.4); White Blood Count 7.1 K/mm3 (4.4-11.0)
[2023-02-17 09:07] LABS: Anion Gap 2 (5-15); BUN 46 mg/dL (7-18); Calcium,Total 9.4 mg/dL (8.5-10.1); Chloride 99 mmol/L (98-107); Creatinine, Serum 1.18 mg/dL (0.55-1.02); EST Glomerular Filtration Rate 46 mL/min (>60); Est Glom Filt Rate - Afr Amer 56 mL/min (>60); Estimated Creatinine Clearance 29.65 ml/min; Glucose 115 mg/dL (74-106); Potassium 4.5 mmol/L (3.5-5.1); Sodium Level 138 mmol/L (136-145)
[2023-02-17 09:48] LABS: Differential Indicated SCAN CRITERIA MET
[2023-02-17 09:49] LABS: Platelet Estimate ADEQUATE (ADEQ)
--- NOTE | 2023-02-17 11:15 | CASEMGMT ---
Discharge Planning A list of? [facility] providers including quality and resource use data and consistent with the patient's preferred geographic region, medical needs, and insurance network was created in [employer] Guide.? This list was provided to the RN CM. Adelaide Fagan RN CM
--- NOTE | 2023-02-17 12:13 | PCM.PROGNOTE ---
Subjective Subjective Patient seen and examined today. She complained of feeling hungry because she is NPO. It seems she had some dysphagia so she is awaiting speech therapy evaluation. She did have a run of [place] overnight. Potassium is WNL. Objective Data Objective Data Vital Signs: Vital Signs Temp Pulse Resp BP Pulse Ox O2 Del Method O2 Flow Rate 98.2 F 68 18 121/58 H 97 Nasal Cannula 4 02/17/23 09:10 02/17/23 09:10 02/17/23 09:10 02/17/23 09:10 02/17/23 09:10 02/17/23 09:16 02/17/23 09:16 Oxygen Flow Rate (L/min) 4 Oxygen Delivery Method Nasal Cannula Weight: 125 lb 10.616 oz Body Mass Index (BMI) 25.3 Intake & Output: Intake and Output for Last 24 Hours 02/15/23 02/16/23 02/17/23 23:59 23:59 23:59 Intake Total 472.85 / 472.85 850.70 / 850.70 Output Total 1400 / 1400 500 / 500 300 / 300 Balance -927.15 / -927.15 350.70 / 350.70 -300 / -300 Lab / Micro Data 02/17/23 08:30 02/17/23 08:30 Labs: Laboratory Results - last 24 hr 02/16/23 07:15: Magnesium 2.6 02/17/23 08:30: WBC 7.1, RBC 3.88 L, Hgb 12.1, Hct 39.5, MCV 101.8 H, MCH 31.2, MCHC 30.6 L, RDW Std Deviation 61.9 H, RDW Coeff of Shahbaz 16.5 H, Plt Count , MPV 9.9, Immature Gran % (Auto) 0.400, Neut % (Auto) 76.3 H, Lymph % (Auto) 11.1 L, [place]cock % (Auto) 10.0, Eos % (Auto) 1.8, Baso % (Auto) 0.4, Absolute Neuts (auto) 5.4, Absolute Lymphs (auto) 0.79 L, Nucleated RBC % 0, Platelet Estimate ADEQUATE, Sodium 138, Potassium 4.5, Chloride 99, Carbon Dioxide 37.0 H, Anion Gap 2 L, BUN 46 H, Creatinine 1.18 H, Estim Creat Clear Calc 29.65, Est GFR (MDRD) Af Amer 56 L, Est GFR (MDRD) Non-Af 46 L, BUN/Creatinine Ratio 39.0 H, Glucose 115 H, Calcium 9.4 Rhythm Strip Rhythm Strip: Sinus bradycardia with delayed DC interval noted Rate: 42 Physical Exam Const alert, oriented x3 and no apparent distress General Appearance: cooperative HEENT normocephalic, head/scalp atraumatic, moist oral mucous membranes and oropharynx normal Eyes PERRL and EOMs intact bilaterally Neck no lymphadenopathy and supple Lymph Lymphatic: no lymphadenopathy noted Resp Resp Narrative: diminished breath sounds bibasally, no wheezes or crackles; on 4L of oxygen by nasal canula today Cardio regular rate, regular rhythm, S1 normal heart sound, S2 normal heart sound and no murmurs GI normal to inspection, nondistended, normoactive bowel sounds, soft to palpation, non-tender and non-distended Extremity normal capillary refill, no clubbing, cyanosis or edema and no calf tenderness Extremity Narrative: 2+pedal edema General Extremity: no tenderness to palpation of joints or extremities Skin General Skin Exam: no breakdown Neuro CN's II-XII intact bilaterally, no focal motor deficits and no sensory deficits noted Motor Exam: strength 5/5 throughout and general weakness Psych thought process normal, cooperative and affect normal Appearance: appropriate Assessment & Plan Assessment/Plan (1) Heart failure with preserved ejection fraction: QUALIFIERS: Heart failure chronicity: unspecified Qualified Code(s): I50.30 - Unspecified diastolic (congestive) heart failure PLAN: Plan #Acute on chronic HFpEF has known EF of 50% BNP was markedly elevated, at >3300 she was saturating at 85% on room air being diuresed with IV lasix; will switch to IV lasix drip breathing treatment with bronchodilators titrate oxygen to maintain sats >90% monitor intake and output 2D echo showed EF of 55 to 60% with no regional wall motion abnormalities and unable to assess diastolic dysfunction. Moderately dilated right ventricle and severely enlarged left atrium as well as severely enlarged right atrium. Moderate mitral valve insufficiency and no mitral valve stenosis. No tricuspid stenosis. Moderate tricuspid valve insufficiency. No aortic stenosis. Severe pulmonary hypertension with pulmonary artery systolic pressure of 115 cardiology on board #Ventricular tachycardia Had up to a 25 beat run of V. tach overnight. She did receive IV amiodarone bolus overnight. Cardiology informed. Potassium is within normal limits. Will check magnesium. Plan is to keep potassium more than 4 and magnesium more than 2. Await any further rec's from cardiology already on amiodarone #FRIEDA: Baseline creatinine is around 1. Creatinine was 2.37 on admission and is down to 1.18 today. Resolved. Thought to be due to FRIEDA. Will monitor #Dysphagia: currently NPO; await speech therapy evaluation. #Severe pulmonary hypertension; 2d echo findings as above. Likely contributing to heart failure exacerbation. Will benefit from referral to pulmonology on oupatient basis. #Elevated troponin: Initial troponin was 923 and trended down to 795. This is likely due to demand ischemia from heart failure but cannot rule out underlying ischemic cardiomyopathy causing worsening heart failure. 2D echo as above give PO aspirin 81mg daily. denies any chest pain now cardiology on board for conservative management as it is thought to be due to demand ischemia #Hypertension:nitro drip discontinued. On metoprolol #Hyperkalemia: Spironolactone on hold. resolved. #Elevated lactic acid: was likely due to hypoxia. trended down to normal once shortness of breath improved. #A-fib: On Eliquis and metoprolol as well as amiodarone DVT prophylaxis: Eliquis Charges/Coding Visit Charges Inpatient E&M: 22408 Subs Hosp L2
--- NOTE | 2023-02-17 12:16 | CASEMGMT ---
Social Work As per initial cut out operator, pt's daughter Darby is her healthcare POA, not able to bring in the documents. CATE Colvin
--- NOTE | 2023-02-17 13:01 | CASEMGMT ---
RN CM in to discuss needs at discharge. Patient states she would like to go home, discussed HHC. List provided and patient would like [facility]. Patient denied further needs at discharge. RN NA sent referral to [facility], awaiting acceptance. CM will continue to follow this patient and plan for a safe discharge.
[2023-02-17 13:18] LABS: Magnesium 2.6 mg/dL (1.6-2.6)
[2023-02-17] MEDS: Furosemide 40 MG Tablet PO (15:08)
[2023-02-17] MEDS: Amiodarone 200 MG Tablet PO (15:08)
--- NOTE | 2023-02-17 15:12 | PCM.PN.CARD ---
Subjective Subjective Patient apparently had difficulty swallowing pills yesterday. Speech evaluation was pending. Patient had 4 runs of nonsustained V. tach within a 5-minute time interval at around 10:35 PM last night. It seems she was having swallowing difficulties/aspiration at that time. She was given a bolus of amiodarone. She is already on p.o. amiodarone. No further significant runs of nonsustained V. tach since then. Her potassium and magnesium were within normal limits. Objective Data Vital Signs: Vital Signs Temp Pulse Resp BP Pulse Ox O2 Del Method O2 Flow Rate 98.2 F 68 18 121/58 H 97 Nasal Cannula 4 02/17/23 09:10 02/17/23 09:10 02/17/23 09:10 02/17/23 09:10 02/17/23 09:10 02/17/23 09:16 02/17/23 09:16 Oxygen Flow Rate (L/min) 4 Oxygen Delivery Method Nasal Cannula Weight: 125 lb 10.616 oz Body Mass Index (BMI) 25.3 Intake & Output: Intake and Output for Last 24 Hours 02/15/23 02/16/23 02/17/23 23:59 23:59 23:59 Intake Total 472.85 / 472.85 850.70 / 850.70 Output Total 1400 / 1400 500 / 500 300 / 300 Balance -927.15 / -927.15 350.70 / 350.70 -300 / -300 Lab / Micro Data 02/17/23 08:30 02/17/23 08:30 Labs: Laboratory Results - last 24 hr 02/16/23 07:15: Magnesium 2.6 02/17/23 08:30: WBC 7.1, RBC 3.88 L, Hgb 12.1, Hct 39.5, MCV 101.8 H, MCH 31.2, MCHC 30.6 L, RDW Std Deviation 61.9 H, RDW Coeff of Shahbaz 16.5 H, Plt Count , MPV 9.9, Immature Gran % (Auto) 0.400, Neut % (Auto) 76.3 H, Lymph % (Auto) 11.1 L, [place] % (Auto) 10.0, Eos % (Auto) 1.8, Baso % (Auto) 0.4, Absolute Neuts (auto) 5.4, Absolute Lymphs (auto) 0.79 L, Nucleated RBC % 0, Platelet Estimate ADEQUATE, Sodium 138, Potassium 4.5, Chloride 99, Carbon Dioxide 37.0 H, Anion Gap 2 L, BUN 46 H, Creatinine 1.18 H, Estim Creat Clear Calc 29.65, Est GFR (MDRD) Af Amer 56 L, Est GFR (MDRD) Non-Af 46 L, BUN/Creatinine Ratio 39.0 H, Glucose 115 H, Calcium 9.4 02/17/23 12:40: Magnesium 2.6 Rhythm Strip Rhythm Strip: Sinus bradycardia with delayed [place] interval noted Rate: 42 Cardiology Labs/Tests 02/16/23 07:15: Magnesium 2.6 02/17/23 08:30: WBC 7.1, RBC 3.88 L, Hgb 12.1, Hct 39.5, MCV 101.8 H, MCH 31.2, MCHC 30.6 L, Plt Count , MPV 9.9, Immature Gran % (Auto) 0.400, Neut % (Auto) 76.3 H, Lymph % (Auto) 11.1 L, [place] % (Auto) 10.0, Eos % (Auto) 1.8, Baso % (Auto) 0.4, Absolute Neuts (auto) 5.4, Nucleated RBC % 0, Sodium 138, Potassium 4.5, Chloride 99, Carbon Dioxide 37.0 H, Anion Gap 2 L, BUN 46 H, Creatinine 1.18 H, Est GFR (MDRD) Af Amer 56 L, Est GFR (MDRD) Non-Af 46 L, BUN/Creatinine Ratio 39.0 H, Glucose 115 H, Calcium 9.4 02/17/23 12:40: Magnesium 2.6 Rhythm: EKG: ECHO: Stress Test: Cardiac Cath: PCI: CT Surgery: Holter monitor: EPS: PPM: CXR: Chest CT Scan: Physical Exam Const alert and oriented x3 HEENT normocephalic Resp normal respiratory effort Resp Narrative: Minimal basal crackles Assessment & Plan Assessment/Plan (1) Heart failure with preserved ejection fraction: QUALIFIERS: Heart failure chronicity: unspecified Qualified Code(s): I50.30 - Unspecified diastolic (congestive) heart failure PLAN: Patient appears to have predominantly right heart failure. Her pulmonary pressures are significantly elevated. She was hypoxic on presentation and part of the elevation in her pulmonary pressures compared to prior echo may be related to the hypoxemia as well. She has responded well to diuresis. She has been switched to p.o. Lasix. Will monitor closely. (2) V tach: PLAN: Appears to have happened around the same time that she was having difficulty swallowing her pills/aspiration. Could be related to hypoxia at that time. Continue monitoring daily. Continue amiodarone and metoprolol p.o. at this time.
--- NOTE | 2023-02-17 21:44 | EKG12_ITS ---
Test Reason : RHTM CHG Blood Pressure : / mmHG Vent. Rate : 116 BPM Atrial Rate : 000 BPM P-R Int : 000 ms QRS Dur : 138 ms QT Int : 308 ms P-R-T Axes : 000 -89 112 degrees QTc Int : 428 ms Atrial fibrillation with rapid ventricular response Left axis deviation Non-specific intra-ventricular conduction block Minimal voltage criteria for LVH, may be normal variant ( [place] product ) Possible Lateral infarct , age undetermined Abnormal ECG When compared with ECG of 14-FEB-2023 12:20, MANUAL COMPARISON REQUIRED, DATA IS UNCONFIRMED Confirmed by KHAI BERMUDEZ, MAURICE ([id number]), research editor YENIFER VALLE ([id number]) on 02/21/2023 11:00:37 AM Referred By: Confirmed By:MAURICE RIDLEY MD
[2023-02-17] MEDS: Metoprolol Tartrate 25 MG Tablet 12.5 MG PO ×2 (21:49→23:18)
[2023-02-17] MEDS: APIXABAN 2.5 MG TABLET (WCH) PO (21:52)
--- NOTE | 2023-02-17 22:19 | PCM.HOSP.N ---
Hospitalist Note Patient with notable sustained VT lasting ~ 30 seconds, now appearing wide complex, discussed with staff and they are contacting Dr. Hooper who is consulted and following. She had episodes the day prior; however, at the time there was some thought these were while she was coughing, possibly aspirating but this event occurred without any oral intake.
[2023-02-18] VITALS (47 sets, daily range): BP systolic 75–132; BP diastolic 51–84; PULSE 84–130; RESP 12–20; TEMP 36.9–38.7; O2SAT 88–99; BMI 25.3
--- NOTE | 2023-02-18 | FLU_PTH ---
PATIENT: GEENA FREEMAN LOC: [facility] U#:[id number] AGE/SX: 87/F ROOM: [facility] RE02/14/[address]: Dr. Jered Carr DO : 1935 BED: 1 DIS: 02/26/2023 SPEC #: [id number] RECD: 02/20/23 09:28 STATUS: SANDY BRGAG #: [id number] DONAVAN: 02/18/23 00:[address]: Jered Carr DEPT: CYTOLOGY RECD BY: Dima Atkinson ENTERED: 02/20/23 09:28 SP TYPE: Fluid OTHR DR: MD Dr. Alonso Rich, DO Dr. Jonny Caldera, MD Dr. Peter Hermosillo Dr., MD Dr. Beverley Fry Dr., MD Dr. Tanmay Panchabhai, MD Christina Muller, SCALE TESTER-C Tissues: Pleural fluid, NOS Procedures: Special Stain Group II Surgery Specimen Level IV Cytospin Fluid HEADER OPERATION: Thoracentesis PRE-OP DIAGNOSIS: Right pleural effusion TISSUE SUBMITTED: Thoracentesis fluid for cytology DIAGNOSIS CYTOLOGY Thoracentesis fluid for cytology (cytospin and cell block): Negative for malignant cells. AM:karen 02/22/2023 CYTOLOGY STUDY Slides are reviewed. CYTOLOGY GROSS Received is 60 ml of yellow cloudy fluid labeled with the patient's name and and designated per the requisition as thoracentesis. Submitted for cytology preparation including cell block. / karen 02/20/2023 TC:5 CPT: 37085, 66700
--- NOTE | 2023-02-18 06:00 | NURSING ---
pt found unresponsive in bed, VS and BG taken, put on 100% non-rebreather, cesilia BERMUDEZ and MANGANESE BREAKER
--- NOTE | 2023-02-18 06:10 | RAD_ITS ---
EXAM: XR CHEST, 1 VIEW CLINICAL INDICATION: To confirm ET placement -- Call wet read to MD TECHNIQUE: Frontal view of the chest. COMPARISON: XR Chest dated 02/14/2023 FINDINGS: LUNGS AND PLEURAL SPACES: Persistent moderate size right pleural effusion with consolidation/atelectasis of the right middle and lower lobes of the lung. Minimal left pleural effusion and mild left lower lobe atelectasis. HEART: Stable cardiomegaly. MEDIASTINUM: No mediastinal or hilar mass. BONES/JOINTS: Advanced arthritic changes of the right glenohumeral joint. TUBES, LINES AND DEVICES: The endotracheal tube (ETT) is in satisfactory position with tip 1 cm above the irwin. Enteric tube extends into the stomach. RAD/Chest 1 View (Portable) IMPRESSION: Interval intubation. Recommend repositioning the ET tube. No other interval change. Electronically Signed: Kenney Meyer MD at 9:20 EST ,
[2023-02-18] MEDS: Midazolam 2 MG/2 ML Syringe IV (06:22)
[2023-02-18] MEDS: Etomidate 20 MG/10 ML Vial IV (06:23)
--- NOTE | 2023-02-18 06:26 | NURSING ---
called daughter and left message with updates on ICU status
--- NOTE | 2023-02-18 06:35 | PCM.HOSP.N ---
Hospitalist Note Intubation Note: Patient with evidence of respiratory and/or impending distress. Medications administered: Etomidate 20 mg, Versed 4 mg. ETT size: 7.5 Given patient unresponsive status and evidence of respiratory distress patient transition immediately to the ICU. Ventilator orders as well as consultation with pulmonary medicine/critical care initiated as well. Patient intubated in standard fashion with visualization of the vocal cords and passage of the ETT. Positioning verified with auscultation. Post-intubation CXR requested. Procedures Hospitalists Procedures: 55594 Insert Emergency Airway
[2023-02-18] MEDS: fentaNYL drip 100 ML 2.5 MCG CONT INF (06:54)
[2023-02-18 06:59] LABS: Base Excess 6 mmol/L (-2 to +2); Bicarbonate 29.6 mmol/L (22-26); Blood Gas Specimen Type ART; Mode AC; O2 Delivery Device Adult Vent; PEEP 5; PO2 81 mmHG (75-100); RR 14; SITE L Brach; SO2 96 % (95-99); Total Carbon Dioxide 31 mmol/L; pCO2 42.3 mmHg (35-45); pH 7.45 (7.35-7.45)
[2023-02-18 08:16] LABS: Absolute Lymphocyte Count 0.26 X10^3/uL (0.83-4.51); Absolute Neutrophil Count 8.9 X10^3/uL (2.0-7.7); Basophil# 0.02 X10^3/uL; Basophil% 0.2 % (0-1); Hematocrit 41.7 % (37-47); Hemoglobin 12.6 g/dL (12.0-15.0); Lymphocyte # 0.26 X10^3/ul (0.83-4.51); Lymphocyte % 2.6 % (19-41); Mean Corp Hgb Conc 30.2 g/dL (32-36); Mean Corpuscular Hgb 31.3 pg (27.0-32.0); Mean Corpuscular Volume 103.7 fL (81-99); Monocyte# 0.81 X10^3/uL; NRBC Flagged by Analyzer 0.3 % (0-5); Neutrophil % 88.2 % (47-70); POSITIVE COUNT YES; POSITIVE DIFFERENTIAL YES; RBC Distribution Width CV 16.4 % (11.6-14.6); RBC Distribution Width SD 62.5 fl (35.1-43.9); Red Blood Count 4.02 M/mm3 (4.2-5.4); White Blood Count 10.1 K/mm3 (4.4-11.0)
[2023-02-18 08:25] LABS: Anion Gap 4 (5-15); BUN 43 mg/dL (7-18); BUN/Creat Ratio 27.7 RATIO (10-20); Calcium,Total 9.5 mg/dL (8.5-10.1); Chloride 98 mmol/L (98-107); Creatinine, Serum 1.55 mg/dL (0.55-1.02); EST Glomerular Filtration Rate 34 mL/min (>60); Est Glom Filt Rate - Afr Amer 41 mL/min (>60); Estimated Creatinine Clearance 22.54 ml/min; Glucose 145 mg/dL (74-106); Potassium 4.9 mmol/L (3.5-5.1); Sodium Level 134 mmol/L (136-145)
[2023-02-18] MEDS: Propofol 10MG/Ml 1,000 MG/100 ML Bottle 3.4 MG CONT INF (08:33)
[2023-02-18 08:35] LABS: Bedside Glucose 158 mg/dL (74-106)
[2023-02-18 08:55] LABS: Mean Platelet Vol. 8.8 fl (6.2-12.0); Platelet Count 176 K/mm3 (150-450)
[2023-02-18] MEDS: Pantoprazole Sodium 40 MG in 0.9% Normal Saline (100mL MB+) 100 ML 330 MG IV ×2 (09:39→20:53)
[2023-02-18] MEDS: Furosemide 40 MG Tablet PO (09:39)
[2023-02-18] MEDS: Chlorhexidine 15 ML PO ×2 (09:40→20:53)
[2023-02-18] MEDS: Spironolactone 50 MG Tablet PO (09:40)
[2023-02-18] MEDS: Metoprolol Tartrate 25 MG Tablet PO (09:43)
[2023-02-18] MEDS: Amiodarone 200 MG Tablet PO (09:43)
--- NOTE | 2023-02-18 09:44 | CON.PCM.CC_ITS ---
Assessment & Plan Assessment/Plan (1) Heart failure with preserved ejection fraction: QUALIFIERS: Heart failure chronicity: unspecified Qualified Code(s): I50.30 - Unspecified diastolic (congestive) heart failure PLAN: Plan Assessment * Acute hypoxic respiratory failure status postintubation 02/18 * Acute on chronic heart failure exacerbation with preserved EF * Large R pleural effusion s/p thora (1360 ccs removed at bedside) * FRIEAD * Ventricular tachycardia * Pulmonary hypertension most likely group 2 * Hypertension * A-fib on Eliquis * Debility Plan ? Patient required to be intubated early this morning due to severe respiratory distress ? Wean FiO2 as tolerated ? Persistent right pleural effusion. Eliquis held this AM, cloudy pleural effusion removed (1360 cc). Will send for culture , chemistry and cytology ? Continue diuresis ? Correct electrolytes, maintain potassium at 4 and mag 2.5 given cardiac arrhythmias ? Patient on Rocephin and azithromycin sputum cultures obtained. Which was obtained. Will switch to vanc and cefepime as pt is febrile ? Patient's daughter at bedside updated Bowel regimen, GI prophylaxis I spent 35 minutes of critical care time excluding the procedure time. I reviewed lab work, images, previous records and medication list. HPI Consult Data Date of Consult: 02/18/23 HPI Narrative Reason for Consultation: ICU care HPI Narrative: GEENA FREEMAN, is a 87 F past medical history of a flutter on AC, hypertension and history of heart failure with preserved EF who presents to [facility] with acute on chronic diastolic CHF exacerbation on the and FRIEDA. Patient was initially admitted to PCU and started on diuresis appeared to be improving however per chart review she worsened acutely yesterday and required to be transferred to the ICU and was then intubated. Patient was found to have a large right pleural effusion as well. She had episodes of sustained V. tach while on the floor which improved spontaneously. She is usually on amiodarone and Lopressor. On evaluation today she was synchronous with the vent however her peak pressure was elevated at around 30, her plateau was 22. Her ET tube was found to be 1.5 cm above the irwin and thus RT was asked to retrieve it. [facility] Medical History (Updated 02/17/23 @ 15:[address] Edd Hooper MD) Anticoagulant long-term use Atrial fibrillation Atrial flutter Bilateral pneumonia Edema History of cardioversion Hypercholesteremia Hypertension Kidney disease Macular degeneration Myocardial infarct Non-smoker Osteoporosis Palpitations Paroxysmal atrial fibrillation Rheumatic fever Rotator cuff arthropathy SOB (shortness of breath) Home Medications vitamins A,C,M-wvlz-pdfdkp 4,296 mcg-226 mg-90 mg capsule (ICaps AREDS) 1 cap PO BID [facility] 03/28/22 [History Last Taken 02/14/23] multivitamin,tx-minerals 1 tab PO DAILY SUPPLEMENT 04/13/22 [History Last Taken 02/14/23] amiodarone 200 mg tablet 200 mg PO DAILY AFIB #90 tabs 04/15/22 [Rx Last Taken 02/14/23] metoprolol tartrate 50 mg tablet 50 mg PO BID BLOOD PRESSURE #180 tabs 04/15/22 [Rx Last Taken 02/14/23] calcium carb 300 mg-D3 20 mcg-mag ox 25 mg-copy operator 0.5 [id number] tablet (Caltrate-D3 Plus Minerals) 1 tab PO DAILY SUPPLEMENT 06/14/22 [History Last Taken 02/14/23] apixaban 2.5 mg tablet 2.5 mg PO BID BLOOD THINNER #60 tabs 09/09/22 [Rx Last Taken 02/14/23] furosemide 40 mg tablet (Lasix) 40 mg PO BID FLUID #360 tabs 01/31/23 [Rx Last Taken 02/14/23] spironolactone 50 mg tablet 50 mg PO DAILY FLUID #60 tabs 02/06/23 [Rx Last Taken 02/14/23] Allergy/AdvReac Type Severity Reaction Status Date / Time Sulfa (Sulfonamide Allergy Angioedema Verified 02/14/23 14:32 Antibiotics) Family History Sister Asthma Breast cancer Diabetes Non-Hodgkin lymphoma Mother Myocardial infarction Brother Myocardial infarction Surgical History (Updated 02/14/23 @ 15:19 by Camryn Wells) History of appendectomy Social History household members: none Smoking Status: Never smoker alcohol intake: never substance use type: does not use caffeine: Yes (occasionally) ROS ROS Narrative Unable to obtain. Patient is intubated and sedated Physical Exam Narrative General intubated and sedated HEENT. Normocephalic atraumatic, pupils equal and reactive Respiratory mechanical breath sounds. Reduced air entry on the right Cardiac S1-S2, irregular rate and rhythm GI abdomen soft and nontender MSK no lower extremity edema Skin no rashes Neuro intubated and sedated Lab / Micro Data 02/18/23 08:00 02/18/23 08:00 Labs: Laboratory Results - last 24 hr 02/17/23 08:30: WBC 7.1, RBC 3.88 L, Hgb 12.1, Hct 39.5, MCV 101.8 H, MCH 31.2, MCHC 30.6 L, RDW Std Deviation 61.9 H, RDW Coeff of Shahbaz 16.5 H, Plt Count , MPV 9.9, Immature Gran % (Auto) 0.400, Neut % (Auto) 76.3 H, Lymph % (Auto) 11.1 L, [place] % (Auto) 10.0, Eos % (Auto) 1.8, Baso % (Auto) 0.4, Absolute Neuts (auto) 5.4, Absolute Lymphs (auto) 0.79 L, Nucleated RBC % 0, Platelet Estimate ADEQUA TE 02/17/23 12:40: Magnesium 2.6 02/18/23 05:55: POC Glucose 158 H 02/18/23 08:00: WBC 10.1, RBC 4.02 L, Hgb 12.6, Hct 41.7, MCV 103.7 H, MCH 31.3, MCHC 30.2 L, RDW Std Deviation 62.5 H, RDW Coeff of Shahbaz 16.4 H, Plt Count 176, MPV 8.8, Immature Gran % (Auto) 1.000 H, Neut % (Auto) 88.2 H, Lymph % (Auto) 2.6 L, [place] % (Auto) 8.0, Eos % (Auto) 0.0, Baso % (Auto) 0.2, Absolute Neuts (auto) 8.9 H, Absolute Lymphs (auto) 0.26 L, Nucleated RBC % 0.3, Sodium 134 L, Potassium 4.9, Chloride 98, Carbon Dioxide 32.0, Anion Gap 4 L, BUN 43 H, Creatinine 1.55 H, Estim Creat Clear Calc 22.54, Est GFR (MDRD) Af Amer 41 L, Est GFR (MDRD) Non-Af 34 L, BUN/Creatinine Ratio 27.7 H, Glucose 145 H, Calcium 9.5 ABG Data ABG results: ABG 02/18/23 06:56 Specimen Type ART Sample Site L Brach pH 7.45 Bicarbonate Actual 29.6 H Total CO2 31 Base Excess 6 H O2 Saturation 96 O2 % 60.0 ABG pCO2 42.3 ABG pO2 81 Lupillo Test N/A Respiration Rate 14 O2 Delivery Device Adult Vent Vent Mode AC Tidal Volume 450.0 POC PEEP 5 Rhythm Strip Rhythm Strip: Sinus bradycardia with delayed [place] interval noted Rate: 42 Imagaing Radiology Impression Chest X-Ray 02/18/23 06:10 IMPRESSION: Interval intubation. Recommend repositioning the ET tube. No other interval change. Electronically Signed: Kenney Meyer MD at 9:20 EST , Charges/Coding Procedures Hospitalists Procedures: [id number] Critical Care 1st Hr
[2023-02-18 10:08] LABS: CPK Total, Creatine Kinase 99 U/L (26-192); Triglycerides 94 mg/dL
--- NOTE | 2023-02-18 11:09 | RAD_ITS ---
EXAM: XR CHEST, 1 VIEW CLINICAL INDICATION: post thoracentesis TECHNIQUE: Frontal view of the chest. COMPARISON: XR Chest dated 02/18/2023 FINDINGS: LUNGS AND PLEURAL SPACES: Significant improvement in the size of the right pleural effusion status post thoracentesis. Minimal residual pleural effusion noted bilaterally. Minimal infiltrate or atelectasis left lung base. HEART: Stable cardiomegaly. MEDIASTINUM: No mediastinal or hilar mass. BONES/JOINTS: Advanced arthritic changes of the right glenohumeral joint again noted. TUBES, LINES AND DEVICES: The endotracheal tube (ETT) is in satisfactory position. Enteric tube extends into the stomach. RAD/Chest 1 View (Portable) IMPRESSION: Interval right thoracentesis without evidence of complication. As above. Electronically Signed: Kenney Meyer MD at 12:27 EST ,
--- NOTE | 2023-02-18 11:23 | PCM.PN.CARD ---
Subjective Subjective Overnight patient went into A-fib with RVR with aberrancy and also into respiratory distress. She is currently intubated and in the ICU. She is getting a right-sided thoracentesis done. Objective Data Vital Signs: Vital Signs Temp Pulse Resp BP Pulse Ox O2 Del Method O2 Flow Rate 101.1 F H 118 H 16 112/76 95 Mechanical Ventilator 15 02/18/23 10:00 02/18/23 11:00 02/18/23 11:00 02/18/23 11:00 02/18/23 11:00 02/18/23 11:00 02/18/23 05:50 FiO2 40 02/18/23 11:00 Oxygen Flow Rate (L/min) 15 Oxygen Delivery Method Mechanical Ventilator Weight: 125 lb 7.088 oz Body Mass Index (BMI) 25.3 Intake & Output: Intake and Output for Last 24 Hours 02/16/23 02/17/23 02/18/23 23:59 23:59 23:59 Intake Total 850.70 / 850.70 740 / 740 201.08 / 201.08 Output Total 500 / 500 300 / 300 1560 / 1560 Balance 350.70 / 350.70 440 / 440 -1358.92 / -1358.92 Lab / Micro Data 02/18/23 08:00 02/18/23 08:00 Labs: Laboratory Results - last 24 hr 02/17/23 12:40: Magnesium 2.6 02/18/23 05:55: POC Glucose 158 H 02/18/23 08:00: WBC 10.1, RBC 4.02 L, Hgb 12.6, Hct 41.7, MCV 103.7 H, MCH 31.3, MCHC 30.2 L, RDW Std Deviation 62.5 H, RDW Coeff of Shahbaz 16.4 H, Plt Count 176, MPV 8.8, Immature Gran % (Auto) 1.000 H, Neut % (Auto) 88.2 H, Lymph % (Auto) 2.6 L, [place] % (Auto) 8.0, Eos % (Auto) 0.0, Baso % (Auto) 0.2, Absolute Neuts (auto) 8.9 H, Absolute Lymphs (auto) 0.26 L, Nucleated RBC % 0.3, Sodium 134 L, Potassium 4.9, Chloride 98, Carbon Dioxide 32.0, Anion Gap 4 L, BUN 43 H, Creatinine 1.55 H, Estim Creat Clear Calc 22.54, Est GFR (MDRD) Af Amer 41 L, Est GFR (MDRD) Non-Af 34 L, BUN/Creatinine Ratio 27.7 H, Glucose 145 H, Calcium 9.5, Total Creatine Kinase 99, Triglycerides 94 ABG Data ABG results: ABG 02/18/23 06:56 Specimen Type ART Sample Site L Brach pH 7.45 Bicarbonate Actual 29.6 H Total CO2 31 Base Excess 6 H O2 Saturation 96 O2 % 60.0 ABG pCO2 42.3 ABG pO2 81 Lupillo Test N/A Respiration Rate 14 O2 Delivery Device Adult Vent Vent Mode AC Tidal Volume 450.0 POC PEEP 5 Rhythm Strip Rhythm Strip: Sinus bradycardia with delayed IA interval noted Rate: 42 Cardiology Labs/Tests 02/17/23 12:40: Magnesium 2.6 02/18/23 06:56: pH 7.45, Bicarbonate Actual 29.6 H, Base Excess 6 H, O2 Saturation 96, ABG pCO2 42.3, ABG pO2 81, Lupillo Test N/A 02/18/23 08:00: WBC 10.1, RBC 4.02 L, Hgb 12.6, Hct 41.7, MCV 103.7 H, MCH 31.3, MCHC 30.2 L, Plt Count 176, MPV 8.8, Immature Gran % (Auto) 1.000 H, Neut % (Auto) 88.2 H, Lymph % (Auto) 2.6 L, [place] % (Auto) 8.0, Eos % (Auto) 0.0, Baso % (Auto) 0.2, Absolute Neuts (auto) 8.9 H, Nucleated RBC % 0.3, Sodium 134 L, Potassium 4.9, Chloride 98, Carbon Dioxide 32.0, Anion Gap 4 L, BUN 43 H, Creatinine 1.55 H, Est GFR (MDRD) Af Amer 41 L, Est GFR (MDRD) Non-Af 34 L, BUN/Creatinine Ratio 27.7 H, Glucose 145 H, Calcium 9.5, Triglycerides 94 Rhythm: EKG: ECHO: Stress Test: Cardiac Cath: PCI: CT Surgery: Holter monitor: EPS: PPM: CXR: Chest CT Scan: Radiography Diagnostic Testing: Radiology Impression Chest X-Ray 02/18/23 06:10 IMPRESSION: Interval intubation. Recommend repositioning the ET tube. No other interval change. Electronically Signed: Kenney Meyer MD at 9:20 EST , Assessment & Plan Assessment/Plan (1) Heart failure with preserved ejection fraction: QUALIFIERS: Heart failure chronicity: unspecified Qualified Code(s): I50.30 - Unspecified diastolic (congestive) heart failure PLAN: Patient was improving but became decompensated yesterday. This could be related to her A-fib with RVR. She does have a moderate size right pleural effusion and thoracentesis is being performed. Recommend starting the patient on Cardizem 2.5 mg/h IV. (2) V tach: PLAN: On the she had short runs of wide-complex rhythm that appeared to be V. tach. A-fib with aberrancy is also in the differential. Currently she is in A-fib with RVR and aberrant conduction. No further V. tach. (3) Paroxysmal atrial fibrillation: Charges/Coding Visit Charges Inpatient E&M: 45022 [facility] Hosp L1
--- NOTE | 2023-02-18 11:36 | PCM.OP.PRO ---
Procedure Report Date of Procedure: 02/18/23 US guided R sided thoracentesis Indication: Acute hypoxic resp failure on the vent, Large pleural effusion Consent obtained from pt's daughter A time-out was completed verifying correct patient, procedure, site, positioning, and special equipment if applicable. The patient?s <right> side was prepped and draped in a sterile manner after the appropriate infiltration level was confirmed by ultrasound. 1% lidocaine was used anesthetize the surrounding skin. A finder needle was then used to locate fluid and clear yellow fluid was obtained. A 10-blade scalpel used to make the incision. The thoracentesis catheter was then threaded without difficulty. The patient had <1360mL> of cloudy yellow fluid removed. A post-procedure chest x-ray was ordered and the fluid will be sent for several studies. Procedures Hospitalists Procedures: 40446 Aspirate Pleura w/Imaging
[2023-02-18 12:18] LABS: Cytology, Body Fluid / CSF SEE PATHOLOGY REPORT
[2023-02-18] MEDS: Cefepime HCl 2 GM in 0.9% Normal Saline (100mL MB+) 100 ML IV (12:44)
[2023-02-18 12:51] LABS: Body Fluid Mononuclear WBC # 0.137 10^3/uL; Body Fluid Mononuclear WBC % 72.9 %; Body Fluid Polynuclear WBC # 0.051 10^3/uL; Body Fluid Polynuclear WBC % 27.1 %; Body Fluid Total Cells Counted 0.192 10^3/ul; Red Cell Count/Body Fluid 0.004 10^6/ul; White Blood Count/Body Fluid 0.188 10^3/uL
[2023-02-18] MEDS: Diltiazem 125 MG in Dextrose 5%-Water (100mL Bag) 100 ML CONT INF (12:55)
[2023-02-18] MEDS: Vital AF 1.2 Cal Liquid 1,000 ML 10 ML GT (12:55)
[2023-02-18 13:06] LABS: Glucose, Body Fluid 159 mg/dL (40-70); LDH,Body Fluid 120 Units/L (Not Establ.); Protein, Body Fluid 2.4 g/dL (Not Establ.)
[2023-02-18 13:22] LABS: LDH 574 U/L (84-246)
[2023-02-18 13:23] LABS: Bedside Glucose 89 mg/dL (74-106)
[2023-02-18] MEDS: Vancomycin HCl 1,500 MG in 0.9% Normal Saline (500mL Bag) 500 ML 250 MG IV (13:44)
--- NOTE | 2023-02-18 13:57 | PCM.RX.CS ---
Consult Antibiotic Management Pharmacy has been consulted to manage selected antiobiotic: Vancomycin Type of Intervention Type of Consult: New start Suspected Infection Suspected Infection: Other (UTI) Labs Labs: Sodium 134 mmol/L (136-145) L 02/18/23 08:00 Potassium 4.9 mmol/L (3.5-5.1) 02/18/23 08:00 Chloride 98 mmol/L (98-107) 02/18/23 08:00 Carbon Dioxide 32.0 mmol/L (21.0-32.0) 02/18/23 08:00 Anion Gap 4 (5-15) L 02/18/23 08:00 BUN 43 mg/dL (7-18) H 02/18/23 08:00 Creatinine 1.55 mg/dL (0.55-1.02) H 02/18/23 08:00 Est GFR (MDRD) Af Amer 41 mL/min (>60) L 02/18/23 08:00 Est GFR (MDRD) Non-Af 34 mL/min (>60) L 02/18/23 08:00 BUN/Creatinine Ratio 27.7 RATIO (10-20) H 02/18/23 08:00 Glucose 145 mg/dL (74-106) H 02/18/23 08:00 Pharmacy Plan for Drug Dosing Pharmacy Plan for Drug Dosing: NEW START IV VANCOMYCIN Consulting Physician: CARYN Indication: SEPSIS/UTI Goal Trough: 15-20 MG/DL SrCr: 1.55 MG/DL CrCl: 17.4 ML/MIN Comments: LOADING DOSE OF 1500MG GIVEN 02/18 @ 1344 Vancomycin Dose: PATIENT'S CRCL IS <20 ML/MIN, WILL NOT SCHEDULE DOSES AT THIS TIME. WILL ORDER A RANDOM LEVEL 24 HOURS AFTER LOADING DOSE AND BASE FURTHER DOSING ON THAT LEVEL. Pending Level: 02/19/23 @ 1400 - RANDOM Pharmacy Service will continue to monitor and adjust dosing as required.
[2023-02-18] MEDS: Acetaminophen 650 MG/20 ML UDC GT (14:38)
[2023-02-18 15:20] LABS: Lymphocytes 54 %; Mesothelial Cells 1 %; Monocytes 8 %; Neutrophil (Segs) 37 %
[2023-02-18 15:23] LABS: Appearance/Body Fluid CLOUDY; Auto B Fluid Analyzer BKGD Ct COUNTS W/IN LIMITS (W/IN LIMITS); Body Fluid QC Type(s) BF1Q; Color/Body Fluid YELLOW; Source- Body Fluid THORACENTESIS
--- NOTE | 2023-02-18 15:40 | PN_ITS ---
Subjective Subjective Patient seen and examined. She was found unresponsive in bed early this morning, and emergently intubated after being transferred to the ICU. Unable to do review of systems because she is intubated. Objective Data Objective Data Vital Signs: Vital Signs Temp Pulse Resp BP Pulse Ox O2 Del Method O2 Flow Rate 101.6 F H 96 14 84/51 L 96 Mechanical Ventilator 15 02/18/23 14:00 02/18/23 15:30 02/18/23 15:00 02/18/23 15:30 02/18/23 15:00 02/18/23 15:00 02/18/23 05:50 FiO2 40 02/18/23 15:00 Oxygen Flow Rate (L/min) 15 Oxygen Delivery Method Mechanical Ventilator Weight: 125 lb 7.088 oz Body Mass Index (BMI) 25.3 Intake & Output: Intake and Output for Last 24 Hours 02/16/23 02/17/23 02/18/23 23:59 23:59 23:59 Intake Total 850.70 / 850.70 740 / 740 393.10 / 393.10 Output Total 500 / 500 300 / 300 1560 / 1560 Balance 350.70 / 350.70 440 / 440 -1166.90 / -1166.90 Lab / Micro Data 02/18/23 08:00 02/18/23 08:00 Labs: Laboratory Results - last 24 hr 02/18/23 05:55: POC Glucose 158 H 02/18/23 06:31: Fluid Glucose 159 H, Fluid Total Protein 2.4, Fluid LDH 120 02/18/23 08:00: WBC 10.1, RBC 4.02 L, Hgb 12.6, Hct 41.7, MCV 103.7 H, MCH 31.3, MCHC 30.2 L, RDW Std Deviation 62.5 H, RDW Coeff of Shahbaz 16.4 H, Plt Count 176, MPV 8.8, Immature Gran % (Auto) 1.000 H, Neut % (Auto) 88.2 H, Lymph % (Auto) 2.6 L, [place] % (Auto) 8.0, Eos % (Auto) 0.0, Baso % (Auto) 0.2, Absolute Neuts (auto) 8.9 H, Absolute Lymphs (auto) 0.26 L, Nucleated RBC % 0.3, Sodium 134 L, Potassium 4.9, Chloride 98, Carbon Dioxide 32.0, Anion Gap 4 L, BUN 43 H, Creatinine 1.55 H, Estim Creat Clear Calc 22.54, Est GFR (MDRD) Af Amer 41 L, Est GFR (MDRD) Non-Af 34 L, BUN/Creatinine Ratio 27.7 H, Glucose 145 H, Calcium 9.5, Total Creatine Kinase 99, Triglycerides 94 02/18/23 11:30: Fluid Source THORACENTESIS, Fluid Color YELLOW, Fluid Appearance CLOUDY, Fluid WBC 0.188, Fluid RBC 0.004, Fluid Tot Cell Count 0.192 H, Fld Polynuclear WBCs # 0.051, Fld Polynuclear WBCs % 27.1, Fluid Mononuclear WBCs 0.137, Fld Mononuclear WBCs % 72.9, Fluid Neutrophils 37, Fluid Lymphocytes 54, Fluid Monocytes 8, Fld Mesothelial Cells 1, Fl Pathologist Comment May follow, Fluid Comment 2 SEE COMMENT 02/18/23 13:00: Lactate Dehydrogenase 574 H 02/18/23 13:02: POC Glucose 89 Micro: Microbiology 02/18/23 06:31 Fluid - Thoracentesis Fluid Gram Stain - Final 02/18/23 07:06 Sputum, Induced/Lukens Gram Stain - Final ABG Data ABG results: ABG 02/18/23 06:56 Specimen Type ART Sample Site L Brach pH 7.45 Bicarbonate Actual 29.6 H Total CO2 31 Base Excess 6 H O2 Saturation 96 O2 % 60.0 ABG pCO2 42.3 ABG pO2 81 Lupillo Test N/A Respiration Rate 14 O2 Delivery Device Adult Vent Vent Mode AC Tidal Volume 450.0 POC PEEP 5 Radiography Diagnostic Testing: Radiology Impression Chest X-Ray 02/18/23 06:10 IMPRESSION: Interval intubation. Recommend repositioning the ET tube. No other interval change. Electronically Signed: Kenney Meyer MD at 9:20 EST Reading Location ID and State: [facility] / [place] Tel , Service support , Chest X-Ray 02/18/23 11:09 IMPRESSION: Interval right thoracentesis without evidence of complication. As above. Electronically Signed: Kenney Meyer MD at 12:27 EST , Rhythm Strip Rhythm Strip: Sinus bradycardia with delayed [place] interval noted Rate: 42 Physical Exam Const Constitutional Narrative: Patient intubated, sedated. RASS score is -4 HEENT normocephalic and head/scalp atraumatic Mouth: dry mucous membranes Eyes PERRL Neck no lymphadenopathy Lymph Lymphatic: no lymphadenopathy noted Resp Resp Narrative: intubated, sedated, RASS score is -4. Cardio S1 normal heart sound, S2 normal heart sound and no murmurs Cardio Narrative: tachypneic. GI normal to inspection, nondistended, normoactive bowel sounds, soft to palpation, non-tender and non-distended Extremity normal capillary refill, no clubbing, cyanosis or edema and no calf tenderness General Extremity: no tenderness to palpation of joints or extremities Skin General Skin Exam: no breakdown Neuro Neuro Narrative: intubated, sedated, RASS score is -4 Psych Psych Narrative: intubated, sedated. RASS score is -4 Assessment & Plan Assessment/Plan (1) Heart failure with preserved ejection fraction: QUALIFIERS: Heart failure chronicity: unspecified Qualified Code(s): I50.30 - Unspecified diastolic (congestive) heart failure PLAN: Plan #Acute hypoxic respiratory failure * Was found unresponsive in bed today. She was emergently intubated and transferred to the ICU. * Currently intubated and sedated. RASS score is -4. * Per cardiology, his suspected ventricular tachycardia was more of an atrial fibrillation with aberrant conduction. This is likely what may have caused her to go unresponsive. * Currently on Cardizem drip. Also on amiodarone * Has been diuresed with IV Lasix. * Critical care on board. * Keep magnesium more than 2 and potassium more than 4. * Chest x-ray showed large right pleural effusion. She had right-sided thoracentesis with 2360 cc of fluid removed. * Patient came febrile today so she was placed on IV vancomycin and cefepime. #Acute on chronic HFpEF * has known EF of 50% * BNP was markedly elevated, at >3300 * she was saturating at 85% on room air * breathing treatment with bronchodilators * titrate oxygen to maintain sats >90% * monitor intake and output * 2D echo showed EF of 55 to 60% with no regional wall motion abnormalities and unable to assess diastolic dysfunction. Moderately dilated right ventricle and severely enlarged left atrium as well as severely enlarged right atrium. Moderate mitral valve insufficiency and no mitral valve stenosis. No tricuspid stenosis. Moderate tricuspid valve insufficiency. No aortic stenosis. Severe pulmonary hypertension with pulmonary artery systolic pressure of 115 * cardiology on board * now intubated and sedated. * #afib RVR and aberrant conduction * Per cardiology, the findings were likely due to A-fib with aberrant conduction and not ventricular tachycardia. * Now transferred to the ICU and intubated and sedated. * on amiodarone * started on cardizem drip * on eliquis * also on metoprolol * #FRIEDA: resolved #Dysphagia: Currently intubated. #Severe pulmonary hypertension; 2d echo findings as above. Likely contributing to heart failure exacerbation. Will benefit from referral to pulmonology on oupatient basis. #Elevated troponin: * Initial troponin was 923 and trended down to 795. * This is likely due to demand ischemia from heart failure but cannot rule out underlying ischemic cardiomyopathy causing worsening heart failure. * 2D echo as above * give PO aspirin 81mg daily. * denies any chest pain now * cardiology on board * Emergently intubated and sedated. * #Hypertension:nitro drip discontinued. On metoprolol #Hyperkalemia: Spironolactone on hold. resolved. #Elevated lactic acid: was likely due to hypoxia. trended down to normal once shortness of breath improved. DVT prophylaxis: Eliquis Total time spent on evaluation and management of patient, reviewing chart and specialist notes, t, discussion with nursing and ancillary staff as well as documentation: 55 mins Charges/Coding Visit Charges Inpatient E&M: 70831 [facility] Hosp L3
[2023-02-18 17:21] LABS: Bedside Glucose 94 mg/dL (74-106)
[2023-02-18] MEDS: Norepinephrine 8 MG in 0.9% Normal Saline (250mL Bag) 242 ML 9.4 MG CONT INF (18:29)
[2023-02-18] MEDS: APIXABAN 2.5 MG TABLET (WCH) GT (20:52)
[2023-02-18] MEDS: Furosemide 40 MG Tablet GT (20:52)
[2023-02-18] MEDS: Senna/Docusate Sodium 1 Tablet GT (20:52)
[2023-02-18] MEDS: Polyethylene Glycol 3350 17 GM PACKET GT (20:52)
[2023-02-18] MEDS: Metoprolol Tartrate 25 MG Tablet GT (20:53)
[2023-02-18] MEDS: Propofol 10MG/Ml 1,000 MG/100 ML Bottle 1.7 MG CONT INF (21:30)
[2023-02-19] VITALS (49 sets, daily range): BP systolic 83–116; BP diastolic 51–81; PULSE 82–122; RESP 14–78; TEMP 37.6–38.2; O2SAT 95–99; BMI 24.7
[2023-02-19 00:39] LABS: Bedside Glucose 112 mg/dL (74-106)
[2023-02-19] MEDS: fentaNYL drip 100 ML 5 MCG CONT INF (01:35)
[2023-02-19 03:16] LABS: Absolute Lymphocyte Count 0.71 X10^3/uL (0.83-4.51); Absolute Neutrophil Count 6.9 X10^3/uL (2.0-7.7); Basophil# 0.04 X10^3/uL; Basophil% 0.5 % (0-1); Eosinophil# 0.17 X10^3/uL; Eosinophils% 2.1 % (0-5); Hematocrit 38.8 % (37-47); Hemoglobin 12.2 g/dL (12.0-15.0); Lymphocyte # 0.71 X10^3/ul (0.83-4.51); Lymphocyte % 8.6 % (19-41); Mean Corp Hgb Conc 31.4 g/dL (32-36); Mean Corpuscular Hgb 30.9 pg (27.0-32.0); Mean Corpuscular Volume 98.2 fL (81-99); Monocyte# 0.44 X10^3/uL; Monocyte% 5.3 % (0-10); NRBC Flagged by Analyzer 0.2 % (0-5); Neutrophil # 6.86 X10^3/uL (2.7-7.7); Neutrophil % 83.1 % (47-70); POSITIVE COUNT YES; RBC Distribution Width CV 15.9 % (11.6-14.6); RBC Distribution Width SD 57.4 fl (35.1-43.9); Red Blood Count 3.95 M/mm3 (4.2-5.4); White Blood Count 8.3 K/mm3 (4.4-11.0)
[2023-02-19 03:28] LABS: Anion Gap 7 (5-15); BUN 34 mg/dL (7-18); BUN/Creat Ratio 31.2 RATIO (10-20); Calcium,Total 8.4 mg/dL (8.5-10.1); Chloride 103 mmol/L (98-107); Creatinine, Serum 1.09 mg/dL (0.55-1.02); EST Glomerular Filtration Rate 50 mL/min (>60); Est Glom Filt Rate - Afr Amer 61 mL/min (>60); Estimated Creatinine Clearance 32.05 ml/min; Glucose 131 mg/dL (74-106); Magnesium 2.1 mg/dL (1.6-2.6); Potassium 3.6 mmol/L (3.5-5.1); Sodium Level 142 mmol/L (136-145)
[2023-02-19 03:57] LABS: Differential Comment SCANNED; Differential Indicated SCAN CRITERIA MET; Platelet Estimate ADEQUATE (ADEQ)
[2023-02-19] MEDS: 0.9% Saline Lock 10 ML Syringe IV ×2 (05:08→15:12)
[2023-02-19 05:19] LABS: Ionized Calcium 4.49 mg/dL (4.36-5.20)
[2023-02-19] MEDS: CHLORHEXIDINE GLUC 2% CLOTH 1 EACH TOWELETTE TOPICAL (05:33)
--- NOTE | 2023-02-19 05:41 | NURSING ---
Fentanyl gtt paused at 0515 d/t pt having significant periods of apnea on breathing trial.
[2023-02-19 05:53] LABS: Bedside Glucose 111 mg/dL (74-106)
[2023-02-19] MEDS: Senna/Docusate Sodium 1 Tablet GT ×2 (07:50→21:15)
[2023-02-19] MEDS: Chlorhexidine 15 ML PO ×2 (07:50→21:13)
[2023-02-19] MEDS: Spironolactone 50 MG Tablet GT (07:50)
[2023-02-19] MEDS: Polyethylene Glycol 3350 17 GM PACKET GT ×2 (07:50→21:14)
[2023-02-19] MEDS: APIXABAN 2.5 MG TABLET (WCH) GT ×2 (07:51→21:16)
[2023-02-19] MEDS: Amiodarone 200 MG Tablet GT (07:51)
[2023-02-19] MEDS: Furosemide 40 MG Tablet GT (07:52)
[2023-02-19] MEDS: Pantoprazole Sodium 40 MG in 0.9% Normal Saline (100mL MB+) 100 ML 330 MG IV ×2 (09:13→21:14)
[2023-02-19 09:14] LABS: AST(SGOT) 227 U/L (15-37); Alanine Aminotransfer ALT/SGPT 209 U/L (13-56); Albumin, Serum 2.2 g/dL (3.2-5.0); Alkaline Phosphatase 92 U/L (45-117); Bilirubin, Direct 0.53 mg/dL (0.00-0.30); Globulin 3.5 g/dL (2.2-4.2); Protein, Total 5.7 g/dL (6.4-8.2)
[2023-02-19] MEDS: Cefepime HCl 2 GM in 0.9% Normal Saline (100mL MB+) 100 ML IV (09:37)
--- NOTE | 2023-02-19 10:53 | PCM.PN.INT ---
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 She remains on the vent. She was apneic on SBT today although she's off sedation. Will try again tomorrow ? Wean FiO2 as tolerated ? Kidney function improving ? Correct electrolytes, maintain potassium at 4 and mag 2.5 given cardiac arrhythmias ? She remains on vanc and cefepime Day #2 , cultures pending. Fever is improving. Blood pressure trended down required to be on Levophed. Will administer a dose of albumin. Hold Lasix given low bp ? Tolerating TF. Cont Bowel regimen, GI prophylaxis -DVT ppx: pt on eliquis I spent 35 minutes of critical care time excluding the procedure time. I reviewed lab work, images, previous records and medication list. Subjective Subjective Was hypotensive yesterday required to be on low-dose Levophed. Heart rate improved although she is on Cardizem drip. Objective Data Objective Data Vital Signs: Vital Signs Temp Pulse Resp BP Pulse Ox O2 Del Method O2 Flow Rate 37.7 C H 95 14 94/55 L 97 Mechanical Ventilator 15 02/19/23 10:00 02/19/23 10:30 02/19/23 10:00 02/19/23 10:30 02/19/23 10:00 02/19/23 10:00 02/18/23 05:50 FiO2 30 02/19/23 10:00 Oxygen Flow Rate (L/min) 15 Oxygen Delivery Method Mechanical Ventilator Weight: 55.6 kg Body Mass Index (BMI) 24.7 Intake & Output: Intake and Output for Last 24 Hours 02/17/23 02/18/23 02/19/23 23:59 23:59 23:59 Intake Total 740 / 740 1210.03 / 1413.21 749.74 / 749.74 Output Total 300 / 300 2410 / 2760 750 / 750 Balance 440 / 440 -1199.97 / -1346.79 -0.26 / -0.26 Lab / Micro Data 02/19/23 03:05 02/19/23 03:05 Labs: Laboratory Results - last 24 hr 02/18/23 06:31: Fluid Glucose 159 H, Fluid Total Protein 2.4, Fluid LDH 120 02/18/23 11:30: Fluid Source THORACENTESIS, Fluid Color YELLOW, Fluid Appearance CLOUDY, Fluid WBC 0.188, Fluid RBC 0.004, Fluid Tot Cell Count 0.192 H, Fld Polynuclear WBCs # 0.051, Fld Polynuclear WBCs % 27.1, Fluid Mononuclear WBCs 0.137, Fld Mononuclear WBCs % 72.9, Fluid Neutrophils 37, Fluid Lymphocytes 54, Fluid Monocytes 8, Fld Mesothelial Cells 1, Fl Pathologist Comment May follow, Fluid Comment 2 SEE COMMENT 02/18/23 13:00: Lactate Dehydrogenase 574 H 02/18/23 13:02: POC Glucose 89 02/18/23 16:56: POC Glucose 94 02/19/23 00:19: POC Glucose 112 H 02/19/23 03:05: WBC 8.3, RBC 3.95 L, Hgb 12.2, Hct 38.8, MCV 98.2 D, MCH 30.9, MCHC 31.4 L, RDW Std Deviation 57.4 H, RDW Coeff of Shahbaz 15.9 H, Plt Count , Immature Gran % (Auto) 0.400, Neut % (Auto) 83.1 H, Lymph % (Auto) 8.6 L, [place] % (Auto) 5.3, Eos % (Auto) 2.1, Baso % (Auto) 0.5, Absolute Neuts (auto) 6.9, Absolute Lymphs (auto) 0.71 L, Nucleated RBC % 0.2, Differential Comment SCANNED, Platelet Estimate ADEQUATE, Sodium 142, Potassium 3.6, Chloride 103, Carbon Dioxide 32.0, Anion Gap 7, BUN 34 H, Creatinine 1.09 H, Estim Creat Clear Calc 32.05, Est GFR (MDRD) Af Amer 61, Est GFR (MDRD) Non-Af 50 L, BUN/Creatinine Ratio 31.2 H, Glucose 131 H, Calcium 8.4 L, Magnesium 2.1, Total Bilirubin 2.30 H, Direct Bilirubin 0.53 H, AST 227 H, ALT 209 H, Alkaline Phosphatase 92, Total Protein 5.7 L, Albumin 2.2 L, Globulin 3.5 02/19/23 05:15: Ionized Calcium 4.49 02/19/23 05:33: POC Glucose 111 H Micro: Microbiology 02/18/23 06:31 Fluid - Thoracentesis Fluid Gram Stain - Final 02/18/23 06:31 Fluid - Thoracentesis Fluid Body Fluid Culture - Preliminary No growth-Final to follow 02/18/23 09:42 Urine Catheter - [place] Urine Culture - Preliminary Culture exhibits no growth. 02/18/23 07:06 Sputum, Induced/Lukens Gram Stain - Final 02/18/23 07:06 Sputum, Induced/Lukens Respiratory Culture - Preliminary Appears to be normal respiratory sandip. Further studies to follow. Radiography Diagnostic Testing: Radiology Impression Chest X-Ray 02/18/23 06:10 IMPRESSION: Interval intubation. Recommend repositioning the ET tube. No other interval change. Electronically Signed: Kenney Meyer MD at 9:20 EST Reading Location ID and State: [facility] / [place] Tel , Service support , Chest X-Ray 02/18/23 11:09 IMPRESSION: Interval right thoracentesis without evidence of complication. As above. Electronically Signed: Kenney Meyer MD at 12:27 EST , Rhythm Strip Rhythm Strip: Sinus bradycardia with delayed [place] interval noted Rate: 42 Physical Exam Narrative General intubated and sedated HEENT. Normocephalic atraumatic, pupils equal and reactive Respiratory mechanical breath sounds. Reduced air entry on the right Cardiac S1-S2, irregular rate and rhythm GI abdomen soft and nontender MSK no lower extremity edema Skin no rashes Neuro intubated and sedated Charges/Coding Procedures Hospitalists Procedures: [id number] Critical Care 1st Hr
[2023-02-19 11:26] LABS: Bedside Glucose 102 mg/dL (74-106)
[2023-02-19] MEDS: Albumin Human 25% (100 mL) 25 GM/100 ML BAG IV (11:38)
[2023-02-19] MEDS: Propofol 10MG/Ml 1,000 MG/100 ML Bottle 1.7 MG CONT INF (11:47)
[2023-02-19] MEDS: Vital AF 1.2 Cal Liquid 1,000 ML 10 ML GT (11:48)
--- NOTE | 2023-02-19 12:27 | PN.HOSP_ITS ---
Reason for Visit Reason for Visit: Diagnoses Sepsis, unspecified organism (02/14/23) Hypercalcemia (02/14/23) Acidosis, unspecified (02/14/23) Hyperkalemia (02/14/23) Ventricular tachycardia, unspecified (02/14/23) Paroxysmal atrial fibrillation (02/14/23) Unspecified diastolic (congestive) heart failure (02/14/23) Heart failure, unspecified (02/14/23) Pleural effusion, not elsewhere classified (02/14/23) Acute respiratory failure with hypoxia (02/14/23) Acute kidney failure, unspecified (02/14/23) Bradycardia, unspecified (02/14/23) Other specified abnormal findings of blood chemistry (02/14/23) Personal history of other diseases of the circulatory system (02/14/23) Subjective Subjective Patient was seen and examined today, she remains on the ventilator, I talked briefly with critical care about her care. Objective Data Objective Data Vital Signs: Vital Signs Temp Pulse Resp BP Pulse Ox O2 Del Method O2 Flow Rate 99.9 F H 94 14 91/63 97 Mechanical Ventilator 15 02/19/23 12:00 02/19/23 12:00 02/19/23 12:00 02/19/23 12:00 02/19/23 12:00 02/19/23 12:00 02/18/23 05:50 FiO2 30 02/19/23 12:00 Oxygen Flow Rate (L/min) 15 Oxygen Delivery Method Mechanical Ventilator Weight: 55.6 kg Body Mass Index (BMI) 24.7 Intake & Output: Intake and Output for Last 24 Hours 02/17/23 02/18/23 02/19/23 23:59 23:59 23:59 Intake Total 740 / 740 1210.03 / 1413.21 779.94 / 779.94 Output Total 300 / 300 2410 / 2760 1100 / 1100 Balance 440 / 440 -1199.97 / -1346.79 -320.06 / -320.06 Lab / Micro Data 02/19/23 03:05 02/19/23 03:05 Labs: Laboratory Results - last 24 hr 02/18/23 06:31: Fluid Glucose 159 H, Fluid Total Protein 2.4, Fluid LDH 120 02/18/23 11:30: Fluid Source THORACENTESIS, Fluid Color YELLOW, Fluid Appearance CLOUDY, Fluid WBC 0.188, Fluid RBC 0.004, Fluid Tot Cell Count 0.192 H, Fld Polynuclear WBCs # 0.051, Fld Polynuclear WBCs % 27.1, Fluid Mononuclear WBCs 0.137, Fld Mononuclear WBCs % 72.9, Fluid Neutrophils 37, Fluid Lymphocytes 54, Fluid Monocytes 8, Fld Mesothelial Cells 1, Fl Pathologist Comment May follow, Fluid Comment 2 SEE COMMENT 02/18/23 13:00: Lactate Dehydrogenase 574 H 02/18/23 13:02: POC Glucose 89 02/18/23 16:56: POC Glucose 94 02/19/23 00:19: POC Glucose 112 H 02/19/23 03:05: WBC 8.3, RBC 3.95 L, Hgb 12.2, Hct 38.8, MCV 98.2 D, MCH 30.9, MCHC 31.4 L, RDW Std Deviation 57.4 H, RDW Coeff of Shahbaz 15.9 H, Plt Count , Immature Gran % (Auto) 0.400, Neut % (Auto) 83.1 H, Lymph % (Auto) 8.6 L, [place] % (Auto) 5.3, Eos % (Auto) 2.1, Baso % (Auto) 0.5, Absolute Neuts (auto) 6.9, Absolute Lymphs (auto) 0.71 L, Nucleated RBC % 0.2, Differential Comment SCANNED, Platelet Estimate ADEQUATE, Sodium 142, Potassium 3.6, Chloride 103, Carbon Dioxide 32.0, Anion Gap 7, BUN 34 H, Creatinine 1.09 H, Estim Creat Clear Calc 32.05, Est GFR (MDRD) Af Amer 61, Est GFR (MDRD) Non-Af 50 L, BUN/Creatinine Ratio 31.2 H, Glucose 131 H, Calcium 8.4 L, Magnesium 2.1, Total Bilirubin 2.30 H, Direct Bilirubin 0.53 H, AST 227 H, ALT 209 H, Alkaline Phosphatase 92, Total Protein 5.7 L, Albumin 2.2 L, Globulin 3.5 02/19/23 05:15: Ionized Calcium 4.49 02/19/23 05:33: POC Glucose 111 H 02/19/23 11:05: POC Glucose 102 Micro: Microbiology 02/18/23 06:31 Fluid - Thoracentesis Fluid Gram Stain - Final 02/18/23 06:31 Fluid - Thoracentesis Fluid Body Fluid Culture - Preliminary No growth-Final to follow 02/18/23 09:42 Urine Catheter - Santana Urine Culture - Preliminary Culture exhibits no growth. 02/18/23 07:06 Sputum, Induced/Lukens Gram Stain - Final 02/18/23 07:06 Sputum, Induced/Lukens Respiratory Culture - Preliminary Appears to be normal respiratory sandip. Further studies to follow. Radiography Diagnostic Testing: Radiology Impression Chest X-Ray 02/18/23 11:09 IMPRESSION: Interval right thoracentesis without evidence of complication. As above. Electronically Signed: Kenney Meyer MD at 12:27 EST , Rhythm Strip Rhythm Strip: Sinus bradycardia with delayed [place] interval noted Rate: 42 Physical Exam Const alert and no apparent distress Constitutional Narrative: Patient is alert and mildly sedated General Appearance: well kempt and well developed Orientation / Consciousness: awake HEENT normocephalic, head/scalp atraumatic and moist oral mucous membranes Eyes PERRL, EOMs intact bilaterally and conjunctivae normal Neck supple, no JVD and thyroid normal General: trachea midline Resp normal respiratory effort, no retractions, no use of accessory muscles and clear to auscultation bilaterally Auscultation: Negative for rales, rhonchi or wheezes Cardio S1 normal heart sound, S2 normal heart sound, no murmurs, no rub and no gallops Cardio Narrative: Heart rate and rhythm is irregular GI normal to inspection, nondistended, normoactive bowel sounds and non-distended Extremity no clubbing, cyanosis or edema Skin no rashes or lesions noted General Skin Exam: no breakdown Neuro CN's II-XII intact bilaterally Neuro Narrative: Patient is lightly sedated on the ventilator Sensorium / Orientation: awake and alert Psych Psych Narrative: Patient is lightly sedated on the ventilator Assessment & Plan Assessment/Plan (1) Heart failure with preserved ejection fraction: QUALIFIERS: Heart failure chronicity: unspecified Qualified Code(s): I50.30 - Unspecified diastolic (congestive) heart failure PLAN: Plan 1. 1 acute hypoxic respiratory failure secondary to acute on chronic congestive heart failure with preserved ejection fraction-patient remains on the vent at this time, continue present medications #2 acute on chronic congestive heart failure with preserved ejection fraction- patient remains on Lasix down her G-tube at this time and metoprolol, cardiology is participating in her care #3 pulmonary hypertension-complicates care, medical course, recovery, and prognosis #4 large right pleural effusion-status post thoracentesis, according to [facility], the fluid was transudative #5 paroxysmal atrial fibrillation-patient is on Cordarone and metoprolol as well as Eliquis Patient is currently on empiric antibiotics at this time Total clinical time spent by myself addressing the patient's medical issues, reviewing all of her data, and collaborating with patient's care team: 35 minutes Charges/Coding Visit Charges Inpatient E&M: 59463 Subs Hosp L2
--- NOTE | 2023-02-19 12:34 | PCM.PN.CARD ---
Subjective Subjective Patient is still intubated. Heart rate better. Diltiazem had to be on hold at times because of low blood pressure. Objective Data Vital Signs: Vital Signs Temp Pulse Resp BP Pulse Ox O2 Del Method O2 Flow Rate 99.9 F H 90 16 91/63 97 Mechanical Ventilator 15 02/19/23 12:00 02/19/23 12:25 02/19/23 12:25 02/19/23 12:00 02/19/23 12:25 02/19/23 12:00 02/18/23 05:50 FiO2 30 02/19/23 12:25 Oxygen Flow Rate (L/min) 15 Oxygen Delivery Method Mechanical Ventilator Weight: 122 lb 9.232 oz Body Mass Index (BMI) 24.7 Intake & Output: Intake and Output for Last 24 Hours 02/17/23 02/18/23 02/19/23 23:59 23:59 23:59 Intake Total 740 / 740 1210.03 / 1413.21 779.94 / 779.94 Output Total 300 / 300 2410 / 2760 1100 / 1100 Balance 440 / 440 -1199.97 / -1346.79 -320.06 / -320.06 Lab / Micro Data 02/19/23 03:05 02/19/23 03:05 Labs: Laboratory Results - last 24 hr 02/18/23 06:31: Fluid Glucose 159 H, Fluid Total Protein 2.4, Fluid LDH 120 02/18/23 11:30: Fluid Source THORACENTESIS, Fluid Color YELLOW, Fluid Appearance CLOUDY, Fluid WBC 0.188, Fluid RBC 0.004, Fluid Tot Cell Count 0.192 H, Fld Polynuclear WBCs # 0.051, Fld Polynuclear WBCs % 27.1, Fluid Mononuclear WBCs 0.137, Fld Mononuclear WBCs % 72.9, Fluid Neutrophils 37, Fluid Lymphocytes 54, Fluid Monocytes 8, Fld Mesothelial Cells 1, Fl Pathologist Comment May follow, Fluid Comment 2 SEE COMMENT 02/18/23 13:00: Lactate Dehydrogenase 574 H 02/18/23 13:02: POC Glucose 89 02/18/23 16:56: POC Glucose 94 02/19/23 00:19: POC Glucose 112 H 02/19/23 03:05: WBC 8.3, RBC 3.95 L, Hgb 12.2, Hct 38.8, MCV 98.2 D, MCH 30.9, MCHC 31.4 L, RDW Std Deviation 57.4 H, RDW Coeff of Shahbaz 15.9 H, Plt Count , Immature Gran % (Auto) 0.400, Neut % (Auto) 83.1 H, Lymph % (Auto) 8.6 L, [place] % (Auto) 5.3, Eos % (Auto) 2.1, Baso % (Auto) 0.5, Absolute Neuts (auto) 6.9, Absolute Lymphs (auto) 0.71 L, Nucleated RBC % 0.2, Differential Comment SCANNED, Platelet Estimate ADEQUATE, Sodium 142, Potassium 3.6, Chloride 103, Carbon Dioxide 32.0, Anion Gap 7, BUN 34 H, Creatinine 1.09 H, Estim Creat Clear Calc 32.05, Est GFR (MDRD) Af Amer 61, Est GFR (MDRD) Non-Af 50 L, BUN/Creatinine Ratio 31.2 H, Glucose 131 H, Calcium 8.4 L, Magnesium 2.1, Total Bilirubin 2.30 H, Direct Bilirubin 0.53 H, AST 227 H, ALT 209 H, Alkaline Phosphatase 92, Total Protein 5.7 L, Albumin 2.2 L, Globulin 3.5 02/19/23 05:15: Ionized Calcium 4.49 02/19/23 05:33: POC Glucose 111 H 02/19/23 11:05: POC Glucose 102 Micro: Microbiology 02/18/23 06:31 Fluid - Thoracentesis Fluid Gram Stain - Final 02/18/23 06:31 Fluid - Thoracentesis Fluid Body Fluid Culture - Preliminary No growth-Final to follow 02/18/23 09:42 Urine Catheter - Santana Urine Culture - Preliminary Culture exhibits no growth. 02/18/23 07:06 Sputum, Induced/Lukens Gram Stain - Final 02/18/23 07:06 Sputum, Induced/Lukens Respiratory Culture - Preliminary Appears to be normal respiratory sandip. Further studies to follow. Rhythm Strip Rhythm Strip: Sinus bradycardia with delayed MD interval noted Rate: 42 Cardiology Labs/Tests 02/19/23 03:05: WBC 8.3, RBC 3.95 L, Hgb 12.2, Hct 38.8, MCV 98.2 D, MCH 30.9, MCHC 31.4 L, Plt Count , Immature Gran % (Auto) 0.400, Neut % (Auto) 83.1 H, Lymph % (Auto) 8.6 L, [place] % (Auto) 5.3, Eos % (Auto) 2.1, Baso % (Auto) 0.5, Absolute Neuts (auto) 6.9, Nucleated RBC % 0.2, Sodium 142, Potassium 3.6, Chloride 103, Carbon Dioxide 32.0, Anion Gap 7, BUN 34 H, Creatinine 1.09 H, Est GFR (MDRD) Af Amer 61, Est GFR (MDRD) Non-Af 50 L, BUN/Creatinine Ratio 31.2 H, Glucose 131 H, Calcium 8.4 L, Magnesium 2.1, Total Bilirubin 2.30 H, Direct Bilirubin 0.53 H 02/19/23 05:15: Ionized Calcium 4.49 Rhythm: EKG: ECHO: Stress Test: Cardiac Cath: PCI: CT Surgery: Holter monitor: EPS: PPM: CXR: Chest CT Scan: Assessment & Plan Assessment/Plan (1) Heart failure with preserved ejection fraction: QUALIFIERS: Heart failure chronicity: unspecified Qualified Code(s): I50.30 - Unspecified diastolic (congestive) heart failure PLAN: Continue current management (2) V tach: PLAN: On the she had short runs of wide-complex rhythm that appeared to be V. tach. A-fib with aberrancy is also in the differential. Currently she is in A-fib. (3) Paroxysmal atrial fibrillation:
[2023-02-19] MEDS: Metoprolol Tartrate 25 MG Tablet GT ×2 (12:56→21:15)
[2023-02-19 14:43] LABS: Vancomycin, Random Level 13.5 ug/mL (0.0-15.0)
[2023-02-19] MEDS: Vancomycin IV 500 MG/100 ML BAG 100 MG IV (15:12)
--- NOTE | 2023-02-19 15:13 | PCM.RX.CS ---
Consult Antibiotic Management Pharmacy has been consulted to manage selected antiobiotic: Vancomycin Type of Intervention Type of Consult: Follow-up Suspected Infection Suspected Infection: Other Prior Doses of Antibiotics Prior Doses of Antibiotics Received/Current Regimen: Received loading dose of 1500mg iv x 1 on 02.18.23 . Labs Labs: Sodium 142 mmol/L (136-145) 02/19/23 03:05 Potassium 3.6 mmol/L (3.5-5.1) 02/19/23 03:05 Chloride 103 mmol/L (98-107) 02/19/23 03:05 Carbon Dioxide 32.0 mmol/L (21.0-32.0) 02/19/23 03:05 Anion Gap 7 (5-15) 02/19/23 03:05 BUN 34 mg/dL (7-18) H 02/19/23 03:05 Creatinine 1.09 mg/dL (0.55-1.02) H 02/19/23 03:05 Est GFR (MDRD) Af Amer 61 mL/min (>60) 02/19/23 03:05 Est GFR (MDRD) Non-Af 50 mL/min (>60) L 02/19/23 03:05 BUN/Creatinine Ratio 31.2 RATIO (10-20) H 02/19/23 03:05 Glucose 131 mg/dL (74-106) H 02/19/23 03:05 Random Vancomycin 13.5 ug/mL (0.0-15.0) 02/19/23 14:10 Microbiology Microbiology: Microbiology 02/18/23 06:31 Fluid - Thoracentesis Fluid Gram Stain - Final 02/18/23 06:31 Fluid - Thoracentesis Fluid Body Fluid Culture - Preliminary No growth-Final to follow 02/18/23 09:42 Urine Catheter - Santana Urine Culture - Preliminary Culture exhibits no growth. 02/18/23 07:06 Sputum, Induced/Lukens Gram Stain - Final 02/18/23 07:06 Sputum, Induced/Lukens Respiratory Culture - Preliminary Appears to be normal respiratory sandip. Further studies to follow. Dosing Weight Weight used for dosin.9 kg Estimated Creatinine Clearance Estimated Creatinine Clearance: 27ml/min Goal Trough Goal Trough: 15-20 mcg/mL Pharmacy Plan for Drug Dosing Pharmacy Plan for Drug Dosing: Random level today 13.5. Renal Cr improved with Cr 1.05. Calculated CrCl ~27ml/min using adjusted body weight 47.9kg. Recommend a starting dose of 500mg iv q24h with trough level before 3rd dose. Pharmacy Service will continue to monitor and adjust dosing as required. Follow-Up Labs Follow-Up Labs: Trough: Vancomycin (02.21. @1430 before 1500 dose)
[2023-02-19 17:13] LABS: Bedside Glucose 118 mg/dL (74-106)
[2023-02-20] VITALS (40 sets, daily range): BP systolic 84–113; BP diastolic 52–83; PULSE 87–110; RESP 13–40; TEMP 37.1–38; O2SAT 95–100; BMI 25.1
[2023-02-20 00:19] LABS: Bedside Glucose 112 mg/dL (74-106)
[2023-02-20] MEDS: fentaNYL drip 100 ML 5 MCG CONT INF ×2 (02:52→22:49)
[2023-02-20 04:53] LABS: Phosphorus 1.3 mg/dL (2.5-4.9)
[2023-02-20] MEDS: Menthol/Lanolin/Calamine/Znox 113 GM Tube 1 APPLIC TOPICAL ×3 (06:06→20:33)
--- NOTE | 2023-02-20 06:20 | RAD_ITS ---
STUDY: X-RAY CHEST REASON FOR EXAM: Female, 87 years old. Respiratory failure TECHNIQUE: Single AP portable view of the chest. COMPARISON: 02/18/2023 FINDINGS: Stable appearance of the ET and NG tubes. EKG leads overlie the chest The lungs are hyperexpanded with chronic interstitial changes and blunting of the costophrenic angles. No interval change since the previous study Normal size heart. Normal mediastinum and kim. Normal visualized pulmonary arteries. There is atherosclerotic calcification of the aortic arch with tortuosity. There are diffuse degenerative changes of the visualized thoracic spine. Normal visualized ribs, clavicles, and shoulders. There is no demonstrated abnormality of the visualized soft tissue structures of the upper abdomen. RAD/Chest 1 View (Portable) IMPRESSION: No interval change Electronically Signed: Tyrone Moyer MD at 12:24 EST ,
[2023-02-20 06:23] LABS: Anion Gap 7 (5-15); BUN 27 mg/dL (7-18); BUN/Creat Ratio 29.7 RATIO (10-20); Calcium,Total 8.4 mg/dL (8.5-10.1); Chloride 104 mmol/L (98-107); Creatinine, Serum 0.91 mg/dL (0.55-1.02); EST Glomerular Filtration Rate 62 mL/min (>60); Est Glom Filt Rate - Afr Amer 75 mL/min (>60); Estimated Creatinine Clearance 38.18 ml/min; Glucose 118 mg/dL (74-106); Magnesium 2.2 mg/dL (1.6-2.6); Potassium 3.2 mmol/L (3.5-5.1); Sodium Level 141 mmol/L (136-145)
[2023-02-20 06:58] LABS: Bedside Glucose 108 mg/dL (74-106)
[2023-02-20 07:00] LABS: Absolute Lymphocyte Count 0.61 X10^3/uL (0.83-4.51); Absolute Neutrophil Count 6.7 X10^3/uL (2.0-7.7); Basophil# 0.02 X10^3/uL; Basophil% 0.3 % (0-1); Eosinophil# 0.19 X10^3/uL; Eosinophils% 2.4 % (0-5); Hematocrit 35.8 % (37-47); Hemoglobin 11.8 g/dL (12.0-15.0); Lymphocyte # 0.61 X10^3/ul (0.83-4.51); Lymphocyte % 7.6 % (19-41); Mean Corpuscular Hgb 31.4 pg (27.0-32.0); Mean Corpuscular Volume 95.2 fL (81-99); Monocyte# 0.43 X10^3/uL; Monocyte% 5.4 % (0-10); NRBC Flagged by Analyzer 0 % (0-5); Neutrophil # 6.68 X10^3/uL (2.7-7.7); Neutrophil % 83.5 % (47-70); POSITIVE COUNT YES; RBC Distribution Width SD 55.5 fl (35.1-43.9); Red Blood Count 3.76 M/mm3 (4.2-5.4)
[2023-02-20] MEDS: dexMEDEtomidine 400 MCG in 0.9% Normal Saline (100mL Bag) 96 ML 7.1 MCG CONT INF (07:00)
--- NOTE | 2023-02-20 07:15 | PCM.PN.HOSP ---
Reason for Visit Reason for Visit: Diagnoses Sepsis, unspecified organism (02/14/23) Hypercalcemia (02/14/23) Acidosis, unspecified (02/14/23) Hyperkalemia (02/14/23) Ventricular tachycardia, unspecified (02/14/23) Paroxysmal atrial fibrillation (02/14/23) Unspecified diastolic (congestive) heart failure (02/14/23) Heart failure, unspecified (02/14/23) Pleural effusion, not elsewhere classified (02/14/23) Acute respiratory failure with hypoxia (02/14/23) Acute kidney failure, unspecified (02/14/23) Bradycardia, unspecified (02/14/23) Other specified abnormal findings of blood chemistry (02/14/23) Personal history of other diseases of the circulatory system (02/14/23) Subjective Subjective Failed SBT due to apnea. Objective Data Objective Data Vital Signs: Vital Signs Temp Pulse Resp BP Pulse Ox O2 Del Method O2 Flow Rate 37.8 C H 102 H 15 99/52 L 98 Mechanical Ventilator 15 02/20/23 07:00 02/20/23 07:00 02/20/23 07:00 02/20/23 07:00 02/20/23 07:00 02/20/23 07:00 02/18/23 05:50 FiO2 30 02/20/23 07:00 Oxygen Flow Rate (L/min) 15 Oxygen Delivery Method Mechanical Ventilator Weight: 56.6 kg Body Mass Index (BMI) 25.1 Intake & Output: Intake and Output for Last 24 Hours 02/18/23 02/19/23 02/20/23 23:59 23:59 23:59 Intake Total 1210.03 / 1413.21 1371.87 / 1485.47 220.06 / 220.06 Output Total 2410 / 2760 1325 / 1625 500 / 500 Balance -1199.97 / -1346.79 46.87 / -139.53 -279.94 / -279.94 Lab / Micro Data 02/20/23 04:00 02/20/23 04:00 Labs: Laboratory Results - last 24 hr 02/19/23 03:05: Total Bilirubin 2.30 H, Direct Bilirubin 0.53 H, AST 227 H, ALT 209 H, Alkaline Phosphatase 92, Total Protein 5.7 L, Albumin 2.2 L, Globulin 3.5 02/19/23 11:05: POC Glucose 102 02/19/23 14:10: Random Vancomycin 13.5 02/19/23 16:51: POC Glucose 118 H 02/20/23 00:01: POC Glucose 112 H 02/20/23 04:00: Sodium 141, Potassium 3.2 L, Chloride 104, Carbon Dioxide 30.0, Anion Gap 7, BUN 27 H, Creatinine 0.91, Estim Creat Clear Calc 38.18, Est GFR (MDRD) Af Amer 75, Est GFR (MDRD) Non-Af 62, BUN/Creatinine Ratio 29.7 H, Glucose 118 H, Calcium 8.4 L, Phosphorus 1.3 L, Magnesium 2.2 02/20/23 06:40: POC Glucose 108 H Micro: Microbiology 02/18/23 06:31 Fluid - Thoracentesis Fluid Gram Stain - Final 02/18/23 06:31 Fluid - Thoracentesis Fluid Body Fluid Culture - Preliminary No growth-Final to follow 02/18/23 09:42 Urine Catheter - Santana Urine Culture - Preliminary Culture exhibits no growth. 02/18/23 07:06 Sputum, Induced/Lukens Gram Stain - Final 02/18/23 07:06 Sputum, Induced/Lukens Respiratory Culture - Preliminary Appears to be normal respiratory sandip. Further studies to follow. Rhythm Strip Rhythm Strip: Sinus bradycardia with delayed [place] interval noted Rate: 42 Physical Exam Const Constitutional Narrative: intubated and sedated. HEENT head/scalp atraumatic Resp Resp Narrative: coarse BS bilaterally. Cardio regular rate, regular rhythm, S1 normal heart sound and S2 normal heart sound GI normal to inspection, nondistended, normoactive bowel sounds, soft to palpation, non-tender and non-distended Assessment & Plan Assessment/Plan (1) Heart failure with preserved ejection fraction: QUALIFIERS: Heart failure chronicity: unspecified Qualified Code(s): I50.30 - Unspecified diastolic (congestive) heart failure PLAN: Plan 1. acute hypoxic respiratory failure: intubated 02/18. secondary to acute on chronic congestive heart failure with preserved ejection with pleural effusions started on cefepime and vancomycin on the started on dexmedetomidine gtt in addition to fentanyl. Propfol weaned off. 2. acute on chronic congestive heart failure with preserved ejection fraction patient remains on furosemide, spironolactone via G-tube at this time and metoprolol Echo on the with EF 55-60%, severely enlarged LA and RA, severe PH 3. large right pleural effusion status post thoracentesis on the removing 1360 cc fluid was transudative 5. paroxysmal atrial fibrillation Afib w aberrancy with patient is on amiodarone and metoprolol tartrate 25 BID. diltiazem gtt turned off on . anticoagulated w apixaban. cardiology following VTE prophylaxis: not indicated, already on anticoagulation. DW pt's son and niece at bedside. Charges/Coding Visit Charges Inpatient E&M: 62676 Subs Hosp L2
[2023-02-20 07:17] LABS: Differential Indicated SCAN CRITERIA MET
--- NOTE | 2023-02-20 07:36 | PCM.PN.INT ---
Assessment & Plan Assessment/Plan (1) Acute decompensated heart failure: (2) Acute hypoxemic respiratory failure: PLAN: Plan RECOMMENDATIONS: 1. Transition to Precedex therapy 2. Attempt to optimize heart rate 3. ABG tomorrow if patient continues to be apneic 4. Continue empiric antibiotics pending cultures 5. Okay to advance tube feeds from my perspective IMPRESSIONS: 1. Acute hypoxic respiratory failure with large right pleural effusion Patient did present with a large right pleural effusion that has been tapped. This was noted to be transudate, consistent with CHF. Patient has responded well from a ventilator standpoint. Patient was apneic this morning. It is unclear if patient is having an element of overventilation versus apnea secondary to fentanyl. Will attempt to transition over to Precedex to allow for an easier trial tomorrow. If patient remains apneic, an ABG should be obtained at the end of the trial for evaluation. 2. Acute on chronic diastolic CHF exacerbated by A-fib with RVR Patient noted to have an EF of 55 to 60% with enlarged bilateral atria. Patient's pulmonary artery pressures noted to be 115 on presentation. This result may be spurious as patient appears to be overloaded on presentation. Patient may need to have a right heart catheterization as an outpatient. This would be exacerbated by A-fib with RVR. Patient's rate appears to be relatively controlled at this time. Will likely attempt to diurese once blood pressures are improved. 3. Debility/hypertension/paroxysmal A-fib/advanced age Complicates care, management, recovery and prognosis. Baseline antihypertensives held secondary to acute condition. Patient not receiving baseline Lasix therapy secondary to marginal blood pressures. Patient may have some better rate control with transition to Precedex. TIME: 40 minutes critical care time spent addressing patient's acute hypoxic respiratory failure, CHF, A-fib, review of all data and collaboration with care team Subjective Subjective Patient did okay overnight. Patient remains on minimal Levophed the nursing has noted with the use of propofol. Patient did have a spontaneous breathing trial this morning, but was apneic. Patient is denying any pain at this time. Patient did have some agitation intermittently and has been running a low-grade fever. Patient tolerating trophic feeds. Objective Data Objective Data Vital Signs: Vital Signs Temp Pulse Resp BP Pulse Ox O2 Del Method O2 Flow Rate 37.8 C H 102 H 15 99/52 L 98 Mechanical Ventilator 15 02/20/23 07:00 02/20/23 07:00 02/20/23 07:00 02/20/23 07:00 02/20/23 07:00 02/20/23 07:00 02/18/23 05:50 FiO2 30 02/20/23 07:00 Oxygen Flow Rate (L/min) 15 Oxygen Delivery Method Mechanical Ventilator Weight: 56.6 kg Body Mass Index (BMI) 25.1 Intake & Output: Intake and Output for Last 24 Hours 02/18/23 02/19/23 02/20/23 23:59 23:59 23:59 Intake Total 1210.03 / 1413.21 1371.87 / 1485.47 220.06 / 220.06 Output Total 2410 / 2760 1325 / 1625 500 / 500 Balance -1199.97 / -1346.79 46.87 / -139.53 -279.94 / -279.94 Lab / Micro Data Attestation: I reviewed the patient's lab results. 02/20/23 04:00 02/20/23 04:00 Labs: Laboratory Results - last 24 hr 02/19/23 03:05: Total Bilirubin 2.30 H, Direct Bilirubin 0.53 H, AST 227 H, ALT 209 H, Alkaline Phosphatase 92, Total Protein 5.7 L, Albumin 2.2 L, Globulin 3.5 02/19/23 11:05: POC Glucose 102 02/19/23 14:10: Random Vancomycin 13.5 02/19/23 16:51: POC Glucose 118 H 02/20/23 00:01: POC Glucose 112 H 02/20/23 04:00: WBC 8.0, RBC 3.76 L, Hgb 11.8 L, Hct 35.8 L, MCV 95.2, MCH 31.4, MCHC 33.0 D, RDW Std Deviation 55.5 H, RDW Coeff of Shahbaz 16.0 H, Plt Count 76 L, MPV 11.7, Immature Gran % (Auto) 0.800, Neut % (Auto) 83.5 H, Lymph % (Auto) 7.6 L, [place] % (Auto) 5.4, Eos % (Auto) 2.4, Baso % (Auto) 0.3, Absolute Neuts (auto) 6.7, Absolute Lymphs (auto) 0.61 L, Nucleated RBC % 0, Sodium 141, Potassium 3.2 L, Chloride 104, Carbon Dioxide 30.0, Anion Gap 7, BUN 27 H, Creatinine 0.91, Estim Creat Clear Calc 38.18, Est GFR (MDRD) Af Amer 75, Est GFR (MDRD) Non-Af 62, BUN/Creatinine Ratio 29.7 H, Glucose 118 H, Calcium 8.4 L, Phosphorus 1.3 L, Magnesium 2.2 02/20/23 06:40: POC Glucose 108 H Micro: Microbiology 02/18/23 06:31 Fluid - Thoracentesis Fluid Gram Stain - Final 02/18/23 06:31 Fluid - Thoracentesis Fluid Body Fluid Culture - Preliminary No growth-Final to follow 02/18/23 09:42 Urine Catheter - Santana Urine Culture - Preliminary Culture exhibits no growth. 02/18/23 07:06 Sputum, Induced/Lukens Gram Stain - Final 02/18/23 07:06 Sputum, Induced/Lukens Respiratory Culture - Preliminary Appears to be normal respiratory sandip. Further studies to follow. Rhythm Strip Rhythm Strip: A-fib Rate: 98 Physical Exam Const alert and no apparent distress Constitutional Narrative: RASS 0 with good vent synchrony General Appearance: well kempt, well developed and patient mechanically ventilated HEENT normocephalic, head/scalp atraumatic and moist oral mucous membranes Eyes PERRL, EOMs intact bilaterally and conjunctivae normal Neck supple, no JVD and thyroid normal General: trachea midline Resp normal respiratory effort, no retractions, no use of accessory muscles and clear to auscultation bilaterally Auscultation: Negative for rales, rhonchi or wheezes Cardio regular rate, S1 normal heart sound, S2 normal heart sound, no murmurs, no rub and no gallops Rhythm: abnormal rhythm irregularly irregular GI normal to inspection, nondistended, normoactive bowel sounds and non-distended Extremity no clubbing, cyanosis or edema Skin no rashes or lesions noted General Skin Exam: no breakdown Neuro CN's II-XII intact bilaterally Neuro Narrative: Patient is lightly sedated on the ventilator Psych Mood & Affect: flat affect Charges/Coding Procedures Hospitalists Procedures: 55562 Critical Care 1st Hr
[2023-02-20 08:10] LABS: Ionized Calcium 4.61 mg/dL (4.36-5.20)
[2023-02-20] MEDS: Potassium Phosphate 40 MMOL in 0.9% Normal Saline (500mL Bag) 500 ML 62.5 MMOL IV (08:22)
[2023-02-20 09:04] LABS: Mean Platelet Vol. 9.4 fl (6.2-12.0); Platelet Count 109 K/mm3 (150-450)
[2023-02-20 09:07] LABS: Differential Comment SCANNED
[2023-02-20 10:21] LABS: Platelet Estimate SLT DEC (ADEQ)
[2023-02-20] MEDS: Amiodarone 200 MG Tablet GT (10:22)
[2023-02-20] MEDS: Polyethylene Glycol 3350 17 GM PACKET GT ×2 (10:22→20:34)
[2023-02-20] MEDS: Spironolactone 50 MG Tablet GT (10:23)
[2023-02-20] MEDS: Senna/Docusate Sodium 1 Tablet GT ×2 (10:23→20:32)
[2023-02-20] MEDS: APIXABAN 2.5 MG TABLET (WCH) GT ×2 (10:24→20:32)
[2023-02-20] MEDS: Metoprolol Tartrate 25 MG Tablet GT (10:26)
[2023-02-20] MEDS: Pantoprazole Sodium 40 MG in 0.9% Normal Saline (100mL MB+) 100 ML 330 MG IV ×2 (10:37→20:25)
[2023-02-20] MEDS: Chlorhexidine 15 ML PO ×2 (10:56→20:33)
[2023-02-20] MEDS: Cefepime HCl 2 GM in 0.9% Normal Saline (100mL MB+) 100 ML IV ×2 (10:57→20:26)
[2023-02-20] MEDS: Vital AF 1.2 Cal Liquid 1,000 ML 30 ML GT (12:46)
[2023-02-20 13:23] LABS: Pathologist Comment/Body Fluid Reviewed
[2023-02-20 13:29] LABS: Bedside Glucose 119 mg/dL (74-106)
--- NOTE | 2023-02-20 15:04 | PCM.PN.CARD ---
Subjective Subjective Patient is still intubated. Heart rate better. Failed weaning trial this morning Objective Data Vital Signs: Vital Signs Temp Pulse Resp BP Pulse Ox O2 Del Method O2 Flow Rate 98.9 F 96 14 87/61 L 96 Mechanical Ventilator 15 02/20/23 14:00 02/20/23 14:15 02/20/23 14:00 02/20/23 14:15 02/20/23 14:15 02/20/23 14:00 02/18/23 05:50 FiO2 30 02/20/23 14:00 Oxygen Flow Rate (L/min) 15 Oxygen Delivery Method Mechanical Ventilator Weight: 124 lb 12.506 oz Body Mass Index (BMI) 25.1 Intake & Output: Intake and Output for Last 24 Hours 02/18/23 02/19/23 02/20/23 23:59 23:59 23:59 Intake Total 1210.03 / 1413.21 1371.87 / 1485.47 1122.57 / 1122.57 Output Total 2410 / 2760 1325 / 1625 700 / 700 Balance -1199.97 / -1346.79 46.87 / -139.53 422.57 / 422.57 Lab / Micro Data 02/20/23 04:00 02/20/23 04:00 Labs: Laboratory Results - last 24 hr 02/18/23 11:30: Fl Pathologist Comment Reviewed 02/19/23 16:51: POC Glucose 118 H 02/20/23 00:01: POC Glucose 112 H 02/20/23 04:00: WBC 8.0, RBC 3.76 L, Hgb 11.8 L, Hct 35.8 L, MCV 95.2, MCH 31.4, MCHC 33.0 D, RDW Std Deviation 55.5 H, RDW Coeff of Shahbaz 16.0 H, Plt Count 109 L, MPV 9.4, Immature Gran % (Auto) 0.800, Neut % (Auto) 83.5 H, Lymph % (Auto) 7.6 L, Ray % (Auto) 5.4, Eos % (Auto) 2.4, Baso % (Auto) 0.3, Absolute Neuts (auto) 6.7, Absolute Lymphs (auto) 0.61 L, Nucleated RBC % 0, Differential Comment SCANNED, Platelet Estimate SLT DEC, Sodium 141, Potassium 3.2 L, Chloride 104, Carbon Dioxide 30.0, Anion Gap 7, BUN 27 H, Creatinine 0.91, Estim Creat Clear Calc 38.18, Est GFR (MDRD) Af Amer 75, Est GFR (MDRD) Non-Af 62, BUN/Creatinine Ratio 29.7 H, Glucose 118 H, Calcium 8.4 L, Ionized Calcium 4.61, Phosphorus 1.3 L, Magnesium 2.2 02/20/23 06:40: POC Glucose 108 H 02/20/23 13:01: POC Glucose 119 H Micro: Microbiology 02/18/23 09:42 Blood Culture (Wb) - Right Wrist Blood Culture - Preliminary No growth in 48 hours. 02/18/23 09:30 Blood Culture (Wb) - Anticubital Right Blood Culture - Preliminary No growth in 48 hours. 02/18/23 06:31 Fluid - Thoracentesis Fluid Gram Stain - Final 02/18/23 06:31 Fluid - Thoracentesis Fluid Body Fluid Culture - Preliminary No growth-Final to follow 02/18/23 06:31 Fluid - Thoracentesis Fluid Anaerobic Culture - Preliminary No growth in 48 hours. 02/18/23 09:42 Urine Catheter - Santana Urine Culture - Final Culture exhibits no growth. 02/18/23 07:06 Sputum, Induced/Lukens Gram Stain - Final 02/18/23 07:06 Sputum, Induced/Lukens Respiratory Culture - Final Rhythm Strip Rhythm Strip: A-fib Rate: 98 Cardiology Labs/Tests 02/20/23 04:00: WBC 8.0, RBC 3.76 L, Hgb 11.8 L, Hct 35.8 L, MCV 95.2, MCH 31.4, MCHC 33.0 D, Plt Count 109 L, MPV 9.4, Immature Gran % (Auto) 0.800, Neut % (Auto) 83.5 H, Lymph % (Auto) 7.6 L, Ray % (Auto) 5.4, Eos % (Auto) 2.4, Baso % (Auto) 0.3, Absolute Neuts (auto) 6.7, Nucleated RBC % 0, Sodium 141, Potassium 3.2 L, Chloride 104, Carbon Dioxide 30.0, Anion Gap 7, BUN 27 H, Creatinine 0.91, Est GFR (MDRD) Af Amer 75, Est GFR (MDRD) Non-Af 62, BUN/Creatinine Ratio 29.7 H, Glucose 118 H, Calcium 8.4 L, Ionized Calcium 4.61, Phosphorus 1.3 L, Magnesium 2.2 Rhythm: Afib Radiography Diagnostic Testing: Radiology Impression Chest X-Ray 02/20/23 06:20 IMPRESSION: No interval change Electronically Signed: Tyrone Moyer MD at 12:24 EST , Physical Exam Const Constitutional Narrative: Intubated HEENT normocephalic Resp normal respiratory effort Resp Narrative: Minimal basal crackles Cardio Rate: regular rate Rhythm: abnormal rhythm irregularly irregular Assessment & Plan Assessment/Plan (1) Heart failure with preserved ejection fraction: QUALIFIERS: Heart failure chronicity: unspecified Qualified Code(s): I50.30 - Unspecified diastolic (congestive) heart failure (2) V tach: (3) Paroxysmal atrial fibrillation: (4) Pleural effusion, right: PLAN: Plan On the she had short runs of wide-complex rhythm that appeared to be V. tach. A-fib with aberrancy is also in the differential. Currently she is in A-fib. HR is controlled She will continue with her amiodarone, metoprolol, eliquis, spirolactone Pt did have a thoracentesis on . Charges/Coding Visit Charges Inpatient E&M: 23249 Subs Hosp L2
[2023-02-20] MEDS: dexMEDEtomidine 400 MCG in 0.9% Normal Saline (100mL Bag) 96 ML 9.9 MCG CONT INF (15:45)
[2023-02-20] MEDS: Vancomycin IV 500 MG/100 ML BAG 100 MG IV (15:47)
[2023-02-20 17:51] LABS: Bedside Glucose 113 mg/dL (74-106)
[2023-02-21] VITALS (41 sets, daily range): BP systolic 68–125; BP diastolic 49–96; PULSE 18–199; RESP 14–33; TEMP 37.4–38.6; O2SAT 86–100; BMI 25.2
[2023-02-21] MEDS: dexMEDEtomidine 400 MCG in 0.9% Normal Saline (100mL Bag) 96 ML 9.9 MCG CONT INF (01:02)
[2023-02-21 01:13] LABS: Ionized Calcium 4.61 mg/dL (4.36-5.20)
[2023-02-21 02:12] LABS: Bedside Glucose 126 mg/dL (74-106)
[2023-02-21 04:00] LABS: Absolute Lymphocyte Count 0.57 X10^3/uL (0.83-4.51); Basophil# 0.05 X10^3/uL; Basophil% 0.7 % (0-1); Eosinophil# 0.33 X10^3/uL; Eosinophils% 4.5 % (0-5); Hematocrit 38.8 % (37-47); Hemoglobin 12.5 g/dL (12.0-15.0); Lymphocyte # 0.57 X10^3/ul (0.83-4.51); Lymphocyte % 7.8 % (19-41); Mean Corp Hgb Conc 32.2 g/dL (32-36); Mean Corpuscular Volume 96.3 fL (81-99); Monocyte# 0.39 X10^3/uL; Monocyte% 5.3 % (0-10); NRBC Flagged by Analyzer 0 % (0-5); Neutrophil # 5.97 X10^3/uL (2.7-7.7); Neutrophil % 81.4 % (47-70); POSITIVE COUNT YES; POSITIVE DIFFERENTIAL YES; RBC Distribution Width CV 16.4 % (11.6-14.6); RBC Distribution Width SD 57.1 fl (35.1-43.9); Red Blood Count 4.03 M/mm3 (4.2-5.4); White Blood Count 7.3 K/mm3 (4.4-11.0)
[2023-02-21 04:02] LABS: Ionized Calcium 4.49 mg/dL (4.36-5.20)
[2023-02-21 04:13] LABS: Anion Gap 6 (5-15); BUN 23 mg/dL (7-18); BUN/Creat Ratio 30.2 RATIO (10-20); Calcium,Total 8.1 mg/dL (8.5-10.1); Chloride 107 mmol/L (98-107); Creatinine, Serum 0.76 mg/dL (0.55-1.02); EST Glomerular Filtration Rate 76 mL/min (>60); Est Glom Filt Rate - Afr Amer 92 mL/min (>60); Estimated Creatinine Clearance 34.75 ml/min; Glucose 129 mg/dL (74-106); Magnesium 2.2 mg/dL (1.6-2.6); Potassium 3.9 mmol/L (3.5-5.1); Sodium Level 143 mmol/L (136-145)
[2023-02-21 04:41] LABS: Differential Indicated SCAN CRITERIA MET
[2023-02-21 04:42] LABS: Differential Comment SCANNED
[2023-02-21 04:43] LABS: Platelet Estimate ADEQUATE (ADEQ)
[2023-02-21] MEDS: Menthol/Lanolin/Calamine/Znox 113 GM Tube 1 APPLIC TOPICAL ×3 (06:02→20:35)
--- NOTE | 2023-02-21 06:24 | PCM.PN.INT ---
Assessment & Plan Assessment/Plan (1) Acute decompensated heart failure: (2) Acute hypoxemic respiratory failure: PLAN: Plan RECOMMENDATIONS: 1. Proceed with a trial of extubation this morning. 2. Once extubated, wean supplemental oxygen to maintain saturations at or above 90%. 3. Bedside swallow evaluation with dietary advancement, as tolerated. 4. Continue antimicrobials to complete 7 days of therapy. 5. Diuresis, as tolerated by hemodynamics and renal function. 6. Remainder of medical management per cardiology recommendations. IMPRESSIONS: 1. Acute hypoxic respiratory failure with large right pleural effusion Most likely secondary to decompensated heart failure with transudative pleural effusion status post thoracentesis. The patient has done well this morning on her spontaneous breathing trial. Plan to proceed with a trial of extubation. Once extubated, wean supplemental oxygen to maintain saturations at or above 90%. Continue empiric antimicrobials to complete 7 days of therapy. Ongoing diuresis as tolerated by hemodynamics and renal function. 2. Acute on chronic diastolic CHF exacerbated by A-fib with RVR The patient noted to have an EF of 55 to 60% with enlarged bilateral atria. Patient's pulmonary artery pressures noted to be 115 on presentation. This result may be spurious as patient appears to be overloaded on presentation. The patient may need to have a right heart catheterization as an outpatient. This would be exacerbated by A-fib with RVR. The patient's rate appears to be relatively controlled at this time. Cardiology is following to assist with medical management. 3. Debility/hypertension/paroxysmal A-fib/advanced age Complicates care, management, recovery and prognosis. Therapy to work with the patient. Swallow evaluation prior to advancement of diet. TIME: 34 minutes of critical care time, independent of procedures, was spent addressing the patient's acute hypoxemic respiratory failure, decompensated heart failure, review of all data and collaboration with care team. Subjective Subjective The patient was seen and examined at the bedside this morning. Events from the last 24 hours have been reviewed. The patient's blood pressures are a bit tenuous this morning. However, she did pass her spontaneous breathing trial and is alert and able to follow simple commands. Objective Data Objective Data The patient's most recent lab work, culture data and imaging studies have all been personally reviewed. Surface echocardiogram demonstrated an ejection fraction of 55 to 60%. Pulmonary artery systolic pressure was estimated to be 115 mmHg. There was moderate dilation of the RV with mild to moderate global RV systolic dysfunction. Infectious workup has been unrevealing to date. Vital Signs: Vital Signs Temp Pulse Resp BP Pulse Ox O2 Del Method O2 Flow Rate 100.3 F H 96 16 68/55 L 97 Mechanical Ventilator 15 02/21/23 06:00 02/21/23 06:00 02/21/23 06:00 02/21/23 06:00 02/21/23 06:00 02/21/23 06:00 02/18/23 05:50 FiO2 30 02/21/23 06:00 Oxygen Flow Rate (L/min) 15 Oxygen Delivery Method Mechanical Ventilator Weight: 124 lb 12.506 oz Body Mass Index (BMI) 25.2 Intake & Output: Intake and Output for Last 24 Hours 02/19/23 02/20/23 02/21/23 23:59 23:59 23:59 Intake Total 1371.87 / 1485.47 2677.0133 / 2766.9133 234.90 / 234.90 Output Total 1325 / 1625 1250 / 1250 Balance 46.87 / -139.53 1427.0133 / 1516.9133 234.90 / 234.90 Lab / Micro Data Attestation: I reviewed the patient's lab results. 02/21/23 03:50 02/21/23 03:50 Labs: Laboratory Results - last 24 hr 02/18/23 11:30: Fl Pathologist Comment Reviewed 02/20/23 04:00: WBC 8.0, RBC 3.76 L, Hgb 11.8 L, Hct 35.8 L, MCV 95.2, MCH 31.4, MCHC 33.0 D, RDW Std Deviation 55.5 H, RDW Coeff of Shahbaz 16.0 H, Plt Count 109 L, MPV 9.4, Immature Gran % (Auto) 0.800, Neut % (Auto) 83.5 H, Lymph % (Auto) 7.6 L, [place] % (Auto) 5.4, Eos % (Auto) 2.4, Baso % (Auto) 0.3, Absolute Neuts (auto) 6.7, Absolute Lymphs (auto) 0.61 L, Nucleated RBC % 0, Differential Comment SCANNED, Platelet Estimate SLT DEC, Ionized Calcium 4.61 02/20/23 05:04: Ionized Calcium 4.61 02/20/23 06:40: POC Glucose 108 H 02/20/23 13:01: POC Glucose 119 H 02/20/23 17:31: POC Glucose 113 H 02/21/23 00:17: POC Glucose 126 H 02/21/23 03:50: WBC 7.3, RBC 4.03 L, Hgb 12.5, Hct 38.8, MCV 96.3, MCH 31.0, MCHC 32.2, RDW Std Deviation 57.1 H, RDW Coeff of Shahbaz 16.4 H, Plt Count TNP, Immature Gran % (Auto) 0.300, Neut % (Auto) 81.4 H, Lymph % (Auto) 7.8 L, [place] % (Auto) 5.3, Eos % (Auto) 4.5, Baso % (Auto) 0.7, Absolute Neuts (auto) 6.0, Absolute Lymphs (auto) 0.57 L, Nucleated RBC % 0, Differential Comment SCANNED, Platelet Estimate ADEQUATE, Sodium 143, Potassium 3.9, Chloride 107, Carbon Dioxide 30.0, Anion Gap 6, BUN 23 H, Creatinine 0.76, Estim Creat Clear Calc 34.75, Est GFR (MDRD) Af Amer 92, Est GFR (MDRD) Non-Af 76, BUN/Creatinine Ratio 30.2 H, Glucose 129 H, Calcium 8.1 L, Magnesium 2.2 02/21/23 03:58: Ionized Calcium 4.49 Micro: Microbiology 02/18/23 09:42 Blood Culture (Wb) - Right Wrist Blood Culture - Preliminary No growth in 48 hours. 02/18/23 09:30 Blood Culture (Wb) - Anticubital Right Blood Culture - Preliminary No growth in 48 hours. 02/18/23 06:31 Fluid - Thoracentesis Fluid Gram Stain - Final 02/18/23 06:31 Fluid - Thoracentesis Fluid Body Fluid Culture - Preliminary No growth-Final to follow 02/18/23 06:31 Fluid - Thoracentesis Fluid Anaerobic Culture - Preliminary No growth in 48 hours. 02/18/23 09:42 Urine Catheter - Santana Urine Culture - Final Culture exhibits no growth. 02/18/23 07:06 Sputum, Induced/Lukens Gram Stain - Final 02/18/23 07:06 Sputum, Induced/Lukens Respiratory Culture - Final Radiography Diagnostic Testing: Radiology Impression Chest X-Ray 02/20/23 06:20 IMPRESSION: No interval change Electronically Signed: Tyrone Moyer MD at 12:24 EST , Rhythm Strip Rhythm Strip: A-fib Rate: 98 Physical Exam Const Constitutional Narrative: Remains intubated and mechanically ventilated. Currently tolerating spontaneous mode of mechanical ventilation. HEENT normocephalic and head/scalp atraumatic Mouth: endotracheal tube in place and OG tube in place Eyes PERRL, EOMs intact bilaterally and conjunctivae normal Neck supple General: trachea midline Chest inspection of chest normal Resp normal respiratory effort Auscultation: Negative for rales, rhonchi or wheezes Cardio S1 normal heart sound and S2 normal heart sound Rhythm: abnormal rhythm GI normal to inspection, nondistended, normoactive bowel sounds Extremity no clubbing, cyanosis or edema Skin no rashes or lesions noted Neuro Sensorium / Orientation: sedated on vent Charges/Coding Procedures Hospitalists Procedures: [id number] Critical Care 1st Hr
[2023-02-21] MEDS: Norepinephrine 8 MG in 0.9% Normal Saline (250mL Bag) 242 ML 1.9 MG CONT INF (06:36)
--- NOTE | 2023-02-21 06:51 | PN.HOSP_ITS ---
Subjective Subjective Extubated this AM. Weak cough post extubation. Objective Data Objective Data Vital Signs: Vital Signs Temp Pulse Resp BP Pulse Ox O2 Del Method O2 Flow Rate 38.1 C H 88 22 H 81/51 L 98 Mechanical Ventilator 15 02/21/23 06:36 02/21/23 06:36 02/21/23 06:36 02/21/23 06:36 02/21/23 06:36 02/21/23 06:00 02/18/23 05:50 FiO2 30 02/21/23 06:36 Oxygen Flow Rate (L/min) 15 Oxygen Delivery Method Mechanical Ventilator Weight: 56.6 kg Body Mass Index (BMI) 25.2 Intake & Output: Intake and Output for Last 24 Hours 02/19/23 02/20/23 02/21/23 23:59 23:59 23:59 Intake Total 1371.87 / 1485.47 2677.0133 / 2766.9133 394.90 / 394.90 Output Total 1325 / 1625 1250 / 1250 300 / 300 Balance 46.87 / -139.53 1427.0133 / 1516.9133 94.90 / 94.90 Lab / Micro Data 02/21/23 03:50 02/21/23 03:50 Labs: Laboratory Results - last 24 hr 02/18/23 11:30: Fl Pathologist Comment Reviewed 02/20/23 04:00: WBC 8.0, RBC 3.76 L, Hgb 11.8 L, Hct 35.8 L, MCV 95.2, MCH 31.4, MCHC 33.0 D, RDW Std Deviation 55.5 H, RDW Coeff of Shahbaz 16.0 H, Plt Count 109 L , MPV 9.4, Immature Gran % (Auto) 0.800, Neut % (Auto) 83.5 H, Lymph % (Auto) 7.6 L, [place] % (Auto) 5.4, Eos % (Auto) 2.4, Baso % (Auto) 0.3, Absolute Neuts (auto) 6.7, Absolute Lymphs (auto) 0.61 L, Nucleated RBC % 0, Differential Comment SCANNED, Platelet Estimate SLT DEC, Ionized Calcium 4.61 02/20/23 05:04: Ionized Calcium 4.61 02/20/23 06:40: POC Glucose 108 H 02/20/23 13:01: POC Glucose 119 H 02/20/23 17:31: POC Glucose 113 H 02/21/23 00:17: POC Glucose 126 H 02/21/23 03:50: WBC 7.3, RBC 4.03 L, Hgb 12.5, Hct 38.8, MCV 96.3, MCH 31.0, MCHC 32.2, RDW Std Deviation 57.1 H, RDW Coeff of Shahbaz 16.4 H, Plt Count TNP, Immature Gran % (Auto) 0.300, Neut % (Auto) 81.4 H, Lymph % (Auto) 7.8 L, [place] % (Auto) 5.3, Eos % (Auto) 4.5, Baso % (Auto) 0.7, Absolute Neuts (auto) 6.0, Absolute Lymphs (auto) 0.57 L, Nucleated RBC % 0, Differential Comment SCANNED, Platelet Estimate ADEQUATE, Sodium 143, Potassium 3.9, Chloride 107, Carbon Dioxide 30.0, Anion Gap 6, BUN 23 H, Creatinine 0.76, Estim Creat Clear Calc 34.75, Est GFR (MDRD) Af Amer 92, Est GFR (MDRD) Non-Af 76, BUN/Creatinine Ratio 30.2 H, Glucose 129 H, Calcium 8.1 L, Magnesium 2.2 02/21/23 03:58: Ionized Calcium 4.49 Micro: Microbiology 02/18/23 09:42 Blood Culture (Wb) - Right Wrist Blood Culture - Preliminary No growth in 48 hours. 02/18/23 09:30 Blood Culture (Wb) - Anticubital Right Blood Culture - Preliminary No growth in 48 hours. 02/18/23 06:31 Fluid - Thoracentesis Fluid Gram Stain - Final 02/18/23 06:31 Fluid - Thoracentesis Fluid Body Fluid Culture - Preliminary No growth-Final to follow 02/18/23 06:31 Fluid - Thoracentesis Fluid Anaerobic Culture - Preliminary No growth in 48 hours. 02/18/23 09:42 Urine Catheter - Santana Urine Culture - Final Culture exhibits no growth. 02/18/23 07:06 Sputum, Induced/Lukens Gram Stain - Final 02/18/23 07:06 Sputum, Induced/Lukens Respiratory Culture - Final Radiography Diagnostic Testing: Radiology Impression Chest X-Ray 02/20/23 06:20 IMPRESSION: No interval change Electronically Signed: Tyrone Moyer MD at 12:24 EST , Rhythm Strip Rhythm Strip: A-fib Rate: 98 Physical Exam Const alert and no apparent distress Constitutional Narrative: nontoxic. no respiratory distress. Resp normal respiratory effort and no retractions Resp Narrative: coarse BS bilaterally. Cardio regular rate, regular rhythm, S1 normal heart sound and S2 normal heart sound GI normal to inspection, nondistended, normoactive bowel sounds, soft to palpation, non-tender and non-distended Extremity normal to inspection Assessment & Plan Assessment/Plan (1) Heart failure with preserved ejection fraction: QUALIFIERS: Heart failure chronicity: unspecified Qualified Code(s): I50.30 - Unspecified diastolic (congestive) heart failure PLAN: Plan 1. acute hypoxic respiratory failure: * intubated 02/18. Extubated on 02/21. * secondary to acute on chronic congestive heart failure with preserved ejection with pleural effusions * started on cefepime and vancomycin on the 2. acute on chronic congestive heart failure with preserved ejection fraction * patient remains on furosemide, spironolactone and metoprolol * Echo on the with EF 55-60%, severely enlarged LA and RA, severe PH 3. large right pleural effusion * status post thoracentesis on the removing 1360 cc * fluid was transudative 5. paroxysmal atrial fibrillation * Afib w aberrancy with patient is on amiodarone and metoprolol tartrate 25 BID. diltiazem gtt turned off on . * anticoagulated w apixaban. * cardiology following VTE prophylaxis: not indicated, already on anticoagulation. Discussed with patient's daughter at bedside. Explained to her that patient remained in the intensive care unit overnight given the fact that she was just extubated but also the fact that she does still requiring norepinephrine. Charges/Coding Visit Charges Inpatient E&M: 90731 Subs Hosp L2
[2023-02-21 06:52] LABS: Bedside Glucose 149 mg/dL (74-106)
[2023-02-21] MEDS: Amiodarone 200 MG Tablet GT (09:36)
[2023-02-21] MEDS: APIXABAN 2.5 MG TABLET (WCH) GT (09:37)
[2023-02-21] MEDS: Cefepime HCl 2 GM in 0.9% Normal Saline (100mL MB+) 100 ML IV ×2 (10:15→20:35)
[2023-02-21] MEDS: Acetaminophen 650 MG/20 ML UDC PO (10:53)
--- NOTE | 2023-02-21 13:09 | PN.CARD_ITS ---
<Statement entered by Tommy Toro MD - 02/22/23 12:45>
--- NOTE | 2023-02-21 13:09 | PCM.PN.CARD ---
Subjective Subjective Pt seen and examined today. She was extubated this morning. Her Bp remains low. Objective Data Vital Signs: Vital Signs Temp Pulse Resp BP Pulse Ox O2 Del Method O2 Flow Rate 100.6 F H 105 H 20 H 89/56 L 97 Nasal Cannula 2 02/21/23 12:00 02/21/23 13:00 02/21/23 13:00 02/21/23 13:00 02/21/23 13:00 02/21/23 13:00 02/21/23 13:00 FiO2 30 02/21/23 06:36 Oxygen Flow Rate (L/min) 2 Oxygen Delivery Method Nasal Cannula Weight: 124 lb 12.506 oz Body Mass Index (BMI) 25.2 Intake & Output: Intake and Output for Last 24 Hours 02/19/23 02/20/23 02/21/23 23:59 23:59 23:59 Intake Total 1371.87 / 1485.47 2677.0133 / 2766.9133 881.72 / 881.72 Output Total 1325 / 1625 1250 / 1250 300 / 300 Balance 46.87 / -139.53 1427.0133 / 1516.9133 581.72 / 581.72 Lab / Micro Data 02/21/23 03:50 02/21/23 03:50 Labs: Laboratory Results - last 24 hr 02/18/23 11:30: Fl Pathologist Comment Reviewed 02/20/23 05:04: Ionized Calcium 4.61 02/20/23 13:01: POC Glucose 119 H 02/20/23 17:31: POC Glucose 113 H 02/21/23 00:17: POC Glucose 126 H 02/21/23 03:50: WBC 7.3, RBC 4.03 L, Hgb 12.5, Hct 38.8, MCV 96.3, MCH 31.0, MCHC 32.2, RDW Std Deviation 57.1 H, RDW Coeff of Shahbaz 16.4 H, Plt Count TNP, Immature Gran % (Auto) 0.300, Neut % (Auto) 81.4 H, Lymph % (Auto) 7.8 L, [place] % (Auto) 5.3, Eos % (Auto) 4.5, Baso % (Auto) 0.7, Absolute Neuts (auto) 6.0, Absolute Lymphs (auto) 0.57 L, Nucleated RBC % 0, Differential Comment SCANNED, Platelet Estimate ADEQUATE, Sodium 143, Potassium 3.9, Chloride 107, Carbon Dioxide 30.0, Anion Gap 6, BUN 23 H, Creatinine 0.76, Estim Creat Clear Calc 34.75, Est GFR (MDRD) Af Amer 92, Est GFR (MDRD) Non-Af 76, BUN/Creatinine Ratio 30.2 H, Glucose 129 H, Calcium 8.1 L, Magnesium 2.2 02/21/23 03:58: Ionized Calcium 4.49 02/21/23 06:04: POC Glucose 149 H Micro: Microbiology 02/20/23 13:00 Sputum, Induced/Lukens Respiratory Culture - Preliminary Appears to be normal respiratory sandip. Further studies to follow. 02/18/23 06:31 Fluid - Thoracentesis Fluid Gram Stain - Final 02/18/23 06:31 Fluid - Thoracentesis Fluid Body Fluid Culture - Preliminary No growth-Final to follow 02/18/23 06:31 Fluid - Thoracentesis Fluid Anaerobic Culture - Preliminary No growth in 48 hours. 02/18/23 09:42 Blood Culture (Wb) - Right Wrist Blood Culture - Preliminary No growth in 48 hours. 02/18/23 09:30 Blood Culture (Wb) - Anticubital Right Blood Culture - Preliminary No growth in 48 hours. 02/18/23 09:42 Urine Catheter - Santana Urine Culture - Final Culture exhibits no growth. 02/18/23 07:06 Sputum, Induced/Lukens Gram Stain - Final 02/18/23 07:06 Sputum, Induced/Lukens Respiratory Culture - Final Rhythm Strip Rhythm Strip: A-fib Rate: 98 Cardiology Labs/Tests 02/20/23 05:04: Ionized Calcium 4.61 02/21/23 03:50: WBC 7.3, RBC 4.03 L, Hgb 12.5, Hct 38.8, MCV 96.3, MCH 31.0, MCHC 32.2, Plt Count TNP, Immature Gran % (Auto) 0.300, Neut % (Auto) 81.4 H, Lymph % (Auto) 7.8 L, [place] % (Auto) 5.3, Eos % (Auto) 4.5, Baso % (Auto) 0.7, Absolute Neuts (auto) 6.0, Nucleated RBC % 0, Sodium 143, Potassium 3.9, Chloride 107, Carbon Dioxide 30.0, Anion Gap 6, BUN 23 H, Creatinine 0.76, Est GFR (MDRD) Af Amer 92, Est GFR (MDRD) Non-Af 76, BUN/Creatinine Ratio 30.2 H, Glucose 129 H, Calcium 8.1 L, Magnesium 2.2 02/21/23 03:58: Ionized Calcium 4.49 Rhythm: EKG: ECHO: Stress Test: Cardiac Cath: PCI: CT Surgery: Holter monitor: EPS: PPM: CXR: Chest CT Scan: Physical Exam Const alert and oriented x3 General Appearance: cooperative HEENT normocephalic and head/scalp atraumatic Eyes PERRL, EOMs intact bilaterally and conjunctivae normal Neck supple General: trachea midline Chest inspection of chest normal Resp normal respiratory effort Auscultation: Negative for rales, rhonchi or wheezes Cardio S1 normal heart sound and S2 normal heart sound Rhythm: abnormal rhythm GI normal to inspection, nondistended, normoactive bowel sounds Extremity no clubbing, cyanosis or edema Skin no rashes or lesions noted Neuro Sensorium / Orientation: sedated on vent Assessment & Plan Assessment/Plan (1) Heart failure with preserved ejection fraction: QUALIFIERS: Heart failure chronicity: unspecified Qualified Code(s): I50.30 - Unspecified diastolic (congestive) heart failure (2) V tach: (3) Paroxysmal atrial fibrillation: (4) Pleural effusion, right: PLAN: Plan On the she had short runs of wide-complex rhythm that appeared to be V. tach. A-fib with aberrancy is also in the differential. Currently she is in A-fib. HR is controlled She will continue with her amiodarone, metoprolol, eliquis With her low Bp will hold the spirolactone Pt did have a thoracentesis on . Charges/Coding Visit Charges Inpatient E&M: 60853 Subs Hosp L2
[2023-02-21 14:49] LABS: Vancomycin, Trough Level 10.6 ug/mL (5.0-15.0)
--- NOTE | 2023-02-21 15:07 | PCM.RX.CS ---
Consult Antibiotic Management Pharmacy has been consulted to manage selected antiobiotic: Vancomycin Type of Intervention Type of Consult: Follow-up Suspected Infection Suspected Infection: Sepsis and Other (UTI) Prior Doses of Antibiotics Prior Doses of Antibiotics Received/Current Regimen: Vancomycin 500 mg IV on 02/19 @ 1512 and 02/20 @ 1547 Labs Labs: Sodium 143 mmol/L (136-145) 02/21/23 03:50 Potassium 3.9 mmol/L (3.5-5.1) 02/21/23 03:50 Chloride 107 mmol/L (98-107) 02/21/23 03:50 Carbon Dioxide 30.0 mmol/L (21.0-32.0) 02/21/23 03:50 Anion Gap 6 (5-15) 02/21/23 03:50 BUN 23 mg/dL (7-18) H 02/21/23 03:50 Creatinine 0.76 mg/dL (0.55-1.02) 02/21/23 03:50 Est GFR (MDRD) Af Amer 92 mL/min (>60) 02/21/23 03:50 Est GFR (MDRD) Non-Af 76 mL/min (>60) 02/21/23 03:50 BUN/Creatinine Ratio 30.2 RATIO (10-20) H 02/21/23 03:50 Glucose 129 mg/dL (74-106) H 02/21/23 03:50 Vancomycin Trough 10.6 ug/mL (5.0-15.0) 02/21/23 14:20 Random Vancomycin 13.5 ug/mL (0.0-15.0) 02/19/23 14:10 Microbiology Microbiology: Microbiology 02/20/23 13:00 Sputum, Induced/Lukens Gram Stain - Final 02/20/23 13:00 Sputum, Induced/Lukens Respiratory Culture - Preliminary Appears to be normal respiratory sandip. Further studies to follow. 02/18/23 06:31 Fluid - Thoracentesis Fluid Gram Stain - Final 02/18/23 06:31 Fluid - Thoracentesis Fluid Body Fluid Culture - Preliminary No growth-Final to follow 02/18/23 06:31 Fluid - Thoracentesis Fluid Anaerobic Culture - Preliminary No growth in 48 hours. 02/18/23 09:42 Blood Culture (Wb) - Right Wrist Blood Culture - Preliminary No growth in 48 hours. 02/18/23 09:30 Blood Culture (Wb) - Anticubital Right Blood Culture - Preliminary No growth in 48 hours. 02/18/23 09:42 Urine Catheter - Santana Urine Culture - Final Culture exhibits no growth. 02/18/23 07:06 Sputum, Induced/Lukens Gram Stain - Final 02/18/23 07:06 Sputum, Induced/Lukens Respiratory Culture - Final Dosing Weight Weight used for dosin.6 kg Estimated Creatinine Clearance Estimated Creatinine Clearance: ~34 Goal Trough Goal Trough: 15-20 mcg/mL Pharmacy Plan for Drug Dosing Pharmacy Plan for Drug Dosing: Vancomycin trough = 10.6, will increase dose to 750 mg Q24H Pharmacy Service will continue to monitor and adjust dosing as required. Follow-Up Labs Follow-Up Labs: Trough: Vancomycin Date/Time Labs Ordered Labs to be done on [date and time ordered]: 02/23/23 @ 0609
[2023-02-21] MEDS: Vancomycin HCl 750 MG in 0.9% Normal Saline (250mL Bag) 250 ML 250 MG IV (15:14)
[2023-02-21 17:07] LABS: Albumin, Body Fluid 1.4 g/dL (Not Estab.); Amylase Body Fluid 84 U/L (.); pH, Body Fluid 11254 7.9 (Not Estab.)
[2023-02-21] MEDS: 0.9% Saline Lock 10 ML Syringe IV (20:39)
[2023-02-21] MEDS: APIXABAN 2.5 MG TABLET (WCH) PO (20:43)
[2023-02-21] MEDS: Furosemide 40 MG Tablet PO (20:43)
[2023-02-22] VITALS (41 sets, daily range): BP systolic 82–123; BP diastolic 58–85; PULSE 107–137; RESP 17–33; TEMP 37.7–38.2; O2SAT 92–96; BMI 25.3
[2023-02-22 00:09] LABS: Bedside Glucose 100 mg/dL (74-106)
[2023-02-22 02:39] LABS: Bedside Glucose 77 mg/dL (74-106)
[2023-02-22] MEDS: 0.9% Saline Lock 10 ML Syringe IV ×2 (05:32→19:48)
[2023-02-22] MEDS: Menthol/Lanolin/Calamine/Znox 113 GM Tube 1 APPLIC TOPICAL ×3 (05:32→19:48)
[2023-02-22 05:41] LABS: Absolute Neutrophil Count 7.9 X10^3/uL (2.0-7.7); Basophil# 0.07 X10^3/uL; Basophil% 0.7 % (0-1); Eosinophil# 0.23 X10^3/uL; Eosinophils% 2.3 % (0-5); Hematocrit 38.3 % (37-47); Lymphocyte % 9.9 % (19-41); Mean Corp Hgb Conc 31.3 g/dL (32-36); Monocyte# 0.91 X10^3/uL; NRBC Flagged by Analyzer 0 % (0-5); Neutrophil # 7.85 X10^3/uL (2.7-7.7); Neutrophil % 77.5 % (47-70); POSITIVE COUNT YES; RBC Distribution Width CV 16.8 % (11.6-14.6); RBC Distribution Width SD 60.1 fl (35.1-43.9); Red Blood Count 3.87 M/mm3 (4.2-5.4); White Blood Count 10.1 K/mm3 (4.4-11.0)
[2023-02-22 06:04] LABS: Anion Gap 8 (5-15); BUN 28 mg/dL (7-18); Calcium,Total 8.5 mg/dL (8.5-10.1); Chloride 108 mmol/L (98-107); EST Glomerular Filtration Rate 63 mL/min (>60); Est Glom Filt Rate - Afr Amer 76 mL/min (>60); Estimated Creatinine Clearance 38.95 ml/min; Glucose 82 mg/dL (74-106); Magnesium 2.2 mg/dL (1.6-2.6); Potassium 4.4 mmol/L (3.5-5.1); Sodium Level 142 mmol/L (136-145)
[2023-02-22 06:06] LABS: Ionized Calcium 4.57 mg/dL (4.36-5.20)
[2023-02-22 06:07] LABS: Bedside Glucose 73 mg/dL (74-106)
[2023-02-22 06:20] LABS: Differential Indicated SCAN CRITERIA MET
--- NOTE | 2023-02-22 07:06 | PCM.PN.HOSP ---
Subjective Subjective Norepinephrine weaned off this AM. Breathing well. Objective Data Objective Data Vital Signs: Vital Signs Temp Pulse Resp BP Pulse Ox O2 Del Method O2 Flow Rate 38.0 C H 121 H 28 H 103/64 95 Room Air 2 02/22/23 07:00 02/22/23 07:00 02/22/23 07:00 02/22/23 07:00 02/22/23 07:00 02/22/23 07:00 02/21/23 16:00 FiO2 30 02/21/23 06:36 Oxygen Flow Rate (L/min) 2 Oxygen Delivery Method Room Air Weight: 57.1 kg Body Mass Index (BMI) 25.3 Intake & Output: Intake and Output for Last 24 Hours 02/20/23 02/21/23 02/22/23 23:59 23:59 23:59 Intake Total 2677.0133 / 2766.9133 1305.57 / 1306.05 10.95 / 10.95 Output Total 1250 / 1250 1375 / 1375 1060 / 1060 Balance 1427.0133 / 1516.9133 -69.43 / -68.95 -1049.05 / -1049.05 Lab / Micro Data 02/22/23 05:27 02/22/23 05:27 Labs: Laboratory Results - last 24 hr 02/18/23 11:30: Fluid pH 7.9, Fluid Albumin 1.4, Fluid Amylase 84 02/21/23 14:20: Vancomycin Trough 10.6 02/21/23 17:19: POC Glucose 100 02/21/23 23:52: POC Glucose 77 02/22/23 05:27: WBC 10.1, RBC 3.87 L, Hgb 12.0, Hct 38.3, MCV 99.0, MCH 31.0, MCHC 31.3 L, RDW Std Deviation 60.1 H, RDW Coeff of Shahbaz 16.8 H, Plt Count TNP, Immature Gran % (Auto) 0.600, Neut % (Auto) 77.5 H, Lymph % (Auto) 9.9 L, [place] % (Auto) 9.0, Eos % (Auto) 2.3, Baso % (Auto) 0.7, Absolute Neuts (auto) 7.9 H, Absolute Lymphs (auto) 1.00, Nucleated RBC % 0, Sodium 142, Potassium 4.4, Chloride 108 H, Carbon Dioxide 26.0, Anion Gap 8, BUN 28 H, Creatinine 0.90, Estim Creat Clear Calc 38.95, Est GFR (MDRD) Af Amer 76, Est GFR (MDRD) Non-Af 63, BUN/Creatinine Ratio 31.0 H, Glucose 82, Calcium 8.5, Magnesium 2.2 02/22/23 05:37: POC Glucose 73 L 02/22/23 05:44: Ionized Calcium 4.57 Micro: Microbiology 02/20/23 13:00 Sputum, Induced/Lukens Gram Stain - Final 02/20/23 13:00 Sputum, Induced/Lukens Respiratory Culture - Preliminary Appears to be normal respiratory sandip. Further studies to follow. 02/18/23 06:31 Fluid - Thoracentesis Fluid Gram Stain - Final 02/18/23 06:31 Fluid - Thoracentesis Fluid Body Fluid Culture - Preliminary No growth-Final to follow 02/18/23 06:31 Fluid - Thoracentesis Fluid Anaerobic Culture - Preliminary No growth in 48 hours. 02/18/23 09:42 Blood Culture (Wb) - Right Wrist Blood Culture - Preliminary No growth in 48 hours. 02/18/23 09:30 Blood Culture (Wb) - Anticubital Right Blood Culture - Preliminary No growth in 48 hours. 02/18/23 09:42 Urine Catheter - Santana Urine Culture - Final Culture exhibits no growth. 02/18/23 07:06 Sputum, Induced/Lukens Gram Stain - Final 02/18/23 07:06 Sputum, Induced/Lukens Respiratory Culture - Final Rhythm Strip Rhythm Strip: A-fib Rate: 98 Physical Exam Const alert and no apparent distress Constitutional Narrative: cough slightly stronger. Resp normal respiratory effort and no retractions Cardio regular rate, regular rhythm, S1 normal heart sound and S2 normal heart sound GI normal to inspection, nondistended, normoactive bowel sounds, soft to palpation, non-tender and non-distended Neuro Sensorium / Orientation: awake and alert Assessment & Plan Assessment/Plan (1) Heart failure with preserved ejection fraction: QUALIFIERS: Heart failure chronicity: unspecified Qualified Code(s): I50.30 - Unspecified diastolic (congestive) heart failure PLAN: Plan 1. acute hypoxic respiratory failure: intubated 02/18. Extubated on 02/21. secondary to acute on chronic congestive heart failure with preserved ejection with pleural effusions started on cefepime and vancomycin on the Sputum culture + for GNR and Staph sp. 2. acute on chronic congestive heart failure with preserved ejection fraction patient remains on furosemide, spironolactone and metoprolol Echo on the with EF 55-60%, severely enlarged LA and RA, severe PH 3. large right pleural effusion status post thoracentesis on the removing 1360 cc fluid was transudative 5. paroxysmal atrial fibrillation Afib w aberrancy with patient is on amiodarone and metoprolol tartrate 25 BID. diltiazem gtt turned off on . anticoagulated w apixaban. cardiology following VTE prophylaxis: not indicated, already on anticoagulation. Charges/Coding Visit Charges Inpatient E&M: 41913 Subs Hosp L2
--- NOTE | 2023-02-22 07:15 | PN.CC_ITS ---
Assessment & Plan Assessment/Plan (1) Acute decompensated heart failure: (2) Acute hypoxemic respiratory failure: PLAN: Plan RECOMMENDATIONS: 1. Attempt IV Lopressor 2. Defer to cardiology for optimization of heart rate 3. Out of bed as tolerated 4. Continue empiric antibiotics pending cultures 5. Await bedside swallow IMPRESSIONS: 1. Acute hypoxic respiratory failure with large right pleural effusion Patient did present with a large right pleural effusion that has been tapped. This was noted to be transudate, consistent with CHF, but lab had some concern for some atypical cells, so cytology was added yesterday. Patient has responded well and was able to be extubated on 02/21/2023. Patient currently is on room air, but significantly dyspneic, likely secondary to A-fib with RVR 2. Acute on chronic diastolic CHF exacerbated by A-fib with RVR Patient noted to have an EF of 55 to 60% with enlarged bilateral atria. Patient's pulmonary artery pressures noted to be 115 on presentation. This result may be spurious as patient appears to be overloaded on presentation. Patient may need to have a right heart catheterization as an outpatient. This would be exacerbated by A-fib with RVR. Heart rate is not controlled at this time. Will attempt IV Lopressor for rate control. Hold on diuretics for now given patient is on room air. Defer to cardiology on possible increase in dose of amiodarone versus IV drip versus alternative plan 3. Debility/hypertension/paroxysmal A-fib/advanced age Complicates care, management, recovery and prognosis. Baseline antihypertensives held secondary to acute condition. Patient not receiving baseline Lasix therapy secondary to marginal blood pressures. TIME: 31 minutes critical care time spent addressing patient's acute hypoxic respiratory failure, CHF, A-fib, review of all data and collaboration with care team Subjective Subjective Patient did okay overnight. Patient is reporting dyspnea and back pain. Patient has been tolerating room air overnight, but has been significantly tachycardic. Patient is off of Levophed at this time. Telemetry shows periodic sinus, but majority is A-fib with RVR Objective Data Objective Data Vital Signs: Vital Signs Temp Pulse Resp BP Pulse Ox O2 Del Method O2 Flow Rate 38.0 C H 121 H 28 H 103/64 95 Room Air 2 02/22/23 07:00 02/22/23 07:00 02/22/23 07:00 02/22/23 07:00 02/22/23 07:00 02/22/23 07:00 02/21/23 16:00 FiO2 30 02/21/23 06:36 Oxygen Flow Rate (L/min) 2 Oxygen Delivery Method Room Air Weight: 57.1 kg Body Mass Index (BMI) 25.3 Intake & Output: Intake and Output for Last 24 Hours 02/20/23 02/21/23 02/22/23 23:59 23:59 23:59 Intake Total 2677.0133 / 2766.9133 1305.57 / 1306.05 10.95 / 10.95 Output Total 1250 / 1250 1375 / 1375 1060 / 1060 Balance 1427.0133 / 1516.9133 -69.43 / -68.95 -1049.05 / -1049.05 Lab / Micro Data Attestation: I reviewed the patient's lab results. 02/22/23 05:27 02/22/23 05:27 Labs: Laboratory Results - last 24 hr 02/18/23 11:30: Fluid pH 7.9, Fluid Albumin 1.4, Fluid Amylase 84 02/21/23 14:20: Vancomycin Trough 10.6 02/21/23 17:19: POC Glucose 100 02/21/23 23:52: POC Glucose 77 02/22/23 05:27: WBC 10.1, RBC 3.87 L, Hgb 12.0, Hct 38.3, MCV 99.0, MCH 31.0, MCHC 31.3 L, RDW Std Deviation 60.1 H, RDW Coeff of Shahbaz 16.8 H, Plt Count TNP, Immature Gran % (Auto) 0.600, Neut % (Auto) 77.5 H, Lymph % (Auto) 9.9 L, [place] % (Auto) 9.0, Eos % (Auto) 2.3, Baso % (Auto) 0.7, Absolute Neuts (auto) 7.9 H, Absolute Lymphs (auto) 1.00, Nucleated RBC % 0, Sodium 142, Potassium 4.4, Chloride 108 H, Carbon Dioxide 26.0, Anion Gap 8, BUN 28 H, Creatinine 0.90, Estim Creat Clear Calc 38.95, Est GFR (MDRD) Af Amer 76, Est GFR (MDRD) Non-Af 63, BUN/Creatinine Ratio 31.0 H, Glucose 82, Calcium 8.5, Magnesium 2.2 02/22/23 05:37: POC Glucose 73 L 02/22/23 05:44: Ionized Calcium 4.57 Micro: Microbiology 02/20/23 13:00 Sputum, Induced/Lukens Gram Stain - Final 02/20/23 13:00 Sputum, Induced/Lukens Respiratory Culture - Preliminary Appears to be normal respiratory sandip. Further studies to follow. 02/18/23 06:31 Fluid - Thoracentesis Fluid Gram Stain - Final 02/18/23 06:31 Fluid - Thoracentesis Fluid Body Fluid Culture - Preliminary No growth-Final to follow 02/18/23 06:31 Fluid - Thoracentesis Fluid Anaerobic Culture - Preliminary No growth in 48 hours. 02/18/23 09:42 Blood Culture (Wb) - Right Wrist Blood Culture - Preliminary No growth in 48 hours. 02/18/23 09:30 Blood Culture (Wb) - Anticubital Right Blood Culture - Preliminary No growth in 48 hours. 02/18/23 09:42 Urine Catheter - Santana Urine Culture - Final Culture exhibits no growth. 02/18/23 07:06 Sputum, Induced/Lukens Gram Stain - Final 02/18/23 07:06 Sputum, Induced/Lukens Respiratory Culture - Final Rhythm Strip Rhythm Strip: A-fib Rate: 125 Physical Exam Const alert and oriented x3 Constitutional Narrative: Some conversational dyspnea noted HEENT normocephalic and head/scalp atraumatic Eyes PERRL, EOMs intact bilaterally and conjunctivae normal Neck supple General: trachea midline Chest inspection of chest normal Resp normal respiratory effort Auscultation: Negative for rales, rhonchi or wheezes Cardio S1 normal heart sound and S2 normal heart sound Rate: tachycardic Rhythm: abnormal rhythm GI normal to inspection, nondistended, normoactive bowel sounds Extremity no clubbing, cyanosis or edema Skin no rashes or lesions noted Charges/Coding Procedures Hospitalists Procedures: 85252 Critical Care 1st Hr
[2023-02-22] MEDS: Metoprolol Tartrate 5 MG/5 ML Vial 2.5 MG IV (08:06)
[2023-02-22] MEDS: Cefepime HCl 2 GM in 0.9% Normal Saline (100mL MB+) 100 ML IV ×2 (09:46→19:57)
--- NOTE | 2023-02-22 10:13 | CASEMGMT ---
Discharge Planning A list of SNF providers including quality and resource use data and consistent with the patient's preferred geographic region, medical needs, and insurance network were printed and provided from the [employer] Guide. Mariela Wray, Discharge Planning Asst.
[2023-02-22 10:28] LABS: Mean Platelet Vol. 9.5 fl (6.2-12.0)
[2023-02-22 10:37] LABS: Platelet Count 109 K/mm3 (150-450)
[2023-02-22 10:52] LABS: Differential Comment SCANNED; Platelet Estimate SLT DEC (ADEQ)
[2023-02-22 11:17] LABS: Phosphorus 3.1 mg/dL (2.5-4.9)
[2023-02-22] MEDS: APIXABAN 2.5 MG TABLET (WCH) PO ×2 (11:21→19:50)
[2023-02-22] MEDS: Acetaminophen 650 MG/20 ML UDC PO (11:21)
[2023-02-22] MEDS: Amiodarone 200 MG Tablet PO (11:21)
[2023-02-22] MEDS: Metoprolol Tartrate 5 MG/5 ML Vial IV (11:36)
[2023-02-22 12:47] LABS: Bedside Glucose 116 mg/dL (74-106)
--- NOTE | 2023-02-22 13:29 | PN.CARD_ITS ---
<Statement entered by Tommy Toro MD - 02/22/23 16:06> Pt seen & evaluated w/CANDICE. I personally interviewed & exam the pt. I was involved in all aspects of pt's orders, interpretation of results & treatment Subjective Subjective Pt seen and examined. She has been tachycardic. She did require BP support over night. Overall she is improving. She has not complaints this morning. Objective Data Vital Signs: Vital Signs Temp Pulse Resp BP Pulse Ox O2 Del Method O2 Flow Rate 100.8 F H 119 H 24 H 90/78 94 Room Air 2 02/22/23 12:00 02/22/23 13:00 02/22/23 13:00 02/22/23 13:00 02/22/23 13:00 02/22/23 13:00 02/21/23 16:00 FiO2 30 02/21/23 06:36 Oxygen Flow Rate (L/min) 2 Oxygen Delivery Method Room Air Weight: 125 lb 14.143 oz Body Mass Index (BMI) 25.3 Intake & Output: Intake and Output for Last 24 Hours 02/20/23 02/21/23 02/22/23 23:59 23:59 23:59 Intake Total 2677.0133 / 2766.9133 1305.57 / 1306.05 110.95 / 110.95 Output Total 1250 / 1250 1375 / 1375 1210 / 1210 Balance 1427.0133 / 1516.9133 -69.43 / -68.95 -1099.05 / -1099.05 Lab / Micro Data 02/22/23 05:27 02/22/23 05:27 Labs: Laboratory Results - last 24 hr 02/18/23 11:30: Fluid pH 7.9, Fluid Albumin 1.4, Fluid Amylase 84 02/21/23 14:20: Vancomycin Trough 10.6 02/21/23 17:19: POC Glucose 100 02/21/23 23:52: POC Glucose 77 02/22/23 05:27: WBC 10.1, RBC 3.87 L, Hgb 12.0, Hct 38.3, MCV 99.0, MCH 31.0, MCHC 31.3 L, RDW Std Deviation 60.1 H, RDW Coeff of Shahbaz 16.8 H, Plt Count 109 L, MPV 9.5, Immature Gran % (Auto) 0.600, Neut % (Auto) 77.5 H, Lymph % (Auto) 9.9 L, [place] % (Auto) 9.0, Eos % (Auto) 2.3, Baso % (Auto) 0.7, Absolute Neuts (auto) 7.9 H, Absolute Lymphs (auto) 1.00, Nucleated RBC % 0, Differential Comment SCANNED, Platelet Estimate SLT DEC, Sodium 142, Potassium 4.4, Chloride 108 H, Carbon Dioxide 26.0, Anion Gap 8, BUN 28 H, Creatinine 0.90, Estim Creat Clear Calc 38.95, Est GFR (MDRD) Af Amer 76, Est GFR (MDRD) Non-Af 63, BUN/Creatinine Ratio 31.0 H, Glucose 82, Calcium 8.5, Phosphorus 3.1, Magnesium 2.2 02/22/23 05:37: POC Glucose 73 L 02/22/23 05:44: Ionized Calcium 4.57 02/22/23 12:23: POC Glucose 116 H Micro: Microbiology 02/20/23 13:00 Sputum, Induced/Lukens Gram Stain - Final 02/20/23 13:00 Sputum, Induced/Lukens Respiratory Culture - Preliminary Gram negative coty Staphylococcus species 02/18/23 06:31 Fluid - Thoracentesis Fluid Gram Stain - Final 02/18/23 06:31 Fluid - Thoracentesis Fluid Body Fluid Culture - Final Culture exhibits no growth. 02/18/23 06:31 Fluid - Thoracentesis Fluid Anaerobic Culture - Preliminary No growth in 48 hours. Rhythm Strip Rhythm Strip: A-fib Rate: 125 Cardiology Labs/Tests 02/22/23 05:27: WBC 10.1, RBC 3.87 L, Hgb 12.0, Hct 38.3, MCV 99.0, MCH 31.0, MCHC 31.3 L, Plt Count 109 L, MPV 9.5, Immature Gran % (Auto) 0.600, Neut % (Auto) 77.5 H, Lymph % (Auto) 9.9 L, [place] % (Auto) 9.0, Eos % (Auto) 2.3, Baso % (Auto) 0.7, Absolute Neuts (auto) 7.9 H, Nucleated RBC % 0, Sodium 142, Potassium 4.4, Chloride 108 H, Carbon Dioxide 26.0, Anion Gap 8, BUN 28 H, Creatinine 0.90, Est GFR (MDRD) Af Amer 76, Est GFR (MDRD) Non-Af 63, BUN/Creatinine Ratio 31.0 H, Glucose 82, Calcium 8.5, Phosphorus 3.1, Magnesium 2.2 02/22/23 05:44: Ionized Calcium 4.57 Rhythm:Afib Physical Exam Const alert and oriented x3 General Appearance: cooperative HEENT normocephalic and head/scalp atraumatic Eyes PERRL, EOMs intact bilaterally and conjunctivae normal Neck supple General: trachea midline Chest inspection of chest normal Resp normal respiratory effort Resp Narrative: Diminished Auscultation: rales bilateral base; Negative for rhonchi or wheezes Cardio S1 normal heart sound and S2 normal heart sound Rate: tachycardic Rhythm: abnormal rhythm irregularly irregular GI normal to inspection, nondistended, normoactive bowel sounds Extremity no clubbing, cyanosis or edema Skin no rashes or lesions noted Assessment & Plan Assessment/Plan (1) Heart failure with preserved ejection fraction: QUALIFIERS: Heart failure chronicity: unspecified Qualified Code(s): I50.30 - Unspecified diastolic (congestive) heart failure (2) V tach: (3) Paroxysmal atrial fibrillation: (4) Pleural effusion, right: PLAN: Plan * On the she had short runs of wide-complex rhythm that appeared to be V. tach. A-fib with aberrancy is also in the differential. HR has been elevated off of vent. General Practice is managing rate with IV metoprolol. he will increase this to 5 mg Q6 today to monitor BP. BP did drop yesterday after taking metoprolol. * She will continue with her amiodarone, eliquis * When BP improves will add diuretics * Pt did have a thoracentesis on . Charges/Coding Visit Charges Inpatient E&M: 32463 Subs Hosp L2
[2023-02-22 13:34] LABS: Ionized Calcium Order ORDER TUBE
[2023-02-22] MEDS: Ibuprofen 100 MG/5 ML UDC 600 MG PO (15:21)
[2023-02-22] MEDS: Vancomycin HCl 750 MG in 0.9% Normal Saline (250mL Bag) 250 ML 250 MG IV (15:34)
--- NOTE | 2023-02-22 16:08 | CASEMGMT ---
Social Work Per RNCM, pt is requesting placement at TCU. Referral made and currently no beds available. RNCM is aware and to update family. GAEL Saldaña
--- NOTE | 2023-02-22 17:06 | CASEMGMT ---
BEATRIS MONZON NOTE: RN NA spoke w/pt and 3 adult children (Darby, Oskar, Alberto) re: discharge plan. Pt is weak and only ambulated 12 ft today w/WW and mod A of 2. Questions answered. Pt and family all agreeable pt not strong enough to discharge home and would like her to go to [facility]. They were made aware there are no beds available on TCU at this time. They requested to be placed on waiting list, if possible. SNF list that was prepared by Mariela, associate merchandise planner, has been provided to pt and family. They are aware to review list and give 2-3 more preferences. Vivek MELÉNDEZ RN, CM
--- NOTE | 2023-02-22 17:34 | EKG12_ITS ---
Test Reason : ARRYTHMIA Blood Pressure : / mmHG Vent. Rate : 124 BPM Atrial Rate : 000 BPM P-R Int : 000 ms QRS Dur : 150 ms QT Int : 392 ms P-R-T Axes : 000 240 086 degrees QTc Int : 563 ms Atrial fibrillation with rapid ventricular response Non-specific intra-ventricular conduction block Possible Lateral infarct (cited on or before 14-FEB-2023) Abnormal ECG When compared with ECG of 17-FEB-2023 22:05, Serial changes of Lateral infarct Present Confirmed by MAURICE RIDLEY MD ([id number]), editor department YENIFER VALLE ([id number]) on 03/07/2023 10:17:47 AM Referred By: Alonso Marques Confirmed By:MAURICE RIDLEY MD
[2023-02-22] MEDS: Metoprolol Tartrate 5 MG/5 ML Vial 7.5 MG IV ×2 (17:58→23:37)
[2023-02-22 18:25] LABS: Bedside Glucose 95 mg/dL (74-106)
[2023-02-22] MEDS: Furosemide 20 MG/2 ML VIAL IV (19:48)
[2023-02-23] VITALS (21 sets, daily range): BP systolic 94–126; BP diastolic 55–87; PULSE 106–123; RESP 16–23; TEMP 36.7–38.1; O2SAT 93–96; BMI 24.7
[2023-02-23] MEDS: Menthol/Lanolin/Calamine/Znox 113 GM Tube 1 APPLIC TOPICAL ×3 (05:07→20:57)
[2023-02-23 05:19] LABS: Absolute Lymphocyte Count 0.72 X10^3/uL (0.83-4.51); Absolute Neutrophil Count 8.7 X10^3/uL (2.0-7.7); Basophil# 0.06 X10^3/uL; Basophil% 0.6 % (0-1); Eosinophil# 0.22 X10^3/uL; Eosinophils% 2.1 % (0-5); Hematocrit 39.1 % (37-47); Lymphocyte # 0.72 X10^3/ul (0.83-4.51); Lymphocyte % 6.9 % (19-41); Mean Corp Hgb Conc 30.7 g/dL (32-36); Mean Corpuscular Hgb 31.5 pg (27.0-32.0); Mean Corpuscular Volume 102.6 fL (81-99); Monocyte# 0.72 X10^3/uL; Monocyte% 6.9 % (0-10); NRBC Flagged by Analyzer 0 % (0-5); Neutrophil # 8.66 X10^3/uL (2.7-7.7); POSITIVE COUNT YES; RBC Distribution Width CV 17.2 % (11.6-14.6); RBC Distribution Width SD 63.8 fl (35.1-43.9); Red Blood Count 3.81 M/mm3 (4.2-5.4); White Blood Count 10.4 K/mm3 (4.4-11.0)
[2023-02-23] MEDS: Metoprolol Tartrate 5 MG/5 ML Vial 7.5 MG IV ×2 (05:32→11:09)
[2023-02-23] MEDS: 0.9% Saline Lock 10 ML Syringe IV ×3 (05:32→21:13)
[2023-02-23 05:42] LABS: Anion Gap 8 (5-15); BUN 38 mg/dL (7-18); BUN/Creat Ratio 30.9 RATIO (10-20); Calcium,Total 9.1 mg/dL (8.5-10.1); Chloride 110 mmol/L (98-107); Creatinine, Serum 1.23 mg/dL (0.55-1.02); EST Glomerular Filtration Rate 44 mL/min (>60); Est Glom Filt Rate - Afr Amer 53 mL/min (>60); Glucose 90 mg/dL (74-106); Potassium 4.1 mmol/L (3.5-5.1); Sodium Level 144 mmol/L (136-145)
--- NOTE | 2023-02-23 06:50 | PN.HOSP_ITS ---
Subjective Subjective Breathing well. No shortness of breath. +LE edema. Objective Data Objective Data Vital Signs: Vital Signs Temp Pulse Resp BP Pulse Ox O2 Del Method O2 Flow Rate 37.5 C H 112 H 19 H 108/65 95 Room Air 2 02/23/23 04:00 02/23/23 06:00 02/23/23 06:00 02/23/23 06:00 02/23/23 06:00 02/23/23 06:00 02/21/23 16:00 FiO2 30 02/21/23 06:36 Oxygen Flow Rate (L/min) 2 Oxygen Delivery Method Room Air Weight: 55.5 kg Body Mass Index (BMI) 24.7 Intake & Output: Intake and Output for Last 24 Hours 02/21/23 02/22/23 02/23/23 23:59 23:59 23:59 Intake Total 1305.57 / 1306.05 575.95 / 575.95 Output Total 1375 / 1375 1410 / 1410 175 / 175 Balance -69.43 / -68.95 -834.05 / -834.05 -175 / -175 Lab / Micro Data 02/23/23 05:00 02/23/23 05:00 Labs: Laboratory Results - last 24 hr 02/22/23 05:27: WBC 10.1, RBC 3.87 L, Hgb 12.0, Hct 38.3, MCV 99.0, MCH 31.0, MCHC 31.3 L, RDW Std Deviation 60.1 H, RDW Coeff of Shahbaz 16.8 H, Plt Count 109 L, MPV 9.5, Immature Gran % (Auto) 0.600, Neut % (Auto) 77.5 H, Lymph % (Auto) 9.9 L, [place] % (Auto) 9.0, Eos % (Auto) 2.3, Baso % (Auto) 0.7, Absolute Neuts (auto) 7.9 H, Absolute Lymphs (auto) 1.00, Nucleated RBC % 0, Differential Comment SCANNED, Platelet Estimate SLT DEC, Phosphorus 3.1 02/22/23 12:23: POC Glucose 116 H 02/22/23 18:07: POC Glucose 95 02/23/23 05:00: Sodium 144, Potassium 4.1, Chloride 110 H, Carbon Dioxide 26.0, Anion Gap 8, BUN 38 H, Creatinine 1.23 H, Estim Creat Clear Calc 27.70, Est GFR (MDRD) Af Amer 53 L, Est GFR (MDRD) Non-Af 44 L, BUN/Creatinine Ratio 30.9 H, Glucose 90, Calcium 9.1 Micro: Microbiology 02/20/23 13:00 Sputum, Induced/Lukens Gram Stain - Final 02/20/23 13:00 Sputum, Induced/Lukens Respiratory Culture - Preliminary Gram negative coty Staphylococcus species 02/18/23 06:31 Fluid - Thoracentesis Fluid Gram Stain - Final 02/18/23 06:31 Fluid - Thoracentesis Fluid Body Fluid Culture - Final Culture exhibits no growth. 02/18/23 06:31 Fluid - Thoracentesis Fluid Anaerobic Culture - Preliminary No growth in 48 hours. 02/18/23 09:42 Blood Culture (Wb) - Right Wrist Blood Culture - Preliminary No growth in 48 hours. 02/18/23 09:30 Blood Culture (Wb) - Anticubital Right Blood Culture - Preliminary No growth in 48 hours. 02/18/23 09:42 Urine Catheter - Santana Urine Culture - Final Culture exhibits no growth. 02/18/23 07:06 Sputum, Induced/Lukens Gram Stain - Final 02/18/23 07:06 Sputum, Induced/Lukens Respiratory Culture - Final Rhythm Strip Rhythm Strip: A-fib Rate: 125 Physical Exam Const alert and no apparent distress Resp normal respiratory effort, no retractions, no use of accessory muscles and clear to auscultation bilaterally Cardio regular rate, regular rhythm, S1 normal heart sound and S2 normal heart sound GI normal to inspection, nondistended, normoactive bowel sounds, soft to palpation, non-tender and non-distended Extremity General Extremity: edema bilateral lower extremity Details: moderate Assessment & Plan Assessment/Plan (1) Heart failure with preserved ejection fraction: QUALIFIERS: Heart failure chronicity: unspecified Qualified Code(s): I50.30 - Unspecified diastolic (congestive) heart failure PLAN: Plan 1. acute hypoxic respiratory failure: * intubated 02/18. Extubated on 02/21. * secondary to acute on chronic congestive heart failure with preserved ejection with pleural effusions * started on cefepime and vancomycin on the * Sputum culture + for GNR and Staph sp. 2. acute on chronic congestive heart failure with preserved ejection fraction * patient remains on furosemide, spironolactone and metoprolol * Echo on the with EF 55-60%, severely enlarged LA and RA, severe PH 3. large right pleural effusion * status post thoracentesis on the removing 1360 cc * fluid was transudative 5. paroxysmal atrial fibrillation * Afib w aberrancy with patient is on amiodarone and metoprolol tartrate 25 BID. diltiazem gtt turned off on . * anticoagulated w apixaban. * cardiology following 6. Dysphagia: * had MBS today. ST recommending regular textures (easy to chew and thin liquids). Also recommending GI eval for esophageal retention with retrograde flow of barium contrast. * GI consulted. VTE prophylaxis: not indicated, already on anticoagulation. Dispostion: TBD. Eventually will require SNF when medically ready. Charges/Coding Visit Charges Inpatient E&M: 99011 Subs Hosp L2
[2023-02-23 08:27] LABS: Mean Platelet Vol. 9.8 fl (6.2-12.0); Platelet Count 179 K/mm3 (150-450)
--- NOTE | 2023-02-23 08:35 | PN.CARD_ITS ---
<Statement entered by Tommy Toro MD - 02/23/23 16:55> Pt seen & evaluated w/CANDICE. I personally interviewed & exam the pt. I was involved in all aspects of pt's orders, interpretation of results & treatment Subjective Subjective Pt seern and examined, up in chair and doing better. Objective Data Vital Signs: Vital Signs Temp Pulse Resp BP Pulse Ox O2 Del Method O2 Flow Rate 99.5 F H 110 H 19 H 116/77 93 Room Air 2 02/23/23 08:00 02/23/23 08:00 02/23/23 08:00 02/23/23 08:00 02/23/23 08:00 02/23/23 08:00 02/21/23 16:00 FiO2 30 02/21/23 06:36 Oxygen Flow Rate (L/min) 2 Oxygen Delivery Method Room Air Weight: 122 lb 5.705 oz Body Mass Index (BMI) 24.7 Intake & Output: Intake and Output for Last 24 Hours 02/21/23 02/22/23 02/23/23 23:59 23:59 23:59 Intake Total 1305.57 / 1306.05 575.95 / 575.95 Output Total 1375 / 1375 1410 / 1410 175 / 175 Balance -69.43 / -68.95 -834.05 / -834.05 -175 / -175 Lab / Micro Data 02/23/23 05:00 02/23/23 05:00 Labs: Laboratory Results - last 24 hr 02/22/23 05:27: WBC 10.1, RBC 3.87 L, Hgb 12.0, Hct 38.3, MCV 99.0, MCH 31.0, MCHC 31.3 L, RDW Std Deviation 60.1 H, RDW Coeff of Shahbaz 16.8 H, Plt Count 109 L, MPV 9.5, Immature Gran % (Auto) 0.600, Neut % (Auto) 77.5 H, Lymph % (Auto) 9.9 L, [place] % (Auto) 9.0, Eos % (Auto) 2.3, Baso % (Auto) 0.7, Absolute Neuts (auto) 7.9 H, Absolute Lymphs (auto) 1.00, Nucleated RBC % 0, Differential Comment SCANNED, Platelet Estimate SLT DEC, Phosphorus 3.1 02/22/23 12:23: POC Glucose 116 H 02/22/23 18:07: POC Glucose 95 02/23/23 05:00: WBC 10.4, RBC 3.81 L, Hgb 12.0, Hct 39.1, MCV 102.6 H, MCH 31.5, MCHC 30.7 L, RDW Std Deviation 63.8 H, RDW Coeff of Shahbaz 17.2 H, Plt Count 179, MPV 9.8, Immature Gran % (Auto) 0.500, Neut % (Auto) 83.0 H, Lymph % (Auto) 6.9 L, [place] % (Auto) 6.9, Eos % (Auto) 2.1, Baso % (Auto) 0.6, Absolute Neuts (auto) 8.7 H, Absolute Lymphs (auto) 0.72 L, Nucleated RBC % 0, Sodium 144, Potassium 4.1, Chloride 110 H, Carbon Dioxide 26.0, Anion Gap 8, BUN 38 H, Creatinine 1.23 H, Estim Creat Clear Calc 27.70, Est GFR (MDRD) Af Amer 53 L, Est GFR (MDRD) Non-Af 44 L, BUN/Creatinine Ratio 30.9 H, Glucose 90, Calcium 9.1 Micro: Microbiology 02/18/23 06:31 Fluid - Thoracentesis Fluid Gram Stain - Final 02/18/23 06:31 Fluid - Thoracentesis Fluid Body Fluid Culture - Final Culture exhibits no growth. 02/18/23 06:31 Fluid - Thoracentesis Fluid Anaerobic Culture - Final No growth in 5 days. 02/20/23 13:00 Sputum, Induced/Lukens Gram Stain - Final 02/20/23 13:00 Sputum, Induced/Lukens Respiratory Culture - Final Pseudomonas aeruginosa Staphylococcus aureus Rhythm Strip Rhythm Strip: A-fib Rate: 125 Cardiology Labs/Tests 02/22/23 05:27: WBC 10.1, RBC 3.87 L, Hgb 12.0, Hct 38.3, MCV 99.0, MCH 31.0, MCHC 31.3 L, Plt Count 109 L, MPV 9.5, Immature Gran % (Auto) 0.600, Neut % (Auto) 77.5 H, Lymph % (Auto) 9.9 L, [place] % (Auto) 9.0, Eos % (Auto) 2.3, Baso % (Auto) 0.7, Absolute Neuts (auto) 7.9 H, Nucleated RBC % 0, Phosphorus 3.1 02/23/23 05:00: WBC 10.4, RBC 3.81 L, Hgb 12.0, Hct 39.1, MCV 102.6 H, MCH 31.5, MCHC 30.7 L, Plt Count 179, MPV 9.8, Immature Gran % (Auto) 0.500, Neut % (Auto) 83.0 H, Lymph % (Auto) 6.9 L, [place] % (Auto) 6.9, Eos % (Auto) 2.1, Baso % (Auto) 0.6, Absolute Neuts (auto) 8.7 H, Nucleated RBC % 0, Sodium 144, Potassium 4.1, Chloride 110 H, Carbon Dioxide 26.0, Anion Gap 8, BUN 38 H, Creatinine 1.23 H, Est GFR (MDRD) Af Amer 53 L, Est GFR (MDRD) Non-Af 44 L, BUN/Creatinine Ratio 30.9 H, Glucose 90, Calcium 9.1 Physical Exam Const alert and oriented x3 General Appearance: cooperative HEENT normocephalic and head/scalp atraumatic Eyes PERRL, EOMs intact bilaterally and conjunctivae normal Neck supple General: trachea midline Chest inspection of chest normal Resp normal respiratory effort Resp Narrative: Diminished Auscultation: rales bilateral base; Negative for rhonchi or wheezes Cardio S1 normal heart sound and S2 normal heart sound Rate: tachycardic Rhythm: abnormal rhythm irregularly irregular GI normal to inspection, nondistended, normoactive bowel sounds Extremity no clubbing, cyanosis or edema Skin no rashes or lesions noted Assessment & Plan Assessment/Plan (1) Heart failure with preserved ejection fraction: QUALIFIERS: Heart failure chronicity: unspecified Qualified Code(s): I50.30 - Unspecified diastolic (congestive) heart failure (2) V tach: (3) Paroxysmal atrial fibrillation: (4) Pleural effusion, right: PLAN: Plan * On the she had short runs of wide-complex rhythm that appeared to be V. tach. A-fib with aberrancy is also in the differential. She was restarted on her oral metoprolol today. * She will continue with her amiodarone, eliquis * When BP improves will add diuretics and increase metoprolol * Will sign off and f/u in the office. * Pt did have a thoracentesis on . Charges/Coding Visit Charges Inpatient E&M: 95588 Subs Hosp L2
--- NOTE | 2023-02-23 09:33 | PN.CC_ITS ---
Assessment & Plan Assessment/Plan (1) Acute decompensated heart failure: (2) Acute hypoxemic respiratory failure: PLAN: Plan RECOMMENDATIONS: 1. Consider transition to p.o. Lopressor and Lasix with diet modifications 2. Defer to cardiology for optimization of heart rate 3. Await results of bedside swallow evaluation 4. Continue empiric antibiotics to complete a 10-day course 5. Okay to leave the intensive care unit from my perspective 6. Hemodynamically stable on room air. Will sign off from a critical care perspective IMPRESSIONS: 1. Acute hypoxic respiratory failure with large right pleural effusion Patient did present with a large right pleural effusion that has been tapped. This was noted to be transudate, consistent with CHF, but lab had some concern for some atypical cells, so cytology was added on 02/22/2023 and shows no malignant cells. Patient has responded well and was able to be extubated on 02/21/2023. Patient currently is on room air and much less dyspneic compared to yesterday. Likely secondary to improved heart rate control. 2. Acute on chronic diastolic CHF exacerbated by A-fib with RVR Patient noted to have an EF of 55 to 60% with enlarged bilateral atria. Patient's pulmonary artery pressures noted to be 115 on presentation. This result may be spurious as patient appears to be overloaded on presentation. Patient may need to have a right heart catheterization as an outpatient. This would be exacerbated by A-fib with RVR. Heart rate is better controlled at this time. Patient tolerating IV Lopressor and Lasix for rate control and could be transitioned over to p.o pending results of swallow evaluation. Defer to cardiology on possible increase in dose of amiodarone versus IV drip versus alternative plan 3. Debility/hypertension/paroxysmal A-fib/advanced age Complicates care, management, recovery and prognosis. Baseline antihypertensives held secondary to acute condition. Patient not receiving b aseline Lasix therapy secondary to marginal blood pressures. Subjective Subjective Patient did well overnight. Patient did have some lower extremity swelling, so was reinitiated on her Lasix. Patient has not had significant hypotension despite the addition of IV Lopressor. Patient continues to have back discomfort that she associates with being in the chair. Objective Data Objective Data Vital Signs: Vital Signs Temp Pulse Resp BP Pulse Ox O2 Del Method O2 Flow Rate 37.5 C H 117 H 20 H 126/82 H 93 Room Air 2 02/23/23 08:00 02/23/23 09:00 02/23/23 09:00 02/23/23 09:00 02/23/23 08:00 02/23/23 08:00 02/21/23 16:00 FiO2 30 02/21/23 06:36 Oxygen Flow Rate (L/min) 2 Oxygen Delivery Method Room Air Weight: 55.5 kg Body Mass Index (BMI) 24.7 Intake & Output: Intake and Output for Last 24 Hours 02/21/23 02/22/23 02/23/23 23:59 23:59 23:59 Intake Total 1305.57 / 1306.05 575.95 / 575.95 Output Total 1375 / 1375 1410 / 1410 175 / 175 Balance -69.43 / -68.95 -834.05 / -834.05 -175 / -175 Lab / Micro Data Attestation: I reviewed the patient's lab results. 02/23/23 05:00 02/23/23 05:00 Labs: Laboratory Results - last 24 hr 02/22/23 05:27: WBC 10.1, RBC 3.87 L, Hgb 12.0, Hct 38.3, MCV 99.0, MCH 31.0, MCHC 31.3 L, RDW Std Deviation 60.1 H, RDW Coeff of Shahbaz 16.8 H, Plt Count 109 L, MPV 9.5, Immature Gran % (Auto) 0.600, Neut % (Auto) 77.5 H, Lymph % (Auto) 9.9 L, [place] % (Auto) 9.0, Eos % (Auto) 2.3, Baso % (Auto) 0.7, Absolute Neuts (auto) 7.9 H, Absolute Lymphs (auto) 1.00, Nucleated RBC % 0, Differential Comment SCANNED, Platelet Estimate SLT DEC, Phosphorus 3.1 02/22/23 12:23: POC Glucose 116 H 02/22/23 18:07: POC Glucose 95 02/23/23 05:00: WBC 10.4, RBC 3.81 L, Hgb 12.0, Hct 39.1, MCV 102.6 H, MCH 31.5, MCHC 30.7 L, RDW Std Deviation 63.8 H, RDW Coeff of Shahbaz 17.2 H, Plt Count 179, MPV 9.8, Immature Gran % (Auto) 0.500, Neut % (Auto) 83.0 H, Lymph % (Auto) 6.9 L, [place] % (Auto) 6.9, Eos % (Auto) 2.1, Baso % (Auto) 0.6, Absolute Neuts (auto) 8.7 H, Absolute Lymphs (auto) 0.72 L, Nucleated RBC % 0, Sodium 144, Potassium 4.1, Chloride 110 H, Carbon Dioxide 26.0, Anion Gap 8, BUN 38 H, Creatinine 1.23 H, Estim Creat Clear Calc 27.70, Est GFR (MDRD) Af Amer 53 L, Est GFR (MDRD) Non-Af 44 L, BUN/Creatinine Ratio 30.9 H, Glucose 90, Calcium 9.1 Micro: Microbiology 02/18/23 06:31 Fluid - Thoracentesis Fluid Gram Stain - Final 02/18/23 06:31 Fluid - Thoracentesis Fluid Body Fluid Culture - Final Culture exhibits no growth. 02/18/23 06:31 Fluid - Thoracentesis Fluid Anaerobic Culture - Final No growth in 5 days. 02/20/23 13:00 Sputum, Induced/Lukens Gram Stain - Final 02/20/23 13:00 Sputum, Induced/Lukens Respiratory Culture - Final Pseudomonas aeruginosa Staphylococcus aureus 02/18/23 09:42 Blood Culture (Wb) - Right Wrist Blood Culture - Preliminary No growth in 48 hours. 02/18/23 09:30 Blood Culture (Wb) - Anticubital Right Blood Culture - Preliminary No growth in 48 hours. 02/18/23 09:42 Urine Catheter - Santana Urine Culture - Final Culture exhibits no growth. 02/18/23 07:06 Sputum, Induced/Lukens Gram Stain - Final 02/18/23 07:06 Sputum, Induced/Lukens Respiratory Culture - Final Rhythm Strip Rhythm Strip: A-fib Rate: 125 Physical Exam Const alert, oriented x3 and no apparent distress Constitutional Narrative: Some conversational dyspnea noted General Appearance: well kempt, well developed and patient mechanically ventilated HEENT normocephalic, head/scalp atraumatic and moist oral mucous membranes Eyes PERRL, EOMs intact bilaterally and conjunctivae normal Neck supple, no JVD and thyroid normal General: trachea midline Chest inspection of chest normal Resp normal respiratory effort, no retractions, no use of accessory muscles and clear to auscultation bilaterally Auscultation: Negative for rales, rhonchi or wheezes Cardio regular rate, S1 normal heart sound, S2 normal heart sound, no murmurs, no rub and no gallops Rate: tachycardic Rhythm: abnormal rhythm irregularly irregular GI normal to inspection, nondistended, normoactive bowel sounds and non-distended Extremity no clubbing, cyanosis or edema Skin no rashes or lesions noted General Skin Exam: no breakdown Neuro CN's II-XII intact bilaterally Psych Mood & Affect: flat affect Charges/Coding Visit Charges Inpatient E&M: 23980 Subs Hosp L2
[2023-02-23] MEDS: Senna/Docusate Sodium 1 Tablet PO (09:37)
[2023-02-23] MEDS: APIXABAN 2.5 MG TABLET (WCH) PO ×2 (09:37→20:58)
[2023-02-23] MEDS: Furosemide 20 MG/2 ML VIAL IV ×2 (09:37→16:29)
[2023-02-23] MEDS: Amiodarone 200 MG Tablet PO (09:37)
[2023-02-23] MEDS: Cefepime HCl 2 GM in 0.9% Normal Saline (100mL MB+) 100 ML IV (09:40)
--- NOTE | 2023-02-23 10:15 | CASEMGMT ---
BEATRIS MONZON NOTE: BEATRIS MONZON spoke w/Fide @ [facility] and made aware anticipate SNF @ discharge. Vivek MELÉNDEZ RN, CM
--- NOTE | 2023-02-23 11:00 | CASEMGMT ---
Social Work SW met with pt, pts dgt Darby and son Alberto and introduced self and role of SW. Short term SNF placement has been recommended for pt and family is agreeable. A list of SNF providers including quality and resource use data and consistent with the patient?s preferred geographic region, medical needs, and insurance network were provided from the [employer] Guide. Family's preference is [facility]. SW explained that referral has been made and there are currently no beds available. SW requested other choices. Family stating that TCU is their choice and resistant to other options. SW explained that Pt's name was placed on waiting list and if a bed becomes available and pt has been accepted, other referrals can be cancelled and pt can go to TCU. Family stating they need to review list for other options. SW requesting decision for additional options be obtained by end of day or first thing in the morning. SW to follow up for SNF choices. GAEL Saldaña
--- NOTE | 2023-02-23 11:36 | ST.MBS ---
Modified Barium Swallow Patient Information Study Date: 02/23/23 Study Time: 09:00 Direct Billable Minutes: 96 Total Minutes procedure & reportin Diagnosis: Acute hypoxemic respiratory failure J96.01 Referring Physician: Jered Carr Reason for Referral: Objectively assess swallow function, assess risk for aspiration, and determine recommendations for least restrictive diet textures and compensatory strategies to improve safety of swallow. Medical History: PMH: A-fib, Rheumatic fever, Bilateral PNA, HTN, SOB, CHF (SEE EMR for full PMH). She presented to [facility] ED 02/14/[address] Duran's office due to increasing bilateral lower extremity edema. She was found to be in acute heart failure with a BNP of greater than 3300 and hypoxic with a sat of 85% on room air. ABG and chest x-ray consistent with fluid overload. She was admitted for management of acute on chronic HFpEF. She was consulted for ST due to concerns for swallowing difficulty. BSE 02/17/2023 recommended her for regular textures / thin liquids with recommendation for MBSS. CONTRACT TECHNICIAN had concerns for GERD, patient denied history of GERD. The patient experienced respiratory failure and was intubated 02/18/2023. She was extubated 02/21/2023, and CONTRACT TECHNICIAN recommended NPO with sips and chips upon re-assessment. Patient was re-assessed by CONTRACT TECHNICIAN 02/22/2023 and recommended for MBSS today prior to diet advancement. Current Diet Ordered: NPO w/ sips and chips Dentition: WNL and Natural Teeth Mental Status: WNL Respiratory Status: Oxygenating on Room Air Penetration-Aspiration Scale Penetration-Aspiration Scale: OBJECTIVE ASSESSMENT OF SWALLOW FUNCTION (QUANTITATIVE ? PER TRIAL): PENETRATION / ASPIRATION SCALE (WHITE): 1 = does not enter airway 2 = enters airway/above vocal folds/ejected 3 = enters airway/above vocal folds/not ejected 4 = enters airway/contacts vocal folds/ejected 5 = enters airway/contacts vocal folds/not ejected 6 = enters airway/below vocal folds/ejected 7 = enters airway/below vocal folds/not ejected despite effort 8 = enters airway/below vocal folds/no effort VIDEOFLOROSCOPIC SCALE SCORE (WHITE): Grade I = aspiration of material that has penetrated into the laryngeal vestibule, intact cough reflex Grade II = aspiration < 10 % of the bolus, intact cough reflex Grade III = aspiration of < 10 % of the bolus, reduced cough reflex or aspiration of > 10 % of the bolus, intact cough reflex Grade IV = aspiration of > 10 % of the bolus, reduced cough reflex Penetration-Aspiration Scale Score Thin Liquid via teaspoon: Result: 1= does not enter airway Thin Liquid via teaspoon Trial 2: Result: 1= does not enter airway Thin Liquid via small single sip: cup: Result: 1= does not enter airway Imbler Thick Liquid via small single sip: cup: Result: 1= does not enter airway Pudding via teaspoon: Result: 1= does not enter airway Thin Liquid via single sip: straw: Result: 1= does not enter airway Thin Liquid via sequential sips:straw: Result: 1= does not enter airway Oral Phase Labial Seal: No Labial Escape Tongue Control During Bolus Hold: Cohesive bolus between tongue to palatal seal Bolus Preparation/Mastication: Slow prolonged chewing/mashing with complete recollection Bolus Transport/Lingual Motion: Brisk tongue motion Oral Residue: Residue collection on oral structures Pharyngeal Phase Initiation of Pharyngeal Swallow: Bolus head in valleculae Soft Palate Elevation: No bolus between soft palate and pharyngeal wall Laryngeal Elevation: Comp. Superior move thyroid cart w/comp. apprx arytenoid cart-epig pet Anterior Hyoid Excursion: Partial anterior movement Epiglottic Movement: Complete inversion Laryngeal Vestibule Closure at Height of Swallow: Complete; no air/contrast in laryngeal vestibule Pharyngeal Stripping Wave: Present - complete Pharyngoesophageal Segment Opening: Parital distension and partial duration; parital obstruction of flow Tongue Base Retraction: Narrow column of contrast between tongue base & post. pharyngeal wall Pharyngeal Residue: Collection of residue within or on pharyngeal structures Esophageal Phase Esophageal Clearance: Esophageal retention w/ retrograde flow through pharyngoesophageal seg Diagnosis/Impression Diagnosis: Mild-moderate pharyngoesophageal dysphagia R13.14 Impression: The pharyngeal phase is primarily marked by... -Mild pharyngeal residues secondary to decreased tongue base retraction. Additionally, collections of pharyngeal residues were seen in the pyriforms throughout the study secondary to retrograde flow of barium contrast (liquids and cookie) through the upper esophageal sphincter (UES). Small amount of liquids and cookie were seen in a pouch-like collection of barium above a CP bar at the level of C6. CONTRACT TECHNICIAN reviewed with Dr. Pedicelli. Collection may be indicative of a developing Zenker's diverticulum, but is very small at this time. CONTRACT TECHNICIAN will recommend an OP ENT consult if the patient experiences persisting sensation of retention or reflux in her throat following GI intervention. -Mildly decreased anterior hyoid excursion; however, complete laryngeal elevation. No laryngeal penetration or aspiration observed despite delayed coughing after trials intermittently during the study. The esophageal phase is marked by the following... -Retention and retrograde flow of barium from the UES to the pyriforms (described above). -Retrograde flow of pudding and thin liquids barium through the lower esophageal sphincter. -The patient is at risk for aspiration of reflux. Recommendations Diet: Regular Textures (Easy to Chew textures IDDSI Level 7) and Thin Liquids Comment: If increased s/s of aspiration, stop meal and resume at a later time as the patient is at risk for reflux aspiration. Compensatory Strategies: Small Bites, Small Sips, Slow Rate, Alternate bites/solids and sips/liquids, Sitting upright (NECK upright 90 degrees as the patient has kyphotic posture) and Remain sitting upright for 30 minutes after PO intake Supervision: Distant Supervision Recommend Repeat Modified Barium Swallow: TBD Need for Skilled Speech Therapy Services: Yes Comment: -Ongoing assessment of diet tolerance. Monitor respiratory status when assessing diet tolerance. -Complete pharyngeal exercise program to include tongue retractions, Donna, and Nicola. Recommended Referrals: GI Consult (CONTRACT TECHNICIAN sent message to Dr. Carr via Backline recommending GI consult due to esophageal retention with retrograde flow of barium contrast through the UES and the LES.) and ENT Consult (Consider OP ENT consult if concern for retrograde flow of food/drink into the patient's throat persists upon discharge. SEE Impressions above for further information.) Education Completed: 1. Described result of evaluation., 2. Pt understands evaluation & agrees with goals and treatment plan., 4. Family/caregivers understand evaluation & agree w/ goals & tx plan. and 7. Pt requires further education on strategies & risks. Status Active ST Patient: Active Contact Information [facility] Speech Therapy:: Whitney Starr M.A. [facility]-CONTRACT TECHNICIAN Speech-Language Pathologist [facility] [id number] [place] [address] [phone]
[2023-02-23 14:41] LABS: Vancomycin, Trough Level 17.2 ug/mL (5.0-15.0)
--- NOTE | 2023-02-23 15:08 | PCM.RX.CS ---
Consult Antibiotic Management Pharmacy has been consulted to manage selected antiobiotic: Vancomycin Type of Intervention Type of Consult: Follow-up Suspected Infection Suspected Infection: Sepsis and Other (UTI) Labs Labs: Sodium 144 mmol/L (136-145) 02/23/23 05:00 Potassium 4.1 mmol/L (3.5-5.1) 02/23/23 05:00 Chloride 110 mmol/L (98-107) H 02/23/23 05:00 Carbon Dioxide 26.0 mmol/L (21.0-32.0) 02/23/23 05:00 Anion Gap 8 (5-15) 02/23/23 05:00 BUN 38 mg/dL (7-18) H 02/23/23 05:00 Creatinine 1.23 mg/dL (0.55-1.02) H 02/23/23 05:00 Est GFR (MDRD) Af Amer 53 mL/min (>60) L 02/23/23 05:00 Est GFR (MDRD) Non-Af 44 mL/min (>60) L 02/23/23 05:00 BUN/Creatinine Ratio 30.9 RATIO (10-20) H 02/23/23 05:00 Glucose 90 mg/dL (74-106) 02/23/23 05:00 Vancomycin Trough 17.2 ug/mL (5.0-15.0) H 02/23/23 13:45 Random Vancomycin 13.5 ug/mL (0.0-15.0) 02/19/23 14:10 Microbiology Microbiology: Microbiology 02/18/23 09:42 Blood Culture (Wb) - Right Wrist Blood Culture - Final No growth in 5 days. 02/18/23 09:30 Blood Culture (Wb) - Anticubital Right Blood Culture - Final No growth in 5 days. 02/18/23 06:31 Fluid - Thoracentesis Fluid Gram Stain - Final 02/18/23 06:31 Fluid - Thoracentesis Fluid Body Fluid Culture - Final Culture exhibits no growth. 02/18/23 06:31 Fluid - Thoracentesis Fluid Anaerobic Culture - Final No growth in 5 days. 02/20/23 13:00 Sputum, Induced/Lukens Gram Stain - Final 02/20/23 13:00 Sputum, Induced/Lukens Respiratory Culture - Final Pseudomonas aeruginosa Staphylococcus aureus 02/18/23 09:42 Urine Catheter - Santana Urine Culture - Final Culture exhibits no growth. 02/18/23 07:06 Sputum, Induced/Lukens Gram Stain - Final 02/18/23 07:06 Sputum, Induced/Lukens Respiratory Culture - Final Dosing Weight Weight used for dosin.5 kg Estimated Creatinine Clearance Estimated Creatinine Clearance: 24ml/min Goal Trough Goal Trough: 15-20 mcg/mL Pharmacy Plan for Drug Dosing Pharmacy Plan for Drug Dosing: Trough today (~22 hrs post dose) was 17.2 and in therapeutic range. Calculated CrCl ~24 using adjusted body weight of 47.9kg. Recommend continuing same dose with new trough before another third dose. Pharmacy Service will continue to monitor and adjust dosing as required. Follow-Up Labs Follow-Up Labs: Trough: Vancomycin (02.25.23 @1430 before 1500 dose)
[2023-02-23] MEDS: Vancomycin HCl 750 MG in 0.9% Normal Saline (250mL Bag) 250 ML 250 MG IV (15:10)
--- NOTE | 2023-02-23 16:08 | NURSING ---
pt admitted to the floor at this time.
[2023-02-23] MEDS: Acetaminophen 650 MG/20 ML UDC PO (16:28)
[2023-02-23] MEDS: Metoprolol Tartrate 25 MG Tablet PO (20:58)
[2023-02-23] MEDS: guaiFENesin 10 ML UDC (200MG/10ML) 5 ML PO (22:27)
[2023-02-24] VITALS (9 sets, daily range): BP systolic 105–118; BP diastolic 62–98; PULSE 111–127; RESP 14–18; TEMP 36.4–37.1; O2SAT 91–98; BMI 24.6
[2023-02-24 03:44] LABS: Absolute Lymphocyte Count 0.69 X10^3/uL (0.83-4.51); Absolute Neutrophil Count 7.9 X10^3/uL (2.0-7.7); Basophil# 0.07 X10^3/uL; Basophil% 0.7 % (0-1); Eosinophil# 0.31 X10^3/uL; Eosinophils% 3.1 % (0-5); Hematocrit 39.2 % (37-47); Hemoglobin 12.5 g/dL (12.0-15.0); Lymphocyte # 0.69 X10^3/ul (0.83-4.51); Mean Corp Hgb Conc 31.9 g/dL (32-36); Mean Corpuscular Hgb 32.4 pg (27.0-32.0); Mean Corpuscular Volume 101.6 fL (81-99); Mean Platelet Vol. 12.3 fl (6.2-12.0); Monocyte# 0.82 X10^3/uL; Monocyte% 8.3 % (0-10); NRBC Flagged by Analyzer 0 % (0-5); Neutrophil # 7.91 X10^3/uL (2.7-7.7); Neutrophil % 80.4 % (47-70); POSITIVE COUNT YES; RBC Distribution Width CV 17.1 % (11.6-14.6); RBC Distribution Width SD 62.8 fl (35.1-43.9); Red Blood Count 3.86 M/mm3 (4.2-5.4); White Blood Count 9.9 K/mm3 (4.4-11.0)
[2023-02-24 03:59] LABS: Anion Gap 6 (5-15); BUN 43 mg/dL (7-18); BUN/Creat Ratio 30.3 RATIO (10-20); Calcium,Total 9.2 mg/dL (8.5-10.1); Chloride 113 mmol/L (98-107); Creatinine, Serum 1.42 mg/dL (0.55-1.02); EST Glomerular Filtration Rate 37 mL/min (>60); Est Glom Filt Rate - Afr Amer 45 mL/min (>60); Estimated Creatinine Clearance 23.99 ml/min; Glucose 109 mg/dL (74-106); Potassium 3.9 mmol/L (3.5-5.1); Sodium Level 145 mmol/L (136-145)
[2023-02-24 04:15] LABS: Differential Indicated SCAN CRITERIA MET
[2023-02-24] MEDS: Menthol/Lanolin/Calamine/Znox 113 GM Tube 1 APPLIC TOPICAL ×3 (05:47→21:44)
[2023-02-24] MEDS: guaiFENesin 10 ML UDC (200MG/10ML) 5 ML PO (05:47)
[2023-02-24 06:48] LABS: Platelet Estimate SLT DEC (ADEQ)
--- NOTE | 2023-02-24 08:35 | PN.HOSP_ITS ---
Subjective Subjective Breathing well. Objective Data Objective Data Vital Signs: Vital Signs Temp Pulse Resp BP Pulse Ox O2 Del Method O2 Flow Rate 36.4 C L 111 H 16 114/62 93 Room Air 2 02/24/23 02:43 02/24/23 02:43 02/24/23 02:43 02/24/23 02:43 02/24/23 02:43 02/24/23 02:43 02/21/23 16:00 FiO2 30 02/21/23 06:36 Oxygen Flow Rate (L/min) 2 Oxygen Delivery Method Room Air Weight: 55.4 kg Body Mass Index (BMI) 24.6 Intake & Output: Intake and Output for Last 24 Hours 02/22/23 02/23/23 02/24/23 23:59 23:59 23:59 Intake Total 575.95 / 575.95 1075 / 1075 50 / 50 Output Total 1410 / 1410 1685 / 1685 150 / 150 Balance -834.05 / -834.05 -610 / -610 -100 / -100 Lab / Micro Data 02/24/23 03:20 02/24/23 03:20 Labs: Laboratory Results - last 24 hr 02/23/23 13:45: Vancomycin Trough 17.2 H 02/24/23 03:20: WBC 9.9, RBC 3.86 L, Hgb 12.5, Hct 39.2, MCV 101.6 H, MCH 32.4 H , MCHC 31.9 L, RDW Std Deviation 62.8 H, RDW Coeff of Shahbaz 17.1 H, Plt Count TNP, MPV 12.3 H, Immature Gran % (Auto) 0.500, Neut % (Auto) 80.4 H, Lymph % (Auto) 7.0 L, [place] % (Auto) 8.3, Eos % (Auto) 3.1, Baso % (Auto) 0.7, Absolute Neuts (auto) 7.9 H, Absolute Lymphs (auto) 0.69 L, Nucleated RBC % 0, Platelet Estimate SLT DEC, Sodium 145, Potassium 3.9, Chloride 113 H, Carbon Dioxide 26.0, Anion Gap 6, BUN 43 H, Creatinine 1.42 H, Estim Creat Clear Calc 23.99, Est GFR (MDRD) Af Amer 45 L, Est GFR (MDRD) Non-Af 37 L, BUN/Creatinine Ratio 30.3 H, Glucose 109 H, Calcium 9.2 Micro: Microbiology 02/18/23 09:42 Blood Culture (Wb) - Right Wrist Blood Culture - Final No growth in 5 days. 02/18/23 09:30 Blood Culture (Wb) - Anticubital Right Blood Culture - Final No growth in 5 days. 02/18/23 06:31 Fluid - Thoracentesis Fluid Gram Stain - Final 02/18/23 06:31 Fluid - Thoracentesis Fluid Body Fluid Culture - Final Culture exhibits no growth. 02/18/23 06:31 Fluid - Thoracentesis Fluid Anaerobic Culture - Final No growth in 5 days. 02/20/23 13:00 Sputum, Induced/Lukens Gram Stain - Final 02/20/23 13:00 Sputum, Induced/Lukens Respiratory Culture - Final Pseudomonas aeruginosa Staphylococcus aureus 02/18/23 09:42 Urine Catheter - Santana Urine Culture - Final Culture exhibits no growth. 02/18/23 07:06 Sputum, Induced/Lukens Gram Stain - Final 02/18/23 07:06 Sputum, Induced/Lukens Respiratory Culture - Final Rhythm Strip Rhythm Strip: A-fib Rate: 125 Physical Exam Const alert and no apparent distress HEENT head/scalp atraumatic and moist oral mucous membranes Resp normal respiratory effort and no retractions Cardio regular rate, regular rhythm, S1 normal heart sound and S2 normal heart sound GI normal to inspection, nondistended, normoactive bowel sounds and soft to palpation Extremity normal to inspection Neuro Sensorium / Orientation: awake and alert Assessment & Plan Assessment/Plan (1) Heart failure with preserved ejection fraction: QUALIFIERS: Heart failure chronicity: unspecified Qualified Code(s): I50.30 - Unspecified diastolic (congestive) heart failure PLAN: Plan 1. acute hypoxic respiratory failure: * resolved * intubated 02/18. Extubated on 02/21. * secondary to acute on chronic congestive heart failure with preserved ejection with pleural effusions * started on cefepime and vancomycin on the * Sputum culture + for GNR and Staph sp. 2. acute on chronic congestive heart failure with preserved ejection fraction * patient remains on furosemide, spironolactone and metoprolol * Echo on the with EF 55-60%, severely enlarged LA and RA, severe PH 3. large right pleural effusion * status post thoracentesis on the removing 1360 cc * fluid was transudative 2/2 CHF. 5. paroxysmal atrial fibrillation * Afib w aberrancy with patient is on amiodarone and metoprolol tartrate 25 BID. diltiazem gtt turned off on . * anticoagulated w apixaban. * cardiology following 6. Dysphagia: * had MBS today. ST recommending regular textures (easy to chew and thin liquids). Also recommending GI eval for esophageal retention with retrograde flow of barium contrast. * GI consulted. 7. Pneumonia * Pseudomonal and MSSA. * Change abx from pip/tazo and vanc to levofloxacin. VTE prophylaxis: not indicated, already on anticoagulation. Dispostion: TBD. Eventually will require SNF when medically ready. Hopefully over the weekend. Charges/Coding Visit Charges Inpatient E&M: 50282 Subs Hosp L2
[2023-02-24] MEDS: Metoprolol Tartrate 25 MG Tablet PO ×2 (09:53→21:45)
[2023-02-24] MEDS: Amiodarone 200 MG Tablet PO (09:53)
[2023-02-24] MEDS: APIXABAN 2.5 MG TABLET (WCH) PO ×2 (09:54→21:45)
[2023-02-24] MEDS: Furosemide 20 MG/2 ML VIAL IV ×2 (09:54→17:08)
[2023-02-24] MEDS: levoFLOXacin IV 500 MG/100 ML BAG 100 MG IV (10:19)
[2023-02-24] MEDS: Vancomycin HCl 750 MG in 0.9% Normal Saline (250mL Bag) 250 ML 250 MG IV (14:48)
[2023-02-24] MEDS: Acetaminophen 650 MG/20 ML UDC PO (14:52)
[2023-02-25] VITALS (7 sets, daily range): BP systolic 104–135; BP diastolic 76–88; PULSE 112–133; RESP 16–18; TEMP 36.3–36.9; O2SAT 94–95; BMI 24.0
[2023-02-25] MEDS: Menthol/Lanolin/Calamine/Znox 113 GM Tube 1 APPLIC TOPICAL ×2 (05:45→21:39)
[2023-02-25 07:01] LABS: Absolute Lymphocyte Count 0.79 X10^3/uL (0.83-4.51); Absolute Neutrophil Count 5.6 X10^3/uL (2.0-7.7); Basophil# 0.07 X10^3/uL; Basophil% 0.9 % (0-1); Eosinophil# 0.29 X10^3/uL; Eosinophils% 3.8 % (0-5); Hemoglobin 12.6 g/dL (12.0-15.0); Lymphocyte # 0.79 X10^3/ul (0.83-4.51); Lymphocyte % 10.4 % (19-41); Mean Corp Hgb Conc 31.5 g/dL (32-36); Mean Corpuscular Hgb 32.1 pg (27.0-32.0); Monocyte# 0.77 X10^3/uL; Monocyte% 10.2 % (0-10); NRBC Flagged by Analyzer 0 % (0-5); Neutrophil # 5.61 X10^3/uL (2.7-7.7); Neutrophil % 74.3 % (47-70); POSITIVE COUNT YES; RBC Distribution Width CV 17.2 % (11.6-14.6); RBC Distribution Width SD 63.7 fl (35.1-43.9); Red Blood Count 3.92 M/mm3 (4.2-5.4); White Blood Count 7.6 K/mm3 (4.4-11.0)
[2023-02-25 07:30] LABS: Anion Gap 4 (5-15); BUN 39 mg/dL (7-18); BUN/Creat Ratio 31.5 RATIO (10-20); Calcium,Total 9.8 mg/dL (8.5-10.1); Chloride 114 mmol/L (98-107); Creatinine, Serum 1.24 mg/dL (0.55-1.02); EST Glomerular Filtration Rate 43 mL/min (>60); Est Glom Filt Rate - Afr Amer 53 mL/min (>60); Estimated Creatinine Clearance 26.68 ml/min; Glucose 113 mg/dL (74-106); Potassium 3.4 mmol/L (3.5-5.1); Sodium Level 144 mmol/L (136-145)
--- NOTE | 2023-02-25 07:57 | PN.HOSP_ITS ---
Reason for Visit Reason for Visit: Feels well. Does feel palpitations. Objective Data Objective Data Vital Signs: Vital Signs Temp Pulse Resp BP Pulse Ox O2 Del Method O2 Flow Rate 36.3 C L 115 H 16 124/77 H 94 Room Air 0 02/25/23 03:46 02/25/23 03:46 02/25/23 03:46 02/25/23 03:46 02/25/23 03:46 02/25/23 03:56 02/24/23 08:00 FiO2 30 02/21/23 06:36 Oxygen Flow Rate (L/min) 0 Oxygen Delivery Method Room Air Weight: 53.9 kg Body Mass Index (BMI) 24.0 Intake & Output: Intake and Output for Last 24 Hours 02/23/23 02/24/23 02/25/23 23:59 23:59 23:59 Intake Total 1075 / 1075 835 / 955 240 / 240 Output Total 1685 / 1685 2870 / 3220 350 / 350 Balance -610 / -610 -2035 / -2265 -110 / -110 Lab / Micro Data 02/25/23 06:40 02/25/23 06:40 Labs: Laboratory Results - last 24 hr 02/18/23 06:31: Miscellaneous Cytology SEE PATHOLOGY REPORT 02/25/23 06:40: Sodium 144, Potassium 3.4 L, Chloride 114 H, Carbon Dioxide 26.0, Anion Gap 4 L, BUN 39 H, Creatinine 1.24 H, Estim Creat Clear Calc 26.68, Est GFR (MDRD) Af Amer 53 L, Est GFR (MDRD) Non-Af 43 L, BUN/Creatinine Ratio 31.5 H, Glucose 113 H, Calcium 9.8 Micro: Microbiology 02/18/23 09:42 Blood Culture (Wb) - Right Wrist Blood Culture - Final No growth in 5 days. 02/18/23 09:30 Blood Culture (Wb) - Anticubital Right Blood Culture - Final No growth in 5 days. 02/18/23 06:31 Fluid - Thoracentesis Fluid Gram Stain - Final 02/18/23 06:31 Fluid - Thoracentesis Fluid Body Fluid Culture - Final Culture exhibits no growth. 02/18/23 06:31 Fluid - Thoracentesis Fluid Anaerobic Culture - Final No growth in 5 days. 02/20/23 13:00 Sputum, Induced/Lukens Gram Stain - Final 02/20/23 13:00 Sputum, Induced/Lukens Respiratory Culture - Final Pseudomonas aeruginosa Staphylococcus aureus 02/18/23 09:42 Urine Catheter - Santana Urine Culture - Final Culture exhibits no growth. 02/18/23 07:06 Sputum, Induced/Lukens Gram Stain - Final 02/18/23 07:06 Sputum, Induced/Lukens Respiratory Culture - Final Rhythm Strip Rhythm Strip: A-fib Rate: 125 Physical Exam Const alert and no apparent distress HEENT head/scalp atraumatic Cardio Cardio Narrative: Irregularly irregular. Tachycardic. GI normal to inspection, nondistended, normoactive bowel sounds, soft to palpation, non-tender and non-distended Extremity General Extremity: edema bilateral lower extremity Details: moderate Psych affect normal Assessment & Plan Assessment/Plan (1) Heart failure with preserved ejection fraction: QUALIFIERS: Heart failure chronicity: unspecified Qualified Code(s): I50.30 - Unspecified diastolic (congestive) heart failure PLAN: Plan 1. acute hypoxic respiratory failure: * resolved * intubated 02/18. Extubated on 02/21. * secondary to acute on chronic congestive heart failure with preserved ejection with pleural effusions and pneumonia * started on cefepime and vancomycin on the * Sputum culture + for GNR and Staph sp. 2. acute on chronic congestive heart failure with preserved ejection fraction * patient remains on furosemide, spironolactone and metoprolol * Echo on the with EF 55-60%, severely enlarged LA and RA, severe PH 3. large right pleural effusion * status post thoracentesis on the removing 1360 cc * fluid was transudative 2/2 CHF. 5. paroxysmal atrial fibrillation * Afib w aberrancy with patient is on amiodarone and metoprolol tartrate 25 BID. diltiazem gtt turned off on . * anticoagulated w apixaban. * cardiology signed off. Pt to follow up in the office. * 02/25: Increase metoprolol to 50 mg twice daily and observe. Patient has persistently been tachycardic despite changes cardiology is made. If persists and, may need to increase metoprolol further, however, if BP is an issue, may need to consider digoxin. 6. Dysphagia: * had MBS today. ST recommending regular textures (easy to chew and thin liquids). Also recommending GI eval for esophageal retention with retrograde flow of barium contrast. * GI consulted, but has not seen. Pt can follow up as outpt. 7. Pneumonia * Pseudomonal and MSSA. * Change abx from pip/tazo and vanc to levofloxacin. VTE prophylaxis: not indicated, already on anticoagulation. Disposition: TBD. Eventually will require SNF when medically ready. Hopefully over the weekend. Charges/Coding Visit Charges Inpatient E&M: 62138 Subs Hosp L2
[2023-02-25 08:35] LABS: Mean Platelet Vol. 9.6 fl (6.2-12.0); Platelet Count 191 K/mm3 (150-450)
[2023-02-25] MEDS: Senna/Docusate Sodium 1 Tablet PO (10:04)
[2023-02-25] MEDS: Metoprolol Tartrate 50 MG Tablet PO ×2 (10:04→21:39)
[2023-02-25] MEDS: Amiodarone 200 MG Tablet PO (10:04)
[2023-02-25] MEDS: APIXABAN 2.5 MG TABLET (WCH) PO ×2 (10:04→21:38)
[2023-02-25] MEDS: Acetaminophen 650 MG/20 ML UDC PO (10:04)
[2023-02-25] MEDS: Furosemide 20 MG/2 ML VIAL IV ×2 (10:04→17:09)
[2023-02-25] MEDS: levoFLOXacin IV 250 MG/50 ML BAG 50 MG IV (10:05)
[2023-02-25] MEDS: 0.9% Saline Lock 10 ML Syringe IV ×2 (10:05→17:09)
[2023-02-25] MEDS: Potassium Chloride Oral Tablet 20 MEQ 40 MEQ PO (13:57)
[2023-02-26 01:40] VITALS: PULSE 109; O2SAT 93
[2023-02-26 01:43] VITALS: BP 94/69; PULSE 108; RESP 18; TEMP 36.7; O2SAT 94
[2023-02-26 06:00] VITALS: BMI 23.8
[2023-02-26] MEDS: Menthol/Lanolin/Calamine/Znox 113 GM Tube 1 APPLIC TOPICAL (06:40)
--- NOTE | 2023-02-26 07:50 | PN.HOSP_ITS ---
Subjective Subjective Feels well, though her mouth is dry. Objective Data Objective Data Vital Signs: Vital Signs Temp Pulse Resp BP Pulse Ox O2 Del Method O2 Flow Rate 36.7 C 108 H 18 94/69 94 Room Air 0 02/26/23 01:43 02/26/23 01:43 02/26/23 01:43 02/26/23 01:43 02/26/23 01:43 02/26/23 01:43 02/24/23 08:00 FiO2 30 02/21/23 06:36 Oxygen Flow Rate (L/min) 0 Oxygen Delivery Method Room Air Weight: 53.5 kg Body Mass Index (BMI) 23.8 Intake & Output: Intake and Output for Last 24 Hours 02/24/23 02/25/23 02/26/23 23:59 23:59 23:59 Intake Total 835 / 955 770 / 820 150 / 150 Output Total 2870 / 3220 350 / 650 300 / 300 Balance -2035 / -2265 420 / 170 -150 / -150 Lab / Micro Data 02/25/23 06:40 02/25/23 06:40 Labs: Laboratory Results - last 24 hr 02/25/23 06:40: WBC 7.6, RBC 3.92 L, Hgb 12.6, Hct 40.0, MCV 102.0 H, MCH 32.1 H , MCHC 31.5 L, RDW Std Deviation 63.7 H, RDW Coeff of Shahbaz 17.2 H, Plt Count 191, MPV 9.6, Immature Gran % (Auto) 0.400, Neut % (Auto) 74.3 H, Lymph % (Auto) 10.4 L, [place] % (Auto) 10.2 H, Eos % (Auto) 3.8, Baso % (Auto) 0.9, Absolute Neuts (auto) 5.6, Absolute Lymphs (auto) 0.79 L, Nucleated RBC % 0 Micro: Microbiology 02/18/23 09:42 Blood Culture (Wb) - Right Wrist Blood Culture - Final No growth in 5 days. 02/18/23 09:30 Blood Culture (Wb) - Anticubital Right Blood Culture - Final No growth in 5 days. 02/18/23 06:31 Fluid - Thoracentesis Fluid Gram Stain - Final 02/18/23 06:31 Fluid - Thoracentesis Fluid Body Fluid Culture - Final Culture exhibits no growth. 02/18/23 06:31 Fluid - Thoracentesis Fluid Anaerobic Culture - Final No growth in 5 days. 02/20/23 13:00 Sputum, Induced/Lukens Gram Stain - Final 02/20/23 13:00 Sputum, Induced/Lukens Respiratory Culture - Final Pseudomonas aeruginosa Staphylococcus aureus 02/18/23 09:42 Urine Catheter - Santana Urine Culture - Final Culture exhibits no growth. 02/18/23 07:06 Sputum, Induced/Lukens Gram Stain - Final 02/18/23 07:06 Sputum, Induced/Lukens Respiratory Culture - Final Rhythm Strip Rhythm Strip: A-fib Rate: 125 Physical Exam Const alert and no apparent distress Resp normal respiratory effort, no retractions, no use of accessory muscles and clear to auscultation bilaterally Cardio Cardio Narrative: tachycardic, but improved. Assessment & Plan Assessment/Plan (1) Heart failure with preserved ejection fraction: QUALIFIERS: Heart failure chronicity: unspecified Qualified Code(s): I50.30 - Unspecified diastolic (congestive) heart failure PLAN: Plan 1. acute hypoxic respiratory failure: * resolved * intubated 02/18. Extubated on 02/21. * secondary to acute on chronic congestive heart failure with preserved ejection with pleural effusions and pneumonia * started on cefepime and vancomycin on the * Sputum culture + for GNR and Staph sp. 2. acute on chronic congestive heart failure with preserved ejection fraction * patient remains on furosemide, spironolactone and metoprolol * Echo on the with EF 55-60%, severely enlarged LA and RA, severe PH 3. large right pleural effusion * status post thoracentesis on the removing 1360 cc * fluid was transudative 2/2 CHF. 5. paroxysmal atrial fibrillation * Improved * Afib w aberrancy with patient is on amiodarone and metoprolol tartrate 25 BID. diltiazem gtt turned off on . * anticoagulated w apixaban. * cardiology signed off. Pt to follow up in the office. * 02/25: Increase metoprolol to 50 mg twice daily and observe. Patient has persistently been tachycardic despite changes cardiology is made. If persists and, may need to increase metoprolol further, however, if BP is an issue, may need to consider digoxin. Did d/w Dr. Toro, consider digoxin if remains in afib w RVR. 6. Dysphagia: * had MBS today. ST recommending regular textures (easy to chew and thin liquids). Also recommending GI eval for esophageal retention with retrograde flow of barium contrast. * GI consulted, but has not seen. Pt can follow up as outpt. 7. Pneumonia * Pseudomonal and MSSA. * Change abx from pip/tazo and vanc to levofloxacin. Complete abx through the . VTE prophylaxis: not indicated, already on anticoagulation. Disposition: DC to TCU today.
--- NOTE | 2023-02-26 08:14 | TREXTCAR_ITS ---
Diet Diet Order/Speech Therapy: 02/23/23 09:31 Diet: Regular - General Food consistency:: Easy to Chew Liquid Consistency:: Regular/Thin Is pt able to select menu?: Yes Diet Comments: Distant supervision, neck positioned upright 90 degrees 1.5 liters of fluid/day. 2 gram salt/day Routine Orders/Code Status Routine Lab Work: BMP (on the . ) Code Status: Full Code Therapies Weight Bearing: Full weight bearing Physical Therapy: Eval and Treat Occupational Therapy: Eval and Treat Problem/Diagnosis (1) Heart failure with preserved ejection fraction: Status: Acute Code(s): I50.30 - Unspecified diastolic (congestive) heart failure Plan 1. acute hypoxic respiratory failure: * resolved * intubated 02/18. Extubated on 02/21. * secondary to acute on chronic congestive heart failure with preserved ejection with pleural effusions and pneumonia * started on cefepime and vancomycin on the * Sputum culture + for GNR and Staph sp. 2. acute on chronic congestive heart failure with preserved ejection fraction * patient remains on furosemide, spironolactone and metoprolol * Echo on the with EF 55-60%, severely enlarged LA and RA, severe PH 3. large right pleural effusion * status post thoracentesis on the removing 1360 cc * fluid was transudative 2/2 CHF. 5. paroxysmal atrial fibrillation * Improved * Afib w aberrancy with patient is on amiodarone and metoprolol tartrate 25 BID. diltiazem gtt turned off on . * anticoagulated w apixaban. * cardiology signed off. Pt to follow up in the office. * 02/25: Increase metoprolol to 50 mg twice daily and observe. Patient has persistently been tachycardic despite changes cardiology is made. If persists and, may need to increase metoprolol further, however, if BP is an issue, may need to consider digoxin. Did d/w Dr. Toro, consider digoxin if remains in afib w RVR. 6. Dysphagia: * had MBS today. ST recommending regular textures (easy to chew and thin liquids). Also recommending GI eval for esophageal retention with retrograde flow of barium contrast. * GI consulted, but has not seen. Pt can follow up as outpt. 7. Pneumonia * Pseudomonal and MSSA. * Change abx from pip/tazo and vanc to levofloxacin. Complete abx through the . VTE prophylaxis: not indicated, already on anticoagulation. Disposition: DC to TCU today. Allergies/Procedures Done in Hospital Allergies Sulfa (Sulfonamide Antibiotics) Allergy (Verified 02/14/23 14:32) Angioedema Type of Care/Length of Stay Estimated LOS: Convalescent Care Less Than 30 days Type of Care Needed: Skilled Rehab Potential: Fair Prognosis: Good Additional Orders/Day of Discharge Day of Discharge: 02/26/23 Dietary and Speech Recommendations Dietitian Recommendations/Changes: Recommend advance diet as tolerated to Cardiac w/ texture/consistency per LABEL CODER Discharge Plan Admission Admit Date/Time: 02/14/23 13:46 Primary Reason for Your Visit: respiratory failure. Attending Provider: Jered Carr Primary Care Provider: Alonso Marques Consulting Providers: Jered Carr; Peter Galvan; Edd Hooper Discharge Orders/Prescriptions Prescriptions: New melatonin 3 mg Tablet 3 mg PO QHS PRN PRN (Reason: Insomnia) Qty: 0 0RF acetaminophen 650 mg/20.3 mL Solution 650 mg PO Q6H PRN PRN (Reason: Pain 1-10 Or Fever) Qty: 0 0RF menthol-zinc oxide [Calmoseptine] 0.44-20.6 % Ointment 1 applic topical TID Qty: 0 0RF Protocol: *Topical Application Instructions APPLICATION INSTRUCTIONS: apply to affected areas levofloxacin 500 mg tablet 500 mg PO DAILY Qty: 2 0RF Continued amiodarone 200 mg tablet 200 mg PO DAILY Qty: 90 3RF metoprolol tartrate 50 mg tablet 50 mg PO BID Qty: 180 3RF multivitamin,tx-minerals Tablet 1 tab PO DAILY apixaban 2.5 mg tablet 2.5 mg PO BID Qty: 60 11RF spironolactone 50 mg tablet 50 mg PO DAILY Qty: 60 3RF ICaps AREDS [id number] Capsule 1 cap PO BID Caltrate-D3 Plus Minerals 300 mg-800 unit -25 mg-0.5 mg tablet 1 tab PO DAILY furosemide [Lasix] 40 mg tablet 40 mg PO BID Qty: 360 3RF Referrals / Follow Up: Alonso Marques DO [Primary Care Provider] - Sangeeta Catalan TECHNICAL INFORMATION SPECIALIST, TECHNICAL INFORMATION SPECIALIST-C [Non-Staff -Ordering Privileges] - 04/07/23 11:00 am Disposition Disposition (needs filled in before D/C Order can be placed): [facility] (1) Heart failure with preserved ejection fraction Qualifiers: Heart failure chronicity: unspecified Qualified Code(s): I50.30 - Unspecified diastolic (congestive) heart failure
[2023-02-26 08:16] VITALS: BP 112/87; PULSE 122; RESP 18; TEMP 36.6; O2SAT 94
--- NOTE | 2023-02-26 08:23 | DS.PCM_ITS ---
Providers Date of Admission: 02/14/23 Primary Care Physician: Dr. Alonso Marques, DO Consultations 02/15/23 14:15 Consult: Cardiology Routine Consulting Provider: Edd Hooper Reason for Consult: acute on chronic HFpEF, elevated troponin EMERGENT Consult: No Notified: Yes Date Notified: 02/15/23 Time Notified: 14:16 Method of Notification: Text 02/23/23 10:41 Consult: Gastroenterology Routine Consulting Provider: [facility] Reason for Consult: dysphagia EMERGENT Consult: No Notified: Yes Date Notified: 02/23/23 Time Notified: 10:41 Method of Notification: Text Reason For Visit: AECHF Diagnosis Discharge Diagnosis (1) Heart failure with preserved ejection fraction: Status: Acute Code(s): I50.30 - Unspecified diastolic (congestive) heart failure Qualifiers: Heart failure chronicity: unspecified Qualified Code(s): I50.30 - Unspecified diastolic (congestive) heart failure Plan Patient presents with shortness of breath secondary to failure. Patient did get acutely worse and was intubated on the and then subsequent extubated . This is due primarily due to heart failure but compounded by pleural effusion. Patient did undergo a thoracentesis on that removed 1.36 L. Fluid was transudative consistent with heart failure. Complicating this patient. To have a pneumonia secondary to Pseudomonas and MSSA. Patient will continue with antibiotics through the with levofloxacin. Additionally pat ient did have atrial issues with the atrial fibrillation. Patient's metoprolol was decreased from 50-25 was continued on amiodarone. Patient was temporarily on diltiazem drip. Metoprolol was increased back to 50 twice daily on the and heart rate though still tachycardic is down in the low 100s. Patient is otherwise feeling fine. Patient will continue with furosemide for her nonischemic cardiomyopathy where she had echocardiogram on the that showed EF of 55 to 60%. Patient be discharged to transitional care unit in stable condition. 1. acute hypoxic respiratory failure: * resolved * intubated 02/18. Extubated on 02/21. * secondary to acute on chronic congestive heart failure with preserved ejection with pleural effusions and pneumonia * started on cefepime and vancomycin on the * Sputum culture + for GNR and Staph sp. 2. acute on chronic congestive heart failure with preserved ejection fraction * patient remains on furosemide, spironolactone and metoprolol * Echo on the with EF 55-60%, severely enlarged LA and RA, severe PH 3. large right pleural effusion * status post thoracentesis on the removing 1360 cc * fluid was transudative 2/2 CHF. 5. paroxysmal atrial fibrillation * Improved * Afib w aberrancy with patient is on amiodarone and metoprolol tartrate 25 BID. diltiazem gtt turned off on . * anticoagulated w apixaban. * cardiology signed off. Pt to follow up in the office. * 02/25: Increase metoprolol to 50 mg twice daily and observe. Patient has persistently been tachycardic despite changes cardiology is made. If persists and, may need to increase metoprolol further, however, if BP is an issue, may need to consider digoxin. Did d/w Dr. Toro, consider digoxin if remains in afib w RVR. 6. Dysphagia: * had MBS today. ST recommending regular textures (easy to chew and thin liquids). Also recommending GI eval for esophageal retention with retrograde flow of barium contrast. * GI consulted, but has not seen. Pt can follow up as outpt. 7. Pneumonia * Pseudomonal and MSSA. * Change abx from pip/tazo and vanc to levofloxacin. Complete abx through the . VTE prophylaxis: not indicated, already on anticoagulation. Disposition: DC to TCU today. Medications at Discharge Home Medications vitamins A,C,G-svvg-xkedmo 4,296 mcg-226 mg-90 mg capsule (ICaps AREDS) 1 cap PO BID EYE HEALTH 03/28/22 multivitamin,tx-minerals 1 tab PO DAILY SUPPLEMENT 04/13/22 amiodarone 200 mg tablet 200 mg PO DAILY AFIB #90 tabs 04/15/22 metoprolol tartrate 50 mg tablet 50 mg PO BID BLOOD PRESSURE #180 tabs 04/15/22 calcium carb 300 mg-D3 20 mcg-mag ox 25 mg-telescope maintenance 0.5 rx-rgno-hnza tablet (Caltrate-D3 Plus Minerals) 1 tab PO DAILY SUPPLEMENT 06/14/22 apixaban 2.5 mg tablet 2.5 mg PO BID BLOOD THINNER #60 tabs 09/09/22 furosemide 40 mg tablet (Lasix) 40 mg PO BID FLUID #360 tabs 01/31/23 spironolactone 50 mg tablet 50 mg PO DAILY FLUID #60 tabs 02/06/23 acetaminophen 650 mg/20.3 mL oral solution 650 mg (20.3 mL) PO Q6H PRN PRN Pain 1-10 Or Fever #0 mL 02/26/23 levofloxacin 500 mg tablet 500 mg PO DAILY #2 tabs 02/26/23 melatonin 3 mg tablet 3 mg PO QHS PRN PRN Insomnia #0 tabs 02/26/23 menthol 0.44 %-zinc oxide 20.6 % topical ointment (Calmoseptine) 1 applic topical TID #0 grams 02/26/23 Weight / BMI Weight Weight: 53.5 kg Body Mass Index (BMI) 23.8 ABG / Lab / Microbiology Data 02/25/23 06:40 02/25/23 06:40 Laboratory: Laboratory Results - last 24 hr 02/25/23 06:40: WBC 7.6, RBC 3.92 L, Hgb 12.6, Hct 40.0, MCV 102.0 H, MCH 32.1 H , MCHC 31.5 L, RDW Std Deviation 63.7 H, RDW Coeff of Shahbaz 17.2 H, Plt Count 191, MPV 9.6, Immature Gran % (Auto) 0.400, Neut % (Auto) 74.3 H, Lymph % (Auto) 10.4 L, Bledsoe % (Auto) 10.2 H, Eos % (Auto) 3.8, Baso % (Auto) 0.9, Absolute Neuts (auto) 5.6, Absolute Lymphs (auto) 0.79 L, Nucleated RBC % 0 Microbiology: Microbiology 02/18/23 09:42 Blood Culture (Wb) - Right Wrist Blood Culture - Final No growth in 5 days. 02/18/23 09:30 Blood Culture (Wb) - Anticubital Right Blood Culture - Final No growth in 5 days. 02/18/23 06:31 Fluid - Thoracentesis Fluid Gram Stain - Final 02/18/23 06:31 Fluid - Thoracentesis Fluid Body Fluid Culture - Final Culture exhibits no growth. 02/18/23 06:31 Fluid - Thoracentesis Fluid Anaerobic Culture - Final No growth in 5 days. 02/20/23 13:00 Sputum, Induced/Lukens Gram Stain - Final 02/20/23 13:00 Sputum, Induced/Lukens Respiratory Culture - Final Pseudomonas aeruginosa Staphylococcus aureus 02/18/23 09:42 Urine Catheter - Santana Urine Culture - Final Culture exhibits no growth. 02/18/23 07:06 Sputum, Induced/Lukens Gram Stain - Final 02/18/23 07:06 Sputum, Induced/Lukens Respiratory Culture - Final Meaningful Use Info Meaningful Use Diagnoses (Choose all that apply): CHF CHF MACEY/ARB ordered at discharge?: No Reason MACEY/ARB not ordered?: Hypotension Documented LVEF (%): 55 Discharge Plan Admission Admit Date/Time: 02/14/23 13:46 Primary Reason for Your Visit: respiratory failure. Attending Provider: Jered Carr Primary Care Provider: Alonso Marques Consulting Providers: Jered Carr; Peter Galvan; Edd Hooper Discharge Orders/Prescriptions Prescriptions: New melatonin 3 mg Tablet 3 mg PO QHS PRN PRN (Reason: Insomnia) Qty: 0 0RF acetaminophen 650 mg/20.3 mL Solution 650 mg PO Q6H PRN PRN (Reason: Pain 1-10 Or Fever) Qty: 0 0RF menthol-zinc oxide [Calmoseptine] 0.44-20.6 % Ointment 1 applic topical TID Qty: 0 0RF Protocol: *Topical Application Instructions APPLICATION INSTRUCTIONS: apply to affected areas levofloxacin 500 mg tablet 500 mg PO DAILY Qty: 2 0RF Continued amiodarone 200 mg tablet 200 mg PO DAILY Qty: 90 3RF metoprolol tartrate 50 mg tablet 50 mg PO BID Qty: 180 3RF multivitamin,tx-minerals Tablet 1 tab PO DAILY apixaban 2.5 mg tablet 2.5 mg PO BID Qty: 60 11RF spironolactone 50 mg tablet 50 mg PO DAILY Qty: 60 3RF ICaps AREDS 14,320-226-200 [id number] Capsule 1 cap PO BID Caltrate-D3 Plus Minerals 300 mg-800 unit -25 mg-0.5 mg tablet 1 tab PO DAILY furosemide [Lasix] 40 mg tablet 40 mg PO BID Qty: 360 3RF Referrals / Follow Up: Alonso Marques DO [Primary Care Provider] - Sangeeta Catalan [employer] [Non-Staff -Ordering Privileges] - 04/07/23 11:00 am Disposition Disposition (needs filled in before D/C Order can be placed): [facility] Facility Charges/Coding Visit Charges Inpatient E&M: 68765 Disch Hosp >30min
[2023-02-26] MEDS: Acetaminophen 650 MG/20 ML UDC PO (08:24)
[2023-02-26 08:25] VITALS: PULSE 122
[2023-02-26] MEDS: Furosemide 20 MG/2 ML VIAL IV (08:25)
[2023-02-26] MEDS: Amiodarone 200 MG Tablet PO (08:25)
[2023-02-26] MEDS: Metoprolol Tartrate 50 MG Tablet PO (08:25)
[2023-02-26] MEDS: APIXABAN 2.5 MG TABLET (WCH) PO (08:25)
--- NOTE | 2023-02-26 08:26 | NURSING ---
I left a vm with pt's daughter Darby to return a call to PCU so we can inform her that the pt will be d/c today to TCU.
--- NOTE | 2023-02-26 08:37 | NURSING ---
I spoke with pt's daughter Dabry to inform her that the pt will be d/c to TCU today.
[2023-02-26] MEDS: levoFLOXacin IV 250 MG/50 ML BAG 50 MG IV (09:44)
--- NOTE | 2023-02-26 09:45 | NURSING ---
This RN called and gave report to BEATRIS Cummins on TCU.
== END 2023-02-26 09:52 | disposition skilled nursing facility (03) | DRG 291 ==
LOC: ED 13:15 → PCU 14:26 → ICU 02-18 06:27 → PCU 02-23 16:02
PROVIDERS: Family Medicine; Internal Medicine; Internal Medicine Critical Care Medicine; Student in an Organized Health Care Education/Training Program; Admitting Provider Internal Medicine; Emergency Provider Emergency Medicine; PCP Family Medicine
DX: I11.0 Hypertensive heart disease with heart failure (principal); I50.33 Acute on chronic diastolic (congestive) heart failure; J96.01 Acute respiratory failure with hypoxia; J15.1 Pneumonia due to Pseudomonas; J90 Pleural effusion, not elsewhere classified; E87.20 Acidosis, unspecified; I24.89 Other forms of acute ischemic heart disease; N17.9 Acute kidney failure, unspecified; I47.20 Ventricular tachycardia, unspecified; J91.8 Pleural effusion in other conditions classified elsewhere; E87.1 Hypo-osmolality and hyponatremia; I27.20 Pulmonary hypertension, unspecified; I48.0 Paroxysmal atrial fibrillation; I42.8 Other cardiomyopathies; I35.0 Nonrheumatic aortic (valve) stenosis; I44.0 Atrioventricular block, first degree; E87.5 Hyperkalemia; E83.52 Hypercalcemia; Z66 Do not resuscitate; Z79.01 Long term (current) use of anticoagulants; R13.10 Dysphagia, unspecified
CPT/HCPCS: 31500; 31720; 36415; 36600; 71045; 74230; 80048; 80061; 80076; 80202; 82040; 82042; 82150; 82306; 82330; 82550; 82803; 82945; 82962; 83605; 83615; 83735; 83880; 83970; 83986; 84100; 84157; 84443; 84478; 84484; 85025; 85027; 87040; 87070; 87075; 87077; 87086; 87186; 87205; 88108; 88305; 88313; 89050; 92526; 92610; 92611; 93005; 93306; 94002; 94003; 94660; 97110; 97162; 97166; 97530; 97535; 97802; 97803; 99252; 99285; J7040; J7050; P9047; A4216; G0463; J1940

== ENCOUNTER 2023-02-26 10:05 | Inpatient (IN) | payer MEDICARE, BC, SELFPAY ==
--- OUTSIDE RECORDS SUMMARY | 2023-02-26 10:50 | XMS RPT_ITS | CCD ---
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 Name Role Phone JOSE A DO, DR NA Joshua Primary Care Physician GLENNA ESCAMILLA, ALANNA Chiang Attending Unavailable JOSE A DO, DR NA Joshua Primary Care Unavailabl e JOSE A DO, DR NA Joshua Primary Care Unavailabl e JOSE A DO, DR NA Joshua Attending Unavailabl e DARIN NEAL Referring Unavailab alexandria IVAN MD, DR MARCOS Pagan Attending Unavai lable JOSE A DO, DR NA Joshua Primary Care Unavailabl e JOSE A DO, DR NA Joshua Primary Care Unavailabl e JOSE A DO, DR NA Joshua Attending Unavailabl e JOSE A DO, DR NA Joshua Primary Care Unavailabl e JOSE A DO, DR NA Joshua Attending Unavailabl e JOSE A DO, DR NA Joshua Attending Unavailabl e JOSE A DO, DR NA Joshua Primary Care Unavailabl e JOSE A DO, DR NA Joshua Attending Unavailabl e JOSE A DO, DR NA Joshua Referring Unavailabl e JOSE A DO, DR NA Joshua Primary Care Unavailabl e JOSE A DO, DR NA Joshua Primary Care Unavailabl e FISH DARIN FUNES Attending Unavailab le MANZANARES , ALANNA Chiang Attending Unavailable JOSE A DO, DR NA Joshua Primary Care Unavailabl e MANZANARES DO, ALANNA Chiang Attending Unavailable JOSE A DO, DR NA Joshua Primary Care Unavailabl e JOSE A DO, DR NA Joshua Primary Care Unavailabl e JOSE A DO, DR NA Joshua Attending Unavailabl e JOSE A DO, DR NA Joshua Primary Care Unavailabl e JOSE A DO, DR NA Joshua Attending Unavailabl e JOSE A DO, DR NA Joshua Primary Care Unavailabl e JOSE A DO, DR NA Joshua Attending DR NA Maradiaga DO Primary Care DR NA Maradiaga DO Attending Sylvie Solorzano Primary Care Provider CAR Cardenas Attending NA Reyes Referring Unavailable Allergies Allergy Classification Reported Allergen(s) Allergy Type Date of Onset Reaction(s) Facility (14 sources) Sulfonamides (Antibiotic); Translations: [sulfa drugs] Drug allergy Edema, [facility] Medications Current Medications Medication Drug Class(es) Dates Sig (Normalized) Sig (Original) amiodarone hydrochloride 200 mg oral tablet (9 sources) Antiarrhythmic Start: 02-07-2022 amiodarone 200 mg oral tablet Dose : 200 mg = 1 tab(s), Oral, qDay, # 90 tab(s), 3 Refill(s), Pharmacy: [facility] #[id number], 149.9, cm, 03/16/22 7:19:00 EST, Height Start Date: 03/16/22 Status: Ordered amLODIPine 2.5 mg oral tablet (5 sources) Dihydropyridine Calcium Channel Chad Start: 12-15-2022 amLODIPine 2.5 mg oral tablet Dose : 2.5 mg = 1 tab(s), Oral, qDay, 0 Refill(s) Start Date: 12/15/22 Status: Ordered Completed/Discontinued Medications Medication Drug Class(es) Dates Sig (Normalized) Sig (Original) apixaban 2.5 mg oral tablet (10 sources) Factor Xa Inhibitor Start: 09-26-2022 Eliquis 2.5 mg oral tablet Dose : 2.5 mg = 1 tab(s), Oral, BID, 0 Refill(s), 53.1 Start Date: 09/26/22 Status: Ordered Problems Problem Classification Problem Date Documented Date Episodic/Chronic Cardiac dysrhythmias (11 sources) Unspecified atrial fibrillation; Translations: [Atrial flutter] Onset: 3 Chronic Coagulation and hemorrhagic disorders (7 sources) Hypercoagulability state 08-23-2022 Chronic Congestive heart failure; nonhypertensive (7 sources) Heart failure with normal ejection fraction 08-23-2022 Chronic Disorders of lipid metabolism (5 sources) Pure hypercholesterolemia 01-02-2019 Chroni c Essential hypertension (16 sources) Benign essential hypertension; Translations: [Essential (primary) hypertension] Onset: 3 01-02-2019 Chronic Neoplasms of unspecified nature or uncertain behavior (2 sources) Monoclonal gammopathy; Translations: [Monoclonal gammopathy] Onset: 3 Chronic Osteoporosis (14 sources) Primary osteoporosis 01-02-2019 Chronic Other liver diseases (2 sources) Abnormal levels of other serum enzymes; Translations: [Abnormal levels of other serum enzymes] Onset: 3 Episodic Other non-traumatic joint disorders (14 sources) Rotator cuff arthropathy of right shoulder 01-02-2019 Episodic Other nutritional; endocrine; and metabolic disorders (2 sources) Hypercalcemia; Translations: [Hypercalcemia] Onset: 3 Chronic Other screening for suspected conditions (not mental disorders or infectious disease) (2 sources) Other specified abnormal findings of blood chemistry; Translations: [Other specified abnormal findings of blood chemistry] Onset: 3 Episodic Retinal detachments; defects; vascular occlusion; and retinopathy (14 sources) Degenerative disorder of macula 06-18-2020 Chronic Results Test Name Value Interpretation Reference Range Facil ity Vital Signs Date Time Vital Sign Value Performing Clinician Faci lity 03-16-2022 12:00-0500 Diastolic Blood Pressure Non-Invasive [address] MARCOS IVAN MD [facility] 03-16-2022 12:00-0500 Heart rate 55 /min DR MARCOS IVAN MD [facility] 03-16-2022 12:00-0500 Reason For Taking VItal Signs DR MARCOS IVAN MD [facility] 03-16-2022 12:00-0500 Systolic Blood Pressure Non-Invasive [address] MARCOS IVAN MD [facility] 03-16-2022 11:52-0500 Diastolic Blood Pressure Non-Invasive [address] MARCOS IVAN MD [facility] 03-16-2022 11:52-0500 Heart rate 54 /min DR MARCOS IVAN MD [address] [place] [address] 03-16-2022 11:52-0500 Respiratory rate 18 /min DR MARCOS IVAN MD [address] [place] [address] 03-16-2022 11:52-0500 Systolic Blood Pressure Non-Invasive [address] MARCOS IVAN MD [address] [place] [address] 03-16-2022 11:47-0500 Body temperature 97.88 [degF] DR MARCOS IVAN MD [address] [place] [address] 03-16-2022 11:47-0500 Diastolic Blood Pressure Non-Invasive [address] MARCOS IVAN MD [address] [place] [address] 03-16-2022 11:47-0500 Heart rate 50 /min DR MARCOS IVAN MD [address] [place] [address] 03-16-2022 11:47-0500 Systolic Blood Pressure Non-Invasive [address] MARCOS IVAN MD [address] [place] [address] 03-16-2022 07:19-[address] MARCOS IVAN MD [address] [place] [address] 03-16-2022 07:19-[address] MARCOS Campbell MD [address] [place] [address] 03-16-2022 07:19-0500 Body height 149.[address] MARCOS IVAN MD [address] [place] [address] 03-16-2022 07:19-0500 Body temperature 97.88 [degF] DR MARCOS IVAN MD [address] [place] [address] 03-16-2022 07:19-0500 Body weight 56.[address] MARCOS IVAN MD [address] [place] [address] 03-16-2022 07:19-0500 Body weight 25.01 kg/m2 DR MARCOS IVAN MD [address] [place] [address] 03-16-2022 07:19-0500 Heart rate 112 /min DR MARCOS IVAN MD [facility] Encounters Encounter Date Encounter Type Care Provider Facility Start: 01-06-2023 End: 01-06-2023 ambulatory CAR CARTER Facility:[facility] Start: 12-28-2022 Telephone encounter Car li MD Work Phone: Hematology/Oncology Procedures Date Procedure Procedure Detail Performing Clinician Start: 01-10-2022 Cardioversion DARIN F AVERY BELT REPAIRER-PART TIME FLEXIBLE CLERK Start: 01-10-2022 Transesophageal echocardiography DARIN TEMPLETON BELT REPAIRER-PART TIME FLEXIBLE CLERK Hysterectomy DR MARCOS DOWNS MD Tonsillectomy DR MARCOS MELTON MD Plan of Treatment Date Care Activity Detail Author Start: 11-04-2022 Influenza vaccination Influenza Vacc ine (#1) [facility] Start: 03-06-2022 Advance Directive Discussion Advance Directive Discussion [facility] Start: 03-06-2022 Depression Assessment Depression Ass essment [facility] Start: 01-01-2000 Bone Density Screening Bone Density Screening [facility] Start: 01-01-2000 Pneumococcal Vaccine : 65+ (1 - PCV) Pneumococcal Vaccine: 65+ (1 - PCV) [facility] Start: 1994 RSV Vaccine (1 - 1-d ose 60+ series) RSV Vaccine (1 - 1-dose 60+ series) [facility] Start: 1984 Shingrix Vaccine (1 of 2) Shingrix V accine (1 of 2) [facility] Start: 01-01-1980 Diabetes Screening Diabetes Screenin g [facility] Start: 1953 Urine microalbumin profile DTaP,Tdap,Td Vaccine (1 - Tdap) [facility] Start: 07-02-1935 Covid-19 Vaccine (#1) Covid-19 Vacci ne (#1) [facility] Payers Date Payer Category Payer Medicare [id number] 2016 Unknown [id number] 2016 Unknown ANTHEM ANTHEM OR DICARE SUPPLEMENT [id number] 2016-Present [phone] [address] [place] [address] Indemnity [id number] 1934 Unknown [id number] 7 1934 Unknown [id number] 7 1934 Unknown [id number] [id number] 7 1934 Unknown [id number] [id number] 7 1934 Unknown [id number] [id number] 7 1934 Unknown [id number] [id number] 7 1934 Unknown [id number] [id number] 7 1934 Unknown [id number] [id number] 7 1934 Unknown [id number] [id number] 7 1934 Unknown [id number] [id number] 7 1934 Unknown [id number] [id number] 7 1934 Unknown [id number] [id number] 7 1934 Unknown [id number] [id number] 7 1934 Unknown [id number] [id number] 7 Social History Date Type Detail Facility Start: 01-02-2019 Never smoked tobacco (f inding) [facility] Functional Status Date Assessment Result Facility 03-16-2022 Functional Status Visitor at bed side, Safety level maintained [facility] 03-16-2022 Functional Status [facility] 03-16-2022 Functional Status Maintained [facility] Mental Status Date Assessment Result Facility 03-16-2022 [facility] 03-16-2022 to 01-06-2023 Telephone Encounter - Viki Payne - 12/28/2022 9:58 AM EDTTelephone Encounter - Chica Moser - 12/28/2022 8:42 AM EDTLaboratoryLaboratoryLaboratoryLaboratoryRadiologyLaboratoryRadiology Note Date & Type Note Facility 01-06-2023 Note HNO ID: [id number] Author: Car Carter MD Service: ? Author Type: Physician Type: Progress Notes Filed: 01/06/2023 3:39 PM Note Text: HISTORY OF PRESENT ILLNESS: Geena Rios is a 87 year old female referred for evaluation of monoclonal IgM. Found on basis of routine labs. She feels well. We discussed this finding, and the potential for it to represent lymphoma. Labs reviewed CLINICAL IMPRESSION: Monoclonal IgM gammopathy. No palpable adenopathy. RECOMMENDATION/PLAN: 1. After discussion and fact that other labs are normal, and there is no adenopathy on exam, we will observe IgM levels for now. Will hold off on scans and marrow biopsy 2. Plan recheck labs 3 months Written and verbal health teaching given to patient, patient verbalizes understanding and agrees with treatment plan. PAST MEDICAL HISTORY Diagnosis Date Essential hypertension Macular degeneration Paroxysmal atrial fibrillation (HCC) Rotator cuff arthropathy PAST SURGICAL HISTORY Procedure Laterality Date CARDIOVERSION 01/10/2022 TONSILLECTOMY AND ADENOIDECTOMY TOTAL ABDOM HYSTERECTOMY TRANSESOPHAGEAL ECHOCARDIOGRAM 01/10/2022 FAMILY HISTORY Problem Relation Age of Onset Heart Mother Skin Cancer Brother other (other) Brother other (other) Brother other (other) Brother other (macular degeneration) Sister Breast Cancer Sister other (other) Sister Lung Cancer Sister other (other) Sister other (other) Sister Social History Tobacco Use Smoking status: Never Smokeless tobacco: Never Vaping Use Vaping Use: Never used Substance Use Topics Alcohol use: Not Currently Drug use: Never ALLERGIES: ALLERGIES Allergen Reactions Sulfa (Sulfonamide * Hives CURRENT OUTPATIENT MEDICATIONS: apixaban (ELIQUIS) 2.5 mg tab(s) Take 2.5 mg by mouth two times a day. amiodarone (PACERONE) 200 mg tablet Take 1 tablet by mouth every afternoon. furosemide (LASIX) 40 mg tablet Take 60 mg by mouth two times a day. metoprolol tartrate, short acting, (LOPRESSOR) 50 mg tablet Take 1 tablet by mouth every 12 hours. vit C,S-Cu-xrbtu-lutein-zeaxan (PRESERVISION AREDS-2) 250-90-40-1 mg Take 1 tablet by mouth two times a day. CALCIUM CARBONATE ORAL Take 1 tablet by mouth once daily. Glucosamine Sulfate (GLUCOSAMINE) 500 mg tab Take 1 tablet by mouth once daily. REVIEW OF SYSTEMS: GENERAL: No fever, night sweats, weight loss or malaise. All other reviewed and negative other than HPI. PHYSICAL EXAMINATION: VITAL SIGNS: BP 145/69 Pulse 60 Temp 97.9 Ht 4' 9.48 (1.46m) Wt 112 lb 8 oz (51.0kg) SpO2 93% BMI 23.94 kg/(m2). GENERAL APPEARANCE: Well appearing, in no acute distress, alert and oriented x3, well-hydrated, well nourished. No palpable adenopathy I spent a total of 60 minutes on the date of the service which included preparing to see the patient, [id number] patient care, completing clinical documentation, obtaining and/or reviewing separately obtained history, performing a medically appropriate examination, counseling and educating the patient/family/caregiver, ordering medications, tests, or procedures, independently interpreting results (not separately reported), and communicating results to the patient/family/caregiver. Electronically Signed: Car Carter MD January 06, 2023 1:[address] [facility] 12-28-2022 Miscellaneous Notes Scheduled with patient Received referral from nurse- CHELSEY AVALOS WITH DX: ABNORMAL SERUM & URINE PROTEIN ELECTROPHORESIS REF PROV: NA NARANJO INS: -PER REFERRAL MEDICARE B- RTE DID NOT CONFIRM THIS- PT QUALIFIES FOR 100% FSA 1ST ATTEMPT: LM When pt returns call please update insurance and schedule chelsey new with Dr.A Mcghee pt's red referral in pt to return call folder at [facility] desk documented in this encounter [facility] 08-23-2022 Note ORIGINAL EXAMINATION: TWO XRAY VIEWS OF THE CHEST 08/23/2022 2:39 pm COMPARISON: None. HISTORY: ORDERING SYSTEM PROVIDED HISTORY: Reason for Exam: Acute cough, hx of HFpEF. Rule out pneumonia vs HF FINDINGS: The heart is enlarged. Atherosclerotic aorta. There are bibasilar hazy and streaky opacities. Trace volume left effusion. Question trace volume right effusion also. No florid congestion or edema. Tiny airspace opacities of bilateral mid to upper lung zones may reflect nodules, infection, or alveolar edema. No pneumothorax. Fairly advanced degenerative changes of the spine and shoulders right greater than left. IMPRESSION: 1. Mild bibasilar subsegmental atelectasis and/or other airspace disease. 2. Trace bilateral pleural effusions. 3. Tiny rounded opacities of bilateral mid to upper lung zones have differential consideration of pulmonary nodules, infection, or alveolar edema. Considered CT chest as deemed clinically warranted. Interpreted by: Alvin Aguilar DO Preliminary Report By: Alvin Aguilar DO Electronically signed By Alvin Aguilar DO Dictated Date: 08/23/2022 2:41:50 PM Prelim Date: 08/23/2022 2:44:56 PM Sign Date: 08/23/2022 2:44:56 PM Ordering Provider: [facility] 08-23-2022 Note ORIGINAL EXAMINATION: TWO XRAY VIEWS OF THE CHEST 08/23/2022 2:39 pm COMPARISON: None. HISTORY: ORDERING SYSTEM PROVIDED HISTORY: Reason for Exam: Acute cough, hx of HFpEF. Rule out pneumonia vs HF FINDINGS: The heart is enlarged. Atherosclerotic aorta. There are bibasilar hazy and streaky opacities. Trace volume left effusion. Question trace volume right effusion also. No florid congestion or edema. Tiny airspace opacities of bilateral mid to upper lung zones may reflect nodules, infection, or alveolar edema. No pneumothorax. Fairly advanced degenerative changes of the spine and shoulders right greater than left. IMPRESSION: 1. Mild bibasilar subsegmental atelectasis and/or other airspace disease. 2. Trace bilateral pleural effusions. 3. Tiny rounded opacities of bilateral mid to upper lung zones have differential consideration of pulmonary nodules, infection, or alveolar edema. Considered CT chest as deemed clinically warranted. Interpreted by: Alvin Aguilar DO Preliminary Report By: Alvin Aguilar DO Electronically signed By Alvin Aguilar DO Dictated Date: 08/23/2022 2:41:50 PM Prelim Date: 08/23/2022 2:44:56 PM Sign Date: 08/23/2022 2:44:56 PM Ordering Provider: [facility] 03-16-2022 Discharge summary Date of Service March 16, 2022 Shared/Split visit with Dr. Whalen Primary Card Dr. Ivan [facility] Discharge Diagnosis AF/AFL Hospital Course This is an 86-year-old female with recurring persistent atrial fibrillation evaluated by general cardiology noted to be back in A. fib on March 08, 2022 and was scheduled for repeat direct-current cardioversion. The patient presented for direct-current cardioversion on March 16, 2022. Presenting rhythm was atrial fibrillation/atrial flutter with a heart rate of 120 bpm. Once a OLIVE PICKER administered an IV anesthetic agent the patient was fully sedated anterior posterior patch approach utilizing synchronized biphasic waveform at 50 J was successful converting the patient back to sinus bradycardia with occasional PVCs. Throughout recovery the patient's heart rate stabilized about 50 bpm. Amiodarone will be reduced to 200 mg daily. The patient will follow back up with general cardiology for further recommendations. The patient tolerated the procedure well was returned to cardiac same-day in good condition. Allergies sulfa drugs (Edema, Hives) Procedures DCC - 03/16/2022 -> NSR Consults No qualifying data available. Objective Vitals and Measurements T: 36.6 C (Skin) HR: 55(Monitored) RR: 18 BP: 119/61 SpO2: 96% HT: 149.9 cm WT: 56.2 kg BMI: 25.01 BMI: 25.01 Weight Dosing Weight: 56.2 kg (03/16/22) Pending Labs and Studies EKG prior to discharge Code Status No qualifying data available. Admission Date March 16, 2022 Discharge Date March 16, 2022 Patient Instructions No driving for today. Patient may resume prior diet and activity tomorrow. Medications Changed amiodarone (amiodarone 200 mg oral tablet)1 tab(s) by mouth once a day. Refills: 3. amiodarone (amiodarone 200 mg oral tablet)1 tab(s) by mouth two (2) times a day. Refills: 5. Unchanged apixaban (Eliquis 5 mg oral tablet)1 tab(s) by mouth two (2) times a day. Refills: 11. calcium carbonate (Caltrate)by mouth once a day. furosemide (furosemide 20 mg oral tablet)1 tab(s) by mouth once a day. Refills: 3. metoprolol (Metoprolol Tartrate 50 mg oral tablet)1.5 tab(s) by mouth two (2) times a day. Refills: 3. multivitamin with minerals (ICaps AREDS)by mouth once a day. multivitamin with minerals (One A Day Women's Complete)by mouth once a day. Follow Up Follow Up with DARIN TEMPLETON When 04/18/2022 10:30 AM EST [facility] [address] [place] [address]- Condition on Discharge Stable Readmission Risk/Palliative Score No qualifying data available. Digitally Signed by ZACHARY FIGUEROA on 03/16/2022 03:42 PM Digitally Signed by JEISON WHALEN MD on 03/16/2022 03:47 PM [facility] 03-16-2022 Cardiology procedure note Date of Service March 16, 2022 Procedure Name Direct-current cardioversion Referring Provider Dr. Ivan Consent Informed consent was obtained by nursing and anesthesia personnel Indication AF Location CVOR Technique This is an 86-year-old female with recurring persistent atrial fibrillation evaluated by general cardiology noted to be back in A. fib on March 08, 2022 and was scheduled for repeat direct-current cardioversion. The patient presented for direct-current cardioversion on March 16, 2022. Presenting rhythm was atrial fibrillation/atrial flutter with a heart rate of 120 bpm. Once a OLIVE PICKER administered an IV anesthetic agent the patient was fully sedated anterior posterior patch approach utilizing synchronized biphasic waveform at 50 J was successful converting the patient back to sinus bradycardia with occasional PVCs. Throughout recovery the patient's heart rate stabilized about 50 bpm. Amiodarone will be reduced to 200 mg daily. The patient will follow back up with general cardiology for further recommendations. The patient tolerated the procedure well was returned to cardiac same-day in good condition. Assessment/Plan Atrial flutter Ordered: apixaban, Start: 03/16/22 11:50:00 EST, Dose = 5 mg, = 1 tab(s), Oral, BID, Indication for Use Persistant atrial fibrillation, 03/16/22 11:50:00 EST Orders: amiodarone, Start: 03/16/22 11:50:00 EST, Dose = 200 mg, = 1 tab(s), Oral, BID, 03/16/22 11:50:00 EST amiodarone, Dose : 200 mg = 1 tab(s), Oral, qDay, # 90 tab(s), 3 Refill(s), Pharmacy: [id number] #[id number], 149.9, cm, 03/16/22 7:19:00 EST, Height furosemide, Start: 03/16/22 11:50:00 EST, Dose = 20 mg, = 1 tab(s), Oral, qDay, 03/16/22 11:50:00 EST metoprolol, Start: 03/16/22 11:50:00 EST, Dose = 75 mg, = 1.5 tab(s), Oral, BID, 03/16/22 11:50:00 EST Diet Order Discharge Discharge Activity Discharge Diet Discharge Wound Care Discontinue Order Electrocardiogram Digitally Signed by ZACHARY FIGUEROA on 03/16/2022 03:40 PM [facility] 03-16-2022 Hospital Discharg e instructions Patient Education 03/16/2022 12:08:03 Moderate Conscious Sedation, Adult, Care After Moderate Conscious Sedation, Adult, Care After These instructions provide you with information about caring for yourself after your procedure. Your health care provider may also give you more specific instructions. Your treatment has been planned according to current medical practices, but problems sometimes occur. Call your health care provider if you have any problems or questions after your procedure. What can I expect after the procedure? After your procedure, it is common: To feel sleepy for several hours. To feel clumsy and have poor balance for several hours. To have poor judgment for several hours. To vomit if you eat too soon. Follow these instructions at home: For at least 24 hours after the procedure: Do not: ?Participate in activities where you could fall or become injured. ?Drive. ?Use heavy machinery. ?Drink alcohol. ?Take sleeping pills or medicines that cause drowsiness. ?Make important decisions or sign legal documents. ?Take care of children on your own. Rest. Eating and drinking Follow the diet recommended by your health care provider. If you vomit: ?Drink water, juice, or soup when you can drink without vomiting. ?Make sure you have little or no nausea before eating solid foods. General instructions Have a responsible adult stay with you until you are awake and alert. Take zvvf-prg-thargja and prescription medicines only as told by your health care provider. If you smoke, do not smoke without supervision. Keep all follow-up visits as told by your health care provider. This is important. Contact a health care provider if: You keep feeling nauseous or you keep vomiting. You feel light-headed. You develop a rash. You have a fever. Get help right away if: You have trouble breathing. This information is not intended to replace advice given to you by your health care provider. Make sure you discuss any questions you have with your health care provider. Document Released: 12/11/2013 Document Revised: 02/02/2018 Document Reviewed: 06/11/2016 Consumer Agent Portal (CAP) Patient Education 2020 [employer] 03/16/2022 12:07:57 3- Cardioversion (12/2017) (CUSTOM) CARDIOVERSION Discharge instructions ACTIVITY/SAFETY Please refrain from the following activities for 24 hours: Do not drive a car or operate heavy equipment. Do not consume alcohol for 24 hours. Do not return to work for 24 hours. Postpone signing any important papers or making important decisions. COMFORT Call your primary doctor if you have any redness, tenderness, warmth, discharge or swelling at your IV site. Your chest or back may get red and/or develop a burning sensation. Apply fragrance-free Aloe Vera lotion. Take Tylenol as needed for pain. DIET When you return home, resume your regular diet unless otherwise directed. Some of the sedatives, anesthetic medications you received today may make you nauseated. If vomiting persists, call your doctor. Restart your usual medications unless otherwise instructed by your doctor. If you have any questions, please call your doctor at the number listed on your follow up instructions. Document Released: 02/20/2006 Document Revised: 02/06/2013 Document Reviewed: 02/21/2014 ExitCare Patient Information 2015 [employer]. This information is not intended to replace advice given to you by your health care provider. Make sure you discuss any questions you have with your health care provider. Follow Up Care 03/08/2022 14:12:51 With:DARIN TEMPLETON Address: [address] [place] [address] [address] [place] [phone] When:04/18/2022 10:30:00 [facility] 03-16-2022 Summary of episod e note Discharge Instructions Thank you for allowing [facility] to assist you with your healthcare needs. The following is important discharge information regarding your hospital visit. Your Care Team NA NARANJO DO What to do next Scheduled Follow-Up Appointments Appointment Type When With Where Contact InformationCV OV 04/18/2022 10:30 AM EST DARIN TEMPLETON [facility] Follow Up Appointments Follow Up with DARIN TEMPLETON When 04/18/2022 10:30 AM EST Where: [address] [place] [address] [address] [place] [id number]- Allergies sulfa drugs (Edema, Hives) Medications Please ask your primary doctor or pharmacist before taking any other medication not listed, including over the counter drugs, herbal medications, vitamins and or supplements as they may interact with your home medications. What How Much When Why Instructions Last Dose Changed amiodarone (amiodarone 200 mg oral tablet) 1 tab(s) by mouth Two (2) times a day Changed amiodarone (amiodarone 200 mg oral tablet) 1 tab(s) by mouth Once a day Pickup at [facility] #43782 Unchanged apixaban (Eliquis 5 mg oral tablet) 1 tab(s) by mouth Two (2) times a day Atrial flutter Unchanged calcium carbonate (Caltrate) by mouth Once a day Unchanged furosemide (furosemide 20 mg oral tablet) 1 tab(s) by mouth Once a day Unchanged metoprolol (Metoprolol Tartrate 50 mg oral tablet) 1.5 tab(s) by mouth Two (2) times a day Unchanged multivitamin with minerals (ICaps AREDS) by mouth Once a day Unchanged multivitamin with minerals (One A Day Women's Complete) by mouth Once a day Pharmacy Information [id number]: [address], [place] [phone] Please take this list to your next doctor s visit. Bring all medications you take, including over the counter medications, herbals and other supplements with you to your doctor s visit. Patients and families are reminded to discard old lists and to update any records with all medication providers or retail pharmacies. Education Materials Moderate Conscious Sedation, Adult, Care After These instructions provide you with information about caring for yourself after your procedure. Your health care provider may also give you more specific instructions. Your treatment has been planned according to current medical practices, but problems sometimes occur. Call your health care provider if you have any problems or questions after your procedure. What can I expect after the procedure? After your procedure, it is common: To feel sleepy for several hours. To feel clumsy and have poor balance for several hours. To have poor judgment for several hours. To vomit if you eat too soon. Follow these instructions at home: For at least 24 hours after the procedure: Do not: ? Participate in activities where you could fall or become injured. ? Drive. ? Use heavy machinery. ? Drink alcohol. ? Take sleeping pills or medicines that cause drowsiness. ? Make important decisions or sign legal documents. ? Take care of children on your own. Rest. Eating and drinking Follow the diet recommended by your health care provider. If you vomit: ? Drink water, juice, or soup when you can drink without vomiting. ? Make sure you have little or no nausea before eating solid foods. General instructions Have a responsible adult stay with you until you are awake and alert. Take npne-lro-hqhsvsk and prescription medicines only as told by your health care provider. If you smoke, do not smoke without supervision. Keep all follow-up visits as told by your health care provider. This is important. Contact a health care provider if: You keep feeling nauseous or you keep vomiting. You feel light-headed. You develop a rash. You have a fever. Get help right away if: You have trouble breathing. This information is not intended to replace advice given to you by your health care provider. Make sure you discuss any questions you have with your health care provider. Document Released: 12/11/2013 Document Revised: 02/02/2018 Document Reviewed: 06/11/2016 Consumer Agent Portal (CAP) Patient Education 2020 [employer]. CARDIOVERSION Discharge instructions ACTIVITY/SAFETY Please refrain from the following activities for 24 hours: Do not drive a car or operate heavy equipment. Do not consume alcohol for 24 hours. Do not return to work for 24 hours. Postpone signing any important papers or making important decisions. COMFORT Call your primary doctor if you have any redness, tenderness, warmth, discharge or swelling at your IV site. Your chest or back may get red and/or develop a burning sensation. Apply fragrance-free Aloe Vera lotion. Take Tylenol as needed for pain. DIET When you return home, resume your regular diet unless otherwise directed. Some of the sedatives, anesthetic medications you received today may make you nauseated. If vomiting persists, call your doctor. Restart your usual medications unless otherwise instructed by your doctor. If you have any questions, please call your doctor at the number listed on your follow up instructions. Document Released: 02/20/2006 Document Revised: 02/06/2013 Document Reviewed: 02/21/2014 ExitCare Patient Information 2015 [employer]. This information is not intended to replace advice given to you by your health care provider. Make sure you discuss any questions you have with your health care provider. Additional Information VACCINATE! IT SAVES LIVES! Members of the community who have not yet received the COVID-19 vaccine and would like to receive it can visit one of [facility] vaccine clinics. There are many vaccine clinic locations within the State. For locations and available times, please visit [email or web address].o hio.gov/. It is important to note that some COVID mobile vaccine clinics are held outdoors and may be canceled in rainy or stormy conditions. To learn more about pediatric vaccinations (ages 5-11), we invite you to visit the [employer] [facility] webpage. https://www.aksoness.org/p ages/8540-Tgild-Cchnxtrsmov-Freq nglifj-Sixzh-Wuznlfydz.html To learn more about the COVID-19 vaccine, we invite you to visit the [employer] website for a list of frequently asked questions. [email or web address] ryr-[email or web address]-Esrxiysx/[email or web address]-Oboluao-D requently_[email or web address]-Questions.pdf [employer] Patient Portal Access Instructions: Stay connected with your healthcare team and access your personal medical information anytime with the [employer] Patient Portal.If you would like a full copy of your medical records, please contact the [facility] Medical Records Department, Monday through Monday between 8a.m. and 4:30p.m. Please follow the directions below to access the portal: 1.Access the email account you provided upon registration to the hospital.2.Look for an invitation email from [facility].3.Open the email and access the invitation link: Accept Invitation to [employer].Fill in the required nogueira to create your account. Sign into [email or web address] with your username and password that you created in the above steps to stay up to date. You can then view a summary of results, a summary of your visits, and the ability to download your summaries to your computer or send the information securely to a physician. Remember that your healthcare information is confidential, so carefully consider who you will allow to register on the [employer] Patient Portal for access to your information. You can also access the [employer] Patient Portal on the Living Proof suri. Simply click on Health Records under Health Data and then click on the [employer] logo. HOW TO SAFELY DISPOSE OF PRESCRIPTION MEDICATIONS Please use one of the following methods to safely dispose of your unused medications. 1.Use a drug disposal kit: the drug disposal pouch allows you to safely discard your old and unused drugs. Ask your nurse to give you one when you are discharged.2.Visit a local take-back location: Many local pharmacies and police departments have programs that collect old and unwanted prescription drugs. Call your local pharmacy or go to http://MakerBot.EverySignal/7N1Hs0g to find one close to you.3.Make use of household items: Use cat litter or old coffee grounds to dispose medications if other options are not available. Mix your drugs with these household products, seal them in an airtight container and throw it into the garbage. Call [facility]: [phone] to be sure your drugs can be disposed of in this way. Some medicines may require a different approach.4.Never flush your medications down the toilet. IF YOU HAVE BEEN PRESCRIBED AN OPIOID FOR PAIN If you have been prescribed an opioid (such as hydrocodone, oxycodone or morphine), it is critical to understand the possible side effects and risks of opioid pain medications. Even when taken as directed, opioids can have several side effects including: Tolerance, meaning you might need to take more of a medication for the same pain relief. Nausea, vomiting and/or constipation. Sleepiness, dizziness, dry mouth, confusion, depression or itching. Physical dependence, meaning you have withdrawal symptoms when a medication is stopped, can develop within a few days. KNOW YOUR RESPONSIBILITIES It is important to know exactly how much and how often to take the opioid pain medications you are prescribed. Never take opioids in higher amounts or more often than prescribed. Do not combine opioids with alcohol or other drugs that cause drowsiness, such as benzodiazepines, also known as benzos, including diazepam and alprazolam, muscle relaxants or sleep aids. Never sell or share prescription opioids. This is illegal. Store opioids in a secure place and out of reach of others (including children, family, friends and visitors). The last page of this document has been signed and retained as a CHART COPY. Signatures Patient Education Materials Moderate Conscious Sedation, Adult, Care After 3- Cardioversion (12/2017) (CUSTOM) Medication Leaflets My discharge plan and instructions have been reviewed and explained to me and IPETE LILLIE M understand my current condition and have read and understand these discharge instructions. I have received a written copy of the plan/instructions. If I have questions, I am aware that I should contact my doctor. 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 Family's history: negative. Review of Systems Ear/Nose/Mouth/Throat: Negative except as documented in history of present illness. Respiratory: Negative except as documented in history of present illness. Cardiovascular: Negative except as documented in history of present illness. Gastrointestinal: Negative except as documented in history of present illness. Genitourinary: Negative except as documented in history of present illness. Endocrine: Negative except as documented in history of present illness. Musculoskeletal: Negative except as documented in history of present illness. Integumentary: Negative except as documented in history of present illness. Neurologic: Negative except as documented in history of present illness. Health Status Allergies: Allergic Reactions (Selected) Severity Not Documented Sulfa drugs- Edema and hives., Allergies (1) ActiveReaction sulfa drugsEdema Current medications: (Selected) Inpatient Medications Ordered Sodium Chloride 0.9% intravenous solution 1,000 mL: Start: 03/16/22 5:00:00 EST, 18 hour(s), Stop date 03/16/22 22:59:00 EST, Rate: 20 mL/hr, 03/16/22 5:00:00 EST Prescriptions Prescribed Eliquis 5 mg oral tablet: Dose : 5 mg = 1 tab(s), Oral, BID, # 60 tab(s), 11 Refill(s), Pharmacy: [facility] #[id number], 148, cm, 03/08/22 13:26:00 EST, Height, 57.4, kg, 03/08/22 13:26:00 EST, Dosing Weight Metoprolol Tartrate 50 mg oral tablet: Dose : 75 mg = 1.5 tab(s), Oral, BID, # 90 tab(s), 3 Refill(s), Pharmacy: [facility] #[id number], 148, cm, 03/08/22 13:26:00 EST, Height amiodarone 200 mg oral tablet: Dose : 200 mg = 1 tab(s), Oral, BID, # 60 tab(s), 5 Refill(s), Pharmacy: [facility] #[id number], 148, cm, 01/26/22 13:52:00 EST, Height furosemide 20 mg oral tablet: Dose : 20 mg = 1 tab(s), Oral, qDay, # 90 tab(s), 3 Refill(s), Pharmacy: [facility] #[id number], 148, cm, 03/08/22 13:26:00 EST, Height Documented Medications Documented Caltrate: mg =, Oral, qDay, 0 Refill(s) ICaps AREDS: Oral, qDay, 0 Refill(s) One A Day Women's Complete: Oral, qDay, 0 Refill(s), Medications (1) Active Scheduled: (0) Continuous: (1) NS (0.9% nacl) 1,000 mL 1,000 mL, Intravenous, 20 mL/hr PRN: (0) Problem list: Medical Atrial fibrillation / SNOMED CT 31036173 / Confirmed Benign essential hypertension / SNOMED CT 4514041 / Confirmed Macular degeneration / SNOMED CT 9546013991 / Confirmed Age related osteoporosis / SNOMED CT 521776982 / Confirmed Rotator cuff arthropathy of right shoulder / SNOMED CT 1766304155 / Confirmed, Active Problems (6) Age related osteoporosis Atrial fibrillation Benign essential hypertension Hyperlipidemia Macular degeneration Rotator cuff arthropathy of right shoulder Histories Past Medical History: No active or resolved past medical history items have been selected or recorded. Family History: Asthma Sister (#1) Breast cancer Sister (#3) Heart attack Brother (#1) Mother Non-Hodgkin's lymphoma Sister (#2) Diabetes Sister (#1) Procedure history: Transesophageal echocardiogram ([id number]) on 01/10/2022 at 86 Years. Cardioversion ([id number]) on 01/10/2022 at 86 Years. 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 Physical Examination General: Alert and oriented. Airway: Normal temporomandibular joint mobility, Normal mouth, Normal throat, Normal neck range of motion, Trachea midline. Mallampati classification: II (soft palate, fauces, uvula visible). Head: Normocephalic. Dentition Evaluation: Intact, Own teeth, Denies loose/chipped teeth. Neck: Supple. Respiratory: Lungs are clear to auscultation, Respirations are non-labored. Cardiovascular: Normal rate, No murmur. Heart Sounds: Normal. Gastrointestinal: Soft. Musculoskeletal Normal range of motion. Integumentary: Intact, Warm, Dry. Neurologic: Alert, Oriented. Assessment and Plan [place] Society [employer] Anesthesiologists (ASA) physical status classification: Class IV. Anesthetic Preoperative Plan Premedication: intravenous. Anesthetic technique: General. Induction: intravenously. Maintenance airway: Mask. Special techniques: Warming device. Special Monitoring. Postoperative pain management: Per surgeon. Risks discussed: nausea, vomiting, headache, sore throat, dental injury, hypotension, allergic reaction, serious complications. Informed consent: signed by patient. Beta Chad: Beta Chad Taken Within 24 Hrs: Yes. Digitally Signed by QUENTIN BARKSDALE DO on 03/16/2022 06:07 AM [facility] Evaluation + Plan note Future Appointments Appointment Date:12/17/2020 11:00:00 AM Scheduled Provider:NA NARANJO DO Location:[facility] Appointment Type: Wellness Medicare with Labs [facility] Evaluation + Plan note Future Appointments Appointment Date:12/15/2021 09:45:00 AM Scheduled Provider: Location:[facility] Appointment Type:PC Nurse Lab Appointment Date:12/23/2021 11:00:00 AM Scheduled Provider:NA NARANJO DO Location:[facility] Appointment Type:PC OV Future Scheduled TestsLipid Profile 12/24/21Complete Metabolic Panel 12/24/21 [facility] Evaluation + Plan note Future Appointments Appointment Date:12/23/2021 11:00:00 AM Scheduled Provider:NA NARANJO DO Location:[facility] Appointment Type:PC OV [facility] Evaluation + Plan note Future Appointments Appointment Date:03/08/2022 01:30:00 PM Scheduled Provider:DARIN TEMPLETON Location:[facility] Appointment Type:CV OV [facility] Evaluation + Plan note Future Appointments Appointment Date:04/18/2022 10:30:00 AM Scheduled Provider:DARIN TEMPLETON Location:[facility] Appointment Type:CV OV Future Scheduled TestsBasic Metabolic Panel 01/31/22N-Terminal proBNP 01/31/22 [facility] Evaluation + Plan note Future Appointments Appointment Date:09/21/2022 09:15:00 AM Scheduled Provider: Location:[facility] Appointment Type:PC Nurse Lab Appointment Date:09/26/2022 10:35:00 AM Scheduled Provider:NA NARANJO DO Location:[facility] Appointment Type:PC OV Diagnostic Tests PendingAmiodarone Level 08/23/22 Future Scheduled TestsBasic Metabolic Panel 01/31/22N-Terminal proBNP 01/31/22 [facility] Evaluation + Plan note Future Appointments Appointment Date:09/21/2022 09:15:00 AM Scheduled Provider: Location:[facility] Appointment Type:PC Nurse Lab Appointment Date:09/26/2022 10:35:00 AM Scheduled Provider:NA NARANJO DO Location:[facility] Appointment Type:PC OV Future Scheduled TestsBasic Metabolic Panel 01/31/22N-Terminal proBNP 01/31/22CT Thorax w/ Contrast 08/25/22 [facility] Evaluation + Plan note Future Appointments Appointment Date:09/26/2022 10:35:00 AM Scheduled Provider:NA NARANJO DO Location:[facility] Appointment Type:PC OV Future Scheduled TestsBasic Metabolic Panel 01/31/22N-Terminal proBNP 01/31/22CT Thorax w/ Contrast 08/25/22 [facility] Evaluation + Plan note Future Appointments Appointment Date:10/28/2022 10:05:00 AM Scheduled Provider:NA NARANJO DO Location:[facility] Appointment Type:PC OV Future Scheduled TestsBasic Metabolic Panel 01/31/22N-Terminal proBNP 01/31/22CT Thorax w/ Contrast 08/25/22 [facility] Evaluation + Plan note Future Appointments Appointment Date:10/28/2022 10:05:00 AM Scheduled Provider:NA NARANJO DO Location:[facility] Appointment Type:PC OV Future Scheduled TestsBasic Metabolic Panel 01/31/22Gamma Glutamyl Transferase 09/30/22Protein Electrophoresis Panel 09/30/22Complete Metabolic Panel 09/30/22N-Terminal proBNP 01/31/22CT Thorax w/ Contrast 08/25/22 [facility] Evaluation + Plan note Future Appointments Appointment Date:10/28/2022 10:05:00 AM Scheduled Provider:NA NARANJO DO Location:[facility] Appointment Type:PC OV Future Scheduled TestsCT Thorax w/ Contrast 08/25/22 [facility] Evaluation + Plan note Future Appointments Appointment Date:06/15/2023 10:00:00 AM Scheduled Provider:NA NARANJO DO Location:[facility] Appointment Type:PC OV Future Scheduled TestsCT Thorax w/ Contrast 08/25/22 [facility] Hospital course Narrative No data available for this section [facility] Hospital Discharge instructions No data available for this section [facility] Progress note No data available for this section [facility] Summary Purpose Family History No Family History Records Found Advance Directives No Advanced Directives Records FoundNo Advanced Directives Records Found Additional Source Comments Care Team (unrecognized sect ion and content) Personnel Name: NA NARANJO DO Address: [address] Personnel Name: NA NARANJO DO Address: [address] [place] [address] Care Team Personnel Name: NA NARANJO DO Position: P4 Physician - Primary Care Member Role: Primary Care Physician Address: Address: [address] [place] [address] Care Team Related Persons Name: DECLINED, DECLINED Care Team Personnel Name: NA NARANJO DO Position: P4 Physician - Primary Care Member Role: Primary Care Physician Address: Address: [address] [place] [address] Care Team Related Persons Name: DECLINED, DECLINED Care Team Personnel Name: NA NARANJO DO Position: P4 Physician - Primary Care Member Role: Primary Care Physician Address: Address: [address] [place] [address] Care Team Related Persons Name: DECLINED, DECLINED Care Team Personnel Name: NA NARANJO DO Position: P4 Physician - Primary Care Member Role: Primary Care Physician Address: Address: [address] [place] [address] Care Team Related Persons Name: DECLINED, DECLINED Care Team Personnel Name: SEBASTIAN NARANJOTT A DO Position: P4 Physician - Primary Care Member Role: Primary Care Physician Address: Address: [address] [place] [address] Care Team Related Persons Name: DECLINED, DECLINED Care Team Personnel Name: NA NARANJO DO Position: P4 Physician - Primary Care Member Role: Primary Care Physician Address: Address: [facility] Adrian Black [address] Care Team Related Persons Name: DECLINED, DECLINED Care Team Personnel Name: NA NARANJO DO Position: P4 Physician - Primary Care Member Role: Primary Care Physician Address: Address: [facility] [address] Care Team Related Persons Name: DECLINED, DECLINED Care Team (unrecognized sect ion and content) Care Team Personnel Name: NA NARANJO DO Position: P4 Physician - Primary Care Med Service: Active Provider Member Role: Primary Care Physician Address: Address: [facility] [address] Care Team Related Persons Name: DECLINED, DECLINED Care Team Personnel Name: NA NARANJO DO Position: P4 Physician - Primary Care Med Service: Active Provider Member Role: Primary Care Physician Address: Address: [facility] [address] Care Team Related Persons Name: DECLINED, DECLINED Care Team Personnel Name: NA NARANJO DO Position: P4 Physician - Primary Care Member Role: Primary Care Physician Address: Address: [facility] [address] Care Team Related Persons Name: DECLINED, DECLINED Care Team Personnel Name: NA NARANJO DO Position: P4 Physician - Primary Care Member Role: Primary Care Physician Address: Address: [facility] [address] Care Team Related Persons Name: DECLINED, DECLINED INFORMATION SOURCE (unrecogn ized section and content) DATE CREATED AUTHOR AUTHOR'S ORGANIZ ATION 01/08/[address] [facility] Source Comments (unrecognize d section and content) In the event this informatio n is protected by the Federal Confidentiality of Alcohol and Drug Abuse Patient Records regulations: The Federal rules restrict any use of the information to criminally investigate or prosecute any alcohol or drug abuse patient.[facility] Reason for Visit (unrecogniz ed section and content) FOR RECORDS PERTAINING TO PATIENTS WHO ARE OR HAVE BEEN ENROLLED IN A CHEMICAL DEPENDENCY/SUBSTANCEABUSE PROGRAM, SOME INFORMATION MAY BE OMITTED. This clinical summary was aggregated from multiple sources. Caution should be exercised in using it in the provision of clinical care. This summary normalizes information from multiple sources, and as a consequence, information in this document may materially change the coding, format and clinical context of patient data. In addition, data may be omitted in some cases. CLINICAL DECISIONS SHOULD BE BASED ON THE PRIMARY CLINICAL RECORDS. [facility]. provides no warranty or guarantee of the accuracy or completeness of information in this document.
[2023-02-26 11:10] VITALS: BP 108/66; PULSE 90; RESP 16; TEMP 36.1; O2SAT 98; BMI 23.8
[2023-02-26] MEDS: Furosemide 40 MG Tablet PO (14:18)
[2023-02-26] MEDS: Menthol/Lanolin/Calamine/Znox 113 GM Tube 1 APPLIC TOPICAL ×2 (14:18→20:22)
[2023-02-26] MEDS: Ensure Plus High Protein 120 ML LIQUID PO (18:09)
[2023-02-26 20:23] VITALS: BP 125/79; PULSE 113
[2023-02-26] MEDS: Metoprolol Tartrate 50 MG Tablet PO (20:23)
[2023-02-26] MEDS: APIXABAN 2.5 MG TABLET (WCH) PO (20:23)
[2023-02-26] MEDS: Multivitamin (Healthy Eyes) Capsule 1 CAP PO (20:24)
[2023-02-27 06:21] LABS: Hematocrit 36.2 % (37-47); Hemoglobin 11.3 g/dL (12.0-15.0); Mean Corp Hgb Conc 31.2 g/dL (32-36); Mean Corpuscular Hgb 31.7 pg (27.0-32.0); Mean Corpuscular Volume 101.4 fL (81-99); Mean Platelet Vol. 9.2 fl (6.2-12.0); Platelet Count 198 K/mm3 (150-450); RBC Distribution Width CV 16.6 % (11.6-14.6); RBC Distribution Width SD 60.6 fl (35.1-43.9); Red Blood Count 3.57 M/mm3 (4.2-5.4); White Blood Count 5.7 K/mm3 (4.4-11.0)
[2023-02-27] MEDS: Furosemide 40 MG Tablet PO ×2 (06:33→14:11)
[2023-02-27] MEDS: Menthol/Lanolin/Calamine/Znox 113 GM Tube 1 APPLIC TOPICAL ×3 (06:38→20:54)
[2023-02-27] MEDS: levoFLOXacin 250 MG Tablet PO (06:39)
[2023-02-27] MEDS: Acetaminophen 650 MG/20 ML UDC PO ×2 (06:41→16:01)
[2023-02-27 07:24] LABS: Anion Gap 4 (5-15); BUN 34 mg/dL (7-18); BUN/Creat Ratio 30.1 RATIO (10-20); Calcium,Total 9.6 mg/dL (8.5-10.1); Chloride 113 mmol/L (98-107); Creatinine, Serum 1.13 mg/dL (0.55-1.02); EST Glomerular Filtration Rate 48 mL/min (>60); Est Glom Filt Rate - Afr Amer 58 mL/min (>60); Estimated Creatinine Clearance 29.06 ml/min; Glucose 102 mg/dL (74-106); Potassium 3.6 mmol/L (3.5-5.1); Sodium Level 144 mmol/L (136-145)
[2023-02-27 07:28] LABS: Magnesium 2.3 mg/dL (1.6-2.6)
[2023-02-27 07:29] LABS: Phosphorus 2.3 mg/dL (2.5-4.9)
[2023-02-27] MEDS: Amiodarone 200 MG Tablet PO (10:14)
[2023-02-27] MEDS: APIXABAN 2.5 MG TABLET (WCH) PO ×2 (10:14→20:55)
[2023-02-27] MEDS: Calcium Carb/Vitamin D 1 TABLET Tablet PO (10:14)
[2023-02-27] MEDS: Spironolactone 50 MG Tablet PO (10:14)
[2023-02-27] MEDS: Multivitamin (Healthy Eyes) Capsule 1 CAP PO ×2 (10:15→20:55)
[2023-02-27 10:17] VITALS: BP 121/70; PULSE 108
[2023-02-27] MEDS: Metoprolol Tartrate 50 MG Tablet PO ×2 (10:17→20:55)
[2023-02-27] MEDS: Ensure Plus High Protein 120 ML LIQUID PO (10:18)
--- NOTE | 2023-02-27 11:28 | HP.PCM_ITS ---
[facility] - General General Date of Admission: 02/26/23 Date of Service: 02/27/23 HPI Narrative GEENA FREEMAN, is a 87 F with a past medical history of atrial fibril lation, hypertension, hyperlipidemia, macular degeneration, osteoporosis, history of rheumatic fever, diastolic congestive heart failure, severe pulmonary hypertension and chronic anticoagulation with apixaban who presented to the emergency department at [facility] on 02/14/[address] Duran's office due to increasing lower extremity edema and shortness of breath. She was diagnosed with a acute on chronic congestive heart failure and acute respiratory failure with hypoxemia. She was admitted to the hospitalist service. Echocardiogram in March 2022 showed an ejection fraction of 50% with stage III diastolic dysfunction and pulmonary hypertension with an estimated pulmonary artery systolic pressure of 78. She was started on a nitroglycerin drip and intravenous Lasix. Repeat echo was ordered. Spironolactone was held due to hyperkalemia. Repeat echocardiogram once again showed an EF of 55 to 60% with no regional wall motion abnormalities. The right ventricle was moderately dilated with mild to moderate global right ventricular systolic dysfunction. Both the right and left atrium were severely enlarged. PA systolic had increased to 115 mmHg. There was moderate mitral valve insufficiency and aortic valve insufficiency. She failed to diurese adequately with intermittent IV Lasix and on 1212 she was started on a continuous Lasix infusion. While in the hospital she was seen by Dr. Ayala from cardiology. He felt the congestive heart failure was predominantly right heart failure secondary to severe pulmonary hypertension. Complications while in the hospital included nonsustained ventricular tachycardia for which she was given a bolus of amiodarone (she was already taking PO) and the VT resolved. She also had dysphagia and developed aspiration PNA and a large pleural effusion. She was intubated on 02/18/2023. She had a thoracentesis and the pleural fluid was cloudy. She was started on Rocephin and azithromycin until culture results were available. She was later transitioned to vancomycin and cefepime for cultures positive for Pseudomonas and MSSA. Othere complications included FRIEDA, hypotension requiring IV pressors and AF with RVR. She was extubated on 02/21/2023. Following extubation she had a modified barium swallow and was approved by speech therapy for regular textures with easy to chew items and thin liquids. A GI consult was recommended for esophageal retention with retrograde flow of barium. She was transferred to the transitional care unit at [facility] for strengthening/exercise prior to returning home. [facility] Medical History (Updated 02/27/23 @ 14:[address] Lashawn Sanches DO) Anticoagulant long-term use Atrial fibrillation Atrial flutter Bilateral pneumonia Edema Grade III diastolic dysfunction History of cardioversion Hypercholesteremia Hypertension Kidney disease Macular degeneration Myocardial infarct Non-smoker Osteoporosis Palpitations Paroxysmal atrial fibrillation Rheumatic fever Rotator cuff arthropathy SOB (shortness of breath) Home Medications vitamins A,C,X-zyol-nbksij 4,296 mcg-226 mg-90 mg capsule (ICaps AREDS) 1 cap PO BID EYE HEALTH 03/28/22 [History Last Taken 02/26/23] multivitamin,tx-minerals 1 tab PO DAILY SUPPLEMENT 04/13/22 [History Last Taken 02/26/23] amiodarone 200 mg tablet 200 mg PO DAILY AFIB #90 tabs 04/15/22 [Rx Last Taken 02/26/23] metoprolol tartrate 50 mg tablet 50 mg PO BID BLOOD PRESSURE #180 tabs 04/15/22 [Rx Last Taken 02/26/23] calcium carb 300 mg-D3 20 mcg-mag ox 25 mg-blueprinting and photocopy supervisor 0.5 ci-inmq-hqgo tablet (Caltrate-D3 Plus Minerals) 1 tab PO DAILY SUPPLEMENT 06/14/22 [History Last Taken 02/26/23] apixaban 2.5 mg tablet 2.5 mg PO BID BLOOD THINNER #60 tabs 09/09/22 [Rx Last Taken 02/26/23] furosemide 40 mg tablet (Lasix) 40 mg PO BID FLUID #360 tabs 01/31/23 [Rx Last Taken 02/26/23] spironolactone 50 mg tablet 50 mg PO DAILY FLUID #60 tabs 02/06/23 [Rx Last Taken 02/26/23] acetaminophen 650 mg/20.3 mL oral solution 650 mg (20.3 mL) PO Q6H PRN PRN Pain 1-10 Or Fever #0 mL 02/26/23 [Rx Last Taken 02/25/23] levofloxacin 500 mg tablet 500 mg PO DAILY pneumonia #2 tabs 02/26/23 [Rx Last Taken 02/26/23] melatonin 3 mg tablet 3 mg PO QHS PRN PRN Insomnia #0 tabs 02/26/23 [Rx Last Taken Unknown] menthol 0.44 %-zinc oxide 20.6 % topical ointment (Calmoseptine) 1 applic topical TID skin irritation #0 grams 02/26/23 [Rx Last Taken 02/26/23] Allergy/AdvReac Type Severity Reaction Status Date / Time Sulfa (Sulfonamide Allergy Angioedema Verified 02/14/23 14:32 Antibiotics) Family History Sister Asthma Breast cancer Diabetes Non-Hodgkin lymphoma Mother Myocardial infarction Brother Myocardial infarction Surgical History (Updated 02/27/23 @ 14:[address] Lashawn Sanches DO) History of appendectomy Social History household members: none Smoking Status: Never smoker alcohol intake: never substance use type: does not use caffeine: Yes (occasionally) ROS Constitutional Constitutional: Reports change in weight, fatigue and weakness; Denies headache(s) or night sweats Eyes Eyes: Reports systems reviewed and no addt'l complaints, except as documented ENT HEENT: Reports dry mouth; Denies disequillibrium or loss taste/smell Cardiovascular Cardiovascular: Reports cold extremities, leg edema and weakness in extremities; Denies chest pain, clubbing, lightheadedness, nausea or tachypnea Respiratory/Chest Respiratory/Chest: Reports hoarseness and shortness of breath with exertion; Denies change in mental status, cough or restlessness Gastrointestinal Gastrointestinal: Reports chewing difficulty and diarrhea; Denies abdominal pain, bloating or constipation Genitourinary Genitourinary: Denies burning urination or difficulty urinating Musculoskeletal Musculoskeletal: Reports arthralgias and stiffness Integumentary Integumentary: Reports dry skin, sores and wounds Neurologic Neurologic: Reports systems reviewed and no addt'l complaints, except as documented Psychiatric Psychiatric: Reports systems reviewed and no addt'l complaints, except as documented Endocrine Endocrinology: Reports deepening of the voice and palpitations; Denies cold i ntolerance Allergic/Immunologic Allergic/Immunologic: Reports other Details: diarrhea with mild products Vital Signs Vital Signs Vital Signs: 02/26/23 13:10 02/26/23 20:23 02/27/23 10:17 Pulse Rate 113 H 108 H Pulse Rhythm Irregular Respiratory Effort Normal Non-Labored Respiratory Depth Normal Respiratory Pattern Normal Blood Pressure 125/79 H 121/70 H Oxygen Delivery Method Room Air Weight Weight: 117 lb 15.157 oz Body Mass Index (BMI) 23.8 Physical Exam Const alert, oriented x3 and no apparent distress Constitutional Narrative: Sitting in the recliner at the bedside. General Appearance: cooperative HEENT HEENT Narrative: Mucous membranes are very dry Eyes conjunctivae normal and no scleral icterus Neck no carotid bruits Neck Narrative: Brisk carotid upstroke with mildly decreased pulse volume. Chest Chest: symmetrical chest wall rise Resp normal respiratory effort, no retractions, no use of accessory muscles and clear to auscultation bilaterally Resp Narrative: Breath sounds are more diminished in the upper lobes than in the lower lobes. She has coarse crackles in both bases. No wheezing or rhonchi. No conversational dyspnea at rest. Effort and Inspection: able to speak in complete sentences Cardio no rub and no gallops Cardio Narrative: She is currently in atrial fibrillation with a heart rate in the 110-120 range. Can not assess for JVD.....she is sitting upright in the recliner. PMI is displaced inferior and medially. Rate: tachycardic GI GI Narrative: Mild distension with increased tympany in the upper abd. NT to palpation. BS's are normal. No guarding with palpation. Back/Spine Back/Spine Narrative: She has 2 small decubitus ulcers on the back, thoracic area. She has kyphosis. Extremity Extremity Narrative: Pitting edema up to the posterior thighs. No flank pitting. Denies calf pain. Skin no jaundice Skin Narrative: 2 small decubitus ulcers over the thoracic spine. Stage 2 Poor skin turgor in the upper extremities Rashes: no rashes Neuro oriented x3, CN's II-XII intact bilaterally, moves all extremities and no focal motor deficits Neuro Narrative: No hx of stroke Psych mental status grossly normal, thought process normal, cooperative, affect normal and speech normal Appearance: grossly normal, appropriate and well kempt Attitude: calm Activity / Motor Behavior: appropriate eye contact Results Medical Records Data Medical Nutrition Assessment Dietitian: Malnutrition Criteria Met Start: 02/26/23 15:13 Freq: Status: Active Protocol: Document 02/26/23 15:13 JOSE ANTONIO (Rec: 02/26/23 15:14 [facility] [id number]) Nutrition Malnutrition Evidence of Malnutrition Exists Yes Malnutrition (severe): Acute Illness/Injury Evidenced By Suboptimal Energy Intake ( Severe),Weight Loss (Severe), Physical Changes (Severe) Intake Problem Increased Nutrient Needs (specify) Etiology (protein) related to wound healing Signs/Symptoms as evidenced by b/l buttock pressure injury. Status Active Problem Clinical Problem Acute Disease or Injury Related Malnutrition Etiology related to decreased ability to consume sufficient energy to meet estimated nutrient needs Signs/Symptoms as evidenced by significant weight loss of 4%, or 5lb, since 02/23/23 weight of 122lb per EMR wt hx and moderate to severe muscle and fat wasting per NFPA (temples, buccal, clavicles, etc.). Status Active Problem Recommendation Dietitian Recommendations/Changes Continue with Regular diet with easy to chew textures per CERTIFIED HAND THERAPIST at this time. Will discuss concerns about oral intakes with CERTIFIED HAND THERAPIST. Res agreeable to Ensure Plus High Protein 120mL 3x/day with medpass to help increase oral intakes as well as protein intakes. Will continue to follow the resident, monitor oral intakes and modify interventions as needed. Lab / Micro Data 02/27/23 06:10 02/27/23 05:25 Labs: Laboratory Results - last 24 hr 02/27/23 05:25: WBC Cancelled, Corrected WBC Cancelled, RBC Cancelled, Hgb Cancelled, Hct Cancelled, MCV Cancelled, MCH Cancelled, MCHC Cancelled, RDW Std Deviation Cancelled, RDW Coeff of Shahbaz Cancelled, Plt Count Cancelled, MPV Cancelled, Immature Gran % (Auto) Cancelled, Neut % (Auto) Cancelled, Lymph % (Auto) Cancelled, [place] % (Auto) Cancelled, Eos % (Auto) Cancelled, Baso % (Auto) Cancelled, Absolute Neuts (auto) Cancelled, Absolute Lymphs (auto) Cancelled, Total Counted Cancelled, Neutrophils % (Manual) Cancelled, Band Neutrophils % Cancelled, Lymphocytes % (Manual) Cancelled, Monocytes % (Manual) Cancelled, Eosinophils % (Manual) Cancelled, Basophils % (Manual) Cancelled, Metamyelocytes % Cancelled, Myelocytes % Cancelled, Promyelocytes % Cancelled, Blast Cells % Cancelled, Plasma Cell % (Manual) Cancelled, Other Cells % Cancelled, Nucleated RBC % Cancelled, Nucleated RBCs/100 WBC Cancelled, Differential Comment Cancelled, Diff Path Review Cancelled, Hypersegmented Neuts Cancelled, Atypical Lymphocytes Cancelled, Reactive Lymphocytes Cancelled, Smudge Cells Cancelled, Toxic Granulation Cancelled, Toxic Vacuolation Cancelled, Dohle Bodies Cancelled, Monica Rods Cancelled, Platelet Estimate Cancelled, Plt Morphology Comment Cancelled, RBC Morphology Cancelled 02/27/23 05:25: RBC Morphology Cancelled, Polychromasia Cancelled, Hypochromasia Cancelled, Poikilocytosis Cancelled, Basophilic Stippling Cancelled, Anisoc ytosis Cancelled, Microcytosis Cancelled, Macrocytosis Cancelled, Spherocytes Cancelled, Sickle Cells Cancelled, Target Cells Cancelled, Tear Drop Cells Cancelled, Ovalocytes Cancelled, Stomatocytes Cancelled, Mancera-Homer C Jones Bodies Cancelled, Umang Cells Cancelled, Bite Cells Cancelled, Crenated Cell Cancelled, Acanthocytes (Spur) Cancelled, Rouleaux Cancelled, Schistocytes Cancelled, Sodium 144, Potassium 3.6, Chloride 113 H, Carbon Dioxide 27.0, Anion Gap 4 L, BUN 34 H, Creatinine 1.13 H, Estim Creat Clear Calc 29.06, Est GFR (MDRD) Af Amer 58 L, Est GFR (MDRD) Non-Af 48 L, BUN/Creatinine Ratio 30.1 H, Glucose 102, Calcium 9.6, Phosphorus 2.3 L, Magnesium 2.3 02/27/23 06:10: WBC 5.7, RBC 3.57 L, Hgb 11.3 L, Hct 36.2 L, MCV 101.4 H, MCH 31.7, MCHC 31.2 L, RDW Std Deviation 60.6 H, RDW Coeff of Shahbaz 16.6 H, Plt Count 198, MPV 9.2 Assessment & Plan Assessment/Plan (1) Debility: (2) Acute decompensated heart failure: (3) Heart failure with preserved ejection fraction: QUALIFIERS: Heart failure chronicity: unspecified Qualified Code(s): I50.30 - Unspecified diastolic (congestive) heart failure (4) Pleural effusion, right: (5) History of thoracentesis: (6) Acute hypoxemic respiratory failure: (7) Non-ST elevated myocardial infarction: (8) Bilateral pneumonia: PLAN: likely due to aspiration. Pseudomonas aeruginosa and MSSA. (9) V tach: (10) FRIEDA (acute kidney injury): (11) Hyperkalemia: (12) History of hypertension: (13) Paroxysmal atrial fibrillation: (14) Hypertension: QUALIFIERS: Hypertension type: primary hypertension Qualified Code(s): I10 - Essential (primary) hypertension (15) Hypophosphatemia: (16) Dry mouth: (17) Severe pulmonary hypertension: (18) Biatrial enlargement: (19) Mitral valve insufficiency: (20) Acquired dilation of right ventricle of heart: (21) Grade III diastolic dysfunction: (22) Dysphagia: PLAN: Plan PLAN PT for gait stability OT for ADL's ST for evaluation Analgesics as needed Bowel protocol Fall precautions Assess for Anxiety/Depression GI prophylaxis with Protonix 20 mg p.o. twice daily - for esophageal retention, reflux of barium and deepening of the voice DVT prophylaxis-continue apixaban for A-fib with RVR and DVT prophylaxis. Follow up with cardiology, pulmonology and PCP following DC from [facility] at the bedside Thigh-high JENNIFER hose bilaterally Orthostatic vital signs in the a.m. Overnight trending pulse ox to rule out sleep apnea as etiology of pulmonary hypertension Supplement potassium and phosphorus Start low-dose digoxin for better heart rate control. Recheck a BMP, phosphorus on Monday and check a dig level in 1 week. Patient is never seen a woods boss and she should due to severe pulmonary hypertension. Will need PFTs and workup for etiology of severe pulmonary hypertension. Will refer to [place] pulmonology at discharge. Consult palliative care for severe diastolic dysfunction, recurrent congestive heart failure with preserved ejection fraction Will need to follow-up with Dr. Guy for EGD to determine etiology of esophageal retention Charges/Coding Visit Charges Inpatient E&M: 63458 SNF Init L2
--- NOTE | 2023-02-27 13:26 | NURSING ---
Patient reports she is lactose intolerant and requests ensure changed to ensure clear. Chart to be updated.
[2023-02-27] MEDS: Multivitamins,Ther W-Minerals Tablet 1 TABLET PO (14:11)
[2023-02-27] MEDS: Tuberculin,Purif.prot.deriv. 50 TU/ML Vial 0.100000000000000006 ML ID (14:16)
[2023-02-27 15:08] VITALS: BP 114/69; PULSE 105; RESP 18; TEMP 36.9; O2SAT 94
[2023-02-27] MEDS: Digoxin 250 MCG Tablet PO (15:40)
[2023-02-27] MEDS: Na Biphos/Potassium Phosphate PACKET 1 PACKET PO ×2 (15:40→20:54)
[2023-02-27 15:55] VITALS: BP 101/64; BP 106/69; BP 110/63; PULSE 109; PULSE 112
--- NOTE | 2023-02-27 16:07 | NURSING ---
Patient made aware that ensure was changed to lactose free and patient now reports that she can have dairy, just that certain things can cause diarrhea and the ensure seemed to cause her to have loose stools. Reports she is able to select items that have dairy off menu that do not bother her and she requests that lactose not be listed as an allergy/adverse reaction since not all dairy causes her to have a reaction. Lactose removed from list of allergies at this time.
[2023-02-27] MEDS: Ensure Clear 120 ML Liquid PO (17:55)
[2023-02-27 20:55] VITALS: BP 119/68; PULSE 100
[2023-02-27 21:25] VITALS: PULSE 110; O2SAT 95
[2023-02-28] MEDS: 0.9% Saline Lock 10 ML Syringe IV ×2 (05:47→10:21)
[2023-02-28] MEDS: Menthol/Lanolin/Calamine/Znox 113 GM Tube 1 APPLIC TOPICAL ×3 (05:47→20:32)
[2023-02-28] MEDS: Furosemide 40 MG Tablet PO ×2 (05:48→13:45)
[2023-02-28] MEDS: levoFLOXacin 250 MG Tablet PO (05:48)
[2023-02-28] MEDS: Na Biphos/Potassium Phosphate PACKET 1 PACKET PO ×3 (05:49→20:28)
[2023-02-28 05:58] VITALS: BP 132/81; PULSE 101
[2023-02-28] MEDS: Ensure Clear 120 ML Liquid PO ×3 (07:55→17:01)
[2023-02-28] MEDS: Calcium Carb/Vitamin D 1 TABLET Tablet PO (07:58)
[2023-02-28] MEDS: Amiodarone 200 MG Tablet PO (07:58)
[2023-02-28 10:21] VITALS: BP 110/70; PULSE 79
[2023-02-28] MEDS: Spironolactone 50 MG Tablet PO (10:21)
[2023-02-28] MEDS: Multivitamin (Healthy Eyes) Capsule 1 CAP PO ×2 (10:21→20:28)
[2023-02-28] MEDS: Digoxin 125 MCG Tablet 62.5 MCG PO (10:21)
[2023-02-28] MEDS: APIXABAN 2.5 MG TABLET (WCH) PO (10:21)
[2023-02-28 10:28] VITALS: BP 110/70; PULSE 79
[2023-02-28] MEDS: Metoprolol Tartrate 50 MG Tablet PO ×2 (10:28→20:27)
[2023-02-28] MEDS: Acetaminophen 650 MG/20 ML UDC PO (11:25)
[2023-02-28] MEDS: Multivitamins,Ther W-Minerals Tablet 1 TABLET PO (11:25)
--- NOTE | 2023-02-28 12:09 | NURSING ---
Offered Covid vaccine, VIS provided. Patient refuses at this time.
--- NOTE | 2023-02-28 14:51 | CASEMGMT ---
Social Work: Met with pt to complete initial assessment. Pt's daughter Darby Rodriguez (HCPOA) was present, approved by pt. Introduced self and role. Verified contacts. Pt educated to Medicare benefit and copay coverage, encouraged daughter to check coverage of secondary insurance. SW offered to coordinate any HHC if needed upon discharge. DC plan: Pt and dtr agreed to work towards DC home. SW agreed to work together on that goal. SW will continue to follow for DC planning. GAEL Sánchez
--- NOTE | 2023-02-28 15:04 | PCM.PROGNOTE ---
Subjective Subjective Afebrile Heart rate today is better and it was 79 at last check. She was started on digoxin yesterday in addition to metoprolol and amiodarone for better rate control. She had an overnight trending pulse ox last evening and over 50% of the time the heart rate is greater than 100. She is able to maintain an appropriate oxygen saturation on room air while awake. I reviewed the results of the overnight trending pulse ox. She had 8 desaturation events and 4.92% of the time her saturation was less than 90. Daily wt was not done today Orthostatics were negative She denies lightheadedness No CP. She gets quite winded with just minimal exertion ALert and oriented X3 Lungs - coarse crackles in the bases with diminished BS's throughout abd - Soft, NT, normal BS the swelling is down somewhat in the legs today distally and she has thigh high TEDS on. Heart - irreg and tachycardic at rest currently Impression 1. Atrial fibrillation with RVR - With stage 3 diastolic dysfunction and severe pulmonary HTN she does not tolerate tachycardia. Will continue the Dig because the HR was down to 79 this AM......but it is up now and she just came back from therapy. If we can not control the HR with medications she may need an gabriel ablation and PM 2. Severe pulmonary HTN - etiology not determined. She has moderate MR and moderate TR 3. CHF with preserved EF 4. Abnormal overnight trending pulse ox. 8 desaturation events. She was observed by her dtr having an apneic episode yesterday and then she woke herself up abruptly 5. exercise intolerance 1. sleep study - try and arrange for the night of DC from TCU and then she will follow up with Pulmonary medicine for suspected ADRY and severe pulmonary HTN. She may benefit from a CT chest to see if she has fibrosis 2. Will need to follow up with cardiology - if she is to have any quality of life we need to control the HR. 3. give an extra dose of DIG 0.625 mg tonight 4. Lab ordered for tomorrow 5. Reinforced with nursing that she needs daily weights Objective Data Objective Data Vital Signs: Vital Signs Temp Pulse Resp BP Pulse Ox O2 Del Method O2 Flow Rate 98.4 F 79 18 110/70 95 Room Air 0 02/27/23 15:08 02/28/23 10:28 02/27/23 15:08 02/28/23 10:28 02/27/23 21:25 02/27/23 15:08 02/27/23 21:25 FiO2 21 02/27/23 21:25 Oxygen Flow Rate (L/min) 0 Oxygen Delivery Method Room Air Weight: 117 lb 15.157 oz Body Mass Index (BMI) 23.8 Intake & Output: Intake and Output for Last 24 Hours 02/26/23 02/27/23 02/28/23 23:59 23:59 23:59 Intake Total 340 / 340 840 / 840 360 / 360 Balance 340 / 340 840 / 840 360 / 360 Medical Nutrition Assessment Dietitian: Malnutrition Criteria Met Start: 02/26/23 15:13 Freq: Status: Active Protocol: Document 02/26/23 15:13 JOSE ANTONIO (Rec: 02/26/23 15:14 JOSE ANTONIO [id number]) Nutrition Malnutrition Evidence of Malnutrition Exists Yes Malnutrition (severe): Acute Illness/Injury Evidenced By Suboptimal Energy Intake ( Severe),Weight Loss (Severe), Physical Changes (Severe) Intake Problem Increased Nutrient Needs (specify) Etiology (protein) related to wound healing Signs/Symptoms as evidenced by b/l buttock pressure injury. Status Active Problem Clinical Problem Acute Disease or Injury Related Malnutrition Etiology related to decreased ability to consume sufficient energy to meet estimated nutrient needs Signs/Symptoms as evidenced by significant weight loss of 4%, or 5lb, since 02/23/23 weight of 122lb per EMR wt hx and moderate to severe muscle and fat wasting per NFPA (temples, buccal, clavicles, etc.). Status Active Problem Recommendation Dietitian Recommendations/Changes Continue with Regular diet with easy to chew textures per WORLD GEOGRAPHY TEACHER at this time. Will discuss concerns about oral intakes with WORLD GEOGRAPHY TEACHER. Res agreeable to Ensure Plus High Protein 120mL 3x/day with medpass to help increase oral intakes as well as protein intakes. Will continue to follow the resident, monitor oral intakes and modify interventions as needed. Lab / Micro Data 02/27/23 06:10 02/27/23 05:25 Charges/Coding Visit Charges Inpatient E&M: 56152 SNF Subs L1
[2023-02-28 16:00] VITALS: BP 100/67; PULSE 100; RESP 17; TEMP 36.7; O2SAT 95
--- NOTE | 2023-02-28 16:11 | EX.PCM.CON.G ---
HPI Consult Data Date of Consult: 02/28/23 HPI Narrative Reason for Consultation: Abnormal swallowing study HPI Narrative: GEENA FREEMAN, is a 87-year-old female history of A-fib, rheumatic fever, hypertension, CHF who presented to [facility] 02/14/[address] Duran's office due to increasing bilateral lower extremity edema. Her Lasix dose had been increased and she was placed on spironolactone with no significant improvement. She had echo March 29, 2022 with EF of 50% and stage III diastolic dysfunction with PASP of 78. She was found to be in acute heart failure with a BNP of greater than 3300 and was hypoxic with a sat of 85% on room air ABG and chest x-ray consistent with fluid overload. She was given IV Lasix and started on a nitro drip. Hospitalist contacted for admission. Pt evaluated at bedside with family member present. Reportedly she has had increasing shortness of breath on exertion for couple of weeks with increasing leg swelling and weight gain however this past week her legs have been so bad that they have been weeping fluid and even causing her bed and clothing to become wet and she is now short of breath with even minimal exertion and this has been refractory to outpatient management. In the ED she reports after nitro drip started and she was given Lasix the breathing is starting to improve. Denies any chest pain or cough, no fevers or chills, does endorse her weight is up to 120 pounds from about 100 pounds despite not eating very well. She has no other focal complaints. Confirmed that she is full code. She will underwent swallowing study because of the suspicion of aspiration. It showed abnormal oropharyngeal motility with pharyngeal residue's retained in the oropharynx secondary to retroflexed barium that tracked backward from the upper esophageal sphincter. 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 I was asked to see the patient due to the fact that during the esophageal phase of the swallowing study she had lack of persistent peristalsis . [facility] Medical History (Updated 02/28/23 @ 16:[address] Montes De Oca Friend, ) Anticoagulant long-term use Atrial fibrillation Atrial flutter Bilateral pneumonia Edema Grade III diastolic dysfunction History of cardioversion Hypercholesteremia Hypertension Kidney disease Macular degeneration Myocardial infarct Non-smoker Osteoporosis Palpitations Paroxysmal atrial fibrillation Rheumatic fever Rotator cuff arthropathy SOB (shortness of breath) Home Medications vitamins A,C,O-fqxb-alqmnk 4,296 mcg-226 mg-90 mg capsule (ICaps AREDS) 1 cap PO BID EYE HEALTH 03/28/22 [History Last Taken 02/26/23] multivitamin,tx-minerals 1 tab PO DAILY SUPPLEMENT 04/13/22 [History Last Taken 02/26/23] amiodarone 200 mg tablet 200 mg PO DAILY AFIB #90 tabs 04/15/22 [Rx Last Taken 02/26/23] metoprolol tartrate 50 mg tablet 50 mg PO BID BLOOD PRESSURE #180 tabs 04/15/22 [Rx Last Taken 02/26/23] calcium carb 300 mg-D3 20 mcg-mag ox 25 mg-paste up copy camera operator 0.5 hk-fucg-dheu tablet (Caltrate-D3 Plus Minerals) 1 tab PO DAILY SUPPLEMENT 06/14/22 [History Last Taken 02/26/23] apixaban 2.5 mg tablet 2.5 mg PO BID BLOOD THINNER #60 tabs 09/09/22 [Rx Last Taken 02/26/23] furosemide 40 mg tablet (Lasix) 40 mg PO BID FLUID #360 tabs 01/31/23 [Rx Last Taken 02/26/23] spironolactone 50 mg tablet 50 mg PO DAILY FLUID #60 tabs 02/06/23 [Rx Last Taken 02/26/23] acetaminophen 650 mg/20.3 mL oral solution 650 mg (20.3 mL) PO Q6H PRN PRN Pain 1-10 Or Fever #0 mL 02/26/23 [Rx Last Taken 02/25/23] levofloxacin 500 mg tablet 500 mg PO DAILY pneumonia #2 tabs 02/26/23 [Rx Last Taken 02/26/23] melatonin 3 mg tablet 3 mg PO QHS PRN PRN Insomnia #0 tabs 02/26/23 [Rx Last Taken Unknown] menthol 0.44 %-zinc oxide 20.6 % topical ointment (Calmoseptine) 1 applic topical TID skin irritation #0 grams 02/26/23 [Rx Last Taken 02/26/23] Allergy/AdvReac Type Severity Reaction Status Date / Time Sulfa (Sulfonamide Allergy Angioedema Verified 02/14/23 14:32 Antibiotics) Family History Sister Asthma Breast cancer Diabetes Non-Hodgkin lymphoma Mother Myocardial infarction Brother Myocardial infarction Surgical History (Updated 02/27/23 @ 14:[address] Lashawn Sanches DO) History of appendectomy Social History household members: none Smoking Status: Never smoker alcohol intake: never substance use type: does not use caffeine: Yes (occasionally) ROS Constitutional Constitutional: Reports change in weight, fatigue and weakness; Denies headache(s) or night sweats Eyes Eyes: Reports systems reviewed and no addt'l complaints, except as documented ENT HEENT: Reports dry mouth; Denies disequillibrium or loss taste/smell Cardiovascular Cardiovascular: Reports cold extremities, leg edema and weakness in extremities; Denies chest pain, clubbing, lightheadedness, nausea or tachypnea Respiratory/Chest Respiratory/Chest: Reports hoarseness and shortness of breath with exertion; Denies change in mental status, cough or restlessness Gastrointestinal Gastrointestinal: Reports chewing difficulty and diarrhea; Denies abdominal pain, bloating or constipation Genitourinary Genitourinary: Denies burning urination or difficulty urinating Musculoskeletal Musculoskeletal: Reports arthralgias and stiffness Integumentary Integumentary: Reports dry skin, sores and wounds Neurologic Neurologic: Reports systems reviewed and no addt'l complaints, except as documented Psychiatric Psychiatric: Reports systems reviewed and no addt'l complaints, except as documented Endocrine Endocrinology: Reports deepening of the voice and palpitations; Denies cold intolerance Allergic/Immunologic Allergic/Immunologic: Reports other Details: diarrhea with mild products Physical Exam Const alert, oriented x3 and no apparent distress Constitutional Narrative: Sitting in the recliner at the bedside. General Appearance: cooperative HEENT HEENT Narrative: Mucous membranes are very dry Eyes conjunctivae normal and no scleral icterus Neck no carotid bruits Neck Narrative: Brisk carotid upstroke with mildly decreased pulse volume. Chest Chest: symmetrical chest wall rise Resp normal respiratory effort, no retractions, no use of accessory muscles and clear to auscultation bilaterally Resp Narrative: Breath sounds are more diminished in the upper lobes than in the lower lobes. She has coarse crackles in both bases. No wheezing or rhonchi. No conversational dyspnea at rest. Effort and Inspection: able to speak in complete sentences Cardio no rub and no gallops Cardio Narrative: She is currently in atrial fibrillation with a heart rate in the 110-120 range. Can not assess for JVD.....she is sitting upright in the recliner. PMI is displaced inferior and medially. Rate: tachycardic GI GI Narrative: Mild distension with increased tympany in the upper abd. NT to palpation. BS's are normal. No guarding with palpation. Back/Spine Back/Spine Narrative: She has 2 small decubitus ulcers on the back, thoracic area. She has kyphosis. Extremity Extremity Narrative: Pitting edema up to the posterior thighs. No flank pitting. Denies calf pain. Skin no jaundice Skin Narrative: 2 small decubitus ulcers over the thoracic spine. Stage 2 Poor skin turgor in the upper extremities Rashes: no rashes Neuro oriented x3, CN's II-XII intact bilaterally, moves all extremities and no focal motor deficits Neuro Narrative: No hx of stroke Psych mental status grossly normal, thought process normal, cooperative, affect normal and speech normal Appearance: grossly normal, appropriate and well kempt Attitude: calm Activity / Motor Behavior: appropriate eye contact Medical Records Data Medical Nutrition Assessment Dietitian: Malnutrition Criteria Met Start: 02/26/23 15:13 Freq: Status: Active Protocol: Document 02/26/23 15:13 [facility] (Rec: 02/26/23 15:14 [facility] [id number]) Nutrition Malnutrition Evidence of Malnutrition Exists Yes Malnutrition (severe): Acute Illness/Injury Evidenced By Suboptimal Energy Intake ( Severe),Weight Loss (Severe), Physical Changes (Severe) Intake Problem Increased Nutrient Needs (specify) Etiology (protein) related to wound healing Signs/Symptoms as evidenced by b/l buttock pressure injury. Status Active Problem Clinical Problem Acute Disease or Injury Related Malnutrition Etiology related to decreased ability to consume sufficient energy to meet estimated nutrient needs Signs/Symptoms as evidenced by significant weight loss of 4%, or 5lb, since 02/23/23 weight of 122lb per EMR wt hx and moderate to severe muscle and fat wasting per NFPA (temples, buccal, clavicles, etc.). Status Active Problem Recommendation Dietitian Recommendations/Changes Continue with Regular diet with easy to chew textures per ACCOUNT REPRESENTATIVE at this time. Will discuss concerns about oral intakes with ACCOUNT REPRESENTATIVE. Res agreeable to Ensure Plus High Protein 120mL 3x/day with medpass to help increase oral intakes as well as protein intakes. Will continue to follow the resident, monitor oral intakes and modify interventions as needed. Lab / Micro Data 02/27/23 06:10 02/27/23 05:25 Assessment & Plan Assessment/Plan (1) Dysphagia: QUALIFIERS: Dysphagia type: oropharyngeal phase Qualified Code(s): R13.12 - Dysphagia, oropharyngeal phase PLAN: Plan 87-year-old with past medical history of stage III diastolic dysfunction, mitral valve insufficiency, severe pulmonary tension who comes in with worsening lower extremity edema and intermittent esophageal dysphagia. She underwent a swallowing study discovered to have severe oropharyngeal dysphagia and moderate to severe esophageal dysphagia. Recommendations are upper endoscopy evaluate the upper GI tract. Patient may need Botox injections depending on if she has a very tight cricopharyngeus which is associated with a Zenker's diverticulum. She may also need esophageal dilation if there is a stricture, Schatzki's ring or narrowing the need to be taken care of to prevent her from having recurrent aspiration. She was explained alternatives, risk, benefits include not withstanding bleeding, infection, sepsis, perforation, need for return to . She will have an ASA of 3. Charges/Coding Visit Charges Inpatient E&M: 87225 Init Hosp L3
[2023-02-28 20:27] VITALS: BP 104/63; PULSE 93
--- NOTE | 2023-02-28 21:04 | NURSING ---
Patient to be NPO after midnight for EGD on Monday. Talked with daughter Darby, as well as patient regarding the procedure. Did hold Eliquis this evening. Will continue to monitor.
[2023-03-01] MEDS: Menthol/Lanolin/Calamine/Znox 113 GM Tube 1 APPLIC TOPICAL ×3 (05:54→22:01)
[2023-03-01 06:00] VITALS: BMI 23.5
[2023-03-01 08:12] LABS: Anion Gap 5 (5-15); BUN 24 mg/dL (7-18); BUN/Creat Ratio 25.3 RATIO (10-20); Calcium,Total 9.1 mg/dL (8.5-10.1); Chloride 107 mmol/L (98-107); Creatinine, Serum 0.95 mg/dL (0.55-1.02); EST Glomerular Filtration Rate 59 mL/min (>60); Est Glom Filt Rate - Afr Amer 72 mL/min (>60); Estimated Creatinine Clearance 34.57 ml/min; Glucose 93 mg/dL (74-106); Phosphorus 3.6 mg/dL (2.5-4.9); Potassium 3.9 mmol/L (3.5-5.1); Sodium Level 142 mmol/L (136-145)
--- NOTE | 2023-03-01 12:31 | NURSING ---
PACU calls at this time to give report on EDG. No dilation was done and bx was taken. Patient returning on bed on room air. spo2 93%
[2023-03-01 14:37] VITALS: BP 115/65; PULSE 69
[2023-03-01] MEDS: Multivitamins,Ther W-Minerals Tablet 1 TABLET PO (14:37)
[2023-03-01] MEDS: Digoxin 125 MCG Tablet 62.5 MCG PO (14:37)
[2023-03-01] MEDS: Metoprolol Tartrate 50 MG Tablet PO ×2 (14:37→21:54)
[2023-03-01] MEDS: Multivitamin (Healthy Eyes) Capsule 1 CAP PO ×2 (14:37→21:55)
[2023-03-01] MEDS: APIXABAN 2.5 MG TABLET (WCH) PO ×2 (14:38→21:55)
[2023-03-01] MEDS: Spironolactone 50 MG Tablet PO (14:38)
[2023-03-01] MEDS: Amiodarone 200 MG Tablet PO (14:38)
[2023-03-01] MEDS: Calcium Carb/Vitamin D 1 TABLET Tablet PO (14:38)
[2023-03-01] MEDS: Ensure Clear 120 ML Liquid PO ×2 (14:39→19:14)
[2023-03-01] MEDS: Furosemide 40 MG Tablet PO (14:39)
[2023-03-01] MEDS: Acetaminophen 650 MG/20 ML UDC PO (14:40)
[2023-03-01 15:02] VITALS: BP 115/65; PULSE 69; RESP 18; TEMP 36.5; O2SAT 97
--- NOTE | 2023-03-01 15:34 | NURSING ---
Patient and daughter made aware of covid outbreak status on unit and about all precautions being taken. Deny any questions at this time.
--- NOTE | 2023-03-01 15:50 | NURSING ---
Adjunct Communications Faculty Member Note; Activity Asset: Khushboo Saldana is independent in her choice of daily activities. Her family will visit daily and bring her items she may need or want. She will watch tv, read and welcomes visits from the clerical supervisor. Staff will continue to offer her daily activities and respect her right to say no.
[2023-03-01 21:54] VITALS: BP 128/73; PULSE 97
[2023-03-01 22:38] VITALS: PULSE 97; RESP 16; O2SAT 97
[2023-03-02] VITALS (7 sets, daily range): BP systolic 105–111; BP diastolic 52–75; PULSE 84–99; RESP 14; TEMP 37.1; O2SAT 97–98; BMI 23.8
[2023-03-02] MEDS: Furosemide 40 MG Tablet PO ×2 (06:19→12:56)
[2023-03-02] MEDS: Menthol/Lanolin/Calamine/Znox 113 GM Tube 1 APPLIC TOPICAL ×3 (06:21→22:14)
--- NOTE | 2023-03-02 08:34 | PHA.CONS_ITS ---
TCU RX Drug Regimen Review Subjective/Objective Subjective/Objective: Subjective: TCU Admission. 87 YOF presented to the ER from Dr. Duran's office due to lower extremity edema and shortness of breath. Hospitalized for acute on chronic congestive heart failure and acute respiratory failure with hypoxemia. Admitted to TCU with debility for strengthening and rehabilitation. Objective: Allergies Sulfa (Sulfonamide Antibiotics) Allergy (Verified 02/14/23 14:32) Angioedema Current Medications Generic Name Dose Route Start Last Admin Trade Name Freq PRN Reason Stop Dose Admin Acetaminophen 650 mg 03/01/23 14:43 Acetaminophen 325 Mg Tablet PO Q6H PRN PRN Pain 1-10 or Fever Amiodarone HCl 200 mg 02/27/23 08:00 03/01/23 14:38 Amiodarone 200 Mg Tablet PO 200 mg BREAKFAST DEWEY Administration Apixaban 2.5 mg 02/26/23 22:00 03/01/23 21:55 Apixaban 2.5 Mg Tablet ([facility]) PO 2.5 mg BID DEWEY Administration Calamine/Phenol 1 applic 02/26/23 14:00 03/02/23 06:21 Menthol/Lanolin/Calamine/Znox 113 Gm Tube TOPICAL 1 applic TID DEWEY Administration Protocol Calcium/Vitamin D 1 tablet 02/27/23 08:00 03/01/23 14:38 Calcium Carb/Vitamin D 1 Tablet Tablet PO 1 tablet BREAKFAST DEWEY Administration Digoxin 62.5 mcg 02/28/23 10:00 03/01/23 14:37 Digoxin 125 Mcg Tablet PO 62.5 mcg DAILY DEWEY Administration Furosemide 40 mg 02/26/23 14:00 03/02/23 06:19 Furosemide 40 Mg Tablet PO 40 mg BIDLX DEWEY Administration Protocol Melatonin 3 mg 02/26/23 11:04 Melatonin 3 Mg Tablet PO QHS PRN PRN Insomnia Metoprolol Tartrate 50 mg 02/26/23 22:00 03/01/23 21:54 Metoprolol Tartrate 50 Mg Tablet PO 50 mg BID DEWEY Administration Protocol Multivitamins/Minerals 1 tablet 02/27/23 12:00 03/01/23 14:37 Multivitamins,Ther W-Minerals Tablet PO 1 tablet LUNCH DEWEY Administration Multivitamins/Minerals 1 cap 02/26/23 22:00 03/01/23 21:55 Multivitamin (Healthy Eyes) Capsule PO 1 cap BID DEWEY Administration Nutritional Formula (Lactose Free) 120 ml 03/01/23 19:00 03/01/23 19:14 Ensure Clear 120 Ml Liquid PO 120 u 0900,1400,1900 DEWEY Administration Saliva Substitute 15 ml 02/27/23 13:50 Saliva Substitute 237 Ml Bottle MUCOUS MEM 5X/DAY PRN DRY MOUTH Senna/Docusate Sodium 1 tablet 02/26/23 22:00 02/27/23 10:15 Senna/Docusate Sodium 1 Tablet PO Not Given BID DEWEY Sodium Chloride 10 - 40 ml 02/28/23 04:59 02/28/23 10:21 0.9% Saline Lock 10 Ml Syringe IV 10 ml UD PRN Administration SALINE FLUSH Spironolactone 50 mg 02/27/23 10:00 03/01/23 14:38 Spironolactone 50 Mg Tablet PO 50 mg DAILY DEWEY Administration Protocol Sucralfate 1 gm 03/01/23 16:00 03/02/23 06:19 Sucralfate 1 Gm/10 Ml Udc PO 1 gm 1HR_ACHS DEWEY Administration Tuberculin PPD 0.1 ml 03/06/23 10:00 Tuberculin,Purif.Prot.Deriv. 50 Tu/Ml Vial ID 03/06/23 10:01 X1 ONE Problem List (Updated 02/28/23 @ 16:[address] Montes De Oca Friend, DO) Dysphagia (Acute) Grade III diastolic dysfunction (Acute) Acquired dilation of right ventricle of heart (Acute) Mitral valve insufficiency (Acute) Biatrial enlargement (Acute) Severe pulmonary hypertension (Acute) Dry mouth (Acute) Hypophosphatemia (Acute) History of thoracentesis (Acute) Debility (Acute) V tach (Acute) Heart failure with preserved ejection fraction (Acute) FRIEDA (acute kidney injury) (Acute) Acute decompensated heart failure (Acute) History of hypertension (Acute) Pleural effusion, right (Acute) Acute hypoxemic respiratory failure (Acute) Non-ST elevated myocardial infarction (Acute) Bilateral pneumonia (Acute) Hypertension (Chronic) Paroxysmal atrial fibrillation (Acute) Vital Signs Temp Pulse Resp BP Pulse Ox O2 Del Method O2 Flow Rate 97.7 F L 99 16 110/75 97 Nasal Cannula 2 03/01/23 15:02 03/02/23 06:26 03/01/23 22:38 03/02/23 06:26 03/01/23 22:38 03/01/23 22:38 03/01/23 22:38 FiO2 21 02/27/23 21:25 Oxygen Flow Rate (L/min) 2 Oxygen Delivery Method Nasal Cannula Weight: 52.934 kg Body Mass Index (BMI) 23.5 Sodium 142 mmol/L (136-145) 03/01/23 07:25 Potassium 3.9 mmol/L (3.5-5.1) 03/01/23 07:25 Chloride 107 mmol/L (98-107) 03/01/23 07:25 Carbon Dioxide 30.0 mmol/L (21.0-32.0) 03/01/23 07:25 Anion Gap 5 (5-15) 03/01/23 07:25 BUN 24 mg/dL (7-18) H 03/01/23 07:25 Creatinine 0.95 mg/dL (0.55-1.02) 03/01/23 07:25 Est GFR (MDRD) Af Amer 72 mL/min (>60) 03/01/23 07:25 Est GFR (MDRD) Non-Af 59 mL/min (>60) L 03/01/23 07:25 BUN/Creatinine Ratio 25.3 RATIO (10-20) H 03/01/23 07:25 Glucose 93 mg/dL (74-106) 03/01/23 07:25 Assessment/Plan: 1. Pain: acetaminophen 650mg PO Q6H PRN pain 1-10/fever. No PRN doses given. Please continue to monitor for increased pain, fevers and PRN usage. 2. Bowel: senna/docusate 1T PO BID (on hold). Please continue to monitor for constipation. Last documented bowel movement 02/27. 3. Atrial fibrillation/HFpEF/hypertension: apixaban 2.5mg PO BID, amiodarone 200mg PO breakfast, spironolactone 50mg PO daily, metoprolol tartrate 50mg PO BID, digoxin 62.5mcg PO daily and furosemide 40mg PO BIDLX. Please continue to monitor for S/S of bleeding, hemoglobin (last 11.3g/dL), renal function (apixaban dose appropriate based on age >80 and weight <60kg), BP (last 110/75), HR (last 97), potassium (last 3.9mmol/L), sodium (last 142mmo/L), nausea, vomiting, edema and digoxin level (ordered for 03/06/23). Digoxin is on the BEERs list due to increased mortality when used in heart failure and atrial fibrillation. Please avoid doses >125mcg and continue to monitor. 4. Nutrition/macular degeneration/osteoporosis: calcium/vitamin D1T PO breakfast, multivitamin with minerals 1T PO lunch and healthy eyes vitamin 1C PO BID. Please continue to monitor calcium (last 9.1mg/dL) and vitamin D (last 02/14/23). 5. Insomnia: melatonin 3mg PO QHS PRN insomnia. No PRN doses given. Please continue to monitor for insomnia and PRN usage. 6. GI prophylaxis: sucralfate 1gm PO 1HR_ACHS. Please continue to monitor for upset stomach and gas. Assessment/Plan for indications treated with psychotropic medications: None Medical chart and medication regimen reviewed. The following medication irregularities or issues were identified: None Date Date of Note:: 03/02/23
[2023-03-02] MEDS: Digoxin 125 MCG Tablet 62.5 MCG PO (08:46)
[2023-03-02] MEDS: Ensure Clear 120 ML Liquid PO ×3 (08:46→16:59)
[2023-03-02] MEDS: Calcium Carb/Vitamin D 1 TABLET Tablet PO (08:47)
[2023-03-02] MEDS: Spironolactone 50 MG Tablet PO (08:47)
[2023-03-02] MEDS: Amiodarone 200 MG Tablet PO (08:47)
[2023-03-02] MEDS: Multivitamin (Healthy Eyes) Capsule 1 CAP PO ×2 (08:47→22:13)
[2023-03-02] MEDS: Metoprolol Tartrate 50 MG Tablet PO ×2 (08:48→22:13)
[2023-03-02] MEDS: APIXABAN 2.5 MG TABLET (WCH) PO ×2 (08:48→22:13)
[2023-03-02] MEDS: Multivitamins,Ther W-Minerals Tablet 1 TABLET PO (11:30)
[2023-03-02] MEDS: Acetaminophen 325 MG Tablet 650 MG PO (12:56)
--- NOTE | 2023-03-02 15:43 | NURSING ---
Faxed requested records to palliative
[2023-03-02] MEDS: 0.9% Saline Lock 10 ML Syringe IV (22:19)
[2023-03-03] VITALS (8 sets, daily range): BP systolic 101–116; BP diastolic 50–70; PULSE 90–98; RESP 15–18; TEMP 36.1–36.6; O2SAT 94–99; BMI 23.8
[2023-03-03] MEDS: Furosemide 40 MG Tablet PO ×2 (05:34→14:17)
[2023-03-03] MEDS: Menthol/Lanolin/Calamine/Znox 113 GM Tube 1 APPLIC TOPICAL ×3 (05:34→22:05)
[2023-03-03 05:55] LABS: Hematocrit 34.1 % (37-47); Hemoglobin 10.7 g/dL (12.0-15.0)
[2023-03-03 06:43] LABS: Anion Gap 2 (5-15); BUN 21 mg/dL (7-18); BUN/Creat Ratio 25.1 RATIO (10-20); Calcium,Total 9.5 mg/dL (8.5-10.1); Chloride 104 mmol/L (98-107); Creatinine, Serum 0.84 mg/dL (0.55-1.02); EST Glomerular Filtration Rate 68 mL/min (>60); Est Glom Filt Rate - Afr Amer 83 mL/min (>60); Estimated Creatinine Clearance 39.12 ml/min; Glucose 94 mg/dL (74-106); Potassium 3.7 mmol/L (3.5-5.1); Sodium Level 141 mmol/L (136-145)
[2023-03-03 06:51] LABS: Digoxin Level 0.95 ng/mL (0.80-2.00)
[2023-03-03] MEDS: Acetaminophen 325 MG Tablet 650 MG PO (08:55)
[2023-03-03] MEDS: APIXABAN 2.5 MG TABLET (WCH) PO ×2 (08:57→22:04)
[2023-03-03] MEDS: Calcium Carb/Vitamin D 1 TABLET Tablet PO (08:58)
[2023-03-03] MEDS: Amiodarone 200 MG Tablet PO (08:58)
[2023-03-03] MEDS: Multivitamin (Healthy Eyes) Capsule 1 CAP PO ×2 (09:00→22:04)
[2023-03-03] MEDS: Ensure Clear 120 ML Liquid PO ×3 (09:22→18:47)
[2023-03-03] MEDS: Spironolactone 50 MG Tablet PO (09:27)
[2023-03-03] MEDS: Digoxin 125 MCG Tablet 62.5 MCG PO (09:28)
[2023-03-03] MEDS: Metoprolol Tartrate 50 MG Tablet PO ×2 (09:29→22:04)
--- NOTE | 2023-03-03 10:49 | MDS.RN ---
MDS pain assessment completed.
[2023-03-03] MEDS: Multivitamins,Ther W-Minerals Tablet 1 TABLET PO (12:14)
--- NOTE | 2023-03-03 17:26 | CASEMGMT ---
Social Work Dtr presented to this worker's office with several questions. SW answered questions. Educated to Medicare benefit. Dtr is a HHC OT in [place], and will be in town to assist pt as needed. However, dtr is unsure of the DC plan for pt. Dtr is open to pt moving in with dtr and in [place], but understands pt appreciates her privacy and would prefer to remain at home. The majority of pt's family lives in [place]. Son that lives in town is not very involved and was not aware of pt's medical decline to result in hospitalization, per dtr. Dtr also noted pt may want to change code status to DNR, since being intubated. SW noted Dr is recommending palliative referral. Dtr spoke with Dr about referral and is agreeable, but if pt DCs to [place], a referral does not need made. SW to assess after POC mtg. Dtr appreciative of time and assistance for DC. SW spoke with pt. Completed BIMS () and PHQ-2 () for MDS assessment. SW inquired about code status and educated to each option. Pt remains unsure and would like to talk with family. SW broached options for DC. Pt states her goal is to return home alone, but has not thought further if she cannot return home or if she needs more assistance. SW briefly noted moving to [place], hiring SALVAGE WORKER in her home, admitting to [place]. Encouraged to begin thinking of options and SW to assist with coordination of plans as needed. Pt appreciative. SW will continue to follow for DC planning. Sangeeta De La Fuente, ANYA BROOKSW
[2023-03-03] MEDS: 0.9% Saline Lock 10 ML Syringe IV (22:03)
[2023-03-04] VITALS (8 sets, daily range): BP systolic 114–123; BP diastolic 56–77; PULSE 87–97; RESP 14; TEMP 36.7; O2SAT 96–99; BMI 23.2
[2023-03-04] MEDS: Furosemide 40 MG Tablet PO ×2 (05:22→14:08)
[2023-03-04] MEDS: Menthol/Lanolin/Calamine/Znox 113 GM Tube 1 APPLIC TOPICAL ×3 (05:26→20:15)
[2023-03-04] MEDS: Acetaminophen 325 MG Tablet 650 MG PO (08:07)
[2023-03-04] MEDS: APIXABAN 2.5 MG TABLET (WCH) PO ×2 (08:10→20:14)
[2023-03-04] MEDS: Calcium Carb/Vitamin D 1 TABLET Tablet PO (08:11)
[2023-03-04] MEDS: Amiodarone 200 MG Tablet PO (08:11)
[2023-03-04] MEDS: Multivitamin (Healthy Eyes) Capsule 1 CAP PO ×2 (08:11→20:14)
[2023-03-04] MEDS: Ensure Clear 120 ML Liquid PO ×3 (10:44→18:52)
[2023-03-04] MEDS: Metoprolol Tartrate 50 MG Tablet PO ×2 (10:58→20:15)
[2023-03-04] MEDS: Digoxin 125 MCG Tablet 62.5 MCG PO (10:59)
[2023-03-04] MEDS: Spironolactone 50 MG Tablet PO (10:59)
[2023-03-04] MEDS: Multivitamins,Ther W-Minerals Tablet 1 TABLET PO (12:52)
--- NOTE | 2023-03-04 18:03 | NURSING ---
This RN is aware of vital Signs that were taken today at 1600 by Malgorzata.
[2023-03-04] MEDS: 0.9% Saline Lock 10 ML Syringe IV (20:16)
[2023-03-05 06:00] VITALS: BP 135/78; PULSE 103; BMI 22.8
[2023-03-05] MEDS: Acetaminophen 325 MG Tablet 650 MG PO (06:12)
[2023-03-05] MEDS: Furosemide 40 MG Tablet PO ×2 (06:13→14:12)
[2023-03-05] MEDS: Menthol/Lanolin/Calamine/Znox 113 GM Tube 1 APPLIC TOPICAL ×3 (06:13→22:02)
[2023-03-05] MEDS: Calcium Carb/Vitamin D 1 TABLET Tablet PO (09:56)
[2023-03-05] MEDS: APIXABAN 2.5 MG TABLET (WCH) PO ×2 (09:56→22:01)
[2023-03-05] MEDS: Multivitamin (Healthy Eyes) Capsule 1 CAP PO ×2 (09:56→22:01)
[2023-03-05 09:57] VITALS: BP 108/55; PULSE 95
[2023-03-05] MEDS: Spironolactone 50 MG Tablet PO (09:57)
[2023-03-05] MEDS: Metoprolol Tartrate 50 MG Tablet PO ×2 (09:57→22:04)
[2023-03-05] MEDS: Amiodarone 200 MG Tablet PO (09:57)
[2023-03-05] MEDS: Digoxin 125 MCG Tablet 62.5 MCG PO (09:57)
[2023-03-05] MEDS: Multivitamins,Ther W-Minerals Tablet 1 TABLET PO (14:12)
[2023-03-05 15:39] VITALS: BP 104/59; PULSE 91; RESP 16; TEMP 36.1; O2SAT 99
[2023-03-05 19:56] VITALS: O2SAT 98
[2023-03-05] MEDS: 0.9% Saline Lock 10 ML Syringe IV (22:01)
[2023-03-05 22:04] VITALS: BP 107/56; PULSE 98
[2023-03-05 22:08] VITALS: BP 107/56; PULSE 98
[2023-03-06] VITALS (8 sets, daily range): BP systolic 102–120; BP diastolic 52–65; PULSE 82–102; RESP 16–20; TEMP 36.9; O2SAT 98–99; BMI 22.8
[2023-03-06] MEDS: Furosemide 40 MG Tablet PO (05:29)
[2023-03-06] MEDS: Menthol/Lanolin/Calamine/Znox 113 GM Tube 1 APPLIC TOPICAL ×3 (05:31→22:25)
[2023-03-06 06:54] LABS: Absolute Lymphocyte Count 0.66 X10^3/uL (0.83-4.51); Absolute Neutrophil Count 3.4 X10^3/uL (2.0-7.7); Basophil# 0.07 X10^3/uL; Basophil% 1.4 % (0-1); Eosinophil# 0.24 X10^3/uL; Eosinophils% 4.9 % (0-5); Hematocrit 36.1 % (37-47); Hemoglobin 11.4 g/dL (12.0-15.0); Lymphocyte # 0.66 X10^3/ul (0.83-4.51); Lymphocyte % 13.6 % (19-41); Mean Corp Hgb Conc 31.6 g/dL (32-36); Mean Corpuscular Volume 101.4 fL (81-99); Mean Platelet Vol. 9.5 fl (6.2-12.0); Monocyte# 0.45 X10^3/uL; Monocyte% 9.3 % (0-10); NRBC Flagged by Analyzer 0 % (0-5); Neutrophil # 3.42 X10^3/uL (2.7-7.7); Neutrophil % 70.6 % (47-70); Platelet Count 155 K/mm3 (150-450); RBC Distribution Width CV 16.2 % (11.6-14.6); RBC Distribution Width SD 60.5 fl (35.1-43.9); Red Blood Count 3.56 M/mm3 (4.2-5.4); White Blood Count 4.9 K/mm3 (4.4-11.0)
[2023-03-06 07:25] LABS: Anion Gap 2 (5-15); BUN 20 mg/dL (7-18); BUN/Creat Ratio 22.5 RATIO (10-20); Chloride 95 mmol/L (98-107); Creatinine, Serum 0.89 mg/dL (0.55-1.02); EST Glomerular Filtration Rate 64 mL/min (>60); Est Glom Filt Rate - Afr Amer 77 mL/min (>60); Estimated Creatinine Clearance 35.39 ml/min; Glucose 97 mg/dL (74-106); Potassium 3.8 mmol/L (3.5-5.1); Sodium Level 141 mmol/L (136-145)
[2023-03-06 07:31] LABS: Digoxin Level 0.93 ng/mL (0.80-2.00)
[2023-03-06] MEDS: Spironolactone 50 MG Tablet PO (08:07)
[2023-03-06] MEDS: Calcium Carb/Vitamin D 1 TABLET Tablet PO (08:07)
[2023-03-06] MEDS: Amiodarone 200 MG Tablet PO (08:07)
[2023-03-06] MEDS: Multivitamin (Healthy Eyes) Capsule 1 CAP PO ×2 (08:07→22:10)
[2023-03-06] MEDS: Acetaminophen 325 MG Tablet 650 MG PO ×2 (08:07→22:07)
[2023-03-06] MEDS: APIXABAN 2.5 MG TABLET (WCH) PO ×2 (08:09→22:10)
[2023-03-06] MEDS: Digoxin 125 MCG Tablet 62.5 MCG PO (10:44)
[2023-03-06] MEDS: Tuberculin,Purif.prot.deriv. 50 TU/ML Vial 0.100000000000000006 ML ID (10:45)
[2023-03-06] MEDS: Metoprolol Tartrate 50 MG Tablet PO ×2 (10:45→22:10)
[2023-03-06] MEDS: 0.9% Saline Lock 10 ML Syringe IV ×2 (10:47→14:27)
[2023-03-06] MEDS: Multivitamins,Ther W-Minerals Tablet 1 TABLET PO (13:01)
[2023-03-06 13:17] LABS: Allen Test Positive; Base Excess 18 mmol/L (-2 to +2); Bicarbonate 41.5 mmol/L (22-26); Blood Gas Specimen Type ART; Mode Not entered; O2 Delivery Device Cannula; PO2 93 mmHG (75-100); SITE L Radial; SO2 97 % (95-99); Total Carbon Dioxide 43 mmol/L; pCO2 60.4 mmHg (35-45); pH 7.45 (7.35-7.45)
--- NOTE | 2023-03-06 13:34 | PN_ITS ---
Subjective Subjective Afebrile VSS-heart rate is mildly increased today compared to prior days-most likely secondary to dehydration with contraction alkalosis. Blood pressure at rest is stable. She is maintaining a pulse ox of 98 to 99% on room air at rest but desaturates into the 70s with ambulation. Maintaining appropriate oxygen saturation on RA at rest Oral intake is good for food and not so good for fluids. Weight is down 10 pounds from 02/23/2023 secondary to diuresis. Discussed with nursing - no problems that need addressed Reviewed the PT/OT/ST notes Medication list reviewed. Currently getting Lasix BID and Aldactone. All lab from today was personally reviewed. The serum bicarb increased to 44 and a ABG was drawn which showed a pH of 7.45 with a pCO2 of 60.4. Hemoglobin has increased from 10.7 on 1228-11.4 today secondary to dehydration. Creatinine is stable and is 0.89 today. The BUN/creatinine ratio is elevated at 22.5. Her daughter noticed that she has been a little more drowsy lately. Patient denies any shortness of breath, chest pain, palpitations or cough. The edema in the LE's is much improved. Objective Data Objective Data Vital Signs: Vital Signs Temp Pulse Resp BP Pulse Ox O2 Del Method O2 Flow Rate 97.0 F L 102 H 16 114/65 99 Nasal Cannula 2 03/05/23 15:39 03/06/23 10:45 03/06/23 05:33 03/06/23 10:45 03/06/23 11:33 03/06/23 07:47 03/06/23 11:33 FiO2 21 02/27/23 21:25 Oxygen Flow Rate (L/min) 2 Oxygen Delivery Method Nasal Cannula Weight: 113 lb 6.4 oz Body Mass Index (BMI) 22.8 Intake & Output: Intake and Output for Last 24 Hours 03/04/23 03/05/23 03/06/23 23:59 23:59 23:59 Intake Total 460 / 460 720 / 720 360 / 360 Balance 460 / 460 720 / 720 360 / 360 Medical Nutrition Assessment Dietitian: Malnutrition Criteria Met Start: 02/26/23 15:13 Freq: Status: Active Protocol: Document 03/01/23 15:33 SLA (Rec: 03/01/23 15:33 SLA Desktop) Nutrition Malnutrition Evidence of Malnutrition Exists Yes Malnutrition (severe): Acute Illness/Injury Evidenced By Suboptimal Energy Intake ( Severe),Weight Loss (Severe), Physical Changes (Severe) Intake Problem Increased Nutrient Needs (specify) Status Inactive Problem Clinical Problem Acute Disease or Injury Related Malnutrition Etiology related to decreased ability to consume sufficient energy to meet estimated nutrient needs Signs/Symptoms as evidenced by significant weight loss of 4%, or 5lb, since 02/23/23 weight of 122lb per EMR wt hx, variable po intake at meals since adm and moderate to severe muscle and fat wasting per NFPA (temples, buccal, clavicles, etc.). Status Active Problem Recommendation Dietitian Recommendations/Changes Continue with Regular diet with consistencies per SENIOR PATIENT ACCOUNT REPRESENTATIVE Continue Ensure Plus High Protein 120mL 3x/day with medpass Consider appetite stimulant to help encourage increased po intake Will continue to follow the resident, monitor oral intakes and modify interventions as needed. Lab / Micro Data 03/06/23 06:33 03/06/23 06:33 Labs: Laboratory Results - last 24 hr 03/06/23 06:33: WBC 4.9, RBC 3.56 L, Hgb 11.4 L, Hct 36.1 L, MCV 101.4 H, MCH 32.0, MCHC 31.6 L, RDW Std Deviation 60.5 H, RDW Coeff of Shahbaz 16.2 H, Plt Count 155, MPV 9.5, Immature Gran % (Auto) 0.200, Neut % (Auto) 70.6 H, Lymph % (Auto) 13.6 L, [place] % (Auto) 9.3, Eos % (Auto) 4.9, Baso % (Auto) 1.4 H, Absolute Neuts (auto) 3.4, Absolute Lymphs (auto) 0.66 L, Nucleated RBC % 0, Sodium 141, Potassium 3.8, Chloride 95 L, Carbon Dioxide 44.0 H, Anion Gap 2 L, BUN 20 H, Creatinine 0.89, Estim Creat Clear Calc 35.39, Est GFR (MDRD) Af Amer 77, Est GFR (MDRD) Non-Af 64, BUN/Creatinine Ratio 22.5 H, Glucose 97, Calcium 10.0, Digoxin 0.93 Micro: Microbiology 03/01/23 13:00 Nasal Secretion SARS-CoV-2 Antigen (Rapid) - Final ABG Data ABG results: ABG 03/06/23 13:13 Specimen Type ART Sample Site L Radial pH 7.45 Bicarbonate Actual 41.5 H Total CO2 43 Base Excess 18 H O2 Saturation 97 O2 % 2.0 ABG pCO2 60.4 H ABG pO2 93 Lupillo Test Positive O2 Delivery Device Cannula Vent Mode Not entered Physical Exam Const Constitutional Narrative: A little drowsy but, not confused and she is appropriate. General Appearance: cooperative HEENT Mouth: dry mucous membranes Resp clear to auscultation bilaterally Auscultation: diminished lung sounds Cardio Cardio Narrative: irreg, irreg with HR of 102 at rest. GI normal to inspection, nondistended, normoactive bowel sounds, soft to palpation and non-tender Extremity no calf tenderness Extremity Narrative: She has some pitting in the ankles but, the posterior thigh edema has resolved. Minimal pretibial edema. + skin tenting. 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 She has severe swelling of the LE's and third spacing. Not able to adequately diurese without causing IV volume depletion and contraction alkalosis which then causes CO2 retention. Needs to follow up with Pulmonary post DC to determine the underlying etiology of the severe pulmonary HTN and treat it. (7) Atrial fibrillation: PLAN: She is requiring 3 medications to control the heart rate, especially if she is exerting herself at all. Heart rate was not controlled with amiodarone and a beta-emy. Digoxin was added last week and the heart rates are much better. The dig level is stable at 0.95. Will continue. (8) Exercise hypoxemia: PLAN: He does saturates to 76% on room air with ambulation. (9) Nocturnal hypoxemia: PLAN: She had an abnormal overnight trending pulse ox with 8 desaturation events. PLAN: Plan 1. Continue therapy 2. Hold Lasix today and tomorrow. 3. Give IV fluids today x 1 L and encourage increased fluid intake. 4. Recheck BMP in the a.m. 5. Will need to follow-up either at [facility] or in the wound care center for lymphedema pumps to control lower extremity edema without leading to intravascular volume depletion/acute renal failure/contraction alkalosis with CO2 retention. 6. Follow-up with pulmonary medicine post discharge from TCU 7. Will also need to follow-up with cardiology for atrial fibrillation. 8. Will need home O2 at discharge 9. She needs an outpatient sleep study for suspected ADRY. Will discuss with the sleep lab tomorrow and hopefully this can be done on the night of discharge from TCU. Charges/Coding Visit Charges Inpatient E&M: 22594 Subs Hosp L2
[2023-03-06] MEDS: 0.45% Normal Saline 1,000 ML 60 ML IV (14:27)
[2023-03-06] MEDS: MELATONIN 3 MG TABLET PO (22:11)
[2023-03-07 06:00] VITALS: BMI 23.1
[2023-03-07 06:25] LABS: Anion Gap 4 (5-15); BUN 18 mg/dL (7-18); BUN/Creat Ratio 22.7 RATIO (10-20); Calcium,Total 9.4 mg/dL (8.5-10.1); Chloride 93 mmol/L (98-107); Creatinine, Serum 0.79 mg/dL (0.55-1.02); EST Glomerular Filtration Rate 73 mL/min (>60); Est Glom Filt Rate - Afr Amer 88 mL/min (>60); Estimated Creatinine Clearance 31.58 ml/min; Glucose 92 mg/dL (74-106); Potassium 3.7 mmol/L (3.5-5.1); Sodium Level 139 mmol/L (136-145)
[2023-03-07] MEDS: Menthol/Lanolin/Calamine/Znox 113 GM Tube 1 APPLIC TOPICAL ×3 (06:38→22:06)
[2023-03-07] MEDS: Acetaminophen 325 MG Tablet 650 MG PO (06:44)
[2023-03-07] MEDS: 0.45% Normal Saline 1,000 ML 60 ML IV (07:05)
[2023-03-07 08:15] VITALS: O2SAT 93
[2023-03-07] MEDS: APIXABAN 2.5 MG TABLET (WCH) PO ×2 (09:51→22:06)
[2023-03-07] MEDS: Calcium Carb/Vitamin D 1 TABLET Tablet PO (09:51)
[2023-03-07] MEDS: Spironolactone 50 MG Tablet PO (09:51)
[2023-03-07] MEDS: Multivitamin (Healthy Eyes) Capsule 1 CAP PO ×2 (09:51→22:06)
[2023-03-07 09:52] VITALS: PULSE 94
[2023-03-07] MEDS: Amiodarone 200 MG Tablet PO (09:52)
[2023-03-07] MEDS: Digoxin 125 MCG Tablet 62.5 MCG PO (09:52)
[2023-03-07 09:53] VITALS: PULSE 94
[2023-03-07] MEDS: Metoprolol Tartrate 50 MG Tablet PO ×2 (09:53→22:05)
[2023-03-07 10:00] VITALS: PULSE 94; RESP 18
--- NOTE | 2023-03-07 10:37 | NURSING ---
Head Turning Machine Operator Note; MDS for 03/05/2023 Complete
[2023-03-07] MEDS: Multivitamins,Ther W-Minerals Tablet 1 TABLET PO (11:32)
--- NOTE | 2023-03-07 15:46 | CASEMGMT ---
Social Work SW notified by [facility] that liaison met with patient and dtr. Pt agreeable to palliative services. Sangeeta De La Fuente PSYCHOLOGIST CLINICAL EMERGENCY MEDICINE PHYSICIAN
[2023-03-07 16:21] LABS: Hematocrit 40.5 % (37-47); Hemoglobin 12.4 g/dL (12.0-15.0); POSITIVE COUNT YES
[2023-03-07] MEDS: AcetaZOLAMIDE 500 MG/10 ML Vial 250 MG IV (16:35)
[2023-03-07 22:05] VITALS: BP 113/67; PULSE 90
[2023-03-08] VITALS (7 sets, daily range): BP systolic 95–120; BP diastolic 55–70; PULSE 85–97; RESP 14–18; TEMP 36.3; O2SAT 97–100
[2023-03-08] MEDS: 0.45% Normal Saline 1,000 ML 60 ML IV (00:23)
[2023-03-08] MEDS: Furosemide 40 MG Tablet PO ×2 (05:08→08:38)
[2023-03-08] MEDS: Menthol/Lanolin/Calamine/Znox 113 GM Tube 1 APPLIC TOPICAL ×3 (05:09→22:38)
[2023-03-08] MEDS: Acetaminophen 325 MG Tablet 650 MG PO (05:12)
--- NOTE | 2023-03-08 06:21 | NURSING ---
Patient reports difficulty sleeping due to frequent need to urinate would like option to use purwick as needed to promote rest, patient requesting if IV fluids can be discontinued, written communication left for Dr. South regarding patient requests. IV fluids continue as ordered at this time.
[2023-03-08 06:47] LABS: Anion Gap 1 (5-15); BUN 16 mg/dL (7-18); BUN/Creat Ratio 21.2 RATIO (10-20); Chloride 97 mmol/L (98-107); Creatinine, Serum 0.75 mg/dL (0.55-1.02); EST Glomerular Filtration Rate 77 mL/min (>60); Est Glom Filt Rate - Afr Amer 93 mL/min (>60); Estimated Creatinine Clearance 31.88 ml/min; Glucose 93 mg/dL (74-106); Magnesium 1.9 mg/dL (1.6-2.6); Potassium 3.7 mmol/L (3.5-5.1); Sodium Level 137 mmol/L (136-145)
[2023-03-08] MEDS: Amiodarone 200 MG Tablet PO (08:35)
[2023-03-08] MEDS: Calcium Carb/Vitamin D 1 TABLET Tablet PO (08:35)
[2023-03-08] MEDS: Digoxin 125 MCG Tablet 62.5 MCG PO (08:36)
[2023-03-08] MEDS: Spironolactone 50 MG Tablet PO (08:36)
[2023-03-08] MEDS: Multivitamin (Healthy Eyes) Capsule 1 CAP PO ×2 (08:36→22:38)
[2023-03-08] MEDS: APIXABAN 2.5 MG TABLET (WCH) PO ×2 (08:36→22:38)
[2023-03-08] MEDS: Metoprolol Tartrate 50 MG Tablet PO ×2 (08:38→22:40)
[2023-03-08] MEDS: 0.9% Saline Lock 10 ML Syringe IV ×3 (08:40→22:39)
[2023-03-08] MEDS: Multivitamins,Ther W-Minerals Tablet 1 TABLET PO (11:32)
[2023-03-08] MEDS: AcetaZOLAMIDE 500 MG/10 ML Vial 250 MG IV (11:58)
--- NOTE | 2023-03-08 16:08 | CASEMGMT ---
Social Work IDT met with patient and two dtrs for care plan meeting. Discussed patient's progress in PT/OT/ST/SN. Educated to Medicare benefit and copay coverage. Pt is progressing well, however, IDT is recommending pt is not living home alone d/t safety. SW educated to options of nonskilled and skilled HHC, local AL, or moving to [place] to live with dtr or in a [place]. Pt and family to discuss options and notify this worker. ELOS continued about 2 weeks. Nursing to begin scheduling f/u appts. SW will continue to follow to coordinate DC services. Sangeeta De La Fuente NAVAL ENGINEER BOAT MECHANIC
[2023-03-09 06:00] VITALS: BMI 23.1
[2023-03-09] MEDS: Menthol/Lanolin/Calamine/Znox 113 GM Tube 1 APPLIC TOPICAL ×3 (06:11→22:27)
[2023-03-09] MEDS: Acetaminophen 325 MG Tablet 650 MG PO (06:15)
[2023-03-09 06:34] VITALS: O2SAT 94
[2023-03-09] MEDS: Amiodarone 200 MG Tablet PO (08:17)
[2023-03-09] MEDS: Spironolactone 50 MG Tablet PO (08:18)
[2023-03-09] MEDS: APIXABAN 2.5 MG TABLET (WCH) PO ×2 (08:18→22:28)
[2023-03-09 08:19] VITALS: BP 115/52; PULSE 100
[2023-03-09] MEDS: Furosemide 40 MG Tablet PO (08:19)
[2023-03-09] MEDS: Digoxin 125 MCG Tablet 62.5 MCG PO (08:19)
[2023-03-09 08:20] VITALS: BP 115/52; PULSE 100
[2023-03-09] MEDS: Calcium Carb/Vitamin D 1 TABLET Tablet PO (08:20)
[2023-03-09] MEDS: Metoprolol Tartrate 50 MG Tablet PO ×2 (08:20→22:29)
[2023-03-09] MEDS: Multivitamin (Healthy Eyes) Capsule 1 CAP PO ×2 (08:20→22:27)
[2023-03-09] MEDS: 0.9% Saline Lock 10 ML Syringe IV ×2 (11:13→22:41)
--- NOTE | 2023-03-09 13:16 | MDS.RN ---
Information for the mds was obtained from review of the clinical record, interview of resident, staff, and direct observation of resident's care.
[2023-03-09 13:42] VITALS: BP 101/41; PULSE 89; RESP 14; TEMP 36.8; O2SAT 96
[2023-03-09] MEDS: Multivitamins,Ther W-Minerals Tablet 1 TABLET PO (14:13)
[2023-03-09 19:46] VITALS: RESP 17
[2023-03-09 22:29] VITALS: BP 130/75; PULSE 84
[2023-03-10 06:00] VITALS: BMI 22.6
[2023-03-10] MEDS: Menthol/Lanolin/Calamine/Znox 113 GM Tube 1 APPLIC TOPICAL ×3 (06:39→21:50)
[2023-03-10 06:44] VITALS: RESP 17
[2023-03-10 09:42] VITALS: BP 115/59; PULSE 88
[2023-03-10] MEDS: Multivitamins,Ther W-Minerals Tablet 1 TABLET PO (09:42)
[2023-03-10] MEDS: Metoprolol Tartrate 50 MG Tablet PO ×2 (09:42→21:51)
[2023-03-10 09:43] VITALS: PULSE 88
[2023-03-10] MEDS: Furosemide 40 MG Tablet PO (09:43)
[2023-03-10] MEDS: Amiodarone 200 MG Tablet PO (09:43)
[2023-03-10] MEDS: Digoxin 125 MCG Tablet 62.5 MCG PO (09:43)
[2023-03-10] MEDS: Multivitamin (Healthy Eyes) Capsule 1 CAP PO ×2 (09:43→21:51)
[2023-03-10] MEDS: APIXABAN 2.5 MG TABLET (WCH) PO ×2 (09:44→21:51)
[2023-03-10] MEDS: Calcium Carb/Vitamin D 1 TABLET Tablet PO (09:44)
[2023-03-10] MEDS: Spironolactone 50 MG Tablet PO (09:44)
[2023-03-10] MEDS: Acetaminophen 325 MG Tablet 650 MG PO ×2 (09:46→16:46)
--- NOTE | 2023-03-10 11:38 | CASEMGMT ---
Social Work BIMS () and PHQ-2 () completed for MDS assessment. Dtr and gdtr present in room. Pt granted permission to complete assessment with family present. SW inquired about DC plans as that contributed to pt's decreased mood not being able to return home alone at this time. Pt is still unsure but questioned the need for assistance. SW reiterated pt's medical and safety risks, but clarified pt is physically capable to perform tasks, someone needs to be with her for safety. SW provided several examples and pt expressed understanding. SW offered to provide resources for JOSE ANTONIO, Domitila and Monserrat if pt's goal is to return home vs a facility or [place]. Pt and dtr agreed. SW provided dtr with resources. Will continue to follow. ANYA ZhaoW
--- NOTE | 2023-03-10 13:26 | NURSING ---
Patient and family in room, updated that staff member tested covid positive.
[2023-03-10 15:48] VITALS: BP 112/64; PULSE 87; RESP 16; TEMP 36.7; O2SAT 98
[2023-03-10 21:51] VITALS: BP 103/67; PULSE 90
[2023-03-11 06:00] VITALS: BMI 22.6
[2023-03-11] MEDS: Acetaminophen 325 MG Tablet 650 MG PO ×2 (06:26→20:44)
[2023-03-11] MEDS: Amiodarone 200 MG Tablet PO (08:59)
[2023-03-11] MEDS: Spironolactone 50 MG Tablet PO (09:00)
[2023-03-11] MEDS: APIXABAN 2.5 MG TABLET (WCH) PO ×2 (09:00→20:43)
[2023-03-11] MEDS: Calcium Carb/Vitamin D 1 TABLET Tablet PO (09:00)
[2023-03-11 09:01] VITALS: BP 112/52; PULSE 90
[2023-03-11] MEDS: Digoxin 125 MCG Tablet 62.5 MCG PO (09:01)
[2023-03-11] MEDS: Multivitamin (Healthy Eyes) Capsule 1 CAP PO ×2 (09:01→20:43)
[2023-03-11 09:02] VITALS: BP 112/52; PULSE 90
[2023-03-11] MEDS: Furosemide 40 MG Tablet PO (09:02)
[2023-03-11] MEDS: Metoprolol Tartrate 50 MG Tablet PO ×2 (09:02→20:43)
[2023-03-11] MEDS: Menthol/Lanolin/Calamine/Znox 113 GM Tube 1 APPLIC TOPICAL ×3 (09:04→20:51)
[2023-03-11] MEDS: Multivitamins,Ther W-Minerals Tablet 1 TABLET PO (13:00)
[2023-03-11 14:29] VITALS: BP 103/59; PULSE 83; RESP 14; TEMP 36.7; O2SAT 96
--- NOTE | 2023-03-11 15:05 | NURSING ---
Checked oxygen levels after walking back from bathroom on 1L this AM and patient was at 99%. Attempted removal of oxygen for a couple of hours but oxygen dropped to 86% after another trip to bathroom and oxygen placed back on at 1L.
[2023-03-11] MEDS: 0.9% Saline Lock 10 ML Syringe IV (16:07)
[2023-03-11 20:43] VITALS: BP 117/68; PULSE 96
[2023-03-11 20:54] VITALS: PULSE 96; RESP 16; O2SAT 99
[2023-03-12] MEDS: Menthol/Lanolin/Calamine/Znox 113 GM Tube 1 APPLIC TOPICAL ×3 (06:11→21:34)
[2023-03-12] MEDS: Amiodarone 200 MG Tablet PO (09:03)
[2023-03-12] MEDS: Spironolactone 50 MG Tablet PO (09:04)
[2023-03-12] MEDS: Calcium Carb/Vitamin D 1 TABLET Tablet PO (09:04)
[2023-03-12 09:05] VITALS: PULSE 73
[2023-03-12] MEDS: Digoxin 125 MCG Tablet 62.5 MCG PO (09:05)
[2023-03-12] MEDS: Furosemide 40 MG Tablet PO (09:05)
[2023-03-12] MEDS: APIXABAN 2.5 MG TABLET (WCH) PO ×2 (09:06→21:31)
[2023-03-12] MEDS: Multivitamin (Healthy Eyes) Capsule 1 CAP PO ×2 (09:06→21:28)
[2023-03-12] MEDS: Acetaminophen 325 MG Tablet 650 MG PO ×2 (09:13→21:28)
[2023-03-12 11:36] VITALS: BP 123/74; PULSE 100
[2023-03-12] MEDS: Metoprolol Tartrate 50 MG Tablet PO ×2 (11:36→21:29)
[2023-03-12] MEDS: Multivitamins,Ther W-Minerals Tablet 1 TABLET PO (11:37)
[2023-03-12 16:00] VITALS: BP 108/57; PULSE 78; RESP 14; TEMP 36.7; O2SAT 96
[2023-03-12 21:29] VITALS: BP 124/79; PULSE 92
[2023-03-12 22:00] VITALS: PULSE 92; RESP 16; O2SAT 96
[2023-03-13] VITALS (9 sets, daily range): BP systolic 104–133; BP diastolic 64–89; PULSE 83–106; RESP 16; TEMP 36; O2SAT 95–98; BMI 23.3
[2023-03-13] MEDS: Menthol/Lanolin/Calamine/Znox 113 GM Tube 1 APPLIC TOPICAL ×3 (06:05→22:55)
[2023-03-13] MEDS: Calcium Carb/Vitamin D 1 TABLET Tablet PO (09:01)
[2023-03-13] MEDS: Amiodarone 200 MG Tablet PO (09:01)
[2023-03-13] MEDS: Spironolactone 50 MG Tablet PO (09:02)
[2023-03-13] MEDS: APIXABAN 2.5 MG TABLET (WCH) PO ×2 (09:02→22:54)
[2023-03-13] MEDS: Multivitamin (Healthy Eyes) Capsule 1 CAP PO ×2 (09:02→22:54)
[2023-03-13] MEDS: Digoxin 125 MCG Tablet 62.5 MCG PO (09:02)
[2023-03-13] MEDS: Acetaminophen 500 MG Tablet 1000 MG PO ×2 (09:03→22:52)
[2023-03-13] MEDS: Metoprolol Tartrate 50 MG Tablet PO ×2 (09:04→22:53)
[2023-03-13] MEDS: Furosemide 40 MG Tablet PO (09:04)
[2023-03-13] MEDS: Multivitamins,Ther W-Minerals Tablet 1 TABLET PO (14:08)
[2023-03-13] MEDS: 0.9% Saline Lock 10 ML Syringe IV (22:54)
[2023-03-14 06:00] VITALS: BMI 23.3
[2023-03-14] MEDS: Menthol/Lanolin/Calamine/Znox 113 GM Tube 1 APPLIC TOPICAL ×3 (06:04→21:58)
[2023-03-14] MEDS: Amiodarone 200 MG Tablet PO (08:38)
[2023-03-14] MEDS: APIXABAN 2.5 MG TABLET (WCH) PO ×2 (08:38→21:56)
[2023-03-14 08:39] VITALS: BP 100/62; PULSE 92
[2023-03-14] MEDS: Digoxin 125 MCG Tablet 62.5 MCG PO (08:39)
[2023-03-14] MEDS: Acetaminophen 500 MG Tablet 1000 MG PO ×2 (08:39→21:55)
[2023-03-14] MEDS: Spironolactone 50 MG Tablet PO (08:39)
[2023-03-14] MEDS: Multivitamin (Healthy Eyes) Capsule 1 CAP PO ×2 (08:39→21:56)
[2023-03-14] MEDS: Furosemide 40 MG Tablet PO (08:40)
[2023-03-14] MEDS: Calcium Carb/Vitamin D 1 TABLET Tablet PO (08:40)
--- NOTE | 2023-03-14 09:23 | MDS.RN ---
Information for the mds was obtained from review of the clinical record, interview of resident, staff, and direct observation of resident's care.
[2023-03-14 10:56] VITALS: BP 142/93; PULSE 68
[2023-03-14] MEDS: Metoprolol Tartrate 50 MG Tablet PO ×2 (10:56→21:56)
[2023-03-14] MEDS: 0.9% Saline Lock 10 ML Syringe IV (10:59)
[2023-03-14] MEDS: Multivitamins,Ther W-Minerals Tablet 1 TABLET PO (11:01)
[2023-03-14 11:02] VITALS: BP 142/93; PULSE 68; RESP 18; TEMP 36.6; O2SAT 95
[2023-03-14 11:03] VITALS: O2SAT 97
[2023-03-14 21:56] VITALS: BP 123/77; PULSE 103
[2023-03-14 22:00] VITALS: PULSE 103; RESP 16; O2SAT 94
[2023-03-15 06:00] VITALS: BMI 50.8
[2023-03-15] MEDS: Menthol/Lanolin/Calamine/Znox 113 GM Tube 1 APPLIC TOPICAL ×3 (06:46→20:55)
[2023-03-15 08:43] VITALS: BP 113/57; PULSE 98
[2023-03-15] MEDS: Metoprolol Tartrate 50 MG Tablet PO ×2 (08:43→20:58)
[2023-03-15] MEDS: Multivitamin (Healthy Eyes) Capsule 1 CAP PO ×2 (08:43→20:58)
[2023-03-15] MEDS: Digoxin 125 MCG Tablet 62.5 MCG PO (08:43)
[2023-03-15] MEDS: Acetaminophen 500 MG Tablet 1000 MG PO ×2 (08:44→20:59)
[2023-03-15] MEDS: Furosemide 40 MG Tablet PO (08:44)
[2023-03-15] MEDS: Spironolactone 50 MG Tablet PO (08:44)
[2023-03-15] MEDS: Amiodarone 200 MG Tablet PO (08:44)
[2023-03-15] MEDS: APIXABAN 2.5 MG TABLET (WCH) PO ×2 (08:44→20:58)
[2023-03-15] MEDS: Calcium Carb/Vitamin D 1 TABLET Tablet PO (08:44)
--- NOTE | 2023-03-15 09:12 | NURSING ---
Order faxed to [facility] for patient to be seen for lymphatic pumps. Appt already scheduled. Daughter and patient given appt date & time.
[2023-03-15] MEDS: Multivitamins,Ther W-Minerals Tablet 1 TABLET PO (11:20)
[2023-03-15 12:31] VITALS: O2SAT 93
[2023-03-15] MEDS: 0.9% Saline Lock 10 ML Syringe IV ×2 (13:32→20:53)
[2023-03-15 13:40] VITALS: PULSE 74; O2SAT 94
--- NOTE | 2023-03-15 16:02 | CASEMGMT ---
Social Work SW spoke with dtr to follow up on DC plans. Dtr stated the plan is for pt to DC home and dtr to remain in town for several more weeks to assist pt at home. Then pt/dtr to determine care needs and if pt can remain living alone in [place] or if pt will move with dtr to [place]. Dtr would like pt to attend follow up appts and receive sleep study. First appt is scheduled for 03/23, which dtr is requesting to be moved or if the lab work can be completed in TCU. SW to inquire to nursing. SW also requested nursing schedule sleep study, and that will determine DC date. Dtr agreeable to plan. SW will continue to follow for DC planning. Sangeeta De La Fuente, BEAMER OPERATOR MOHS SURGEON/GENERAL DERMATOLOGIST
[2023-03-15 20:58] VITALS: BP 134/81; PULSE 90
[2023-03-15 21:03] VITALS: BP 134/81; PULSE 90
[2023-03-16] VITALS (7 sets, daily range): BP systolic 119–127; BP diastolic 68–82; PULSE 75–95; RESP 16–18; TEMP 36.2; O2SAT 95–99
[2023-03-16] MEDS: Menthol/Lanolin/Calamine/Znox 113 GM Tube 1 APPLIC TOPICAL ×3 (06:46→21:28)
[2023-03-16] MEDS: Digoxin 125 MCG Tablet 62.5 MCG PO (09:35)
[2023-03-16] MEDS: Amiodarone 200 MG Tablet PO (09:35)
[2023-03-16] MEDS: APIXABAN 2.5 MG TABLET (WCH) PO ×2 (09:35→21:28)
[2023-03-16] MEDS: Calcium Carb/Vitamin D 1 TABLET Tablet PO (09:35)
[2023-03-16] MEDS: Furosemide 40 MG Tablet PO (09:37)
[2023-03-16] MEDS: Multivitamin (Healthy Eyes) Capsule 1 CAP PO ×2 (09:37→21:27)
[2023-03-16] MEDS: Spironolactone 50 MG Tablet PO (09:37)
[2023-03-16] MEDS: Acetaminophen 500 MG Tablet 1000 MG PO ×2 (09:37→21:28)
[2023-03-16] MEDS: Metoprolol Tartrate 50 MG Tablet PO ×2 (09:45→21:26)
[2023-03-16] MEDS: Multivitamins,Ther W-Minerals Tablet 1 TABLET PO (12:05)
[2023-03-16] MEDS: 0.9% Saline Lock 10 ML Syringe IV (16:48)
[2023-03-17] MEDS: Menthol/Lanolin/Calamine/Znox 113 GM Tube 1 APPLIC TOPICAL ×3 (06:00→21:25)
[2023-03-17 06:51] VITALS: BMI 23.0
[2023-03-17 08:49] VITALS: BP 105/65; PULSE 106
[2023-03-17] MEDS: Metoprolol Tartrate 50 MG Tablet PO ×2 (08:49→21:31)
[2023-03-17] MEDS: Furosemide 40 MG Tablet PO (08:53)
[2023-03-17 08:54] VITALS: BP 105/65; PULSE 106
[2023-03-17] MEDS: Amiodarone 200 MG Tablet PO (08:54)
[2023-03-17] MEDS: Acetaminophen 500 MG Tablet 1000 MG PO ×2 (08:54→21:23)
[2023-03-17] MEDS: Digoxin 125 MCG Tablet 62.5 MCG PO (08:54)
[2023-03-17] MEDS: Spironolactone 50 MG Tablet PO (08:54)
[2023-03-17] MEDS: Multivitamin (Healthy Eyes) Capsule 1 CAP PO ×2 (08:54→21:23)
[2023-03-17] MEDS: APIXABAN 2.5 MG TABLET (WCH) PO ×2 (08:54→21:24)
[2023-03-17] MEDS: Calcium Carb/Vitamin D 1 TABLET Tablet PO (08:54)
[2023-03-17 10:00] VITALS: PULSE 94; RESP 16; O2SAT 97
[2023-03-17] MEDS: Multivitamins,Ther W-Minerals Tablet 1 TABLET PO (11:07)
--- NOTE | 2023-03-17 15:32 | PCM.DC.SUM ---
Providers Date of Admission: 02/26/23 Primary Care Physician: Dr. Alonso Marques, DO Consultations 02/27/23 13:50 Consult: Hospice / Palliative Care Routine Consulting Provider: [facility] Reason for Consult: palliative care for severe pulmonary HTN with diastolic CHF EMERGENT Consult: No Notified: Yes Date Notified: 02/27/23 Time Notified: 13:52 Method of Notification: Verbal 02/28/23 15:12 Consult: Gastroenterology Routine Consulting Provider: [facility] Reason for Consult: esophageal retention with retrograde flow of barium and ASP PNA EMERGENT Consult: No Notified: Yes Date Notified: 02/28/23 Time Notified: 15:12 Method of Notification: Text Reason For Visit: AECHF Diagnosis Discharge Diagnosis (1) Debility: Status: Acute Code(s): R53.81 - Other malaise (2) Dehydration: Status: Acute Code(s): E86.0 - Dehydration (3) Metabolic alkalosis with respiratory acidosis: Status: Acute Code(s): E87.4 - Mixed disorder of acid-base balance (4) Severe pulmonary hypertension: Status: Acute Code(s): I27.20 - Pulmonary hypertension, unspecified (5) Grade III diastolic dysfunction: Status: Acute Code(s): I51.89 - Other ill-defined heart diseases (6) 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: Status: Acute Code(s): I89.0 - Lymphedema, not elsewhere classified (7) Atrial fibrillation: Status: Acute Code(s): I48.91 - Unspecified atrial fibrillation (8) Exercise hypoxemia: Status: Acute Code(s): R09.02 - Hypoxemia (9) Nocturnal hypoxemia: Status: Acute Code(s): G47.34 - Idiopathic sleep related nonobstructive alveolar hypoventilation Medications at Discharge Home Medications vitamins A,C,B-qzwc-ohkpvf 4,296 mcg-226 mg-90 mg capsule (ICaps AREDS) 1 cap PO BID EYE HEALTH 03/28/22 multivitamin,tx-minerals 1 tab PO DAILY SUPPLEMENT 04/13/22 amiodarone 200 mg tablet 200 mg PO DAILY AFIB #90 tabs 04/15/22 metoprolol tartrate 50 mg tablet 50 mg PO BID BLOOD PRESSURE #180 tabs 04/15/22 calcium carb 300 mg-D3 20 mcg-mag ox 25 mg-microscopist 0.5 ha-mwvg-gzub tablet (Caltrate-D3 Plus Minerals) 1 tab PO DAILY SUPPLEMENT 06/14/22 apixaban 2.5 mg tablet 2.5 mg PO BID BLOOD THINNER #60 tabs 09/09/22 furosemide 40 mg tablet (Lasix) 40 mg PO BID FLUID #360 tabs 01/31/23 spironolactone 50 mg tablet 50 mg PO DAILY FLUID #60 tabs 02/06/23 melatonin 3 mg tablet 3 mg PO QHS PRN PRN Insomnia #0 tabs 02/26/23 menthol 0.44 %-zinc oxide 20.6 % topical ointment (Calmoseptine) 1 applic topical TID skin irritation #0 grams 02/26/23 Sucralfate [Carafate] 1 g PO 1HR_ACHS 30 days #120 TABLETS 03/17/23 acetaminophen 325 mg tablet 650 mg (2 x 325 mg) PO Q6H PRN PRN Pain 1-10 Or Fever #0 tabs 03/17/23 acetaminophen 500 mg tablet 1,000 mg (2 x 500 mg) PO 0800,2200 #0 tabs 03/17/23 digoxin 125 mcg (0.125 mg) tablet 62.5 mcg (1/2 x 125 mcg (0.125 mg)) PO DAILY 30 days #15 tabs 03/17/23 Hospital Course Operations None Procedures EGD Summary of Care Provided Minutes Spent on Discharge: 35 Hospital Course: 87 year old female with below past medical history hospitalized for acute respiratory failure with hypoxia requiring intubation, heart failure preserved ejection fraction, right pleural effusion, atrial fibrillation, admitted to TCU with debility, here for rehabilitation, strengthening, prior to discharge home. 03/01/2023 Friend EGD esophageal stenosis, dilated. Duodenitis. Discharge to sleep lab 03/23/2023, then home. Daughter will stay with her, then moving to [place]. [facility] PT/OT/ST/SN. Night time oxygen, Palliative services. Oxygen documentation: Patient requires 2 LPM of oxygen via nasal cannula due to diagnosis of congestive heart failure; requires a concentrator and portable O2 tanks to allow patient to be mobile in the home and the community; O2 will improve the patient's condition in the home setting. Physical Exam Const alert General Appearance: cooperative HEENT normocephalic Eyes PERRL and EOMs intact bilaterally Neck supple, no JVD and no carotid bruits Resp normal respiratory effort, normal air movement and clear to auscultation bilaterally Cardio regular rate and regular rhythm GI normal to inspection, nondistended, normoactive bowel sounds, non-tender and non-distended Extremity normal capillary refill General Extremity: Negative for edema Skin no rashes or lesions noted General Skin Exam: no breakdown Psych affect normal Appearance: appropriate Medical Records Data Medical Nutrition Assessment Dietitian: Malnutrition Criteria Met Start: 02/26/23 15:13 Freq: Status: Active Protocol: Document 03/01/23 15:33 SLA (Rec: 03/01/23 15:33 SLA Desktop) Nutrition Malnutrition Evidence of Malnutrition Exists Yes Malnutrition (severe): Acute Illness/Injury Evidenced By Suboptimal Energy Intake ( Severe),Weight Loss (Severe), Physical Changes (Severe) Intake Problem Increased Nutrient Needs (specify) Status Inactive Problem Clinical Problem Acute Disease or Injury Related Malnutrition Etiology related to decreased ability to consume sufficient energy to meet estimated nutrient needs Signs/Symptoms as evidenced by significant weight loss of 4%, or 5lb, since 02/23/23 weight of 122lb per EMR wt hx, variable po intake at meals since adm and moderate to severe muscle and fat wasting per NFPA (temples, buccal, clavicles, etc.). Status Active Problem Recommendation Dietitian Recommendations/Changes Continue with Regular diet with consistencies per ELECTRONIC SCALE ASSEMBLER AND TESTER Continue Ensure Plus High Protein 120mL 3x/day with medpass Consider appetite stimulant to help encourage increased po intake Will continue to follow the resident, monitor oral intakes and modify interventions as needed. Weight / BMI Weight Weight: 51.795 kg Body Mass Index (BMI) 23.0 ABG / Lab / Microbiology Data 03/07/23 16:10 03/08/23 05:45 Microbiology: Microbiology 03/16/23 05:35 Nasal Secretion SARS-CoV-2 Antigen (Rapid) - Final 03/13/23 06:35 Nasal Secretion SARS-CoV-2 Antigen (Rapid) - Final 03/10/23 05:03 Nasal Secretion SARS-CoV-2 Antigen (Rapid) - Final 03/07/23 06:38 Nasal Secretion SARS-CoV-2 Antigen (Rapid) - Final 03/01/23 13:00 Nasal Secretion SARS-CoV-2 Antigen (Rapid) - Final D/C Instructions Discharge Diet: No restrictions Discharge Activity: Return to Normal Activity, May Shower and Use Walker Weight Bearing Status: Weight bearing as tolerated Call your doctor if you observe: Fever of 101 or Higher, Inability to urinate, Inability to have a bowel movement, Shortness of breath, Dizziness, Fainting spells, Swelling in the ankles, Chest pain and Uncontrolled pain Additional Instructions: Discharge to sleep lab 03/23/2023, then home. Daughter will stay with her, then moving to [place]. [facility] PT/OT/ST/SN. Night time oxygen, Palliative services. Please Follow Up With: Sangeeta Catalan DATA MANAGEMENT ENGINEER, DATA MANAGEMENT ENGINEER-C When: As scheduled. Meaningful Use Info Meaningful Use Diagnoses (Choose all that apply): None applicable Discharge Plan Admission Admit Date/Time: 02/26/23 10:05 Primary Reason for Your Visit: Debility. Attending Provider: Trav South Chi Primary Care Provider: Alonso Marques Consulting Providers: Jose Zamora; Linda Florian; Alexia Archuleta; Tayler Reid DATA MANAGEMENT ENGINEER Instructions Additional Instructions / Restrictions: Discharge to sleep lab 03/23/2023, then home. Daughter will stay with her, then moving to [place]. [facility] PT/OT/ST/SN. Night time oxygen, Palliative services. Discharge Orders/Prescriptions Prescriptions: New acetaminophen 325 mg Tablet 650 mg PO Q6H PRN PRN (Reason: Pain 1-10 Or Fever) Qty: 0 0RF acetaminophen 500 mg Tablet 1,000 mg PO 0800,2200 Qty: 0 0RF digoxin 125 mcg (0.125 mg) Tablet 62.5 mcg PO DAILY 30 Days Qty: 15 0RF Sucralfate [Carafate] 1 g tablet 1 g PO 1HR_ACHS 30 Days Qty: 120 0RF Continued amiodarone 200 mg tablet 200 mg PO DAILY Qty: 90 3RF metoprolol tartrate 50 mg tablet 50 mg PO BID Qty: 180 3RF multivitamin,tx-minerals Tablet 1 tab PO DAILY apixaban 2.5 mg tablet 2.5 mg PO BID Qty: 60 11RF spironolactone 50 mg tablet 50 mg PO DAILY Qty: 60 3RF ICaps AREDS [id number] Capsule 1 cap PO BID Caltrate-D3 Plus Minerals 300 mg-800 unit -25 mg-0.5 mg tablet 1 tab PO DAILY melatonin 3 mg Tablet 3 mg PO QHS PRN PRN (Reason: Insomnia) Qty: 0 0RF menthol-zinc oxide [Calmoseptine] 0.44-20.6 % Ointment 1 applic topical TID Qty: 0 0RF Protocol: *Topical Application Instructions APPLICATION INSTRUCTIONS: apply to affected areas furosemide [Lasix] 40 mg tablet 40 mg PO BID Qty: 360 3RF Discontinued acetaminophen 650 mg/20.3 mL Solution 650 mg PO Q6H PRN PRN (Reason: Pain 1-10 Or Fever) Qty: 0 0RF levofloxacin 500 mg tablet 500 mg PO DAILY Qty: 2 0RF Patient Comments: levoquin po daily x2 more doses Referrals / Follow Up: [facility] [Outside] - 04/03/23 10:30 am (For Lymphedema pumps) Alonso Marques DO [Primary Care Provider] - Kasey Narvaez NP, DATA MANAGEMENT ENGINEER-C [Med Staff - Adv Practice Prof] - 04/10/23 8:45 am Sangeeta Catalan NP, DATA MANAGEMENT ENGINEER-C [Non-Staff -Ordering Privileges] - 04/07/23 11:00 am Disposition Disposition (needs filled in before D/C Order can be placed): Home Health Service
[2023-03-17 16:00] VITALS: BP 122/79; PULSE 84; RESP 16; TEMP 36.8; O2SAT 98
--- NOTE | 2023-03-17 16:38 | CASEMGMT ---
Social Work Dtr presented to this worker's office to inquire about DC plans. SW reiterated it is dependent upon getting lab work/[facility] appt on 03/23 rescheduled, etc, per dtrs request. SW spoke with Sleep special projects manager and there is availability for pt 03/23 or 03/24. Dtr stated she would just prefer to cancel the [facility] appt or have lab work done on TCU, and have sleep study 03/23. SW agreed to plan for DC and confirmed O2 use through [employer], [facility] PT/OT/ST/SN. Dtr agreed and will transport after sleep study. IDT updated. SW phoned referral to [facility] PT/OT/ST/SN and [employer] for O2. Plan: DC to sleep study 03/23, then home with dtr assist 03/24, [facility] PT/OT/ST/SN, nighttime O2 ANYA Zhao
[2023-03-17 21:31] VITALS: BP 106/59; PULSE 94
[2023-03-18 04:21] VITALS: BMI 22.8
[2023-03-18] MEDS: Menthol/Lanolin/Calamine/Znox 113 GM Tube 1 APPLIC TOPICAL ×3 (06:54→23:42)
[2023-03-18 07:21] VITALS: PULSE 65; RESP 18; O2SAT 96
[2023-03-18 08:13] VITALS: BP 110/64; PULSE 80; RESP 17; TEMP 36.8; O2SAT 97
[2023-03-18] MEDS: Calcium Carb/Vitamin D 1 TABLET Tablet PO (08:16)
[2023-03-18] MEDS: Amiodarone 200 MG Tablet PO (08:16)
[2023-03-18] MEDS: Spironolactone 50 MG Tablet PO (08:17)
[2023-03-18] MEDS: Acetaminophen 500 MG Tablet 1000 MG PO ×2 (08:17→23:35)
[2023-03-18 08:18] VITALS: PULSE 80
[2023-03-18] MEDS: APIXABAN 2.5 MG TABLET (WCH) PO ×2 (08:18→23:36)
[2023-03-18] MEDS: Multivitamin (Healthy Eyes) Capsule 1 CAP PO ×2 (08:18→23:36)
[2023-03-18] MEDS: Digoxin 125 MCG Tablet 62.5 MCG PO (08:18)
[2023-03-18 08:19] VITALS: PULSE 80
[2023-03-18] MEDS: Furosemide 40 MG Tablet PO (08:19)
[2023-03-18] MEDS: Metoprolol Tartrate 50 MG Tablet PO ×2 (08:19→23:36)
[2023-03-18 08:37] VITALS: O2SAT 96
[2023-03-18] MEDS: Multivitamins,Ther W-Minerals Tablet 1 TABLET PO (16:20)
[2023-03-18 23:36] VITALS: BP 107/72; PULSE 92
[2023-03-19 06:00] VITALS: BMI 23.3
[2023-03-19] MEDS: Menthol/Lanolin/Calamine/Znox 113 GM Tube 1 APPLIC TOPICAL ×3 (06:33→21:05)
[2023-03-19] MEDS: Acetaminophen 325 MG Tablet 650 MG PO (06:39)
[2023-03-19 06:55] VITALS: O2SAT 98
[2023-03-19 08:38] VITALS: BP 90/55; PULSE 98; RESP 18; TEMP 36.9; O2SAT 92
--- NOTE | 2023-03-19 08:40 | NURSING ---
Patient was wean this morning from O2 by RT. Patient's PO did drop to 88-90% on RA when ambulating. Patient was able to recover with rest within 1-2 mins after exertion and PO increased to 92% when on RA. Patient denies any shortness of breath. Will continue to monitor PO for O2 needs.
[2023-03-19] MEDS: APIXABAN 2.5 MG TABLET (WCH) PO ×2 (08:45→21:04)
[2023-03-19] MEDS: Calcium Carb/Vitamin D 1 TABLET Tablet PO (08:45)
[2023-03-19] MEDS: Multivitamin (Healthy Eyes) Capsule 1 CAP PO ×2 (08:45→21:04)
[2023-03-19 10:05] VITALS: BP 125/70; PULSE 103
[2023-03-19 10:08] VITALS: PULSE 103
[2023-03-19] MEDS: Digoxin 125 MCG Tablet 62.5 MCG PO (10:08)
[2023-03-19] MEDS: Spironolactone 50 MG Tablet PO (10:08)
[2023-03-19] MEDS: Amiodarone 200 MG Tablet PO (10:08)
[2023-03-19] MEDS: Furosemide 40 MG Tablet PO (10:08)
[2023-03-19] MEDS: Metoprolol Tartrate 50 MG Tablet PO ×2 (10:08→21:04)
--- NOTE | 2023-03-19 11:18 | NURSING ---
Call placed to Dr. South. Nurse notes patient has no recent lab draw. Patient also taking Digoxin. VORB for AM labs: CBC w/ Diff, BMP, and digoxin level.
[2023-03-19] MEDS: Multivitamins,Ther W-Minerals Tablet 1 TABLET PO (17:30)
[2023-03-19 21:04] VITALS: BP 114/64; PULSE 91
[2023-03-19] MEDS: Acetaminophen 500 MG Tablet 1000 MG PO (21:04)
[2023-03-20] VITALS (7 sets, daily range): BP systolic 111–136; BP diastolic 60–80; PULSE 71–94; RESP 16–17; TEMP 36.6; O2SAT 97–99; BMI 23.3
[2023-03-20 05:38] LABS: Absolute Neutrophil Count 3.2 X10^3/uL (2.0-7.7); Basophil# 0.04 X10^3/uL; Basophil% 0.8 % (0-1); Eosinophil# 0.28 X10^3/uL; Eosinophils% 5.4 % (0-5); Hematocrit 34.2 % (37-47); Hemoglobin 11.1 g/dL (12.0-15.0); Lymphocyte % 19.3 % (19-41); Mean Corp Hgb Conc 32.5 g/dL (32-36); Mean Corpuscular Hgb 32.1 pg (27.0-32.0); Mean Corpuscular Volume 98.8 fL (81-99); Mean Platelet Vol. 8.6 fl (6.2-12.0); Monocyte% 11.6 % (0-10); NRBC Flagged by Analyzer 0 % (0-5); Neutrophil # 3.24 X10^3/uL (2.7-7.7); Neutrophil % 62.7 % (47-70); Platelet Count 163 K/mm3 (150-450); RBC Distribution Width CV 16.4 % (11.6-14.6); RBC Distribution Width SD 59.3 fl (35.1-43.9); Red Blood Count 3.46 M/mm3 (4.2-5.4); White Blood Count 5.2 K/mm3 (4.4-11.0)
[2023-03-20] MEDS: Menthol/Lanolin/Calamine/Znox 113 GM Tube 1 APPLIC TOPICAL ×3 (05:54→21:46)
[2023-03-20 06:01] LABS: Anion Gap 4 (5-15); BUN 18 mg/dL (7-18); BUN/Creat Ratio 22.1 RATIO (10-20); Chloride 96 mmol/L (98-107); Creatinine, Serum 0.82 mg/dL (0.55-1.02); EST Glomerular Filtration Rate 70 mL/min (>60); Est Glom Filt Rate - Afr Amer 85 mL/min (>60); Estimated Creatinine Clearance 34.06 ml/min; Glucose 95 mg/dL (74-106); Potassium 3.8 mmol/L (3.5-5.1); Sodium Level 137 mmol/L (136-145)
[2023-03-20 06:20] LABS: Digoxin Level 1.01 ng/mL (0.80-2.00)
[2023-03-20] MEDS: APIXABAN 2.5 MG TABLET (WCH) PO ×2 (08:59→21:45)
[2023-03-20] MEDS: Multivitamin (Healthy Eyes) Capsule 1 CAP PO ×2 (08:59→21:45)
[2023-03-20] MEDS: Spironolactone 50 MG Tablet PO (08:59)
[2023-03-20] MEDS: Furosemide 40 MG Tablet PO (08:59)
[2023-03-20] MEDS: Digoxin 125 MCG Tablet 62.5 MCG PO (08:59)
[2023-03-20] MEDS: Calcium Carb/Vitamin D 1 TABLET Tablet PO (09:00)
[2023-03-20] MEDS: Acetaminophen 500 MG Tablet 1000 MG PO ×2 (09:00→21:46)
[2023-03-20] MEDS: Metoprolol Tartrate 50 MG Tablet PO ×2 (09:00→21:45)
[2023-03-20] MEDS: Amiodarone 200 MG Tablet PO (09:00)
[2023-03-20] MEDS: Multivitamins,Ther W-Minerals Tablet 1 TABLET PO (11:19)
--- NOTE | 2023-03-20 12:10 | NURSING ---
Mariely from sleep lab calls at this time to report that bed held for patient for 03/23/23 at 1999 awaiting written order from DR. South.
[2023-03-21] VITALS (9 sets, daily range): BP systolic 130–150; BP diastolic 66–85; PULSE 83–101; RESP 16–18; TEMP 36.3; O2SAT 92–99; BMI 23.2
[2023-03-21] MEDS: Menthol/Lanolin/Calamine/Znox 113 GM Tube 1 APPLIC TOPICAL ×3 (06:17→21:36)
[2023-03-21] MEDS: Acetaminophen 500 MG Tablet 1000 MG PO ×2 (08:09→21:36)
[2023-03-21] MEDS: APIXABAN 2.5 MG TABLET (WCH) PO ×2 (08:10→21:36)
[2023-03-21] MEDS: Spironolactone 50 MG Tablet PO (08:10)
[2023-03-21] MEDS: Furosemide 40 MG Tablet PO (08:10)
[2023-03-21] MEDS: Digoxin 125 MCG Tablet 62.5 MCG PO (08:10)
[2023-03-21] MEDS: Metoprolol Tartrate 50 MG Tablet PO ×2 (08:11→21:36)
[2023-03-21] MEDS: Multivitamin (Healthy Eyes) Capsule 1 CAP PO ×2 (08:11→21:36)
[2023-03-21] MEDS: Amiodarone 200 MG Tablet PO (08:11)
[2023-03-21] MEDS: Calcium Carb/Vitamin D 1 TABLET Tablet PO (08:11)
[2023-03-21] MEDS: Multivitamins,Ther W-Minerals Tablet 1 TABLET PO (11:41)
[2023-03-22] MEDS: Menthol/Lanolin/Calamine/Znox 113 GM Tube 1 APPLIC TOPICAL ×3 (06:37→22:35)
[2023-03-22 07:05] VITALS: O2SAT 96
[2023-03-22 08:06] LABS: Bacteria 0 SEEN /hpf (None Seen); Mucous, Urine 0 SEEN /hpf (<or=2+); Red Blood Cells-Urine 0 SEEN /hpf (0-5); Squamous Epithelial Cells - UA 0 SEEN /hpf (5-10); White Blood Cells 0 SEEN /hpf (0-5)
[2023-03-22 08:11] LABS: Color, Urine Yellow (Yellow); Glucose, Dipstick Normal (Normal); Ketone-Dipstick Negative (Negative); Leukocyte Esterase-Dipstick Negative /ul (Negative); Nitrite-Dipstick Negative (Negative); Occult Blood-Urine 25 /ul (Negative); Protein-Dipstick 30 mg/dl (Negative); Specific Gravity, Urine 1.015 (1.002-1.030); Urine Bilirubin Dipstick Negative (Negative); Urine Clarity Clear (Clear); Urine Urobilinogen Normal (Normal)
[2023-03-22 09:38] VITALS: BP 126/90; PULSE 91
[2023-03-22] MEDS: Digoxin 125 MCG Tablet 62.5 MCG PO (09:38)
[2023-03-22] MEDS: Metoprolol Tartrate 50 MG Tablet PO ×2 (09:38→22:32)
[2023-03-22] MEDS: Multivitamin (Healthy Eyes) Capsule 1 CAP PO ×2 (09:38→22:33)
[2023-03-22] MEDS: Furosemide 40 MG Tablet PO (09:38)
[2023-03-22] MEDS: Calcium Carb/Vitamin D 1 TABLET Tablet PO (09:38)
[2023-03-22] MEDS: Amiodarone 200 MG Tablet PO (09:38)
[2023-03-22] MEDS: Spironolactone 50 MG Tablet PO (09:38)
[2023-03-22] MEDS: Acetaminophen 500 MG Tablet 1000 MG PO ×2 (09:38→22:33)
[2023-03-22] MEDS: APIXABAN 2.5 MG TABLET (WCH) PO ×2 (09:39→22:32)
[2023-03-22 09:43] VITALS: BP 126/90; PULSE 91; O2SAT 100
[2023-03-22] MEDS: Multivitamins,Ther W-Minerals Tablet 1 TABLET PO (11:31)
[2023-03-22 14:52] LABS: Calcium Oxalate Crystals Ur 2+ /hpf (<or=2+)
[2023-03-22 15:18] VITALS: BP 127/82; PULSE 97; RESP 16; TEMP 36.2; O2SAT 98
[2023-03-22 15:51] VITALS: O2SAT 99
[2023-03-22 22:32] VITALS: BP 139/88; PULSE 90
[2023-03-23] VITALS (7 sets, daily range): BP systolic 115–132; BP diastolic 64–74; PULSE 93–98; RESP 17–20; TEMP 36.2; O2SAT 82–99; BMI 23.3
[2023-03-23] MEDS: Menthol/Lanolin/Calamine/Znox 113 GM Tube 1 APPLIC TOPICAL ×2 (06:06→15:10)
[2023-03-23] MEDS: Amiodarone 200 MG Tablet PO (08:04)
[2023-03-23] MEDS: Calcium Carb/Vitamin D 1 TABLET Tablet PO (08:04)
[2023-03-23] MEDS: Spironolactone 50 MG Tablet PO (08:05)
[2023-03-23] MEDS: Acetaminophen 500 MG Tablet 1000 MG PO ×2 (08:05→18:42)
[2023-03-23] MEDS: Multivitamin (Healthy Eyes) Capsule 1 CAP PO ×2 (08:06→18:41)
[2023-03-23] MEDS: APIXABAN 2.5 MG TABLET (WCH) PO ×2 (08:06→18:41)
[2023-03-23] MEDS: Digoxin 125 MCG Tablet 62.5 MCG PO (08:06)
[2023-03-23] MEDS: Furosemide 40 MG Tablet PO (08:07)
[2023-03-23] MEDS: Metoprolol Tartrate 50 MG Tablet PO ×2 (08:07→18:41)
[2023-03-23] MEDS: Multivitamins,Ther W-Minerals Tablet 1 TABLET PO (12:39)
--- NOTE | 2023-03-23 13:14 | CASEMGMT ---
Social Work BIMS () and PHQ-2 () completed for MDS assessment. Sangeeta De La Fuente MSW RUNWAY MODEL
== END 2023-03-23 19:30 | disposition home health service (06) | DRG 291 ==
PROVIDERS: Internal Medicine; Admitting Provider Family Medicine Geriatric Medicine; PCP Family Medicine; Visit Provider Family Medicine Geriatric Medicine
DX: I11.0 Hypertensive heart disease with heart failure (principal); I50.33 Acute on chronic diastolic (congestive) heart failure; J69.0 Pneumonitis due to inhalation of food and vomit; E87.3 Alkalosis; E87.4 Mixed disorder of acid-base balance; L89.109 Pressure ulcer of unspecified part of back, unspecified stage; G47.34 Idiopathic sleep related nonobstructive alveolar hypoventilation; I27.20 Pulmonary hypertension, unspecified; I48.0 Paroxysmal atrial fibrillation; E78.00 Pure hypercholesterolemia, unspecified; K29.80 Duodenitis without bleeding; I89.0 Lymphedema, not elsewhere classified; Z79.01 Long term (current) use of anticoagulants; R13.12 Dysphagia, oropharyngeal phase; Z79.899 Other long term (current) drug therapy
CPT/HCPCS: 36415; 36600; 80048; 80162; 81001; 82803; 83735; 84100; 85014; 85018; 85025; 85027; 87077; 87086; 87088; 87186; 87811; 92507; 92523; 92526; 92610; 94762; 97110; 97112; 97116; 97129; 97130; 97162; 97166; 97530; 97535; 97802; A4216

== ENCOUNTER 2023-03-01 10:28 | Day surgery (SDC) | payer MEDICARE, BC, SELFPAY ==
[2023-03-01 10:50] VITALS: BP 109/74; PULSE 97; RESP 14; TEMP 36.6; O2SAT 98; BMI 23.6
--- NOTE | 2023-03-01 11:00 | HP.PCM_ITS ---
History and Physical Date of Admission: 03/01/23 HPI Narrative Reason for Consultation: Abnormal swallowing study HPI Narrative: GEENA FREEMAN, is a 87-year-old female history of A-fib, rheumatic fever, hypertension, CHF who presented to [place] ED 02/14/[address] Duran's office due to increasing bilateral lower extremity edema. Her Lasix dose had been increased and she was placed on spironolactone with no significant improvement. She had echo March 29, 2022 with EF of 50% and stage III diastolic dysfunction with PASP of 78. She was found to be in acute heart failure with a BNP of greater than 3300 and was hypoxic with a sat of 85% on room air ABG and chest x- ray consistent with fluid overload. She was given IV Lasix and started on a nitro drip. Hospitalist contacted for admission. Pt evaluated at bedside with family member present. Reportedly she has had increasing shortness of breath on exertion for couple of weeks with increasing leg swelling and weight gain however this past week her legs have been so bad that they have been weeping fluid and even causing her bed and clothing to become wet and she is now short of breath with even minimal exertion and this has been refractory to outpatient management. In the ED she reports after nitro drip started and she was given Lasix the breathing is starting to improve. Denies any chest pain or cough, no fevers or chills, does endorse her weight is up to 120 pounds from about 100 pounds despite not eating very well. She has no other focal complaints. Confirmed that she is full code. She will underwent swallowing study because of the suspicion of aspiration. It showed abnormal oropharyngeal motility with pharyngeal residue's retained in the oropharynx secondary to retroflexed barium that tracked backward from the upper esophageal sphincter. 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 I was asked to see the patient due to the fact that during the esophageal phase of the swallowing study she had lack of persistent peristalsis . [facility] Medical History (Updated 02/28/23 @ 16:[address] Montes De Oca Friend, ) Anticoagulant long-term use Atrial fibrillation Atrial flutter Bilateral pneumonia Edema Grade III diastolic dysfunction History of cardioversion Hypercholesteremia Hypertension Kidney disease Macular degeneration Myocardial infarct Non-smoker Osteoporosis Palpitations Paroxysmal atrial fibrillation Rheumatic fever Rotator cuff arthropathy SOB (shortness of breath) Home Medications vitamins A,C,Q-qfre-fyebpk 4,296 mcg-226 mg-90 mg capsule (ICaps AREDS) 1 cap PO BID EYE HEALTH 03/28/22 [History Last Taken 02/26/23] multivitamin,tx-minerals 1 tab PO DAILY SUPPLEMENT 04/13/22 [History Last Taken 02/26/23] amiodarone 200 mg tablet 200 mg PO DAILY AFIB #90 tabs 04/15/22 [Rx Last Taken 02/26/23] metoprolol tartrate 50 mg tablet 50 mg PO BID BLOOD PRESSURE #180 tabs 04/15/22 [Rx Last Taken 02/26/23] calcium carb 300 mg-D3 20 mcg-mag ox 25 mg-manager copy 0.5 pd-eyov-ahwj tablet (Caltrate-D3 Plus Minerals) 1 tab PO DAILY SUPPLEMENT 06/14/22 [History Last Taken 02/26/23] apixaban 2.5 mg tablet 2.5 mg PO BID BLOOD THINNER #60 tabs 09/09/22 [Rx Last Taken 02/26/23] furosemide 40 mg tablet (Lasix) 40 mg PO BID FLUID #360 tabs 01/31/23 [Rx Last Taken 02/26/23] spironolactone 50 mg tablet 50 mg PO DAILY FLUID #60 tabs 02/06/23 [Rx Last Taken 02/26/23] acetaminophen 650 mg/20.3 mL oral solution 650 mg (20.3 mL) PO Q6H PRN PRN Pain 1-10 Or Fever #0 mL 02/26/23 [Rx Last Taken 02/25/23] levofloxacin 500 mg tablet 500 mg PO DAILY pneumonia #2 tabs 02/26/23 [Rx Last Taken 02/26/23] melatonin 3 mg tablet 3 mg PO QHS PRN PRN Insomnia #0 tabs 02/26/23 [Rx Last Taken Unknown] menthol 0.44 %-zinc oxide 20.6 % topical ointment (Calmoseptine) 1 applic topical TID skin irritation #0 grams 02/26/23 [Rx Last Taken 02/26/23] Allergy/AdvReac Type Severity Reaction Status Date / Time Sulfa (Sulfonamide Allergy Angioedema Verified 02/14/23 14:32 Antibiotics) Family History Sister Asthma Breast cancer Diabetes Non-Hodgkin lymphomaMother Myocardial infarctionBrother Myocardial infarction Surgical History (Updated 02/27/23 @ 14:[address] Lashawn Sanches DO) History of appendectomy Social History household members: none Smoking Status: Never smoker alcohol intake: never substance use type: does not use caffeine: Yes (occasionally) ROS Constitutional Constitutional: Reports change in weight, fatigue and weakness; Denies headache(s) or night sweats Eyes Eyes: Reports systems reviewed and no addt'l complaints, except as documented ENT HEENT: Reports dry mouth; Denies disequillibrium or loss taste/smell Cardiovascular Cardiovascular: Reports cold extremities, leg edema and weakness in extremities; Denies chest pain, clubbing, lightheadedness, nausea or tachypnea Respiratory/Chest Respiratory/Chest: Reports hoarseness and shortness of breath with exertion; Denies change in mental status, cough or restlessness Gastrointestinal Gastrointestinal: Reports chewing difficulty and diarrhea; Denies abdominal pain, bloating or constipation Genitourinary Genitourinary: Denies burning urination or difficulty urinating Musculoskeletal Musculoskeletal: Reports arthralgias and stiffness Integumentary Integumentary: Reports dry skin, sores and wounds Neurologic Neurologic: Reports systems reviewed and no addt'l complaints, except as documented Psychiatric Psychiatric: Reports systems reviewed and no addt'l complaints, except as documented Endocrine Endocrinology: Reports deepening of the voice and palpitations; Denies cold intolerance Allergic/Immunologic Allergic/Immunologic: Reports other Details: diarrhea with mild products Physical Exam Const alert, oriented x3 and no apparent distress Constitutional Narrative: Sitting in the recliner at the bedside. General Appearance: cooperative HEENT HEENT Narrative: Mucous membranes are very dry Eyes conjunctivae normal and no scleral icterus Neck no carotid bruits Neck Narrative: Brisk carotid upstroke with mildly decreased pulse volume. Chest Chest: symmetrical chest wall rise Resp normal respiratory effort, no retractions, no use of accessory muscles and clear to auscultation bilaterally Resp Narrative: Breath sounds are more diminished in the upper lobes than in the lower lobes. She has coarse crackles in both bases. No wheezing or rhonchi. No conversational dyspnea at rest. Effort and Inspection: able to speak in complete sentences Cardio no rub and no gallops Cardio Narrative: She is currently in atrial fibrillation with a heart rate in the 110-120 range. Can not assess for JVD.....she is sitting upright in the recliner. PMI is displaced inferior and medially. Rate: tachycardic GI GI Narrative: Mild distension with increased tympany in the upper abd. NT to palpation. BS's are normal. No guarding with palpation. Back/Spine Back/Spine Narrative: She has 2 small decubitus ulcers on the back, thoracic area. She has kyphosis. Extremity Extremity Narrative: Pitting edema up to the posterior thighs. No flank pitting. Denies calf pain. Skin no jaundice Skin Narrative: 2 small decubitus ulcers over the thoracic spine. Stage 2 Poor skin turgor in the upper extremities Rashes: no rashes Neuro oriented x3, CN's II-XII intact bilaterally, moves all extremities and no focal motor deficits Neuro Narrative: No hx of stroke Psych mental status grossly normal, thought process normal, cooperative, affect normal and speech normal Appearance: grossly normal, appropriate and well kempt Attitude: calm Activity / Motor Behavior: appropriate eye contact Medical Records Data Medical Nutrition Assessment Dietitian: Malnutrition Criteria Met Start: 02/26/23 15:13 Freq: Status: Active Protocol: Document 02/26/23 15:13 [facility] (Rec: 02/26/23 15:14 [facility] [id number]) Nutrition Malnutrition Evidence of Malnutrition Exists Yes Malnutrition (severe): Acute Illness/Injury Evidenced By Suboptimal Energy Intake ( Severe),Weight Loss (Severe), Physical Changes (Severe) Intake Problem Increased Nutrient Needs (specify) Etiology (protein) related to wound healing Signs/Symptoms as evidenced by b/l buttock pressure injury. Status Active Problem Clinical Problem Acute Disease or Injury Related Malnutrition Etiology related to decreased ability to consume sufficient energy to meet estimated nutrient needs Signs/Symptoms as evidenced by significant weight loss of 4%, or 5lb, since 02/23/23 weight of 122lb per EMR wt hx and moderate to severe muscle and fat wasting per NFPA (temples, buccal, clavicles, etc.). Status Active Problem Recommendation Dietitian Recommendations/Changes Continue with Regular diet with easy to chew textures per BOX REPAIRER at this time. Will discuss concerns about oral intakes with BOX REPAIRER. Res agreeable to Ensure Plus High Protein 120mL 3x/day with medpass to help increase oral intakes as well as protein intakes. Will continue to follow the resident, monitor oral intakes and modify interventions as needed. Lab / Micro Data 02/27/23 06:10 02/27/23 05:25 Assessment & Plan Assessment/Plan (1) Dysphagia: QUALIFIERS: Dysphagia type: oropharyngeal phase Qualified Code(s): R13.12 - Dysphagia, oropharyngeal phase PLAN: Plan 87-year-old with past medical history of stage III diastolic dysfunction, mitral valve insufficiency, severe pulmonary tension who comes in with worsening lower extremity edema and intermittent esophageal dysphagia. She underwent a swallowing study discovered to have severe oropharyngeal dysphagia and moderate to severe esophageal dysphagia. Recommendations are upper endoscopy evaluate the upper GI tract. Patient may need Botox injections depending on if she has a very tight cricopharyngeus which is associated with a Zenker's diverticulum. She may also need esophageal dilation if there is a stricture, Schatzki's ring or narrowing the need to be taken care of to prevent her from having recurrent aspiration. She was explained alternatives, risk, benefits include not withstanding bleeding, infection, sepsis, perforation, need for return to . She will have an ASA of 3. I have examined the patient and the H&P has been reviewed. There are no clinical changes since date of exam.
[2023-03-01] MEDS: 0.9% Normal Saline (1000mL) 1,000 ML 15 ML IV (11:20)
--- NOTE | 2023-03-01 11:30 | EGD_PTH ---
PATHOLOGY RESULTS PATIENT: GEENA FREEMAN LOC: EN U#:[id number] AGE/SX: 87/F ROOM: RE03/01/[address]: Dr. Tavon Guy DO : [id number] BED: DIS: 03/01/2023 SPEC #: [id number] RECD: 03/02/23 07:27 STATUS: SANDY YEMI #: [id number] DONAVAN: 03/01/23 11:[address]: Tavon Guy DEPT: SURGICAL PATHOLOGY RECD BY: Dannielle Parekh ENTERED: 03/02/23 07:28 SP TYPE: EGD BIOPSY NATALIIA DR: Dr. Alonso Marques DO Tissues: Duodenum, NOS Gastric mucous membrane Esophageal mucous membrane Procedures: Surgery Specimen Level IV HEADER OPERATION: EGD with biopsies PRE-OP DIAGNOSIS: Dysphagia TISSUE SUBMITTED: A - Duodenum biopsy, B - Gastric body biopsy, C - Random esophagus biopsy MICROSCOPIC DIAGNOSIS A. Duodenum, biopsy: Gastric metaplasia. Minimal chronic inflammation. B. Gastric body, biopsy: Chronic gastritis. See comment. C. Esophagus, random biopsy: Fragments of benign squamous mucosa. No evidence of inflammation. AM:karen 03/03/2023 COMMENT B. The results of immunohistochemistry for Helicobacter pylori will be reported separately ([id number]). MICROSCOPIC DESCRIPTION Slides are reviewed. GROSS DESCRIPTION A - Received in fixative is one container labeled with the patient's name and designated duodenum biopsy. The specimen consists of two irregular fragments of light nguyen soft tissue that in aggregate measure 0.6 x 0.3 x 0.1 cm. The specimen is totally submitted in one cassette. B - Received in fixative is one container labeled with the patient's name and designated gastric body biopsy. The specimen consists of two irregular fragments of light nguyen soft tissue that in aggregate measure 0.6 x 0.5 x 0.1 cm. The specimen is totally submitted in one cassette. C - Received in fixative is one container labeled with the patient's name and designated random esophagus biopsy. The specimen consists of multiple irregular fragments of light nguyen soft tissue that in aggregate measure 1.0 x 0.7 x 0.1 cm. The specimen is totally submitted in one cassette. / NAKIA:karen 03/02/2023 TC:3 CPT: 22048 x3
--- NOTE | 2023-03-01 11:30 | IMM_PTH ---
PATHOLOGY RESULTS PATIENT: GEENA FREEMAN LOC: EN U#:[id number] AGE/SX: 87/F ROOM: RE03/01/[address]: Dr. Tavon Guy DO : 1935 BED: DIS: 03/01/2023 SPEC #: [id number] RECD: 03/02/23 09:20 STATUS: SANDY REWan #: [id number] DONAVAN: 03/01/23 11:[address]: Tavon Guy DEPT: IMMUNOHISTOCHEMISTRY RECD BY: Elida Villeda ENTERED: 03/02/23 09:20 SP TYPE: IMMUNO OTHR DR: Dr. Alonso Marques DO Tissues: Stomach, NOS Procedures: H Pylori (initial) PHYSICIAN & INSTITUTION [place] [id number] SPECIMEN INFORMATION: Tissue Source: B - Gastric body Clinical Info: Dysphagia Specimen Number: [id number] CPT code: 76987 METHODOLOGY: Deparaffinized sections of prefer/formalin-fixed tissue or PAP/DQ stained slides are incubated with monoclonal/polyclonal antibodies/oligonucleotide probes. Localization is made via biotin free immunoperoxidase method. Appropriate controls are performed and reacted as expected. Results on target cell population are indicated in the following table: RESULTS: ANTIBODY / CLONE RESULT Block B H Pylori (polyclonal) negative These tests were developed and their performance characteristics determined by [facility]. They may not have been cleared or approved by the U.S. Food and Drug Administration. The FDA has determined that such clearance or approval is not necessary. The above immunohistochemical/dualISH markers are ordered and reviewed by the Pathologist. INTERPRETATION: B. Gastric body, biopsy: Negative for Helicobacter pylori organisms. AM:karen 03/03/2023
[2023-03-01 12:13] VITALS: BP 109/74; BP 89/49; PULSE 89; RESP 16; TEMP 35.8; O2SAT 94
--- NOTE | 2023-03-01 12:14 | OP.CCLET_ITS ---
03/01/2023 Alonso Marques Re : Upper GI endoscopy procedure for Shana Rios Mahsa Marques This procedure was performed on Wednesday, March 01, 2023. My impressions and recommendations are as follows: Impressions : - Benign-appearing esophageal stenosis. Dilated. - Abnormal esophageal motility, suspicious for presbyesophagus. - Glycogenic acanthosis of the esophagus. Biopsied. 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 - Gastric mucosal atrophy. Biopsied. - Duodenitis. Biopsied. Recommendations : - Return patient to hospital oro for ongoing care. - Soft diet with aspiration precautions - Continue present medications. - Await pathology results. My findings are described in the full procedure note, which is enclosed. If I can be of further assistance, please feel free to contact me at . Sincerely, Tavon Guy, 03/01/2023 12:13:48 PM This report has been signed electronically.
--- NOTE | 2023-03-01 12:14 | OP.EGD_ITS ---
Patient Name: Shana Rios Procedure Date: 03/01/2023 11:28 AM Date of : 1935 Age: 87 Procedure: Upper GI endoscopy Indications: Dysphagia Providers: Tavon Guy DO Medicines: Monitored Anesthesia Care Patient Profile: This is an 87 year old female. Refer to note in patient chart for documentation of history and physical. Patient has symptoms of acute dysphagia. Complications: No immediate complications. Procedure: Pre-Anesthesia Assessment: - Prior to the procedure, a History and Physical was performed, and patient medications and allergies were reviewed. The patient is competent. The risks and benefits of the procedure and the sedation options and risks were discussed with the patient. All questions were answered and informed consent was obtained. Patient identification and proposed procedure were verified by the physician in the pre-procedure area. Mental Status Examination: alert and oriented. Airway Examination: normal oropharyngeal airway and neck mobility. Respiratory Examination: clear to auscultation. CV Examination: normal. Prophylactic Antibiotics: The patient does not require prophylactic antibiotics. Prior Anticoagulants: The patient has taken no anticoagulant or antiplatelet agents. ASA Grade Assessment: III - A patient with severe systemic disease. After reviewing the risks and benefits, the patient was deemed in satisfactory condition to undergo the procedure. The anesthesia plan was to use monitored anesthesia care (MAC). Immediately prior to administration of medications, the patient was re-assessed for adequacy to receive sedatives. The heart rate, respiratory rate, oxygen saturations, blood pressure, adequacy of pulmonary ventilation, and response to care were monitored throughout the procedure. The physical status of the patient was re-assessed after the procedure. After obtaining informed consent, the endoscope was passed under direct vision. Throughout the procedure, the patient's blood pressure, pulse, and oxygen saturations were monitored continuously. The Endoscope was introduced through the mouth, and advanced to the second part of duodenum. The upper GI endoscopy was accomplished without difficulty. The patient tolerated the procedure well. Scope In: 11:58:15 AM Scope Out: 12:04:00 PM Total Procedure Duration Time 0 hours 5 minutes 45 seconds Findings: One benign-appearing, intrinsic moderate stenosis was found 22 to 24 cm from the incisors. This stenosis measured 3 mm (inner diameter) x 3 cm (in length). The stenosis was traversed. A TTS dilator was passed through the scope. Dilation with a 10-11-12 mm balloon dilator was performed to 14 mm. The dilation site was examined and showed moderate mucosal disruption. Estimated blood loss was minimal. Abnormal motility was noted in the esophagus. The cricopharyngeus was abnormal. There is spasticity of the esophageal body. The distal esophagus/lower esophageal sphincter is spastic, but gives up passage to the endoscope. Primary peristaltic waves are noted. Patchy glycogenic acanthosis was found in the middle third of the esophagus. Biopsies were taken with a cold forceps for histology. Verification of patient identification for the specimen was done. Estimated blood loss was minimal. A non-bleeding diverticulum with a small opening and no stigmata of recent bleeding was found at the cricopharyngeus. Diffuse atrophic mucosa was found in the gastric body. Biopsies were taken with a cold forceps for histology. Verification of patient identification for the specimen was done. Estimated blood loss was minimal. Biopsies were taken with a cold forceps for Helicobacter pylori testing. Verification of patient identification for the specimen was done. Estimated blood loss was minimal. Localized mild inflammation characterized by friability was found in the duodenal bulb. Biopsies were taken with a cold forceps for histology. Verification of patient identification for the specimen was done. Estimated blood loss was minimal. Impression: - Benign-appearing esophageal stenosis. Dilated. - Abnormal esophageal motility, suspicious for presbyesophagus. - Glycogenic acanthosis of the esophagus. Biopsied. 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 - Gastric mucosal atrophy. Biopsied. - Duodenitis. Biopsied. Recommendation: - Return patient to hospital oro for ongoing care. - Soft diet with aspiration precautions - Continue present medications. - Await pathology results. Procedure Code(s): --- Professional --- 85011, Esophagogastroduodenoscopy, flexible, transoral; with transendoscopic balloon dilation of esophagus (less than 30 mm diameter) 39401, 59, Esophagogastroduodenoscopy, flexible, transoral; with biopsy, single or multiple CPT copyright 2021 [employer] [place] [employer]. All rights reserved. The codes documented in this report are preliminary and upon resp therapist review may be revised to meet current compliance requirements. Tavon Guy DO 03/01/2023 12:13:48 PM This report has been signed electronically. Number of Addenda: 0 Note Initiated On: 03/01/2023 11:28 AM
[2023-03-01 12:15] VITALS: BP 102/67; BP 109/74; PULSE 94; RESP 16; O2SAT 100
[2023-03-01 12:19] VITALS: BP 109/74; PULSE 97; RESP 16; O2SAT 100
[2023-03-01 12:26] VITALS: BP 106/59; BP 109/74; PULSE 91; RESP 16; TEMP 36.7; O2SAT 93
[2023-03-01 12:35] VITALS: BP 109/74
== END 2023-03-01 12:40 | disposition home or self-care (01) ==
LOC: EN 10:29 → AC 10:30
PROVIDERS: PCP Family Medicine; Referring Provider Family Medicine; Visit Provider Internal Medicine Gastroenterology
PROC: 0DJ08ZZ Inspection of Upper Intestinal Tract, Via Natural or Artificial Opening Endoscopic (ICD-10-PCS; CPT 43235; principal; 2023-03-01 11:25)
DX: K22.2 Esophageal obstruction (principal); I50.31 Acute diastolic (congestive) heart failure; I11.0 Hypertensive heart disease with heart failure; I48.0 Paroxysmal atrial fibrillation; R13.12 Dysphagia, oropharyngeal phase; K29.80 Duodenitis without bleeding; K57.90 Diverticulosis of intestine, part unspecified, without perforation or abscess without bleeding; E78.00 Pure hypercholesterolemia, unspecified; Z79.01 Long term (current) use of anticoagulants; I25.2 Old myocardial infarction; R60.9 Edema, unspecified; Z79.899 Other long term (current) drug therapy; Z90.49 Acquired absence of other specified parts of digestive tract; K29.40 Chronic atrophic gastritis without bleeding; K22.89 Other specified disease of esophagus; K31.A0 Gastric intestinal metaplasia, unspecified
CPT/HCPCS: 43249; 43239; J7120; 88305; 88342; J2405

== ENCOUNTER → 2023-03-23 | Outpatient (CLI) | payer MEDICARE, BC, SELFPAY ==
--- OUTSIDE RECORDS SUMMARY | 2023-03-23 19:55 | XMS RPT_ITS | CCD ---
Author Name Unknown Address [address] [place] [address] Organization [facility] Care Team Providers Care Operations Welder Name Role Phone JOSE A DO, DR NA Joshua Primary Care Physician [phone] GLENNA ESCAMILLA, ALANNA Chiang Attending Unavailable JOSE [...] (Antibiotic); Translations: [sulfa drugs] Drug allergy Edema, [facility] Medications Current Medications Medication Drug Class(es) Dates Sig (Normalized) Sig (Original) amiodarone hydrochloride 200 mg oral tablet (9 sources) Antiarrhythmic Start: 02-07-2022 amiodarone 200 mg oral tablet Dose : 200 mg = 1 tab(s), Oral, qDay, # 90 tab(s), 3 Refill(s), Pharmacy: [facility] #[id number], 149.9, cm, 03/16/22 7:19:00 EST, Height Start [...] Non-Invasive [address] MARCOS IVAN MD [facility] 03-16-2022 12:00-0500 Heart rate 55 /min DR MARCOS IVAN MD [facility] 03-16-2022 12:00-0500 Reason For Taking VItal Signs DR MARCOS IVAN MD [facility] 03-16-2022 12:00-0500 Systolic Blood Pressure Non-Invasive [address] MARCOS IVAN MD [facility] 03-16-2022 11:52-0500 Diastolic Blood Pressure Non-Invasive [address] MARCOS IVAN MD [facility] 03-16-2022 11:52-0500 Heart rate 54 /min DR MARCOS IVAN MD [address] [place] [address] 03-16-2022 11:52-0500 Respiratory rate 18 /min DR MARCOS IVAN MD [address] [place] [address] 03-16-2022 11:52-0500 Systolic Blood Pressure Non-Invasive [address] MARCOS IVAN MD [address] [place] [address] 03-16-2022 11:47-0500 Body temperature 97.88 [degF] DR MARCOS IVAN MD [address] [place] [address] 03-16-2022 11:47-0500 Diastolic Blood Pressure Non-Invasive [address] MARCOS IVAN MD [address] [place] [address] 03-16-2022 11:47-0500 Heart rate 50 /min DR MARCOS IVAN MD [address] [place] [address] 03-16-2022 11:47-0500 Systolic Blood Pressure Non-Invasive [address] MARCOS IVAN MD [address] [place] [address] 03-16-2022 07:19-[address] MARCOS IVAN MD [address] [place] [address] 03-16-2022 07:19-[address] MARCOS Campbell MD [address] [place] [address] 03-16-2022 07:19-0500 Body height 149.[address] MARCOS IVAN MD [address] [place] [address] 03-16-2022 07:19-0500 Body temperature 97.88 [degF] DR MARCOS IVAN MD [address] [place] [address] 03-16-2022 07:19-0500 Body weight 56.[address] MARCOS IVAN MD [address] [place] [address] 03-16-2022 07:19-0500 Body weight 25.01 kg/m2 DR MARCOS IVAN MD [address] [place] [address] 03-16-2022 07:19-0500 Heart rate 112 /min DR MARCOS IVAN MD [facility] Encounters Encounter Date Encounter Type Care Provider Facility Start: 01-06-2023 End: 01-06-2023 ambulatory CAR CARTER Facility:[facility] Start: 12-28-2022 Telephone encounter Car li MD Work Phone: Hematology/Oncology Procedures Date Procedure Procedure Detail Performing Clinician Start: 01-10-2022 Cardioversion DARIN F AVERY PHP MYSQL DEVELOPER-SENIOR CLINICAL RESEARCH SCIENTIST Start: 01-10-2022 Transesophageal echocardiography DARIN TEMPLETON PHP MYSQL DEVELOPER-SENIOR CLINICAL RESEARCH SCIENTIST Hysterectomy DR MARCOS DOWNS MD Tonsillectomy DR MARCOS MELTON MD Plan of Treatment Date Care Activity Detail Author Start: 11-04-2022 Influenza vaccination Influenza Vacc ine (#1) [facility] Start: 03-06-2022 Advance Directive Discussion Advance Directive Discussion [facility] Start: 03-06-2022 Depression Assessment Depression Ass essment [facility] Start: 01-01-2000 Bone Density Screening Bone Density Screening [facility] Start: 01-01-2000 Pneumococcal Vaccine : 65+ (1 - PCV) Pneumococcal Vaccine: 65+ (1 - PCV) [facility] Start: 1994 RSV Vaccine (1 - 1-d ose 60+ series) RSV Vaccine (1 - 1-dose 60+ series) [facility] Start: 1984 Shingrix Vaccine (1 of 2) Shingrix V accine (1 of 2) [facility] Start: 01-01-1980 Diabetes Screening Diabetes Screenin g [facility] Start: 1953 Urine microalbumin profile DTaP,Tdap,Td Vaccine (1 - Tdap) [facility] Start: 07-02-1935 Covid-19 Vaccine (#1) Covid-19 Vacci ne (#1) [facility] Payers Date Payer Category Payer Medicare [id number] 2016 Unknown [id number] 2016 Unknown ANTHEM ANTHEM IN DICARE SUPPLEMENT [id number] 2016-Present [phone] [address] [place] [address] Indemnity [id number] 1934 Unknown [id number] 7 1934 Unknown [id number] [id number] 7 1934 Unknown [id number] 2.16.840.1.225908.3.579.2.62 7 1934 Unknown [id number] 2.16.840.1.916846.3.579.2.62 7 1934 Unknown [id number] 2.16.840.1.956148.3.579.2.62 7 1934 Unknown [id number] 2.16.840.1.610766.3.579.2.62 7 1934 Unknown [id number] 2.16.840.1.826934.3.579.2.62 7 1934 Unknown [id number] 2.16.840.1.300266.3.579.2.62 7 1934 Unknown [id number] 2.16.840.1.421813.3.579.2.62 7 1934 Unknown [id number] 2.16.840.1.405837.3.579.2.62 7 1934 Unknown [id number] 2.16.840.1.038302.3.579.2.62 7 1934 Unknown [id number] 2.16.840.1.469941.3.579.2.62 7 1934 Unknown [id number] 2.16.840.1.251886.3.579.2.62 7 1934 Unknown [id number] [id number] 7 Social History Date Type Detail Facility Start: 01-02-2019 Never smoked tobacco (f inding) [facility] Functional Status Date Assessment Result Facility 03-16-2022 Functional Status Visitor at bed side, Safety level maintained [facility] 03-16-2022 Functional Status [facility] 03-16-2022 Functional Status Maintained [facility] Mental Status Date Assessment Result Facility 03-16-2022 [facility] Status [facility] 03-16-2022 to 01-06-2023 Telephone Encounter - Viki Payne - 12/28/2022 9:58 AM EDTTelephone Encounter - Chica Moser - 12/28/2022 8:42 AM EDTLaboratoryLaboratoryLaboratoryLaboratoryRadiologyLaboratoryRadiology Note Date & Type Note Facility 01-06-2023 Note HNO ID: [id number] Author: Car Carter MD Service: ? Author [...] tablet by mouth every 12 hours. vit C,C-Se-qproi-lutein-zeaxan (PRESERVISION AREDS-2) 250-90-40-1 mg Take 1 tablet [...] which included preparing to see the patient, mzce-iw-ffxz patient care, completing clinical documentation, obtaining and/or reviewing separately obtained history, performing a medically appropriate examination, counseling and educating the patient/family/caregiver, ordering medications, tests, or procedures, independently interpreting results (not separately reported), and communicating results to the patient/family/caregiver. Electronically Signed: Car Carter MD January 06, 2023 1:24 PM [facility] 12-28-2022 Miscellaneous Notes Scheduled with patient Received [...] in pt to return call folder at [facility] desk documented in this encounter [facility] 08-23-2022 Note ORIGINAL EXAMINATION: TWO XRAY [...] Sign Date: 08/23/2022 2:44:56 PM Ordering Provider: [facility] 08-23-2022 Note ORIGINAL EXAMINATION: TWO XRAY [...] Sign Date: 08/23/2022 2:44:56 PM Ordering Provider: [facility] 03-16-2022 Discharge summary Date of Service March 16, 2022 Shared/Split visit with Dr. Whalen Primary Card Dr. Ivan [facility] Diagnosis AF/AFL Hospital Course This is an 86-year-old female with recurring persistent atrial fibrillation evaluated by general cardiology noted to be back in A. fib on March 08, 2022 and was scheduled for repeat direct-current cardioversion. The patient presented for direct-current cardioversion on March 16, 2022. Presenting rhythm was atrial fibrillation/atrial flutter with a heart rate of 120 bpm. Once a MENTAL HEALTH PROFESSIONAL administered an IV anesthetic agent the patient [...] When 04/18/2022 10:30 AM EST [facility] [address] [facility] [address] [place] [address]- Condition on Discharge Stable Readmission Risk/Palliative Score No qualifying data available. Digitally Signed by ZACHARY FIGUEROA on 03/16/2022 03:42 PM Digitally Signed by JEISON WHALEN MD on 03/16/2022 03:47 PM [facility] 03-16-2022 Cardiology procedure note Date of Service [...] heart rate of 120 bpm. Once a MENTAL HEALTH PROFESSIONAL administered an IV anesthetic agent the patient [...] qDay, # 90 tab(s), 3 Refill(s), [facility]: [facility] #[id number], 149.9, cm, 03/16/22 7:19:00 EST, Height furosemide, Start: 03/16/22 11:50:00 EST, Dose = 20 mg, = 1 tab(s), Oral, qDay, 03/16/22 11:50:00 EST metoprolol, Start: 03/16/22 11:50:00 EST, Dose = 75 mg, = 1.5 tab(s), Oral, BID, 03/16/22 11:50:00 EST Diet Order Discharge Discharge Activity Discharge Diet Discharge Wound Care Discontinue Order Electrocardiogram Digitally Signed by ZAHCARY FIGUEROA on 03/16/2022 03:40 PM [facility] 03-16-2022 Hospital Discharg e instructions Patient Education [...] until you are awake and alert. Take sahl-mtj-wekugap and prescription medicines only as told by [...] 12/11/2013 Document Revised: 02/02/2018 Document Reviewed: 06/11/2016 [employer] Patient Education 2020 [employer] 03/16/2022 12:07:57 3- Cardioversion (12/2017) (CUSTOM) [...] Document Reviewed: 02/21/2014 ExitCare Patient Information 2015 markedup. This information is not intended to replace advice given to you by your health care provider. Make sure you discuss any questions you have with your health care provider. Follow Up Care 03/08/2022 14:12:51 With:DARIN TEMPLETON Address: [address] [place] [address] [address] [place] [address]- When:04/18/2022 10:30:00 [facility] 03-16-2022 Summary of episod e note Discharge Instructions Thank you for allowing [facility] to assist you with your healthcare needs. The following is important discharge information regarding your hospital visit. Your Care Team NA NARANJO DO What to do next Scheduled Follow-Up Appointments Appointment Type When With Where Contact InformationCV OV 04/18/2022 10:30 AM EST DARIN TEMPLETON [facility] Follow Up Appointments Follow Up with ADRIN TEMPLETON When 04/18/2022 10:30 AM EST Where: [address] [place] [address] [address] [place] [address]- Allergies sulfa drugs (Edema, Hives) Medications Please [...] by mouth Once a day Pickup at [facility] #[id number] Unchanged apixaban (Eliquis 5 mg oral tablet) [...] by mouth Once a day Pharmacy Information [facility] #[id number]: [address] [place], [place] [phone] Please take this list to your next [...] until you are awake and alert. Take hppa-mfl-utrizdn and prescription medicines only as told by [...] 12/11/2013 Document Revised: 02/02/2018 Document Reviewed: 06/11/2016 [employer]ED STA[employer] Patient Education 2020 [employer]. CARDIOVERSION Discharge instructions ACTIVITY/SAFETY Please refrain from [...] Document Reviewed: 02/21/2014 ExitCare Patient Information 2015 markedup. This information is not intended to replace advice given to you by your health care provider. Make sure you discuss any questions you have with your health care provider. Additional Information VACCINATE! IT SAVES LIVES! Members of the community who have not yet received the COVID-19 vaccine and would like to receive it can visit one of [facility] vaccine clinics. There are many vaccine clinic locations within the State. For locations and available times, please visit [email or web address] [email or web address] It is important to note that some COVID mobile vaccine clinics are held outdoors and may be canceled in rainy or stormy conditions. To learn more about pediatric vaccinations (ages 5-11), we invite you to visit the [facility] webpage. [email or web address] To learn more about the COVID-19 vaccine, we invite you to visit the [employer] website for a list of frequently asked questions. [email or web address] [email or web address].pdf [facility] Patient Portal Access Instructions: Stay connected with your healthcare team and access your personal medical information anytime with the [facility] Patient Portal.If you would like a full copy of your medical records, please contact the [facility] Medical Records Department, Monday through Monday between 8a.m. and 4:30p.m. Please follow the directions below to access the portal: 1.Access the email account you provided upon registration to the hospital.2.Look for an invitation email from [facility].3.Open the email and access the invitation link: Accept Invitation to [facility]4.Fill in the required nogueira to create your account. Sign into www.[employer] Track Planet with your username and password that you [...] you will allow to register on the [facility] Patient Portal for access to your information. You can also access the [employer] Patient Portal on the [facility] suri. Simply click on Health Records under Health Data and then click on the [employer] logo. HOW TO SAFELY DISPOSE OF PRESCRIPTION [...] Call your local pharmacy or go to [email or web address] to find one close to you.3.Make use of household items: Use cat litter or old coffee grounds to dispose medications if other options are not available. Mix your drugs with these household products, seal them in an airtight container and throw it into the garbage. Call [facility]: [phone] to be sure your drugs can be [...] aware that I should contact my doctor. Patient/Echo Vascular Tech Signature: Date/Time: Relationship to Patient: Witness Name/Signature: Date/Time: [facility] 03-16-2022 Anesthesiology Consult note Patient: GEENA RIOS [...] 60 tab(s), 11 Refill(s), Pharmacy: [facility] #[id number], 148, cm, 03/08/22 13:26:00 EST, Height, 57.4, kg, 03/08/22 13:26:00 EST, Dosing Weight Metoprolol Tartrate 50 mg oral tablet: Dose : 75 mg = 1.5 tab(s), Oral, BID, # 90 tab(s), 3 Refill(s), Pharmacy: [facility] #[id number], 148, cm, 03/08/22 13:26:00 EST, Height amiodarone 200 mg oral tablet: Dose : 200 mg = 1 tab(s), Oral, BID, # 60 tab(s), 5 Refill(s), Pharmacy: [facility] #[id number], 148, cm, 01/26/22 13:52:00 EST, Height furosemide 20 mg oral tablet: Dose : 20 mg = 1 tab(s), Oral, qDay, # 90 tab(s), 3 Refill(s), Pharmacy: [facility] #[id number], 148, cm, 03/08/22 13:26:00 EST, Height Documented Medications Documented Caltrate: mg =, Oral, qDay, 0 Refill(s) ICaps AREDS: Oral, qDay, 0 Refill(s) One A Day Women's Complete: Oral, qDay, 0 Refill(s), Medications (1) Active Scheduled: (0) Continuous: (1) NS (0.9% nacl) 1,000 mL 1,000 mL, Intravenous, 20 mL/hr PRN: (0) Problem list: Medical Atrial fibrillation / SNOMED CT 69442160 / Confirmed Benign essential hypertension / SNOMED CT 9870900 / Confirmed Macular degeneration / SNOMED CT 4358711007 / Confirmed Age related osteoporosis / SNOMED CT 689658300 / Confirmed Rotator cuff arthropathy of right shoulder / SNOMED CT 3327640464 / Confirmed, Active Problems (6) Age related [...] Diabetes Sister (#1) Procedure history: Transesophageal echocardiogram ([id number]) on 01/10/2022 at 86 Years. Cardioversion ([id number]) on 01/10/2022 at 86 Years. 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 Neurologic: Alert, Oriented. Assessment and Plan [place] Society of Anesthesiologists (ASA) physical status classification: [...] QUENTIN BARKSDALE DO on 03/16/2022 06:07 AM [facility] Evaluation + Plan note Future Appointments Appointment Date:12/17/2020 11:00:00 AM Scheduled Provider:NA NARANJO DO Location:[facility] Appointment Type: Wellness Medicare with Labs [facility] Evaluation + Plan note Future Appointments Appointment Date:12/15/2021 09:45:00 AM Scheduled Provider: Location:[facility] Appointment Type:PC Nurse Lab Appointment Date:12/23/2021 11:00:00 AM Scheduled Provider:NA NARANJO DO Location:[facility] Appointment Type:PC OV Future Scheduled TestsLipid Profile 12/24/21Complete Metabolic Panel 12/24/21 [facility] Evaluation + Plan note Future Appointments Appointment Date:12/23/2021 11:00:00 AM Scheduled Provider:NA NARANJO DO Location:[facility] Appointment Type:PC OV [facility] Evaluation + Plan note Future Appointments Appointment Date:03/08/2022 01:30:00 PM Scheduled Provider:DARIN TEMPLETON Location:[facility] Appointment Type:CV OV [facility] Evaluation + Plan note Future Appointments Appointment Date:04/18/2022 10:30:00 AM Scheduled Provider:DARIN TEMPLETON Location:[facility] Appointment Type:CV OV Future Scheduled TestsBasic Metabolic Panel 01/31/22N-Terminal proBNP 01/31/22 [facility] Evaluation + Plan note Future Appointments Appointment Date:09/21/2022 09:15:00 AM Scheduled Provider: Location:[facility] Appointment Type:PC Nurse Lab Appointment Date:09/26/2022 10:35:00 AM Scheduled Provider:NA NARANJO DO Location:[facility] Appointment Type:PC OV Diagnostic Tests PendingAmiodarone Level 08/23/22 Future Scheduled TestsBasic Metabolic Panel 01/31/22N-Terminal proBNP 01/31/22 [facility] Evaluation + Plan note Future Appointments Appointment Date:09/21/2022 09:15:00 AM Scheduled Provider: Location:[facility] Appointment Type:PC Nurse Lab Appointment Date:09/26/2022 10:35:00 AM Scheduled Provider:NA NARANJO DO Location:[facility] Appointment Type:PC OV Future Scheduled TestsBasic Metabolic Panel 01/31/22N-Terminal proBNP 01/31/22CT Thorax w/ Contrast 08/25/22 [facility] Evaluation + Plan note Future Appointments Appointment Date:09/26/2022 10:35:00 AM Scheduled Provider:NA NARANJO DO Location:[facility] Appointment Type:PC OV Future Scheduled TestsBasic Metabolic Panel 01/31/22N-Terminal proBNP 01/31/22CT Thorax w/ Contrast 08/25/22 [facility] Evaluation + Plan note Future Appointments Appointment Date:10/28/2022 10:05:00 AM Scheduled Provider:NA NARANJO DO Location:[facility] Appointment Type:PC OV Future Scheduled TestsBasic Metabolic Panel 01/31/22N-Terminal proBNP 01/31/22CT Thorax w/ Contrast 08/25/22 [facility] Evaluation + Plan note Future Appointments Appointment Date:10/28/2022 10:05:00 AM Scheduled Provider:NA NARANJO DO Location:[facility] Appointment Type:PC OV Future Scheduled TestsBasic Metabolic Panel 01/31/22Gamma Glutamyl Transferase 09/30/22Protein Electrophoresis Panel 09/30/22Complete Metabolic Panel 09/30/22N-Terminal proBNP 01/31/22CT Thorax w/ Contrast 08/25/22 [facility] Evaluation + Plan note Future Appointments Appointment Date:10/28/2022 10:05:00 AM Scheduled Provider:NA NARANJO DO Location:[facility] Appointment Type:PC OV Future Scheduled TestsCT Thorax w/ Contrast 08/25/22 [facility] Evaluation + Plan note Future Appointments Appointment Date:06/15/2023 10:00:00 AM Scheduled Provider:NA NARANJO DO Location:[facility] Appointment Type:PC OV Future Scheduled TestsCT Thorax w/ Contrast 08/25/22 [facility] Hospital course Narrative No data available for this section [facility] Hospital Discharge instructions No data available for this section [facility] Progress note No data available for this section [facility] Summary Purpose Family History No Family History Records Found Advance Directives No Advanced Directives Records FoundNo Advanced Directives Records Found Additional Source Comments Care Team (unrecognized sect ion and content) Personnel Name: NA NARANJO DO Address: [address] Personnel Name: NA NARANJO DO Address: [address] [place] [address] Care Team Personnel Name: NA NARANJO DO Position: P4 Physician - Primary Care Member Role: Primary Care Physician Address: Address: [address] [place] [address] Care Team Related Persons Name: DECLINED, DECLINED Care Team Personnel Name: NA NARANJO DO Position: P4 Physician - Primary Care Member Role: Primary Care Physician Address: Address: [address] [place] [address] Care Team Related Persons Name: DECLINED, DECLINED Care Team Personnel Name: NA NARANJO DO Position: P4 Physician - Primary Care Member Role: Primary Care Physician Address: Address: [address] [place] [address] Care Team Related Persons Name: DECLINED, DECLINED Care Team Personnel Name: NA NARANJO DO Position: P4 Physician - Primary Care Member Role: Primary Care Physician Address: Address: [address] [place] [address] Care Team Related Persons Name: DECLINED, DECLINED Care Team Personnel Name: ESBASTIAN NARANJOTT A DO Position: P4 Physician - Primary Care Member Role: Primary Care Physician Address: Address: [address] [place] [address] Care Team Related Persons Name: DECLINED, DECLINED Care Team Personnel Name: NA NARANJO DO Position: P4 Physician - Primary Care Member Role: Primary Care Physician Address: Address: [facility] Black [address] Care Team Related Persons Name: DECLINED, DECLINED Care Team Personnel Name: NA NARANJO DO Position: P4 Physician - Primary Care Member Role: Primary Care Physician Address: Address: [facility] [address] Care Team Related Persons Name: DECLINED, DECLINED Care Team (unrecognized sect ion and content) Care Team Personnel Name: NA NARANJO DO Position: P4 Physician - Primary Care Med Service: Active Provider Member Role: Primary Care Physician Address: Address: [facility] [address] Care Team Related Persons Name: DECLINED, DECLINED Care Team Personnel Name: NA NARANJO DO Position: P4 Physician - Primary Care Med Service: Active Provider Member Role: Primary Care Physician Address: Address: [facility] [address] Care Team Related Persons Name: DECLINED, DECLINED Care Team Personnel Name: NA NARANJO DO Position: P4 Physician - Primary Care Member Role: Primary Care Physician Address: Address: [facility] [address] Care Team Related Persons Name: DECLINED, DECLINED Care Team Personnel Name: NA NARANJO DO Position: P4 Physician - Primary Care Member Role: Primary Care Physician Address: Address: [facility] [address] Care Team Related Persons Name: DECLINED, DECLINED INFORMATION SOURCE (unrecogn ized section and content) DATE CREATED AUTHOR AUTHOR'S ORGANIZ ATION 03/22/2023 [facility] Source Comments (unrecognize d section and content) In the event this informatio n is protected by the Federal Confidentiality of Alcohol and Drug Abuse Patient Records regulations: The Federal rules restrict any use of the information to criminally investigate or prosecute any alcohol or drug abuse patient.[facility] Reason for Visit (unrecogniz ed section [...] BE BASED ON THE PRIMARY CLINICAL RECORDS. [facility] SystemMaintenance Assistant [facility]. provides no warranty or guarantee of the accuracy [phone] completeness of information in this [id number]
== END | disposition home or self-care (01) ==
LOC: SL 19:50
PROVIDERS: PCP Family Medicine; Visit Provider Internal Medicine
DX: G47.30 Sleep apnea, unspecified (principal)
CPT/HCPCS: 95810

== ENCOUNTER 2023-04-03 10:12 | Outpatient (RCR) | payer MEDICARE, BC, SELFPAY ==
--- NOTE | 2023-04-04 07:23 | HP.OTEVAL ---
Patient's Visit Information Visit Information Visit Information: GEENA FREEMAN is a 87 year old F, referred to Occupational Therapy by Dr. Trav South MD, with a diagnosis of lymphedema/ BLE edema. Date of Evaluation: 04/03/23 Occupational Therapist: Meseret Marie, ITZEL/Ej, CHT Subjective Subjective: This 87 year old female was seen for OT eval with dx of LE lymphedema, pt dx two years ago with Afib- and dx in Mar with CHF. Family states pt has had seeping in past in bilateral LE. pt on 1 liter O2, family can bump up O2 when needed. Family states possible swelling for over 3 years. Hospitalized released TCU on with dx of CHF. Dtr states she does struggle with pts BP and HR. pt currently sitting in WC with O2 on. demo SOB with talking- voice very soft. pt currently wearing thigh high laz hose. sleeps in recliner due to SOB when in bed. up every hour due to her water pills/ water pill does help. pts family would like to know how to mtg. pts swelling and see if pt would qualify for vaso pneumatic pumps to help circulate fluid out of LE. Lymphedema (Circumferential Measure) Mid-foot: right 21cm left 21cm Ankle: right 29 cm left 27cm Lower calf: right 31cm left 30cm Largest calf: right 38cm left 38cm Below knee: right 33 cm left 32 cm Above knee: right 38cm left 33cm Lower Limb Functional Index Lower Extremity Functional Score: 10 Goals Goal: Patient will demonstrate a 20% reduction in edema by discharge: Yes Goal: Patient will demonstrate adequate knowledge of self-massage by the end of the second week.: Yes Goal: Patient will demonstrate adequate knowledge of skin care and precautions by the end of the first week.: Yes Goal: Patient will demonstrate adequate knowledge of therapeutic exercises by discharge.: Yes Goal: Patient will select an appropriate compression garment and demonstrate adequate knowledge of correct donning technique, care and wearing schedule by discharge.: Yes Goal: Patient will voice understanding of need to replace compression garment every four to six months by discharge.: Yes Rehabilitation General Assessment: pt demo with BLE edema. Due to failed conservative methods of lasix, leg elevation, and use of compression garments for over 4 weeks pt would benefit from skilled OT services to ed. pt and pts family on treatment for LE edema/ lymphedema. Family would like to pursue use of compression pumps. 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 Family demo understand- Family agree to Measure pts in AM for smallest measurements for thigh high compression garments (20-30 mmHg). Therapist advised family if skin becomes compromised with use of this compression class will have to decrease compression class to 15-20mmHg. family demo understanding- Pt not candidate for short stretch wrapping due to limited mobility and fall risk as well as poor skin integrity. Therapist also gave lymph stim ex/ and self manual lymph massage handout to family and pt to initiate- advised pt to get up every 45 min to increase circulation- Family is watching sodium and water intake and output closely as well as pts BP and heart rate. Family is to move pt to [place]. to live with pts dtr. in three weeks. therapist will inquire with [employer] to see if pt is candidate for home compression pump use. family demo understanding and agree to POC. Rehabilitation Potential: Good Anticipated Interventions Anticipated Interventions: Education re Diagnosis, Manual Lymph Drainage, Education re Life-long lymphedema Management, Education re Skin Care and Precautions, Education re Self Massage Techniques, Education re Correct Donning Tech,Care&Wearing Sched Comp Garments, Caregiver Training and Other Other Interventions: will contact [employer] and see if pt would be candidate for home pump use Visit Plan TEXT: Thank you for the opportunity to evaluate your patient. For Medicare and Medicare HMO plans, please review the plan of care and approve it. It will need to be FAXED BACK to us at [phone] for Medicare purposes. Please let me know if there are questions or concerns regarding this plan of care. Physician Signature: Date:
--- NOTE | 2023-06-14 15:08 | HP.OT.NRP ---
Patient Information Patient Information: GEENA FREEMAN was seen in my office for initial evaluation on 04/03/23. The following Plan of Care was established for this patient: Anticipated Interventions Anticipated Interventions: Education re Diagnosis, Manual Lymph Drainage, Education re Life-long lymphedema Management, Education re Skin Care and Precautions, Education re Self Massage Techniques, Education re Correct Donning Tech,Care&Wearing Sched Comp Garments, Caregiver Training and Other Other Interventions: will contact tactile medical and see if pt would be candidate for home pump use Last Seen Last Seen: This patient was last seen in our office 04/03/23. Pertinent comments regarding their Occupational therapy will appear below: pt was seen for OT eval. no further apts. scheduled. Due to time lapse in services pt d/c At this point I will be discontinuing this patient from occupational therapy. I would be happy to see this patient again in the future if found appropriate by the physician. Thank you! Meseret Marie, OTR/L, CHT
== END 2023-04-03 19:00 | disposition home or self-care (01) ==
LOC: OT 10:12
PROVIDERS: PCP Family Medicine; Referring Provider Family Medicine Geriatric Medicine; Visit Provider Family Medicine Geriatric Medicine
DX: I89.0 Lymphedema, not elsewhere classified (principal); R60.0 Localized edema
CPT/HCPCS: 97110; 97166; 97530

== ENCOUNTER → 2023-04-03 | Outpatient (CLI) | payer MEDICARE, BC, SELFPAY ==
--- OUTSIDE RECORDS SUMMARY | 2023-04-03 12:41 | XMS RPT_ITS | CCD ---
Author Name Unknown Address [address] [place] [address] Organization [facility] Care Team Providers Care Desk Sergeant Name Role Phone JOSE A DO, DR [...] FISH DARIN FUNES Attending Unavailab le MANZANARES DO, ALANNA Chiang Attending Unavailable JOSE [...] (Antibiotic); Translations: [sulfa drugs] Drug allergy Edema, [facility] Medications Current Medications Medication Drug Class(es) Dates Sig (Normalized) Sig (Original) amiodarone hydrochloride 200 mg oral tablet (9 sources) Antiarrhythmic Start: 02-07-2022 amiodarone 200 mg oral tablet Dose : 200 mg = 1 tab(s), Oral, qDay, # 90 tab(s), 3 Refill(s), Pharmacy: [facility] #[id number], 149.9, cm, 03/16/22 7:19:00 EST, Height Start [...] Non-Invasive [address] MARCOS IVAN MD [facility] 03-16-2022 12:00-0500 Heart rate 55 /min DR MARCOS IVAN MD [facility] 03-16-2022 12:00-0500 Reason For Taking VItal Signs DR MARCOS IVAN MD [facility] 03-16-2022 12:00-0500 Systolic Blood Pressure Non-Invasive [address] MARCOS IVAN MD [facility] 03-16-2022 11:52-0500 Diastolic Blood Pressure Non-Invasive [address] MARCOS IVAN MD [facility] 03-16-2022 11:52-0500 Heart rate 54 /min DR MARCOS IVAN MD [address] [place] [address] 03-16-2022 11:52-0500 Respiratory rate 18 /min DR MARCOS IVAN MD [address] [place] [address] 03-16-2022 11:52-0500 Systolic Blood Pressure Non-Invasive [address] MARCOS IVAN MD [address] [place] [address] 03-16-2022 11:47-0500 Body temperature 97.88 [degF] DR MARCOS IVAN MD [address] [place] [address] 03-16-2022 11:47-0500 Diastolic Blood Pressure Non-Invasive [address] MARCOS IVAN MD [address] [place] [address] 03-16-2022 11:47-0500 Heart rate 50 /min DR MARCOS IVAN MD [address] [place] [address] 03-16-2022 11:47-0500 Systolic Blood Pressure Non-Invasive [address] MARCOS IVAN MD [address] [place] [address] 03-16-2022 07:19-[address] MARCOS IVAN MD [address] [place] [address] 03-16-2022 07:19-[address] MARCOS Campbell MD [address] [place] [address] 03-16-2022 07:19-0500 Body height 149.[address] MARCOS IVAN MD [address] [place] [address] 03-16-2022 07:19-0500 Body temperature 97.88 [degF] DR MARCOS IVAN MD [address] [place] [address] 03-16-2022 07:19-0500 Body weight 56.[address] MARCOS IVAN MD [address] [place] [address] 03-16-2022 07:19-0500 Body weight 25.01 kg/m2 DR MARCOS IVAN MD [address] [place] [address] 03-16-2022 07:19-0500 Heart rate 112 /min DR MARCOS IVAN MD [facility] Encounters Encounter Date Encounter Type Care Provider Facility Start: 01-06-2023 End: 01-06-2023 ambulatory CAR CARTER Facility:[facility] Start: 12-28-2022 Telephone encounter Car li MD Work Phone: Hematology/Oncology Procedures Date Procedure Procedure Detail Performing Clinician Start: 01-10-2022 Cardioversion DARIN F AVERY CUSTOMER EXPERIENCE RETAIL CLERK-DIGITAL CONTROLS TECHNICAL OFFICER Start: 01-10-2022 Transesophageal echocardiography DARIN TEMPLETON CUSTOMER EXPERIENCE RETAIL CLERK-DIGITAL CONTROLS TECHNICAL OFFICER Hysterectomy DR MARCOS DOWNS MD Tonsillectomy DR MARCOS MELTON MD Plan of Treatment Date Care Activity Detail Author Start: 11-04-2022 Influenza vaccination Influenza Vacc ine (#1) [facility] Start: 03-06-2022 Advance Directive Discussion Advance Directive Discussion [facility] Start: 03-06-2022 Depression Assessment Depression Ass essment [facility] Start: 01-01-2000 Bone Density Screening Bone Density Screening [facility] Start: 01-01-2000 Pneumococcal Vaccine : 65+ (1 - PCV) Pneumococcal Vaccine: 65+ (1 - PCV) [facility] Start: 1994 RSV Vaccine (1 - 1-d ose 60+ series) RSV Vaccine (1 - 1-dose 60+ series) [facility] Start: 1984 Shingrix Vaccine (1 of 2) Shingrix V accine (1 of 2) [facility] Start: 01-01-1980 Diabetes Screening Diabetes Screenin g [facility] Start: 1953 Urine microalbumin profile DTaP,Tdap,Td Vaccine (1 - Tdap) [facility] Start: 07-02-1935 Covid-19 Vaccine (#1) Covid-19 Vacci ne (#1) [facility] Payers Date Payer Category Payer Medicare [id number] 2016 Unknown [id number] 2016 Unknown ANTHEM ANTHEM HI DICARE SUPPLEMENT [id number] 2016-Present [phone] [address] [place] [address] Indemnity [id number] 1934 Unknown [id number] 7 1934 Unknown [id number] [id number] 7 1934 Unknown [id number] 2.16.840.1.987626.3.579.2.62 7 1934 Unknown [id number] 2.16.840.1.691104.3.579.2.62 7 1934 Unknown [id number] 2.16.840.1.608755.3.579.2.62 7 1934 Unknown [id number] 2.16.840.1.377190.3.579.2.62 7 1934 Unknown [id number] 2.16.840.1.900245.3.579.2.62 7 1934 Unknown [id number] 2.16.840.1.493561.3.579.2.62 7 1934 Unknown [id number] 2.16.840.1.720431.3.579.2.62 7 1934 Unknown [id number] 2.16.840.1.092494.3.579.2.62 7 1934 Unknown [id number] 2.16.840.1.639731.3.579.2.62 7 1934 Unknown [id number] 2.16.840.1.033790.3.579.2.62 7 1934 Unknown [id number] 2.16.840.1.805222.3.579.2.62 7 1934 Unknown [id number] 2.16.840.1.431569.3.579.2.62 7 Social History Date Type Detail Facility Start: 01-02-2019 Never smoked tobacco (f inding) [facility] Functional Status Date Assessment Result Facility 03-16-2022 Functional Status Visitor at bed side, Safety level maintained [facility] 03-16-2022 Functional Status [facility] 03-16-2022 Functional Status Maintained [facility] Mental Status Date Assessment Result Facility 03-16-2022 [facility]-16-[facility]22 to 01-06-2023 Telephone Encounter - Viki Payne - 12/28/2022 9:58 AM EDTTelephone Encounter - Chica Moser - 12/28/2022 8:42 AM EDTLaboratoryLaboratoryLaboratoryLaboratoryRadiologyLaboratoryRadiology Note Date & Type Note Facility 01-06-2023 Note HNO ID: [id number] Author: Cra Carter MD Service: ? Author Type: Physician [...] tablet by mouth every 12 hours. vit C,N-Fg-zxebb-lutein-zeaxan (PRESERVISION AREDS-2) 250-90-40-1 mg Take 1 tablet [...] which included preparing to see the patient, wpwg-lw-dtja patient care, completing clinical documentation, obtaining and/or reviewing separately obtained history, performing a medically appropriate examination, counseling and educating the patient/family/caregiver, ordering medications, tests, or procedures, independently interpreting results (not separately reported), and communicating results to the patient/family/caregiver. Electronically Signed: Car Carter MD January 06, 2023 1:24 PM [facility] 12-28-2022 Miscellaneous Notes Scheduled with patient [...] in pt to return call folder at [facility] desk documented in this encounter [facility] 08-23-2022 Note ORIGINAL EXAMINATION: TWO XRAY [...] By: Alvin Aguilar DO Electronically signed By Alvni Aguilar DO Dictated Date: 08/23/2022 2:41:50 PM Prelim Date: 08/23/2022 2:44:56 PM Sign Date: 08/23/2022 2:44:56 PM Ordering Provider: [facility] 08-23-2022 Note ORIGINAL EXAMINATION: TWO XRAY VIEWS [...] Sign Date: 08/23/2022 2:44:56 PM Ordering Provider: [facility] 03-16-2022 Discharge summary Date of Service March 16, 2022 Shared/Split visit with Dr. Whalen Primary Card Dr. Ivan and Shayla [facility] Discharge Diagnosis AF/AFL Hospital Course This is an 86-year-old female with recurring persistent atrial fibrillation evaluated by general cardiology noted to be back in A. fib on March 08, 2022 and was scheduled for repeat direct-current cardioversion. The patient presented for direct-current cardioversion on March 16, 2022. Presenting rhythm was atrial fibrillation/atrial flutter with a heart rate of 120 bpm. Once a ROPE LAYING MACHINE OPERATOR administered an IV anesthetic agent the patient [...] When 04/18/2022 10:30 AM EST [facility] [address] [facility] [facility] [address] [place] [address]- Condition on Discharge Stable Readmission Risk/Palliative Score No qualifying data available. Digitally Signed by ZACHARY FIGUEROA on 03/16/2022 03:42 PM Digitally Signed by JEISON WHALEN MD on 03/16/2022 03:47 PM [facility] 03-16-2022 Cardiology procedure note Date of Service [...] heart rate of 120 bpm. Once a ROPE LAYING MACHINE OPERATOR administered an IV anesthetic agent the patient [...] qDay, # 90 tab(s), 3 Refill(s), [id number], 149.9, cm, 03/16/22 7:19:00 EST, Height furosemide, Start: 03/16/22 11:50:00 EST, Dose = 20 mg, = 1 tab(s), Oral, qDay, 03/16/22 11:50:00 EST metoprolol, Start: 03/16/22 11:50:00 EST, Dose = 75 mg, = 1.5 tab(s), Oral, BID, 03/16/22 11:50:00 EST Diet Order Discharge Discharge Activity Discharge Diet Discharge Wound Care Discontinue Order Electrocardiogram Digitally Signed by ZACHARY FIGUEROA on 03/16/2022 03:40 PM [facility] 03-16-2022 Hospital Discharg e instructions Patient Education [...] until you are awake and alert. Take dbuu-cpz-jcmprpy and prescription medicines only as told by [...] 12/11/2013 Document Revised: 02/02/2018 Document Reviewed: 06/11/2016 [employer] Patient Education 2020 [employer] 03/16/2022 12:07:57 3- Cardioversion (12/2017) (CUSTOM) [...] Document Reviewed: 02/21/2014 ExitCare Patient Information 2015 [employer]. This information is not intended to replace advice given to you by your health care provider. Make sure you discuss any questions you have with your health care provider. Follow Up Care 03/08/2022 14:12:51 With:DARIN TEMPLETON Address: [address] [place] [address] [address] [place] [address]- When:04/18/2022 10:30:00 [facility] 03-16-2022 Summary of episod e note Discharge Instructions Thank you for allowing [place] to assist you with your healthcare needs. The following is important discharge information regarding your hospital visit. Your Care Team NA NARANJO DO What to do next Scheduled Follow-Up Appointments Appointment Type When With Where Contact InformationCV OV 04/18/2022 10:30 AM EST DARIN TEMPLETON [facility] Follow Up Appointments Follow Up with DARIN TEMPLETON When 04/18/2022 10:30 AM EST Where: [address] [place] [address] [address] [place] [id number]- Allergies sulfa drugs (Edema, Hives) Medications Please [...] by mouth Once a day [id number] Unchanged apixaban (Eliquis 5 mg oral tablet) [...] by mouth Once a day Pharmacy Information [facility] #[id number]: [address], [place] [id number] [phone] Please take this list to your next [...] until you are awake and alert. Take esic-pel-nmxkshg and prescription medicines only as told by [...] 12/11/2013 Document Revised: 02/02/2018 Document Reviewed: 06/11/2016 [employer] Patient Education 2020 [employer]. CARDIOVERSION Discharge instructions ACTIVITY/SAFETY Please refrain from [...] Document Reviewed: 02/21/2014 ExitCare Patient Information 2015 [employer]. This information is not intended to replace advice given to you by your health care provider. Make sure you discuss any questions you have with your health care provider. Additional Information VACCINATE! IT SAVES LIVES! Members of the community who have not yet received the COVID-19 vaccine and would like to receive it can visit one of [facility] vaccine clinics. There are many vaccine clinic locations within the State. For locations and available times, please visit [email or web address] [email or web address] It is important to note that some COVID mobile vaccine clinics are held outdoors and may be canceled in rainy or stormy conditions. To learn more about pediatric vaccinations (ages 5-11), we invite you to visit the [facility] webpage. https://www.akFits.[email or web address]/p [email or web address]-Aflqj-Ertqjmrtvuy-Freq fzhktm-Uhjko-Uiwrxrxao.html To learn more about the COVID-19 vaccine, we invite you to visit the [employer] website for a list of frequently asked questions. [email or web address] buq-[email or web address]-L requently_[email or web address]-Questions.pdf [facility] Patient Portal Access Instructions: Stay connected with your healthcare team and access your personal medical information anytime with the [facility] Patient Portal.If you would like a full copy of your medical records, please contact the [facility] Medical Records Department, Monday through Monday between 8a.m. and 4:30p.m. Please follow the directions below to access the portal: 1.Access the email account you provided upon registration to the hospital.2.Look for an invitation email from [facility].3.Open the email and access the invitation link: Accept Invitation to [facility]4.Fill in the required nogueira to create your account. Sign into www.[employer] with your username and password that you [...] you will allow to register on the [facility] Patient Portal for access to your information. You can also access the [employer] Patient Portal on the Texifter suri. Simply click on Health Records under Health Data and then click on the Music[employer] logo. HOW TO SAFELY DISPOSE OF PRESCRIPTION [...] Call your local pharmacy or go to [email or web address] to find one close to you.3.Make use of household items: Use cat litter or old coffee grounds to dispose medications if other options are not available. Mix your drugs with these household products, seal them in an airtight container and throw it into the garbage. Call [facility]: [phone] to be sure your drugs can be [...] aware that I should contact my doctor. Patient/Auto Detailer Signature: Date/Time: Relationship to Patient: Witness Name/Signature: Date/Time: [facility] 03-16-2022 Anesthesiology Consult note Patient: GEENA RIOS [...] 60 tab(s), 11 Refill(s), Pharmacy: [facility] #[id number], 148, cm, 03/08/22 13:26:00 EST, Height, 57.4, kg, 03/08/22 13:26:00 EST, Dosing Weight Metoprolol Tartrate 50 mg oral tablet: Dose : 75 mg = 1.5 tab(s), Oral, BID, # 90 tab(s), 3 Refill(s), Pharmacy: [facility] #[id number], 148, cm, 03/08/22 13:26:00 EST, Height amiodarone 200 mg oral tablet: Dose : 200 mg = 1 tab(s), Oral, BID, # 60 tab(s), 5 Refill(s), Pharmacy: [facility] #[id number], 148, cm, 01/26/22 13:52:00 EST, Height furosemide 20 mg oral tablet: Dose : 20 mg = 1 tab(s), Oral, qDay, # 90 tab(s), 3 Refill(s), Pharmacy: [facility] #[id number], 148, cm, 03/08/22 13:26:00 EST, Height Documented Medications Documented Caltrate: mg =, Oral, qDay, 0 Refill(s) ICaps AREDS: Oral, qDay, 0 Refill(s) One A Day Women's Complete: Oral, qDay, 0 Refill(s), Medications (1) Active Scheduled: (0) Continuous: (1) NS (0.9% nacl) 1,000 mL 1,000 mL, Intravenous, 20 mL/hr PRN: (0) Problem list: Medical Atrial fibrillation / SNOMED CT 72030551 / Confirmed Benign essential hypertension / SNOMED CT 1251095 / Confirmed Macular degeneration / SNOMED CT 4299180316 / Confirmed Age related osteoporosis / SNOMED CT 218861588 / Confirmed Rotator cuff arthropathy of right shoulder / SNOMED CT 2594500044 / Confirmed, Active Problems (6) Age related [...] Diabetes Sister (#1) Procedure history: Transesophageal echocardiogram ([id number]) on 01/10/2022 at 86 Years. Cardioversion ([id number]) on 01/10/2022 at 86 Years. Social History Social & Psychosocial Habits Alcohol 01/02/2019 Use: Never Substance Abuse 01/02/2019 Use: Never Tobacco 01/02/2019 Tobacco Use: Never (less than 100 in l Comment: No Tobacco/Smoke Exposure - 01/02/2019 10:51 - Tona Cabral [place] UNDER[employer]ITER Home/Environment 01/02/2019 Primary Camelid Fiber Sorter: Self Nutrition/Health 01/02/2019 Caffeine intake amount: Coffee [...] Dry. Neurologic: Alert, Oriented. Assessment and Plan [place] Society of Anesthesiologists (ASA) physical status classification: [...] QUENTIN BARKSDALE DO on 03/16/2022 06:07 AM [facility] Evaluation + Plan note Future Appointments Appointment Date:12/17/2020 11:00:00 AM Scheduled Provider:NA NARANJO DO Location:[facility] Appointment Type: Wellness Medicare with Labs [facility] Evaluation + Plan note Future Appointments Appointment Date:12/15/2021 09:45:00 AM Scheduled Provider: Location:[facility] Appointment Type:PC Nurse Lab Appointment Date:12/23/2021 11:00:00 AM Scheduled Provider:NA NARANJO DO Location:[facility] Appointment Type:PC OV Future Scheduled TestsLipid Profile 12/24/21Complete Metabolic Panel 12/24/21 [facility] Evaluation + Plan note Future Appointments Appointment Date:12/23/2021 11:00:00 AM Scheduled Provider:NA NARANJO DO Location:[facility] Appointment Type:PC OV [facility] Evaluation + Plan note Future Appointments Appointment Date:03/08/2022 01:30:00 PM Scheduled Provider:DARIN TEMPLETON Location:[facility] Appointment Type:CV OV [facility] Evaluation + Plan note Future Appointments Appointment Date:04/18/2022 10:30:00 AM Scheduled Provider:DARIN TEMPLETON Location:[facility] Appointment Type:CV OV Future Scheduled TestsBasic Metabolic Panel 01/31/22N-Terminal proBNP 01/31/22 [facility] Evaluation + Plan note Future Appointments Appointment Date:09/21/2022 09:15:00 AM Scheduled Provider: Location:[facility] Appointment Type:PC Nurse Lab Appointment Date:09/26/2022 10:35:00 AM Scheduled Provider:NA NARANJO DO Location:[facility] Appointment Type:PC OV Diagnostic Tests PendingAmiodarone Level 08/23/22 Future Scheduled TestsBasic Metabolic Panel 01/31/22N-Terminal proBNP 01/31/22 [facility] Evaluation + Plan note Future Appointments Appointment Date:09/21/2022 09:15:00 AM Scheduled Provider: Location:[facility] Appointment Type:PC Nurse Lab Appointment Date:09/26/2022 10:35:00 AM Scheduled Provider:NA NARANJO DO Location:[facility] Appointment Type:PC OV Future Scheduled TestsBasic Metabolic Panel 01/31/22N-Terminal proBNP 01/31/22CT Thorax w/ Contrast 08/25/22 [facility] Evaluation + Plan note Future Appointments Appointment Date:09/26/2022 10:35:00 AM Scheduled Provider:NA NARANJO DO Location:[facility] Appointment Type:PC OV Future Scheduled TestsBasic Metabolic Panel 01/31/22N-Terminal proBNP 01/31/22CT Thorax w/ Contrast 08/25/22 [facility] Evaluation + Plan note Future Appointments Appointment Date:10/28/2022 10:05:00 AM Scheduled Provider:NA NARANJO DO Location:[facility] Appointment Type:PC OV Future Scheduled TestsBasic Metabolic Panel 01/31/22N-Terminal proBNP 01/31/22CT Thorax w/ Contrast 08/25/22 [facility] Evaluation + Plan note Future Appointments Appointment Date:10/28/2022 10:05:00 AM Scheduled Provider:NA NARANJO DO Location:[facility] Appointment Type:PC OV Future Scheduled TestsBasic Metabolic Panel 01/31/22Gamma Glutamyl Transferase 09/30/22Protein Electrophoresis Panel 09/30/22Complete Metabolic Panel 09/30/22N-Terminal proBNP 01/31/22CT Thorax w/ Contrast 08/25/22 [facility] Evaluation + Plan note Future Appointments Appointment Date:10/28/2022 10:05:00 AM Scheduled Provider:NA NARANJO DO Location:[facility] Appointment Type:PC OV Future Scheduled TestsCT Thorax w/ Contrast 08/25/22 [facility] Evaluation + Plan note Future Appointments Appointment Date:06/15/2023 10:00:00 AM Scheduled Provider:NA NARANJO DO Location:[facility] Appointment Type:PC OV Future Scheduled TestsCT Thorax w/ Contrast 08/25/22 [facility] Hospital course Narrative No data available for this section [facility] Hospital Discharge instructions No data available for this section [facility] Progress note No data available for this section [facility] Summary Purpose Family History No Family History Records Found Advance Directives No Advanced Directives Records FoundNo Advanced Directives Records Found Additional Source Comments Care Team (unrecognized sect ion and content) Personnel Name: NA NARANJO DO Address: [address] Personnel Name: NA NARANJO DO Address: [address] [place] [address] Care Team Personnel Name: NA NARANJO DO Position: P4 Physician - Primary Care Member Role: Primary Care Physician Address: Address: [address] [place] [address] Care Team Related Persons Name: DECLINED, DECLINED Care Team Personnel Name: NA NARANJO DO Position: P4 Physician - Primary Care Member Role: Primary Care Physician Address: Address: [address] [place] [address] Care Team Related Persons Name: DECLINED, DECLINED Care Team Personnel Name: NA NARANJO DO Position: P4 Physician - Primary Care Member Role: Primary Care Physician Address: Address: [address] [place] [address] Care Team Related Persons Name: DECLINED, DECLINED Care Team Personnel Name: NA NARANJO DO Position: P4 Physician - Primary Care Member Role: Primary Care Physician Address: Address: [address] [place] [address] Care Team Related Persons Name: DECLINED, DECLINED Care Team Personnel Name: SEBASTIAN NARANJOTT A DO Position: P4 Physician - Primary Care Member Role: Primary Care Physician Address: Address: [address] [place] [address] Care Team Related Persons Name: DECLINED, DECLINED Care Team Personnel Name: NA NARANJO DO Position: P4 Physician - Primary Care Member Role: Primary Care Physician Address: Address: [facility] Adrian Black [address] Care Team Related Persons Name: DECLINED, DECLINED Care Team Personnel Name: NA NARANJO DO Position: P4 Physician - Primary Care Member Role: Primary Care Physician Address: Address: [facility] [address] Care Team Related Persons Name: DECLINED, DECLINED Care Team (unrecognized sect ion and content) Care Team Personnel Name: NA NARANJO DO Position: P4 Physician - Primary Care Med Service: Active Provider Member Role: Primary Care Physician Address: Address: [facility] [address] Care Team Related Persons Name: DECLINED, DECLINED Care Team Personnel Name: NA NARANJO DO Position: P4 Physician - Primary Care Med Service: Active Provider Member Role: Primary Care Physician Address: Address: [facility] [address] Care Team Related Persons Name: DECLINED, DECLINED Care Team Personnel Name: NA NARANJO DO Position: P4 Physician - Primary Care Member Role: Primary Care Physician Address: Address: [facility] [address] Care Team Related Persons Name: DECLINED, DECLINED Care Team Personnel Name: NA NARANJO DO Position: P4 Physician - Primary Care Member Role: Primary Care Physician Address: Address: [facility] [address] Care Team Related Persons Name: DECLINED, DECLINED INFORMATION SOURCE (unrecogn ized section and content) DATE CREATED AUTHOR AUTHOR'S ORGANIZ ATION 03/22/2023 [facility] Source Comments (unrecognize d section and content) In the event this informatio n is protected by the Federal Confidentiality of Alcohol and Drug Abuse Patient Records regulations: The Federal rules restrict any use of the information to criminally investigate or prosecute any alcohol or drug abuse patient.[facility] Reason for Visit (unrecogniz ed section [...] BE BASED ON THE PRIMARY CLINICAL RECORDS. [facility]. provides no warranty or guarantee of the accuracy or completeness of information in this document.
[2023-04-03 13:13] LABS: BNP,B-Type NATRIURETIC PEPTIDE 2394.8 pg/mL (0-100)
[2023-04-03 13:21] LABS: Anion Gap 7 (5-15); BUN 31 mg/dL (7-18); Calcium,Total 10.5 mg/dL (8.5-10.1); Chloride 88 mmol/L (98-107); Creatinine, Serum 0.97 mg/dL (0.55-1.02); EST Glomerular Filtration Rate 58 mL/min (>60); Est Glom Filt Rate - Afr Amer 70 mL/min (>60); Glucose 116 mg/dL (74-106); Potassium 4.6 mmol/L (3.5-5.1); Sodium Level 127 mmol/L (136-145)
[2023-04-03 13:30] LABS: Digoxin Level 1.67 ng/mL (0.80-2.00)
== END | disposition home or self-care (01) ==
LOC: LAB 12:17
PROVIDERS: PCP Family Medicine; Referring Provider Internal Medicine Cardiovascular Disease; Visit Provider Internal Medicine Cardiovascular Disease
DX: I50.9 Heart failure, unspecified (principal); I48.91 Unspecified atrial fibrillation
CPT/HCPCS: 36415; 80048; 80162; 83880

== ENCOUNTER → 2023-04-06 | Outpatient (CLI) | payer MEDICARE, BC, SELFPAY ==
--- NOTE | 2023-04-06 11:43 | RAD_ITS ---
STUDY: X-RAY CHEST REASON FOR EXAM: Female, 87 years old. RUIZ, hx pleural effusions TECHNIQUE: Frontal and lateral views of the chest. COMPARISON: 02/20/2023. FINDINGS: Prominent opacification of the lower half of the right hemithorax consistent with atelectasis or infiltrate with pleural effusion. Lesser degree of atelectasis or infiltrate and small effusion in the left lung base. Mild to moderate cardiomegaly. Normal mediastinum and kim. Normal visualized pulmonary arteries. There is atherosclerotic calcification of the aortic arch with tortuosity. There are diffuse degenerative changes of the visualized thoracic spine. Normal visualized ribs, clavicles, and shoulders. There is no demonstrated abnormality of the visualized soft tissue structures of the upper abdomen. RAD/Chest PA and Lateral IMPRESSION: Prominent opacification of the lower half of the right hemithorax probably from atelectasis or infiltrate with pleural effusion. Lesser degree of similar changes in the left lung base. Electronically Signed: Aidan Gallagher MD at 18:35 EST ,
[2023-04-06 12:42] LABS: Absolute Lymphocyte Count 0.69 X10^3/uL (0.83-4.51); Absolute Neutrophil Count 6.1 X10^3/uL (2.0-7.7); Basophil# 0.04 X10^3/uL; Basophil% 0.5 % (0-1); Eosinophil# 0.04 X10^3/uL; Eosinophils% 0.5 % (0-5); Hematocrit 39.1 % (37-47); Hemoglobin 12.3 g/dL (12.0-15.0); Lymphocyte # 0.69 X10^3/ul (0.83-4.51); Lymphocyte % 9.2 % (19-41); Mean Corp Hgb Conc 31.5 g/dL (32-36); Mean Corpuscular Hgb 31.3 pg (27.0-32.0); Mean Corpuscular Volume 99.5 fL (81-99); Mean Platelet Vol. 11.4 fl (6.2-12.0); Monocyte# 0.54 X10^3/uL; Monocyte% 7.2 % (0-10); NRBC Flagged by Analyzer 0 % (0-5); Neutrophil # 6.13 X10^3/uL (2.7-7.7); Neutrophil % 81.7 % (47-70); POSITIVE COUNT YES; RBC Distribution Width CV 17.1 % (11.6-14.6); RBC Distribution Width SD 61.5 fl (35.1-43.9); Red Blood Count 3.93 M/mm3 (4.2-5.4); White Blood Count 7.5 K/mm3 (4.4-11.0)
[2023-04-06 12:47] LABS: Differential Indicated SCAN CRITERIA MET
[2023-04-06 13:09] LABS: Platelet Estimate SLT DEC (ADEQ)
[2023-04-06 13:10] LABS: Platelet Morphology CLUMPED
[2023-04-06 13:11] LABS: ALB/GLOB Ratio 0.7 RATIO (0.9-2.4); AST(SGOT) 32 U/L (15-37); Alanine Aminotransfer ALT/SGPT 46 U/L (13-56); Alkaline Phosphatase 170 U/L (45-117); Anion Gap 4 (5-15); BUN 31 mg/dL (7-18); BUN/Creat Ratio 38.4 RATIO (10-20); Calcium,Total 9.7 mg/dL (8.5-10.1); Chloride 82 mmol/L (98-107); Creatinine, Serum 0.81 mg/dL (0.55-1.02); EST Glomerular Filtration Rate 71 mL/min (>60); Est Glom Filt Rate - Afr Amer 86 mL/min (>60); Globulin 4.4 g/dL (2.2-4.2); Glucose 122 mg/dL (74-106); Potassium 4.7 mmol/L (3.5-5.1); Protein, Total 7.4 g/dL (6.4-8.2); Sodium Level 122 mmol/L (136-145)
[2023-04-06 13:13] LABS: Differential Comment SCANNED
== END | disposition home or self-care (01) ==
PROVIDERS: PCP Family Medicine; Referring Provider Physician Assistant Medical; Visit Provider Physician Assistant Medical
DX: J90 Pleural effusion, not elsewhere classified (principal); I50.9 Heart failure, unspecified; R06.09 Other forms of dyspnea; Z51.81 Encounter for therapeutic drug level monitoring; Z79.899 Other long term (current) drug therapy
CPT/HCPCS: 36415; 71046; 80053; 85025

== ENCOUNTER → 2023-04-10 | Outpatient (CLI) | payer MEDICARE, BC, SELFPAY ==
--- OUTSIDE RECORDS SUMMARY | 2023-04-10 10:38 | XMS RPT_ITS | CCD ---
Author Name Unknown Address [address] [place] [address] Organization [facility] Care Team Providers Care Converter Supervisor Name Role Phone JOSE A DO, DR NA Joshua Primary Care Physician [phone] GLENNA ESCAMILLA, ALANNA Chiang Attending Unavailable JOSE [...] (Antibiotic); Translations: [sulfa drugs] Drug allergy Edema, [facility] Medications Current Medications Medication Drug Class(es) Dates Sig (Normalized) Sig (Original) amiodarone hydrochloride 200 mg oral tablet (9 sources) Antiarrhythmic Start: 02-07-2022 amiodarone 200 mg oral tablet Dose : 200 mg = 1 tab(s), Oral, qDay, # 90 tab(s), 3 Refill(s), Pharmacy: [facility] #[id number], 149.9, cm, 03/16/22 7:19:00 EST, Height Start [...] Non-Invasive [address] MARCOS IVAN MD [facility] 03-16-2022 12:00-0500 Heart rate 55 /min DR MARCOS IVAN MD [facility] 03-16-2022 12:00-0500 Reason For Taking VItal Signs DR MAROCS IVAN MD [facility] 03-16-2022 12:00-0500 Systolic Blood Pressure Non-Invasive [address] MARCOS IVAN MD [facility] 03-16-2022 11:52-0500 Diastolic Blood Pressure Non-Invasive [address] MARCOS IVAN MD [facility] 03-16-2022 11:52-0500 Heart rate 54 /min DR MARCOS IVAN MD [address] [place] [address] 03-16-2022 11:52-0500 Respiratory rate 18 /min DR MARCOS IVAN MD [address] [place] [address] 03-16-2022 11:52-0500 Systolic Blood Pressure Non-Invasive [address] MARCOS IVAN MD [address] [place] [address] 03-16-2022 11:47-0500 Body temperature 97.88 [degF] DR MARCOS IVAN MD [address] [place] [address] 03-16-2022 11:47-0500 Diastolic Blood Pressure Non-Invasive [address] MARCOS IVAN MD [address] [place] [address] 03-16-2022 11:47-0500 Heart rate 50 /min DR MARCOS IVAN MD [address] [place] [address] 03-16-2022 11:47-0500 Systolic Blood Pressure Non-Invasive [address] MARCOS IVAN MD [address] [place] [address] 03-16-2022 07:19-[address] MARCOS VIAN MD [address] [place] [address] 03-16-2022 07:19-[address] MARCOS Campbell MD [address] [place] [address] 03-16-2022 07:19-0500 Body height 149.[address] MARCOS IVAN MD [address] [place] [address] 03-16-2022 07:19-0500 Body temperature 97.88 [degF] DR MARCOS IVAN MD [address] [place] [address] 03-16-2022 07:19-0500 Body weight 56.[address] MARCOS IVAN MD [address] [place] [address] 03-16-2022 07:19-0500 Body weight 25.01 kg/m2 DR MARCOS IVAN MD [address] [place] [address] 03-16-2022 07:19-0500 Heart rate 112 /min DR MARCOS IVAN MD [facility] Encounters Encounter Date Encounter Type Care Provider Facility Start: 01-06-2023 End: 01-06-2023 ambulatory CAR CARTER Facility:[facility] Start: 12-28-2022 Telephone encounter Car li MD Work Phone: Hematology/Oncology Procedures Date Procedure Procedure Detail Performing Clinician Start: 01-10-2022 Cardioversion DARIN F AVERY DIVERSIONAL THERAPIST-INSURANCE CLAIM APPROVER Start: 01-10-2022 Transesophageal echocardiography DARIN TEMPLETON DIVERSIONAL THERAPIST-INSURANCE CLAIM APPROVER Hysterectomy DR MARCOS DOWNS MD Tonsillectomy DR MARCOS MELTON MD Plan of Treatment Date Care Activity Detail Author Start: 11-04-2022 Influenza vaccination Influenza Vacc ine (#1) [facility] Start: 03-06-2022 Advance Directive Discussion Advance Directive Discussion [facility] Start: 03-06-2022 Depression Assessment Depression Ass essment [facility] Start: 01-01-2000 Bone Density Screening Bone Density Screening [facility] Start: 01-01-2000 Pneumococcal Vaccine : 65+ (1 - PCV) Pneumococcal Vaccine: 65+ (1 - PCV) [facility] Start: 1994 RSV Vaccine (1 - 1-d ose 60+ series) RSV Vaccine (1 - 1-dose 60+ series) [facility] Start: 1984 Shingrix Vaccine (1 of 2) Shingrix V accine (1 of 2) [facility] Start: 01-01-1980 Diabetes Screening Diabetes Screenin g [facility] Start: 1953 Urine microalbumin profile DTaP,Tdap,Td Vaccine (1 - Tdap) [facility] Start: 07-02-1935 Covid-19 Vaccine (#1) Covid-19 Vacci ne (#1) [facility] Payers Date Payer Category Payer Medicare [id number] 2016 Unknown [id number] 2016 Unknown ANTHEM AN[place] DIC[place] SUPPLE[place] [id number] 2016-Present [phone] [address] [place] [address] Indemnity [id number] 1934 Unknown [id number] [id number] 7 1934 Unknown [id number] 2.16.840.1.474821.3.579.2.62 7 1934 Unknown [id number] 2.16.840.1.622599.3.579.2.62 7 1934 Unknown [id number] 2.16.840.1.226228.3.579.2.62 7 1934 Unknown [id number] 2.16.840.1.825758.3.579.2.62 7 1934 Unknown [id number] 2.16.840.1.670739.3.579.2.62 7 1934 Unknown [id number] 2.16.840.1.877720.3.579.2.62 7 1934 Unknown [id number] 2.16.840.1.420772.3.579.2.62 7 1934 Unknown [id number] 2.16.840.1.178436.3.579.2.62 7 1934 Unknown [id number] 2.16.840.1.094460.3.579.2.62 7 1934 Unknown [id number] 2.16.840.1.826237.3.579.2.62 7 1934 Unknown [id number] 2.16.840.1.788789.3.579.2.62 7 1934 Unknown [id number] 2.16.840.1.237315.3.579.2.62 7 1934 Unknown [id number] 2.16.840.1.702061.3.579.2.62 7 Social History Date Type Detail Facility Start: 01-02-2019 Never smoked tobacco (f inding) [facility] Functional Status Date Assessment Result Facility 03-16-2022 Functional Status Visitor at bed side, Safety level maintained [facility] 03-16-2022 Functional Status [facility] 03-16-2022 Functional Status Maintained [facility] Mental Status Date Assessment Result Facility 03-16-2022 Mental Status [facility]ed x [facility]-16-[facility]22 to 01-06-2023 Telephone Encounter - Viki Payne - 12/28/2022 9:58 AM EDTTelephone Encounter - Chica Moser - 12/28/2022 8:42 AM EDTLaboratoryLaboratoryLaboratoryLaboratoryRadiologyLaboratoryRadiology Note Date & Type Note Facility 01-06-2023 Note HNO ID: [id number] Author: Car Carter MD Service: ? Author [...] tablet by mouth every 12 hours. vit C,X-Ko-ldolh-lutein-zeaxan (PRESERVISION AREDS-2) 250-90-40-1 mg Take 1 tablet [...] which included preparing to see the patient, ltfi-ed-coem patient care, completing clinical documentation, obtaining and/or reviewing separately obtained history, performing a medically appropriate examination, counseling and educating the patient/family/caregiver, ordering medications, tests, or procedures, independently interpreting results (not separately reported), and communicating results to the patient/family/caregiver. Electronically Signed: Car Carter MD January 06, 2023 1:24 PM [facility] 12-28-2022 Miscellaneous Notes Scheduled with patient [...] in pt [facility] documented in this encounter [facility] 08-23-2022 Note ORIGINAL EXAMINATION: TWO XRAY VIEWS [...] Sign Date: 08/23/2022 2:44:56 PM Ordering Provider: [facility] 08-23-2022 Note ORIGINAL EXAMINATION: TWO XRAY [...] Sign Date: 08/23/2022 2:44:56 PM Ordering Provider: [facility] 03-16-2022 Discharge summary Date of Service March 16, 2022 Shared/Split visit with Dr. Whalen Primary Card Dr[facility] Ivan [facility] Diagnosis AF/AFL Hospital Course This is an 86-year-old female with recurring persistent atrial fibrillation evaluated by general cardiology noted to be back in A. fib on March 08, 2022 and was scheduled for repeat direct-current cardioversion. The patient presented for direct-current cardioversion on March 16, 2022. Presenting rhythm was atrial fibrillation/atrial flutter with a heart rate of 120 bpm. Once a BODY CORPORATE MANAGER administered an IV anesthetic agent the patient [...] When 04/18/2022 10:30 AM EST [facility] [address] [place] [address]- Condition on Discharge Stable Readmission Risk/Palliative Score No qualifying data available. Digitally Signed by ZACHARY FIGUEROA on 03/16/2022 03:42 PM Digitally Signed by JEISON WHALEN MD on 03/16/2022 03:47 PM [facility] 03-16-2022 Cardiology procedure note Date of Service [...] heart rate of 120 bpm. Once a BODY CORPORATE MANAGER administered an IV anesthetic agent the patient [...] qDay, # 90 tab(s), 3 Refill(s), Pharmacy: [facility] #[id number], 149.9, cm, 03/16/22 7:19:00 EST, Height furosemide, Start: 03/16/22 11:50:00 EST, Dose = 20 mg, = 1 tab(s), Oral, qDay, 03/16/22 11:50:00 EST metoprolol, Start: 03/16/22 11:50:00 EST, Dose = 75 mg, = 1.5 tab(s), Oral, BID, 03/16/22 11:50:00 EST Diet Order Discharge Discharge Activity Discharge Diet Discharge Wound Care Discontinue Order Electrocardiogram Digitally Signed by ZACHARY FIGUEROA on 03/16/2022 03:40 PM [facility] 03-16-2022 Hospital Discharg e instructions Patient Education [...] until you are awake and alert. Take tjks-hid-hxxhbsz and prescription medicines only as told by [...] 12/11/2013 Document Revised: 02/02/2018 Document Reviewed: 06/11/2016 [employer] Patient Education 2020 [employer] 03/16/2022 12:07:57 3- Cardioversion (12/2017) (CUSTOM) [...] Document Reviewed: 02/21/2014 ExitCare Patient Information 2015 [employer]. This information is not intended to replace advice given to you by your health care provider. Make sure you discuss any questions you have with your health care provider. Follow Up Care 03/08/2022 14:12:51 With:DARIN TEMPLETON Address: [address] [place] [address] [place] [address]- When:04/18/2022 10:30:00 [facility] 03-16-2022 Summary of episod e note Discharge Instructions Thank you for allowing [facility] to assist you with your healthcare needs. The following is important discharge information regarding your hospital visit. Your Care Team NA NARANJO DO What to do next Scheduled Follow-Up Appointments Appointment Type When With Where Contact InformationCV OV 04/18/2022 10:30 AM EST DARIN TEMPLETON [facility] Follow Up Appointments Follow Up with DARIN TEMPLETON When 04/18/2022 10:30 AM EST Where: [address] [place] [address] [address] [place] [id number]- Allergies sulfa drugs (Edema, Hives) Medications Please [...] by mouth Once a day Pickup at [facility] #[id number] Unchanged apixaban (Eliquis 5 mg oral tablet) [...] by mouth Once a day Pharmacy Information [facility] #[id number]: [address], [place] [id number] [phone] Please take this list to your next [...] until you are awake and alert. Take qdlr-ylk-kuitlgy and prescription medicines only as told by [...] 12/11/2013 Document Revised: 02/02/2018 Document Reviewed: 06/11/2016 [employer] Patient Education 2020 [employer]. CARDIOVERSION Discharge instructions ACTIVITY/SAFETY Please refrain from [...] Document Reviewed: 02/21/2014 ExitCare Patient Information 2015 [employer]. This information is not intended to replace advice given to you by your health care provider. Make sure you discuss any questions you have with your health care provider. Additional Information VACCINATE! IT SAVES LIVES! Members of the community who have not yet received the COVID-19 vaccine and would like to receive it can visit one of [facility] vaccine clinics. There are many vaccine clinic locations within the State. For locations and available times, please visit [email or web address] [email or web address] It is important to note that some COVID mobile vaccine clinics are held outdoors and may be canceled in rainy or stormy conditions. To learn more about pediatric vaccinations (ages 5-11), we invite you to visit the [facility] webpage. https://www.akImmuneWorkss.org/p ages/1945-Npboo-Tzvkgsumbym-Freq wdfsky-Xabmy-Mfclmvkpj.html To learn more about the COVID-19 vaccine, we invite you to visit the [employer] website for a list of frequently asked questions. [email or web address] [email or web address]-Y requently_[email or web address]-Questions.pdf [facility] Patient Portal Access Instructions: Stay connected with your healthcare team and access your personal medical information anytime with the [facility] Patient Portal.If you would like a full copy of your medical records, please contact the [facility] Medical Records Department, Monday through Monday between 8a.m. and 4:30p.m. Please follow the directions below to access the portal: 1.Access the email account you provided upon registration to the hospital.2.Look for an invitation email from [facility].3.Open the email and access the invitation link: Accept Invitation to [facility].Fill in the required nogueira to create your account. Sign into [email or web address] with your username and password that you [...] you will allow to register on the [facility] Patient Portal for access to your information. You can also access the [facility] Patient Portal on the [employer] suri. Simply click on Health Records under Health Data and then click on the [employer] logo. HOW TO SAFELY DISPOSE OF PRESCRIPTION [...] Call your local pharmacy or go to [email or web address]/[email or web address] to find one close to you.3.Make use of household items: Use cat litter or old coffee grounds to dispose medications if other options are not available. Mix your drugs with these household products, seal them in an airtight container and throw it into the garbage. Call [facility]: [phone] to be sure your drugs can be [...] aware that I should contact my doctor. Patient/Foot Specialist Signature: Date/Time: Relationship to Patient: Witness Name/Signature: Date/Time: [facility] 03-16-2022 Anesthesiology Consult note Patient: GEENA RIOS [...] 60 tab(s), 11 Refill(s), Pharmacy: [facility] #[id number], 148, cm, 03/08/22 13:26:00 EST, Height, 57.4, kg, 03/08/22 13:26:00 EST, Dosing Weight Metoprolol Tartrate 50 mg oral tablet: Dose : 75 mg = 1.5 tab(s), Oral, BID, # 90 tab(s), 3 Refill(s), Pharmacy: [facility] #[id number], 148, cm, 03/08/22 13:26:00 EST, Height amiodarone 200 mg oral tablet: Dose : 200 mg = 1 tab(s), Oral, BID, # 60 tab(s), 5 Refill(s), Pharmacy: [facility] #[id number], 148, cm, 01/26/22 13:52:00 EST, Height furosemide 20 mg oral tablet: Dose : 20 mg = 1 tab(s), Oral, qDay, # 90 tab(s), 3 Refill(s), Pharmacy: [facility] #[id number], 148, cm, 03/08/22 13:26:00 EST, Height Documented Medications Documented Caltrate: mg =, Oral, qDay, 0 Refill(s) ICaps AREDS: Oral, qDay, 0 Refill(s) One A Day Women's Complete: Oral, qDay, 0 Refill(s), Medications (1) Active Scheduled: (0) Continuous: (1) NS (0.9% nacl) 1,000 mL 1,000 mL, Intravenous, 20 mL/hr PRN: (0) Problem list: Medical Atrial fibrillation / SNOMED CT 01092663 / Confirmed Benign essential hypertension / SNOMED CT 5773065 / Confirmed Macular degeneration / SNOMED CT 1954702579 / Confirmed Age related osteoporosis / SNOMED CT 936932585 / Confirmed Rotator cuff arthropathy of right shoulder / SNOMED CT 8237213172 / Confirmed, Active Problems (6) Age related [...] Diabetes Sister (#1) Procedure history: Transesophageal echocardiogram ([id number]) on 01/10/2022 at 86 Years. Cardioversion ([id number]) on 01/10/2022 at 86 Years. 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 Neurologic: Alert, Oriented. Assessment and Plan [place] [employer] Anesthesiologists (ASA) physical status classification: [...] QUENTIN BARKSDALE DO on 03/16/2022 06:07 AM [facility] Evaluation + Plan note Future Appointments Appointment Date:12/17/2020 11:00:00 AM Scheduled Provider:NA NARANJO DO Location:[facility] Appointment Type: Wellness Medicare with Labs [facility] Evaluation + Plan note Future Appointments Appointment Date:12/15/2021 09:45:00 AM Scheduled Provider: Location:[facility] Appointment Type:PC Nurse Lab Appointment Date:12/23/2021 11:00:00 AM Scheduled Provider:NA NARANJO DO Location:[facility] Appointment Type:PC OV Future Scheduled TestsLipid Profile 12/24/21Complete Metabolic Panel 12/24/21 [facility] Evaluation + Plan note Future Appointments Appointment Date:12/23/2021 11:00:00 AM Scheduled Provider:NA NARANJO DO Location:[facility] Appointment Type:PC OV [facility] Evaluation + Plan note Future Appointments Appointment Date:03/08/2022 01:30:00 PM Scheduled Provider:DARIN TEMPLETON Location:[facility] Appointment Type:CV OV [facility] Evaluation + Plan note Future Appointments Appointment Date:04/18/2022 10:30:00 AM Scheduled Provider:DARIN TEMPLETON Location:[facility] Appointment Type:CV OV Future Scheduled TestsBasic Metabolic Panel 01/31/22N-Terminal proBNP 01/31/22 [facility] Evaluation + Plan note Future Appointments Appointment Date:09/21/2022 09:15:00 AM Scheduled Provider: Location:[facility] Appointment Type:PC Nurse Lab Appointment Date:09/26/2022 10:35:00 AM Scheduled Provider:NA NARANJO DO Location:[facility] Appointment Type:PC OV Diagnostic Tests PendingAmiodarone Level 08/23/22 Future Scheduled TestsBasic Metabolic Panel 01/31/22N-Terminal proBNP 01/31/22 [facility] Evaluation + Plan note Future Appointments Appointment Date:09/21/2022 09:15:00 AM Scheduled Provider: Location:[facility] Appointment Type:PC Nurse Lab Appointment Date:09/26/2022 10:35:00 AM Scheduled Provider:NA NARANJO DO Location:[facility] Appointment Type:PC OV Future Scheduled TestsBasic Metabolic Panel 01/31/22N-Terminal proBNP 01/31/22CT Thorax w/ Contrast 08/25/22 [facility] Evaluation + Plan note Future Appointments Appointment Date:09/26/2022 10:35:00 AM Scheduled Provider:NA NARANJO DO Location:[facility] Appointment Type:PC OV Future Scheduled TestsBasic Metabolic Panel 01/31/22N-Terminal proBNP 01/31/22CT Thorax w/ Contrast 08/25/22 [facility] Evaluation + Plan note Future Appointments Appointment Date:10/28/2022 10:05:00 AM Scheduled Provider:NA NARANJO DO Location:[facility] Appointment Type:PC OV Future Scheduled TestsBasic Metabolic Panel 01/31/22N-Terminal proBNP 01/31/22CT Thorax w/ Contrast 08/25/22 [facility] Evaluation + Plan note Future Appointments Appointment Date:10/28/2022 10:05:00 AM Scheduled Provider:NA NARANJO DO Location:[facility] Appointment Type:PC OV Future Scheduled TestsBasic Metabolic Panel 01/31/22Gamma Glutamyl Transferase 09/30/22Protein Electrophoresis Panel 09/30/22Complete Metabolic Panel 09/30/22N-Terminal proBNP 01/31/22CT Thorax w/ Contrast 08/25/22 [facility] Evaluation + Plan note Future Appointments Appointment Date:10/28/2022 10:05:00 AM Scheduled Provider:NA NARANJO DO Location:[facility] Appointment Type:PC OV Future Scheduled TestsCT Thorax w/ Contrast 08/25/22 [facility] Evaluation + Plan note Future Appointments Appointment Date:06/15/2023 10:00:00 AM Scheduled Provider:NA NARANJO DO Location:[facility] Appointment Type:PC OV Future Scheduled TestsCT Thorax w/ Contrast 08/25/22 [facility] Hospital course Narrative No data available for this section [facility] Hospital Discharge instructions No data available for this section [facility] Progress note No data available for this section [facility] Summary Purpose Family History No Family History Records Found Advance Directives No Advanced Directives Records FoundNo Advanced Directives Records Found Additional Source Comments Care Team (unrecognized sect ion and content) Personnel Name: NA NARANJO DO Address: [address] Personnel Name: NA NARANJO DO Address: [address] [place] [address] Care Team Personnel Name: NA NARANJO DO Position: P4 Physician - Primary Care Member Role: Primary Care Physician Address: Address: [address] [place] [address] Care Team Related Persons Name: DECLINED, DECLINED Care Team Personnel Name: NA NARANJO DO Position: P4 Physician - Primary Care Member Role: Primary Care Physician Address: Address: [address] [place] [address] Care Team Related Persons Name: DECLINED, DECLINED Care Team Personnel Name: NA NARANJO DO Position: P4 Physician - Primary Care Member Role: Primary Care Physician Address: Address: [address] [place] [address] Care Team Related Persons Name: DECLINED, DECLINED Care Team Personnel Name: NA NARANJO DO Position: P4 Physician - Primary Care Member Role: Primary Care Physician Address: Address: [address] [place] [address] Care Team Related Persons Name: DECLINED, DECLINED Care Team Personnel Name: SEBASTIAN NARANJOTT A DO Position: P4 Physician - Primary Care Member Role: Primary Care Physician Address: Address: [address] [place] [address] Care Team Related Persons Name: DECLINED, DECLINED Care Team Personnel Name: NA NARANJO DO Position: P4 Physician - Primary Care Member Role: Primary Care Physician Address: Address: [facility] Adrian Black [address] Care Team Related Persons Name: DECLINED, DECLINED Care Team Personnel Name: NA NARANJO DO Position: P4 Physician - Primary Care Member Role: Primary Care Physician Address: Address: [facility] [address] Care Team Related Persons Name: DECLINED, DECLINED Care Team (unrecognized sect ion and content) Care Team Personnel Name: NA NARANJO DO Position: P4 Physician - Primary Care Med Service: Active Provider Member Role: Primary Care Physician Address: Address: [facility] [address] Care Team Related Persons Name: DECLINED, DECLINED Care Team Personnel Name: NA NARANJO DO Position: P4 Physician - Primary Care Med Service: Active Provider Member Role: Primary Care Physician Address: Address: [facility] [address] Care Team Related Persons Name: DECLINED, DECLINED Care Team Personnel Name: NA NARANJO DO Position: P4 Physician - Primary Care Member Role: Primary Care Physician Address: Address: [facility] [address] Care Team Related Persons Name: DECLINED, DECLINED Care Team Personnel Name: NA NARANJO DO Position: P4 Physician - Primary Care Member Role: Primary Care Physician Address: Address: [facility] [address] Care Team Related Persons Name: DECLINED, DECLINED INFORMATION SOURCE (unrecogn ized section and content) DATE CREATED AUTHOR AUTHOR'S ORGANIZ ATION 03/22/2023 [facility] Source Comments (unrecognize d section and content) In the event this informatio n is protected by the Federal Confidentiality of Alcohol and Drug Abuse Patient Records regulations: The Federal rules restrict any use of the information to criminally investigate or prosecute any alcohol or drug abuse patient.[facility] Reason for Visit (unrecogniz ed section and [...] BE BASED ON THE PRIMARY CLINICAL RECORDS. [facility]. provides no warranty or guarantee of the accuracy or completeness of information in this document.
[2023-04-10 11:08] VITALS: BP 137/72; PULSE 82; RESP 18; O2SAT 100
[2023-04-10 11:15] VITALS: BP 137/80; PULSE 80; RESP 18; O2SAT 98
[2023-04-10] MEDS: Lidocaine 2% (20 ml mdv) 20 ML Vial INFILT (11:16)
[2023-04-10 11:20] VITALS: BP 121/67; PULSE 84; RESP 18; O2SAT 99
--- NOTE | 2023-04-10 11:29 | PCM.OP.PRO ---
Procedure Report Date of Procedure: 04/10/23 Assessment & Plan Assessment/Plan (1) Pleural effusion: PLAN: PROCEDURE: Ultrasound Guided Thoracentesis ORDERING PROVIDER: Meseret Tanner PA-C INDICATION: Female, 87 years old. Recurrent right pleural effusion. PROVIDER: MARIN Mallory PROCEDURE: The risks, benefits, and alternatives to the procedure were explained to the patient. The specific risks of bleeding, infection, and pneumothorax requiring chest tube insertion were discussed and accepted. Written informed consent was obtained. The patient was placed in the sitting, upright position. Ultrasonographic evaluation of the bilateral lower pleural spaces was carried out. An adequate pocket was identified in the right lower pleural space.The overlying skin was prepped and draped in sterile fashion. 2% lidocaine was administered subcutaneously for local anesthesia. Under ultrasound guidance, a 5-Japanese thoracentesis needle/catheter system was advanced into the right posterior lower pleural fluid collection. 1580 ml of cloudy wendy colored fluid was drained. 100 mL of this fluid was sent to the laboratory for analysis. The catheter was removed, and a sterile dressing was applied. The patient tolerated the procedure well. A chest x-ray was ordered. IMPRESSION: Successful ultrasound-guided thoracentesis of recurrent right pleural effusion. Also notable left side effusion on ultrasonographic evaluation. Procedures Radiology Radiology US Procedures: [id number] Thoracentesis
--- NOTE | 2023-04-10 11:30 | RAD_ITS ---
STUDY: X-RAY CHEST REASON FOR EXAM: Female, 87 years old. Immediately post thoracentesis TECHNIQUE: AP inspiration and expiration views. COMPARISON: Comparison is made with prior study dated April 06, 2023. FINDINGS: The patient is status post right thoracentesis. No evidence of pneumothorax. Pleural-parenchymal changes are still present at the left lung base. RAD/Chest Insp/Exp 2 View IMPRESSION: Status post right thoracentesis. No evidence of pneumothorax. Electronically Signed: Armand Steele MD at 12:24 EST ,
[2023-04-10 11:31] VITALS: BP 109/51; PULSE 71; RESP 18; O2SAT 98
[2023-04-10 11:40] VITALS: BP 118/75; PULSE 91; RESP 18; O2SAT 98
== END | disposition home or self-care (01) ==
PROVIDERS: PCP Family Medicine; Referring Provider Physician Assistant Medical; Visit Provider Physician Assistant Medical
DX: I11.0 Hypertensive heart disease with heart failure (principal); I50.9 Heart failure, unspecified; I48.91 Unspecified atrial fibrillation; J90 Pleural effusion, not elsewhere classified
CPT/HCPCS: 32555; 71046

== ENCOUNTER 2023-04-12 16:09 | Emergency (ER) | payer MEDICARE, BC, SELFPAY ==
[2023-04-12 16:10] VITALS: BP 110/68; PULSE 91; RESP 18; TEMP 36.7; O2SAT 93; BMI 25.9
[2023-04-12 16:13] VITALS: BP 110/74; PULSE 82; RESP 16; TEMP 36.7; O2SAT 97
--- NOTE | 2023-04-12 16:22 | ED.RN ---
bruising under left arm. per family patient fell the other day. thoracentesis x 2 since monday. 1.5 liters on monday and 1 liter today taken off.
--- NOTE | 2023-04-12 16:42 | RAD_ITS ---
STUDY: X-RAY - LEFT HUMERUS REASON FOR EXAM: Female, 87 years old. fall TECHNIQUE: AP and lateral view(s) of the humerus. COMPARISON: None. FINDINGS: Normal visualized humerus. There is no demonstrated fracture or osseous destructive process. Degenerative changes of the glenohumeral joint. There is no demonstrated soft tissue abnormality. RAD/Humerus min 2 Views IMPRESSION: No acute fracture of the humerus. Electronically Signed: Osito Russ MD at 18:17 EST ,
--- NOTE | 2023-04-12 16:42 | ED.VIS.CHEST ---
HPI History of Present Illness Chief Complaint: Chest Pain Detail of Chief Complaint: Left-sided chest pain and left arm pain. Fell x 2 about 10 days ago. Informant: patient and family Onset/Context/Timing Onset: Today and Hours Timing: Intermittent Location: Left Chest Current Severity: Mild Maximum Severity: Mild Worsened By: Movement of Arm and Movement of Torso Relieved By: Remaining Still Associated Symptoms: Negative for Nausea, Vomiting, Diaphoresis, Dyspnea, Cough, Fever, Lightheadedness, Acid Reflux or Palpitations Narrative Narrative: 87-year-old female [facility] of [facility] She had 2 falls about 10 days ago last Monday and Monday over a week ago. Patient has been doing well. She has known bilateral pleural effusions. Today and on Monday had thoracentesis on the right x 2 once per day. Today around 130 started having left-sided chest and arm discomfort. She has a known bruise on the left arm from the fall. They did do a thoracentesis after she started having the pain. Denies hitting her head. Denies recent illness. Prior Similar Symptoms: No Recent Illness/Hospitalization: Yes CVD Risk Factors: Negative for Hypertension or Diabetes PE Risk Factors: Positive for Recent Immobilization; Negative for Recent Travel/Surgery, Prior DVT or PE, Cancer or OCP + Smoking + >/=35 TAD Risk Factors: Negative for Marfan's Syndrome [facility] Medical History Anticoagulant long-term use Atrial fibrillation Atrial flutter Bilateral pneumonia Edema First degree heart block Grade III diastolic dysfunction History of cardioversion History of hypertension Hypercholesteremia Hypertension Kidney disease 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 Myocardial infarct Non-smoker Nonischemic cardiomyopathy Osteoporosis Palpitations Paroxysmal atrial fibrillation Rheumatic fever Rotator cuff arthropathy SOB (shortness of breath) Home Medications vitamins A,C,C-gedr-taomgy 4,296 mcg-226 mg-90 mg capsule (ICaps AREDS) 1 cap PO BID EYE HEALTH 03/28/22 [History Last Taken 02/26/23] multivitamin,tx-minerals 1 tab PO DAILY SUPPLEMENT 04/13/22 [History Last Taken 02/26/23] amiodarone 200 mg tablet 200 mg PO DAILY AFIB #90 tabs 04/15/22 [Rx Last Taken 02/26/23] metoprolol tartrate 50 mg tablet 50 mg PO BID BLOOD PRESSURE #180 tabs 04/15/22 [Rx Last Taken 02/26/23] calcium carb 300 mg-D3 20 mcg-mag ox 25 mg-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 0.5 [id number] tablet (Caltrate-D3 Plus Minerals) 1 tab PO DAILY SUPPLEMENT 06/14/22 [History Last Taken 02/26/23] apixaban 2.5 mg tablet 2.5 mg PO BID BLOOD THINNER #60 tabs 09/09/22 [Rx Last Taken 02/26/23] spironolactone 50 mg tablet 50 mg PO DAILY FLUID #60 tabs 02/06/23 [Rx Last Taken 02/26/23] menthol 0.44 %-zinc oxide 20.6 % topical ointment (Calmoseptine) 1 applic topical TID skin irritation #0 grams 02/26/23 [Rx Last Taken 02/26/23] Sucralfate [Carafate] 1 g PO 1HR_ACHS 30 days #120 TABLETS 03/17/23 [Rx Last Taken Unknown] acetaminophen 325 mg tablet 650 mg (2 x 325 mg) PO Q6H PRN PRN Pain 1-10 Or Fever #0 tabs 03/17/23 [Rx Last Taken Unknown] acetaminophen 500 mg tablet 1,000 mg (2 x 500 mg) PO 0800,2200 #0 tabs 03/17/23 [Rx Last Taken Unknown] furosemide 40 mg tablet (Lasix) 40 mg PO DAILY FLUID #90 tabs 04/07/23 [Rx Last Taken Unknown] mirtazapine 15 mg tablet 15 mg PO QHS 04/07/23 [History Last Taken Unknown] sucralfate 1 gram tablet 1 g PO Q6H #1 TAB 04/07/23 [Rx Last Taken Unknown] digoxin 125 mcg (0.125 mg) tablet 125 mcg PO .COMPLEX #15 tabs 04/12/23 [Rx Last Taken Unknown] Allergy/AdvReac Type Severity Reaction Status Date / Time Sulfa (Sulfonamide Allergy Angioedema Verified 04/12/23 16:18 Antibiotics) Family History Sister Asthma Breast cancer Diabetes Non-Hodgkin lymphoma Mother Myocardial infarction Brother Myocardial infarction Surgical History History of appendectomy History of thoracentesis Social History household members: none Smoking Status: Never smoker alcohol intake: never substance use type: does not use caffeine: Yes (occasionally) ROS ROS ED ROS Narrative Denies recent illness. Review of Systems ROS Unobtainable: Denies due to encephalopathy Constitutional Constitutional ED: Denies chills or fever(s) Eyes Eyes: Reports none ENT ENT ED: Denies ear pain Cardiovascular Cardiovascular: Reports as per HPI and chest pain; Denies palpitations or racing heartbeat Respiratory/Chest Respiratory/Chest: Denies cough, dyspnea or dyspnea on exertion Gastrointestinal Gastrointestinal: Denies abdominal pain Genitourinary Genitourinary ED: Denies dysuria or hematuria Musculoskeletal Musculoskeletal: Denies arthralgias, back pain, myalgias or neck pain Integumentary Denies abscess, Abrasions or rash Neurologic Neurologic: Denies headache(s) Psychiatric Psychiatric: Denies anxiety or depression Endocrine Endocrinology: Denies cold intolerance Hematologic/Lymphatic Hematologic/Lymphatic: Reports easy bruising and other Details: On Eliquis. Recent fall with bruising to her left upper arm. Allergic/Immunologic Allergic/Immunologic ED: Denies mouth swelling, tongue swelling or urticaria EXAM Physical Exam Narrative Exam Narrative: Well-appearing 87-year-old female. Vital signs are stable afebrile. Pulse ox is 93% on 2 L. She does not look septic or toxic. No distress. Family present in the room. H EENT exam pupils are reactive light. No signs of trauma to her face or scalp. Nontender. C-spine and neck nontender no lymphadenopathy. Lungs clear to auscultation bilaterally. Heart A-fib rate about 80 no murmur. Chest wall and ribs nontender. No crepitus. Abdomen soft, nontender, nondistended normal bowel sounds no peritoneal signs. Pelvic girdle intact. Moving all 4 extremities. 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 Dorsi plantarflexion intact. Chronic lymphedema both lower extremities. Bruising in the left upper arm which is resolving. No bony deformity. Normal range of motion. 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 Back nontender. Neurologically she is awake and alert with no focal motor deficits. Const Vital Signs: 04/12/23 16:10 04/12/23 16:13 04/12/23 16:21 Temperature 98.1 F 98.1 F Temperature Source Oral Oral Pulse Rate 91 82 Respiratory Rate 18 16 Respiratory Effort Normal Non-Labored Respiratory Pattern Normal Blood Pressure 110/68 110/74 Blood Pressure Mean 82 86 Pulse Ox 93 97 Oxygen Delivery Method Nasal Cannula Nasal Cannula Oxygen Flow Rate (L/min) 2 3 04/12/23 17:04 04/12/23 19:33 04/12/23 20:00 Temperature Temperature Source Pulse Rate 76 84 Respiratory Rate 13 18 Respiratory Effort Respiratory Pattern Blood Pressure 131/75 H 127/59 H Blood Pressure Mean 93 81 Pulse Ox 100 100 Oxygen Delivery Method Nasal Cannula Nasal Cannula Nasal Cannula Oxygen Flow Rate (L/min) 3 3 3 Positive well nourished and well developed; Negative for obese, cachectic, contractures or unkempt General Appearance ED: well developed and NAD; Negative for unkempt, cachectic, contractures or pallor Nutritional Appearance: Negative for cachectic or obese HEENT Reports moist mucous membranes; Denies dry mucous membranes normocephalic and atraumatic; Negative for trauma or tenderness Mouth ED: No dry mucous membranes Mouth: No dry mucous membranes Eyes PERRL and EOMs intact bilaterally General Eye ED: Negative for pale conjunctiva or scleral icterus Neck no lymphadenopathy, supple and no JVD General: Negative for tenderness Chest Wall inspection of chest normal and palpation of chest normal Chest: Negative for tenderness Resp normal respiratory effort and clear to auscultation bilaterally Effort and Inspection: Negative for respiratory distress Auscultation: Negative for rales, rhonchi or wheezes Cardio Rhythm: abnormal rhythm irregularly irregular Peripheral Pulses: pulses 2+ throughout GI normal to inspection, nondistended, normoactive bowel sounds, soft to palpation, non-tender, non-distended and no masses; Negative for hepatosplenomegaly Back/Spine no CVA tenderness and no thoracic nor lumbar tenderness General Back: Negative for CVA tenderness Cervical Spine: Negative for cervical spine tenderness Extremity Negative for normal to inspection Extremity Narrative: Except bruising left upper extremity. No deformity. Normal range of motion. 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 Chronic bilateral lymphedema. Nontender. General Extremety ED: Yes edema; Negative for pulses abnormal or tenderness General Extremity: edema; Negative for pulses abnormal Neuro oriented x3 and CN's II-XII intact bilaterally Sensorium / Orientation: awake, alert, oriented to person, oriented to place and oriented to time; Negative for confused, lethargic or stuporous Motor Exam: strength 5/5 throughout; Negative for general weakness or strength abnormal Psych Appearance: Negative for unkempt Attitude: No agitated Mood & Affect: Negative for depressed or anxious Skin no rashes or lesions noted and no wounds General Skin Exam: Negative for jaundice or pallor Rashes: No rashes noted Trauma: Negative for abrasion or laceration Heart Score History: Slightly/Non-Suspicious ECG: Normal (A-fib.) Age: >/= 65 years Risk Factors: No Risk Factors Troponin: </= Normal Limit Score: 2 MDM MDM MDM Narrative Medical decision making narrative: 87-year-old female known history of A-fib on Eliquis had 2 falls 10 days ago. Has a bruise to her left arm. Is having left chest and arm discomfort with movement today. Undergo cardiac workup I do not think this is cardiac. She is on Eliquis I do not think it is a DVT or PE. She had thoracentesis both on Monday and today they did inspiratory and expiratory films there is no signs of pneumothorax. Repeat exam patient is doing well. I do not think she needs admitted to the hospital. She will be discharged to home. This may be musculoskeletal because she has bruising up and down her left upper arm. Her chart has a prior cardiac cath in 2004. That is in error. That was not this patient's cardiac cath. She has never had one. History & Record Review Discussion w/independent historian: Patient Lab Data Attestation: I reviewed the patient's lab results. Lab results narrative: Chest x-ray bilateral pleural effusions larger on the left. No rib fractures. No pneumothorax. Interpreted by myself. Left humerus x-ray x 2 interpreted by myself shows arthritis but no acute fracture or dislocation. CBC unremarkable white count 11.2. H&H 12 and 38. Platelets were too numerous. Electrolytes show sodium 131. Gap of 3. BUN and creatinine 22 and 0.8. Glucose 106. Troponin is elevated at 122. 2-hour troponin is 115 and actually lower. Old labs patient's had significantly higher troponins in the past. Labs: Laboratory Results - last 24 hr 04/12/23 04/12/23 17:07 19:20 WBC 11.2 H RBC 3.95 L Hgb 12.5 Hct 38.8 MCV 98.2 MCH 31.6 MCHC 32.2 RDW Std Deviation 63.7 H RDW Coeff of Shahbaz 18.6 H Plt Count TNP MPV 10.2 Immature Gran % (Auto) 0.400 Neut % (Auto) 86.0 H Lymph % (Auto) 7.7 L [place] % (Auto) 4.8 Eos % (Auto) 0.7 Baso % (Auto) 0.4 Absolute Neuts (auto) 9.6 H Absolute Lymphs (auto) 0.86 Nucleated RBC % 0 Differential Comment Platelet Estimate ADEQUATE Sodium 131 L Potassium 4.5 Chloride 91 L Carbon Dioxide 37.0 H Anion Gap 3 L BUN 22 H Creatinine 0.85 Estim Creat Clear Calc 36.56 Est GFR (MDRD) Af Amer 82 Est GFR (MDRD) Non-Af 67 BUN/Creatinine Ratio 26.0 H Glucose 106 Calcium 10.2 H Troponin I High Sens 122 H* 115 H Radiography Chest X-Ray - ED: 1 View, Read by ED Physician, Heart, Mediastinum, Bony Structures, Chronic Changes, Right Effusion and Left Effusion Diagnostic Testing: Clinical Impression(s) from Imaging Studies Humerus X-Ray 04/12/23 16:42 IMPRESSION: No acute fracture of the humerus. Electronically Signed: Osito Russ MD at 18:17 EST Reading Location ID and State: [address] [place] [address] Tel [phone], Service support , Chest X-Ray 04/12/23 17:15 IMPRESSION: Small residual left pleural effusion and left lower lobe atelectasis. Mild right basilar atelectasis which is new finding since prior exam Electronically Signed: Osito Russ MD at 18:16 EST , Chest x-ray, single view, portable, interpreted by myself shows bilateral pleural effusions. Chronic changes. No rib fractures. No pneumothorax. Left humerus x-ray, 2 views, interpreted myself and radiologist shows no acute abnormality. No fracture or dislocation. Rhythm Strip Rhythm Strip: A-fib Rate: 79 Ectopy: None EKG Initial EKG: Attestation: I personally reviewed and interpreted this EKG as follows: Interpretation: Atrial Fibrillation Comments: A-fib rate of 79 no acute signs of NV or ischemia. Discharge Plan Triage Chief Complaint: Chest Pain ED Provider: Laron Wilkins Dx/Rx/DC Orders Clinical Impression: Atrial fibrillation, Contusion of arm, left, Chest pain, Fall Instructions: ED Contusion, Upper Extremity, ED Chest Pain, Uncertain Cause Prescriptions: No Action amiodarone 200 mg tablet 200 mg PO DAILY Qty: 90 3RF metoprolol tartrate 50 mg tablet 50 mg PO BID Qty: 180 3RF multivitamin,tx-minerals Tablet 1 tab PO DAILY apixaban 2.5 mg tablet 2.5 mg PO BID Qty: 60 11RF spironolactone 50 mg tablet 50 mg PO DAILY Qty: 60 3RF mirtazapine 15 mg tablet 15 mg PO QHS sucralfate 1 gram tablet 1 g PO Q6H Qty: 1 0RF Rx Instructions: taking liquid form furosemide [Lasix] 40 mg tablet 40 mg PO DAILY Qty: 90 3RF ICaps AREDS [id number],[id number] Capsule 1 cap PO BID Caltrate-D3 Plus Minerals 300 mg-800 unit -25 mg-0.5 mg tablet 1 tab PO DAILY menthol-zinc oxide [Calmoseptine] 0.44-20.6 % Ointment 1 applic topical TID Qty: 0 0RF Protocol: *Topical Application Instructions APPLICATION INSTRUCTIONS: apply to affected areas acetaminophen 325 mg Tablet 650 mg PO Q6H PRN PRN (Reason: Pain 1-10 Or Fever) Qty: 0 0RF acetaminophen 500 mg Tablet 1,000 mg PO 0800,2200 Qty: 0 0RF Sucralfate [Carafate] 1 g tablet 1 g PO 1HR_ACHS 30 Days Qty: 120 0RF digoxin 125 mcg (0.125 mg) tablet 125 mcg PO .COMPLEX Qty: 15 6RF Rx Instructions: 125 mcg orally TAKE 1/2 tablet DAILY: NOT A FULL TABLET; Primary Care Provider: Alonso Marques Referrals: Alonso Marques, DO [Primary Care Provider] - 3-5 Days if not improving Activity Restrictions/Additional Instructions: Follow-up with your primary care physician. Tylenol for pain. Disposition Disposition: Home, Self Care
[2023-04-12] MEDS: Acetaminophen 500 MG Tablet 1000 MG PO (17:15)
--- NOTE | 2023-04-12 17:15 | RAD_ITS ---
STUDY: X-RAY CHEST REASON FOR EXAM: Female, 87 years old. chest pain TECHNIQUE: Portable COMPARISON: April 12, 2023 3:00 PM FINDINGS: Small left pleural effusion and left lower lobe atelectasis. Mild discoid atelectasis in the right lower lobe . Normal size heart. Normal mediastinum and kim. Normal visualized pulmonary arteries. Mildly calcified aortic arch and descending thoracic aorta. Dorsal spine and straight scoliosis and degenerative changes. The shoulders demonstrate degenerative change. Normal visualized ribs, and clavicles.. There is no demonstrated abnormality of the visualized soft tissue structures of the upper abdomen. RAD/Chest 1 View (Portable) IMPRESSION: Small residual left pleural effusion and left lower lobe atelectasis. Mild right basilar atelectasis which is new finding since prior exam Electronically Signed: Osito Russ MD at 18:16 EST ,
[2023-04-12 17:16] LABS: Absolute Lymphocyte Count 0.86 X10^3/uL (0.83-4.51); Absolute Neutrophil Count 9.6 X10^3/uL (2.0-7.7); Basophil# 0.04 X10^3/uL; Basophil% 0.4 % (0-1); Eosinophil# 0.08 X10^3/uL; Eosinophils% 0.7 % (0-5); Hematocrit 38.8 % (37-47); Hemoglobin 12.5 g/dL (12.0-15.0); Lymphocyte # 0.86 X10^3/ul (0.83-4.51); Lymphocyte % 7.7 % (19-41); Mean Corp Hgb Conc 32.2 g/dL (32-36); Mean Corpuscular Hgb 31.6 pg (27.0-32.0); Mean Corpuscular Volume 98.2 fL (81-99); Mean Platelet Vol. 10.2 fl (6.2-12.0); Monocyte# 0.54 X10^3/uL; Monocyte% 4.8 % (0-10); NRBC Flagged by Analyzer 0 % (0-5); Neutrophil # 9.58 X10^3/uL (2.7-7.7); POSITIVE COUNT YES; RBC Distribution Width CV 18.6 % (11.6-14.6); RBC Distribution Width SD 63.7 fl (35.1-43.9); Red Blood Count 3.95 M/mm3 (4.2-5.4); White Blood Count 11.2 K/mm3 (4.4-11.0)
[2023-04-12 17:41] LABS: Platelet Estimate ADEQUATE (ADEQ)
[2023-04-12 17:47] LABS: Anion Gap 3 (5-15); BUN 22 mg/dL (7-18); Calcium,Total 10.2 mg/dL (8.5-10.1); Chloride 91 mmol/L (98-107); Creatinine, Serum 0.85 mg/dL (0.55-1.02); EST Glomerular Filtration Rate 67 mL/min (>60); Est Glom Filt Rate - Afr Amer 82 mL/min (>60); Estimated Creatinine Clearance 36.56 ml/min; Glucose 106 mg/dL (74-106); Potassium 4.5 mmol/L (3.5-5.1); Sodium Level 131 mmol/L (136-145); Troponin-I HS (w/2H Reflex) 122 pg/mL (3.0-54.0)
[2023-04-12 19:11] LABS: Reflex Troponin-HS? (from REC) Y
[2023-04-12 19:33] VITALS: BP 131/75; PULSE 76; RESP 13; O2SAT 100
[2023-04-12 20:00] VITALS: BP 127/59; PULSE 84; RESP 18; O2SAT 100
[2023-04-12 20:25] LABS: Troponin-I HS 115 pg/mL (3.0-54.0)
[2023-04-12 21:34] VITALS: BP 113/74; PULSE 87; RESP 15; O2SAT 100
== END 2023-04-12 21:35 | disposition home or self-care (01) ==
PROVIDERS: Emergency Provider Emergency Medicine; PCP Family Medicine; Visit Provider Emergency Medicine
DX: R07.9 Chest pain, unspecified (principal); I11.0 Hypertensive heart disease with heart failure; I50.32 Chronic diastolic (congestive) heart failure; I48.0 Paroxysmal atrial fibrillation; S40.022A Contusion of left upper arm, initial encounter; Z79.01 Long term (current) use of anticoagulants; Z79.899 Other long term (current) drug therapy; I25.2 Old myocardial infarction; Z90.49 Acquired absence of other specified parts of digestive tract; W19.XXXA Unspecified fall, initial encounter
CPT/HCPCS: 36415; 71045; 73060; 80048; 84484; 85025; 93005; 99284; A4216

== ENCOUNTER → 2023-04-12 | Outpatient (CLI) | payer MEDICARE, BC, SELFPAY ==
[2023-04-12] MEDS: Lidocaine 2% (20 ml mdv) 20 ML Vial INFILT (14:51)
--- NOTE | 2023-04-12 14:59 | RAD_ITS ---
STUDY: X-RAY CHEST REASON FOR EXAM: Female, 87 years old. Immediately post thoracentesis TECHNIQUE: AP inspiration and expiration views. COMPARISON: Comparison is made with prior study dated April 10, 2023. FINDINGS: The patient is status post left thoracentesis. No evidence of pneumothorax on the post left thoracentesis images. Mild residual pleural parenchymal changes seen at the left lung base. Degenerative changes of both shoulders worse on the right side. RAD/Chest Insp/Exp 2 View IMPRESSION: Status post left thoracentesis. No evidence of pneumothorax. Electronically Signed: Armand Steele MD at 15:16 EST ,
--- NOTE | 2023-04-12 15:06 | PRO.PCM_ITS ---
Procedure Report Date of Procedure: 04/12/23 Assessment & Plan Assessment/Plan (1) Pleural effusion: PLAN: PROCEDURE: Ultrasound Guided Thoracentesis ORDERING PROVIDER: Meseret Tanner PA-C INDICATION: Female, 87 years old. Bilateral pleural effusions. PROVIDER: MARIN Mallory PROCEDURE: The risks, benefits, and alternatives to the procedure were explained to the patient. The specific risks of bleeding, infection, and pneumothorax requiring chest tube insertion were discussed and accepted. Written informed consent was obtained. The patient was placed in the sitting, upright position. Ultrasonographic evaluation of the bilateral lower pleural spaces was carried out. The order was received for thoracentesis of left pleural effusion. However, on ultrasonographic evaluation the right pleural effusion was markedly larger than the left, despite previous drainage just 2 days ago. Therefore, thoracentesis was performed on right pleural effusion for greatest therapeutic benefit. The overlying skin was prepped and draped in sterile fashion. 2% lidocaine was administered subcutaneously for local anesthesia. Under ultrasound guidance, a 5-Romansh thoracentesis needle/catheter system was advanced into the right posterior lower pleural fluid collection. 980 ml of cloudy yellow colored fluid was drained. The catheter was removed, and a sterile dressing was applied. The patient tolerated the procedure well. A chest x-ray was ordered. The patient's daughter was informed that the procedure was carried out on the right pleural effusion. Patient and daughter were encouraged to follow-up with cardiology for continued management for recurrent accumulation. IMPRESSION: Successful ultrasound-guided thoracentesis of right pleural effusion. Procedures Radiology Radiology US Procedures: [id number] Thoracentesis
[2023-04-12 15:13] VITALS: BP 115/68; PULSE 103; RESP 20; O2SAT 94
[2023-04-12 15:15] VITALS: BP 112/64; BP 120/65; PULSE 85; RESP 18; O2SAT 90; O2SAT 92
== END | disposition home or self-care (01) ==
LOC: US 14:16
PROVIDERS: PCP Family Medicine; Referring Provider Nurse Practitioner Acute Care; Visit Provider Nurse Practitioner Acute Care
DX: J90 Pleural effusion, not elsewhere classified (principal)
CPT/HCPCS: 32555; 71046